=== PATIENT | male | born 1940 | race Caucasian/White ===

== ENCOUNTER → 2016-10-22 | Outpatient (CLI) | payer BC ==
[~2016-10-22] MED LIST: AMOX500C3 PO; ASCO500T16 PO; CHOL1CAP95 PO; CITA20TA9 PO; CYAN100020 SL; FERR1TAB13 PO; GABA-113 PO; GLIP-199 PO; HYDR-4715 PO; LVNIS40 SQ; METO25TA3 PO; OMEP10CA2 PO; SIMV40TA2 PO; SULF800T23 PO; SUMA50TA15 PO; TIZA4CAP PO; TPRSR/25 PO
[2016-10-22 15:46] LABS: BASO % 0.5 %; BASO ABS # 0.05 K/uL (0-0.2); COMPLETE YES; EOS % 4.8 %; HEMATOCRIT 41.3 % (42-52); IG% 0.1 %; LYMPH ABS # 1.79 K/uL (1.2-3.4); MEAN CELL VOLUME 86.9 fL (80-100); MEAN CORPUSCULAR HEMOGLOBIN 27.8 pg (25-34); MEAN PLATELET VOLUME 11.8 fL (7.4-10.4); NEUT % 66.6 %; PLATELET COUNT 224 K/uL (130-400); RED BLOOD COUNT 4.75 M/uL (4.7-6.1); WHITE BLOOD COUNT 9.42 K/uL (4.8-10.8)
[2016-10-22 16:12] LABS: ALT/SGPT 20 U/L (12-78); AST/SGOT 7 U/L (15-37); BLOOD UREA NITROGEN 18 mg/dl (7-18); BUN/CREATININE RATIO 14.9 (10-20); CALCIUM 8.7 mg/dl (8.5-10.1); CARBON DIOXIDE 30 mmol/L (21-32); CHLORIDE 104 mmol/L (98-107); GLUCOSE 317 mg/dl (70-99); POTASSIUM 4.1 mmol/L (3.5-5.1); SODIUM 139 mmol/L (136-145)
[2016-10-22 16:14] LABS: ALB/GLOB RATIO 0.7 (0.9-2); CHOLESTEROL 189 mg/dl (0-200); TRIGLYCERIDES 174 mg/dl (0-150); VERY LOW DENSITY LIPOPROT CALC 35 mg/dl
[2016-10-22 16:21] LABS: ALKALINE PHOSPHATASE 101 U/L (45-117); BETA-HYDROXYBUTYRATE 0.98 mg/dL (0.2-2.81); CHOLESTEROL/HDL RATIO 5.7; HDL CHOLESTEROL 33 mg/dl; LDL CHOLESTEROL CALCULATED 121 mg/dl
[2016-10-23 06:18] LABS: ESTIMATED AVERAGE GLUCOSE 180 mg/dl; HA1C FLAG Normal (Normal)
== END | disposition home or self-care (01) ==
LOC: C.LAB1850 14:37
PROVIDERS: ATTEND Internal Medicine
DX: E11.8 Type 2 diabetes mellitus with unspecified complications (principal); D64.9 Anemia, unspecified; E53.8 Deficiency of other specified B group vitamins; N18.3 Chronic kidney disease, stage 3 (moderate)

== ENCOUNTER → 2016-12-02 | Outpatient (CLI) | payer BC ==
--- NOTE | 2016-12-02 14:34 | DIAGNOSTIC IMAGING REPORT ---
CERVICAL SPINE 2 OR 3 VIEWS CLINICAL HISTORY: Neck stiffness. No recent trauma. COMPARISON STUDY: MRI of the cervical spine September 06, 2008. FINDINGS: C6 is partially obscured. C7 is obscured on this exam due to overlying soft tissues. Visualized vertebral body heights are maintained. There is no fracture or suspicious lesion on this exam. Moderate disc space narrowing at C3-C4 and C5-C6 is noted with moderate multilevel facet facet arthrosis. IMPRESSION: 1. Partial obscuration of C6 and C7 due to overlying soft tissues. 2. Moderate multilevel degenerative disc disease and facet arthrosis of the cervical spine. Electronically signed by: Finesse Martinez M.D. 12/02/2016 2:33 PM Dictated Date/Time: 12/02/2016 2:32 PM
== END | disposition home or self-care (01) ==
LOC: C.RAD1850 13:40
PROVIDERS: ATTEND Internal Medicine
DX: M43.6 Torticollis (principal); M50.30 Other cervical disc degeneration, unspecified cervical region

== ENCOUNTER 2017-01-04 22:44 | Inpatient (IN) | payer BC, OTHER ==
[~2017-01-04] VITALS: Ht 172.7 cm; Wt 84.3 kg
[~2017-01-04 22:44] MED LIST changes: -AMOX500C3 PO; -ASCO500T16 PO; -CHOL1CAP95 PO; -CYAN100020 SL; -FERR1TAB13 PO; -HYDR-4715 PO; -LVNIS40 SQ; -SULF800T23 PO; -TPRSR/25 PO
[2017-01-04] MEDS ORDERED: FENTANYL CITRATE INJ 50 MCG/1 ML 2 ML VIAL IV STA (22:55)
[2017-01-04] MEDS ORDERED: SODIUM CHLORIDE 0.9% 500ML 500 ML IV STA (22:55)
--- NOTE | 2017-01-04 22:59 | EMERGENCY ROOM VISIT NOTE ---
History Report prepared by Juan Pablo: Bharath Curiel Under the Supervision of: Dr. Rasheed Mclaughlin M.D. First contact with patient: 22:47 Chief Complaint: HIP PAIN Stated Complaint: FALL/HIP PAIN History of Present Illness The patient is a 76 year old male who presents to the Emergency Room with complaints of right hip pain that began 8 hours ago. He rates his pain a 3/10 in severity. At this time, the patient was moving from his wheelchair to his lazy boy, and he fell onto the floor. He uses a wheelchair because of his past medical history of MS. He told his family that he was in pain a couple of hours ago, which is why he presents now. He denies any history of stroke. He did not take anything before arrival for the pain. He did not lose consciousness. His pain worsens with movement. Source of History: patient Onset: 8 hours ago Position: other (Right hip) Symptom Intensity: 3/10 Quality: sharp Timing: constant Modifying Factors (Worsening): movement Associated Symptoms: No LOC Review of Systems See HPI for pertinent positives & negatives. A total of 10 systems reviewed and were otherwise negative. Past Medical & Surgical Medical Problems: (1) Benign hypertension (2) Diabetic foot ulcer (3) Hernia repair (4) Hyperlipidemia (5) Left Foot Ulcer (6) Multiple sclerosis (7) Osteomyelitis of left foot (8) Poliomyelitis (9) Right femoral shaft fracture (10) Tonsillectomy Family History Patient reports no known family medical history. Social History Smoking Status: Former Smoker Smokeless Tobacco Use: No Drug Use: none Marital Status: Housing Status: lives with significant other Occupation Status: retired, disabled Current/Historical Medications Scheduled Ascorbic Acid (Ascorbic Acid), Unknown Dose PO DAILY Cholecalciferol (Vitamin D3), 50,000 UNITS PO WEEKLY Citalopram Hydrobromide (Celexa), 20 MG PO DAILY Cyanocobalamin (Vitamin B12), 2,500 MCG SL DAILY Ferrous Sulfate (Kp Ferrous Sulfate), 325 MG PO DAILY Gabapentin (Neurontin), 300 MG PO HS Glipizide (Glipizide Er), 10 MG PO BID Hydralazine Hcl (Apresoline), 10 MG PO AMPM Metoprolol Succinate (Toprol Xl), 25 MG PO DAILY Metoprolol Succinate (Metoprolol Succinate ER), 25 MG PO QAM Omeprazole (Prilosec), 10 MG PO QAM Simvastatin (Zocor), 40 MG PO HS Sumatriptan Succinate (Imitrex), 50 MG PO PRN Allergies Coded Allergies: Ciprofloxacin (Verified Allergy, Mild, HIVES, 06/05/16) Physical Exam Vital Signs Date Time Temp Pulse Resp B/P (MAP) Pulse Ox O2 Delivery O2 Flow Rate FiO2 01/05/17 00:07 109 24 132/90 93 Room Air 01/04/17 22:49 36.9 116 26 130/106 93 Room Air Physical Exam GENERAL: Patient is well appearing and in moderate acute distress. HEENT: No acute trauma, normocephalic atraumatic, mucous membranes moist, no nasal congestion, no scleral icterus. NECK: No stridor, no adenopathy, no meningismus, trachea is midline. LUNGS: No dyspnea. Clear to auscultation and equal bilaterally. No wheeze, no rhonchi. HEART: Regular rate and rhythm. No murmurs, rubs, gallops appreciated. ABDOMEN: Soft, nontender, bowel sounds positive, no masses appreciated, no peritonitis. Folly in place. BACK: No midline tenderness, no CVA tenderness EXTREMITIES: Wasting to the right upper extremity. Amputation of the left lower leg. Contractures of the right leg with pain at the hip and mid-thigh on ROM. NEUROLOGIC: Alert and oriented, no acute motor or sensory deficits, no focal weakness, cranial nerves grossly intact. SKIN: No rash, no jaundice, no diaphoresis. Medical Decision & Procedures ER Provider Diagnostic Interpretation: Radiology results and stated below per my review and radiologist interpretation: SINGLE VIEW PELVIS; 2 VIEWS RIGHT FEMUR CLINICAL HISTORY: Fall with right leg pain. FINDINGS: An AP view of the pelvis with AP and crosstable lateral views of the right femur are obtained. Correlation is made with pelvic CT dated 02/17/2013. The skeletal structures are osteopenic. There is a distracted spiral fracture through the subtrochanteric right femur. There is apex dorsal and medial angulation, with at least 6 cm of overriding of the largest fragments. Overlying soft tissue edema is noted. The distal femur is intact. The pelvis and left hip are intact as imaged. Mild arthritic change is present in the hips and the visualized right knee. Lumbosacral spondylosis is observed. Numerous pelvic phleboliths are identified. There is a nonobstructed abdominal bowel gas pattern. Atherosclerotic calcification is seen in the right femoral artery. IMPRESSION: 1. There is a distracted, angulated, and overriding fracture through the subtrochanteric right femoral shaft with overlying soft tissue edema. 2. The remainder of the right femur is intact, as is the bony pelvis and the imaged left hip. 3. Osteopenia and degenerative change as above. Electronically signed by: Clark Rodriguez M.D. 01/04/2017 11:39 PM Dictated Date/Time: 01/04/2017 11:35 PM 1 VIEW CHEST XRAY: No infiltrate, no effusion, similar sized heart to previous which is large, bilateral lower atelectasis. Per hi Laboratory Results 01/04/17 23:00 Red Blood Count 4.72, Mean Corpuscular Volume 86.9, Mean Corpuscular Hemoglobin 28.2, Mean Corpuscular Hemoglobin Concent 32.4, Mean Platelet Volume 11.8, Neutrophils (%) (Auto) 78.9, Lymphocytes (%) (Auto) 9.5, Monocytes (%) (Auto) 9.6, Eosinophils (%) (Auto) 1.5, Basophils (%) (Auto) 0.2, Neutrophils # (Auto) 11.03, Lymphocytes # (Auto) 1.33, Monocytes # (Auto) 1.34, Eosinophils # (Auto) 0.21, Basophils # (Auto) 0.03 01/04/17 23:00 Test 01/04/17 23:00 White Blood Count 13.98 K/uL (4.8-10.8) Red Blood Count 4.72 M/uL (4.7-6.1) Hemoglobin 13.3 g/dL (14.0-18.0) Hematocrit 41.0 % (42-52) Mean Corpuscular Volume 86.9 fL (80-100) Mean Corpuscular Hemoglobin 28.2 pg (25-34) Mean Corpuscular Hemoglobin Concent 32.4 g/dl (32-36) Platelet Count 239 K/uL (130-400) Mean Platelet Volume 11.8 fL (7.4-10.4) Neutrophils (%) (Auto) 78.9 % Lymphocytes (%) (Auto) 9.5 % Monocytes (%) (Auto) 9.6 % Eosinophils (%) (Auto) 1.5 % Basophils (%) (Auto) 0.2 % Neutrophils # (Auto) 11.03 K/uL (1.4-6.5) Lymphocytes # (Auto) 1.33 K/uL (1.2-3.4) Monocytes # (Auto) 1.34 K/uL (0.11-0.59) Eosinophils # (Auto) 0.21 K/uL (0-0.5) Basophils # (Auto) 0.03 K/uL (0-0.2) RDW Standard Deviation 43.6 fL (36.4-46.3) RDW Coefficient of Variation 13.8 % (11.5-14.5) Immature Granulocyte % (Auto) 0.3 % Immature Granulocyte # (Auto) 0.04 K/uL (0.00-0.02) Red Blood Cell Morphology Unremarkable Prothrombin Time 10.7 SECONDS (9.0-12.0) Prothromb Time International Ratio 1.0 (0.9-1.1) Activated Partial Thromboplast Time 27.1 SECONDS (21.0-31.0) Partial Thromboplastin Ratio 1.0 Anion Gap 6.0 mmol/L (3-11) Est Creatinine Clear Calc Drug Dose 46.0 ml/min Estimated GFR () 55.4 Estimated GFR (Non- 47.8 BUN/Creatinine Ratio 18.1 (10-20) Calcium Level 8.9 mg/dl (8.5-10.1) Laboratory results as reviewed by me. Medications Administered Medications (Trade) Dose Ordered Sig/Sinai Route Start Time Stop Time Status Last Admin Dose Admin Fentanyl Citrate (Fentanyl Inj) 50 mcg NOW STAT IV 01/04/17 22:55 01/04/17 22:57 DC 01/04/17 23:06 50 MCG Sodium Chloride 500 ml @ 999 mls/hr Q31M STAT IV 01/04/17 22:55 01/04/17 23:25 DC 01/04/17 23:07 999 MLS/HR ECG Indication: other (Fall) Rate (beats per minute): 111 Rhythm: sinus tachycardia Findings: no acute ischemic change, no ectopy ED Course 2247: The patient was evaluated in room C3. A complete history and physical exam was performed. 2255: Ordered Sodium Chloride 500 ml @ 99 mls/hr IV, Fentanyl Citrate 50 mcg IV 2345: I spoke with Dr. Gray of Orthopedics at this time. Please see the consultation note. 2350: Upon reevaluation, the patient is resting. Discussed results and treatment plan with the patient. He verbalized understanding and agreement with the treatment plan. The patient will be evaluated by Dr. Ynes SANTAMARIA, for further management. Medical Decision Medication Reconciliation: I attest that I have personally reviewed the patient 's current medication list. Blood Pressure Screening: Patient was found to have a slightly elevated blood pressure due to circumstances. I do not believe that the patient requires hypertension monitoring. 76 yr old male arrives for evaluation of right thigh s/p fall several hours ago. Uncomfortable and exam consistent with injury to femur which confirmed by imaging. Ortho in to see and will admit to hospitalist service given age and medical comorbidities. HR improved with pain control and Hgb not significantly dropped. No other injuries per patient and no head/neck injury/pain. Pre-op orders placed and patient brought in to medical service. Consults Time Called: [phone] Consulting Physician: Dr. Gray - Orthopedics Returned Call: [phone] We discussed the patient's case. He will be seen in the OR tomorrow. Additional Consults: Time Called: 234 Consulted Physician: Dr. Ynes SANTAMARIA Returned Call: [phone] Additional Comments: He will be evaluating the patient until he can be seen in the OR tomorrow. Impression Primary Impression: Subtrochanteric fracture of right femur Scribe Attestation The scribe's documentation has been prepared under my direction and personally reviewed by me in its entirety. I confirm that the note above accurately reflects all work, treatment, procedures, and medical decision making performed by me. Departure Information Dispostion Being Evaluated By Hospitalist Referrals RV. Coyne MD (PCP) Patient Instructions My [facility]
--- NOTE | 2017-01-04 23:40 | DIAGNOSTIC IMAGING REPORT ---
SINGLE VIEW PELVIS; 2 VIEWS RIGHT FEMUR CLINICAL HISTORY: Fall with right leg pain. FINDINGS: An AP view of the pelvis with AP and crosstable lateral views of the right femur are obtained. Correlation is made with pelvic CT dated 02/17/2013. The skeletal structures are osteopenic. There is a distracted spiral fracture through the subtrochanteric right femur. There is apex dorsal and medial angulation, with at least 6 cm of overriding of the largest fragments. Overlying soft tissue edema is noted. The distal femur is intact. The pelvis and left hip are intact as imaged. Mild arthritic change is present in the hips and the visualized right knee. Lumbosacral spondylosis is observed. Numerous pelvic phleboliths are identified. There is a nonobstructed abdominal bowel gas pattern. Atherosclerotic calcification is seen in the right femoral artery. IMPRESSION: 1. There is a distracted, angulated, and overriding fracture through the subtrochanteric right femoral shaft with overlying soft tissue edema. 2. The remainder of the right femur is intact, as is the bony pelvis and the imaged left hip. 3. Osteopenia and degenerative change as above. Electronically signed by: Clark Rodriguez M.D. 01/04/2017 11:39 PM Dictated Date/Time: 01/04/2017 11:35 PM
[2017-01-04 23:41] LABS: MEAN CELL VOLUME 86.9 fL (80-100); MEAN CORPUSCULAR HEMOGLOBIN 28.2 pg (25-34); MEAN CORPUSCULAR HGB CONC 32.4 g/dl (32-36); MEAN PLATELET VOLUME 11.8 fL (7.4-10.4); PLATELET COUNT 239 K/uL (130-400); RED BLOOD COUNT 4.72 M/uL (4.7-6.1); WHITE BLOOD COUNT 13.98 K/uL (4.8-10.8)
[2017-01-05] VITALS (10 sets, daily range): BP systolic 117–163; BP diastolic 68–91; PULSE 82–106; TEMP 36.4–36.8; O2SAT 90–98; Ht 172.7 cm; Wt 84.3 kg
[2017-01-05 00:01] LABS: BUN/CREATININE RATIO 18.1 (10-20); CALCIUM 8.9 mg/dl (8.5-10.1); CREATININE 1.4 mg/dl (0.60-1.40); POTASSIUM 4.3 mmol/L (3.5-5.1)
[2017-01-05 00:04] LABS: PROTHROMBIN TIME (PATIENT) 10.7 SECONDS (9.0-12.0)
--- NOTE | 2017-01-05 00:13 | History and Physical ---
History & Physical Date & Time of Service: Jan 05, 2017 at 00:06 Chief Complaint: Fall/Hip Pain Primary Care Physician: RV. Coyne MD History of Present Illness Source: patient, family Mr Leblanc is a 76 yo M with multiple sclerosis, mainly affecting both his legs and R arm, s/p L BKA, who presents after a fall earlier today causing a right hip fracture. He reports he was moving from his wheelchair to his Lazy Boy chair and fell. His pain is severe with movement, currently at rest and after pain medications it is bareable. He denies any previous history of stroke, KS, or heart failure. He is diabetic and takes Glipizide daily. He was reviewed by Dr Gray of [facility] and he is for surgery tomorrow AM. Past Medical/Surgical History Medical Problems: (1) Benign hypertension Status: Chronic (2) Hernia repair Status: Resolved (3) Hyperlipidemia Status: Chronic (4) Multiple sclerosis Status: Chronic (5) Poliomyelitis Status: Resolved (6) Tonsillectomy Status: Resolved PSHx: Hernia repair L below knee amputation Family History Patient reports no known family medical history. No pertinent Fhx Social History Smoking Status: Former Smoker Smokeless Tobacco Use: No Drug Use: none Marital Status: Housing status: lives with family Occupational Status: retired, disabled Immunizations History of Influenza Vaccine: N/A History of Tetanus Vaccine?: Unknown History of Pneumococcal: Yes History of Hepatitis B Vaccine: Yes Multi-Drug Resistant Organisms History of MDRO: Yes Type of MDRO: MRSA Allergies Coded Allergies: Ciprofloxacin (Verified Allergy, Mild, HIVES, 06/05/16) Home Medications Scheduled Ascorbic Acid (Ascorbic Acid), Unknown Dose PO DAILY Cholecalciferol (Vitamin D3), 50,000 UNITS PO WEEKLY Citalopram Hydrobromide (Celexa), 20 MG PO DAILY Cyanocobalamin (Vitamin B12), 2,500 MCG SL DAILY Ferrous Sulfate (Kp Ferrous Sulfate), 325 MG PO DAILY Gabapentin (Neurontin), 300 MG PO HS Glipizide (Glipizide Er), 10 MG PO BID Hydralazine Hcl (Apresoline), 10 MG PO AMPM Metoprolol Succinate (Toprol Xl), 25 MG PO DAILY Metoprolol Succinate (Metoprolol Succinate ER), 25 MG PO QAM Omeprazole (Prilosec), 10 MG PO QAM Simvastatin (Zocor), 40 MG PO HS Sumatriptan Succinate (Imitrex), 50 MG PO PRN Review of Systems See HPI for pertinent positives & negatives. A total of 10 systems reviewed and were otherwise negative. Physical Exam Vital Signs Date Time Temp Pulse Resp B/P (MAP) Pulse Ox O2 Delivery O2 Flow Rate FiO2 01/04/17 22:49 36.9 116 26 130/106 93 Room Air General Appearance: WD/WN, + mild distress Head: normocephalic, atraumatic Eyes: normal inspection ENT: hearing grossly normal Neck: supple, no JVD Respiratory/Chest: lungs clear, normal breath sounds, no respiratory distress Cardiovascular: regular rate, rhythm, no murmur, normal peripheral pulses Abdomen/GI: non tender, soft Genitourinary - Male: + pertinent finding (kaye in place) Extremities/Musculoskelatal: + pertinent finding (bilateral leg contractures, unable to extend, L s/p BKA) Neurologic/Psych: alert, normal mood/affect, oriented x 3 Skin: no rash Diagnostics Laboratory Results Results Past 24 Hours Test 01/04/17 23:00 Range/Units White Blood Count 13.98 4.8-10.8 K/uL Red Blood Count 4.72 4.7-6.1 M/uL Hemoglobin 13.3 14.0-18.0 g/dL Hematocrit 41.0 42-52 % Mean Corpuscular Volume 86.9 80-100 fL Mean Corpuscular Hemoglobin 28.2 25-34 pg Mean Corpuscular Hemoglobin Concent 32.4 32-36 g/dl Platelet Count 239 130-400 K/uL Mean Platelet Volume 11.8 7.4-10.4 fL RDW Standard Deviation 43.6 36.4-46.3 fL RDW Coefficient of Variation 13.8 11.5-14.5 % Prothrombin Time 10.7 9.0-12.0 SECONDS Prothromb Time International Ratio 1.0 0.9-1.1 Activated Partial Thromboplast Time 27.1 21.0-31.0 SECONDS Partial Thromboplastin Ratio 1.0 Sodium Level 139 136-145 mmol/L Potassium Level 4.3 3.5-5.1 mmol/L Chloride Level 105 98-107 mmol/L Carbon Dioxide Level 28 21-32 mmol/L Anion Gap 6.0 3-11 mmol/L Blood Urea Nitrogen 25 7-18 mg/dl Creatinine 1.40 0.60-1.40 mg/dl Est Creatinine Clear Calc Drug Dose 46.0 ml/min Estimated GFR () 55.4 Estimated GFR (Non- 47.8 BUN/Creatinine Ratio 18.1 10-20 Random Glucose 261 70-99 mg/dl Calcium Level 8.9 8.5-10.1 mg/dl Diagnostic Radiology CXR: IMPRESSION: No acute cardiopulmonary abnormality. XRAY FEMUR/PELVIS: IMPRESSION: 1. There is a distracted, angulated, and overriding fracture through the subtrochanteric right femoral shaft with overlying soft tissue edema. 2. The remainder of the right femur is intact, as is the bony pelvis and the imaged left hip. 3. Osteopenia and degenerative change as above. Impression Assessment and Plan 76 yo T2DM male with multiple sclerosis with new R hip subtrochanteric femur fracture, with intractable pain, for OR tomorrow. R subtrochanteric right femoral shaft fracture - NPO after midnight - IV fluids - For pain, dilaudid 1mg q3h PRN - His revised cardiac risk index is 0.9% of major cardiac event with this surgery (based of 1 point for needing insulin pre-operatively). I cannot gauge his exercise tolerance as he is wheelchair bound. His STOPBANG questions are positive as he has sleep apnea already, and wears CPAP at night. He is moderate risk for moderate surgery. I approve him for this surgery without further workup from cardiology. Type 2 DM - We will hold his Glipizide for now - Pre-op insulin, goal range 140-180 Multiple sclerosis - We will hold his gabapentin tonight and restart it tomorrow Hypertension - We will hold his Toprol XL Code status: Full Dispo: Med/Surg VTE: As he is getting surgery within the next 6-8 hours, we will not provide a dose of heparin now. He is however high risk for DVT, so recommend starting anticoagulation for DVT prophylaxis at the earliest time possible. Resident Physician Supervision Note: I was present with Dr. Chavez during the history and exam. I discussed the case with the resident and agree with the findings and plan as documented in the note. Any exceptions or clarifications are listed here: 76 y/o M Hx advanced MS Suffered a fall earlier in day leading to a subtrochanteric fracture - had significant pain on arrival to the ER - pt does not ambulate at baseline - will likely proceed to OR AM OE AAO x 3 S1,2 R CTAB NT, ND L BKA P: Pre-op risk assessed at 0.9% based on need for insulin treatment - no evidence of prior or present heart disease He is not currently taking any immune suppressants or MS-related meds Above discussed with pt, family and resident Documented By: Jose Quick Level of Care Med/Surg Resuscitation Status FULL RESUSCITATION Resident Tracking Resident Involvement: Resident Care Provided Care Provided: Adult Hospital Medicine
[2017-01-05] MEDS ORDERED: CHOL1CAP95 PO (00:15)
--- NOTE | 2017-01-05 00:15 | DIAGNOSTIC IMAGING REPORT ---
SINGLE VIEW CHEST CLINICAL HISTORY: Fall. Hip fracture. FINDINGS: An AP, portable, semierect chest radiograph is compared to study dated 12/01/2014. The examination is degraded by portable technique and patient rotation. The heart is top normal for projection and there is atherosclerotic calcification of the thoracic aorta. The pulmonary vasculature is noncongested. There is elevation of the right hemidiaphragm with bibasilar atelectasis. No airspace consolidation is seen typical for pneumonia and there is no large pleural effusion. No pneumothorax is seen. The skeletal structures are osteopenic. There are healed right-sided rib fractures. Degenerative change and scoliosis are noted in the thoracic spine. IMPRESSION: No acute cardiopulmonary abnormality. Electronically signed by: Clark Rodriguez M.D. 01/05/2017 12:13 AM Dictated Date/Time: 01/05/2017 12:12 AM
[2017-01-05 00:20] LABS: BASO % 0.2 %; BASO ABS # 0.03 K/uL (0-0.2); COMPLETE YES; EOS % 1.5 %; IG% 0.3 %; LYMPH % 9.5 %; LYMPH ABS # 1.33 K/uL (1.2-3.4); MONO % 9.6 %; NEUT % 78.9 %
[2017-01-05] MEDS ORDERED: HYDR-4715 PO (00:22)
[2017-01-05] MEDS ORDERED: TPRSR/25 PO (00:24)
[2017-01-05] MEDS ORDERED: FERR1TAB13 PO (00:26)
[2017-01-05] MEDS ORDERED: ASCO500T16 PO (00:27)
[2017-01-05] MEDS ORDERED: SIMV40TA2 PO (00:30)
[2017-01-05] MEDS ORDERED: CYAN100020 SL (00:32)
[2017-01-05] MEDS ORDERED: GLUCOSE 10 TABS/TUBE PO PRN (01:00)
[2017-01-05] MEDS ORDERED: GLUCOSE 40% GEL 15 GM TUBE PO PRN (01:00)
[2017-01-05] MEDS ORDERED: GLUCAGON FOR INJ 1 MG VIAL SQ PRN (01:00)
[2017-01-05] MEDS ORDERED: DEXTROSE 50% 50 ML SYR IV PRN (01:00)
[2017-01-05] MEDS: LACTATED RINGER'S 1000ML 1,000 ML IV SCH ×3 (01:39→19:02)
[2017-01-05] MEDS ORDERED: INSULIN ASPART 100 UNITS/ML 3 ML PEN SC ONE (02:00)
[2017-01-05] MEDS ORDERED: INSULIN ASPART 100 UNITS/ML 3 ML PEN SC SCH ×2 (07:00→12:00)
[2017-01-05] MEDS ORDERED: NURSING DECISION MEDICATION ORDER SCH (07:30)
[2017-01-05] MEDS: HYDROmorphone INJ 1 MG/ML SYR IV PRN ×2 (09:34→22:01)
[2017-01-05] MEDS ORDERED: METOPROLOL SUCC 25MG EXT REL TAB PO ONE (10:03)
[2017-01-05] MEDS ORDERED: PANTOprazole SOD 40 MG TAB PO ONE (10:03)
--- NOTE | 2017-01-05 10:03 | Hospitalist Progress Note ---
Hospitalist Progress Note Date of Service Jan 05, 2017. (Reji Baum,P.A.) Subjective Pt evaluation today including: conversation w/ patient, conversation w/ family , physical exam, chart review, lab review, review of studies, review of inpatient medication list Voiding: kaye catheter in place Mr. Leblanc is a 76-year-old white male with a history of Multiple Sclerosis, Type 2 DM, Hypertension, Dyslipidemia, and he primarily is wheelchair-bound. Patient was transferring from his wheelchair to his Lazy Boy yesterday, and fell sustaining a fracture to his right subtrochanteric femur. Patient has not received any pain medications yet, and has severe pain of his affected leg. Patient will be taken to the OR today for definitive surgical treatment. Patient offers no other complaints. He denies any chest pain, heaviness, tightness, pressure, or discomfort. He denies any shortness of breath, orthopnea, or PND. No palpitations. No nausea or vomiting. No melena or hematochezia. He denies any recent flares of his multiple sclerosis. (Reji Baum.,P.A.) Medications Current Inpatient Medications Medications (Trade) Dose Ordered Sig/Sinai Route Start Time Stop Time Status Last Admin Dose Admin Gabapentin (Neurontin Cap) 300 mg HS PO 01/05/17 21:00 02/04/17 20:59 Hydromorphone HCl (Dilaudid Inj) 1 mg Q3HWA PRN IV 01/05/17 00:30 01/19/17 00:29 01/05/17 09:34 1 MG Lactated Ringer's 1,000 ml @ 100 mls/hr Q10H IV 01/05/17 00:30 01/06/17 06:29 01/05/17 01:39 100 MLS/HR Glucose (Glucose 40% Gel) 15-30 GRAMS 15 GRAMS... UD PRN PO 01/05/17 01:00 02/04/17 00:59 Glucose (Glucose Chew Tab) 4-8 Tablets 4 Tabl... UD PRN PO 01/05/17 01:00 02/04/17 00:59 Dextrose (Dextrose 50% 50ML Syringe) 25-50ML OF 50% DW IV FOR... UD PRN IV 01/05/17 01:00 02/04/17 00:59 Glucagon (Glucagon Inj) 1 mg UD PRN SQ 01/05/17 01:00 02/04/17 00:59 Insulin Aspart (novoLOG ASPART) SLIDING SCALE G... Q6 SC 01/05/17 12:00 02/04/17 11:59 (Reji Baum,P.A.) Objective Vital Signs Date Time Temp Pulse Resp B/P (MAP) Pulse Ox O2 Delivery O2 Flow Rate FiO2 01/05/17 07:19 36.8 97 16 144/83 (103) 92 Room Air 01/05/17 01:15 36.8 106 16 134/89 95 Room Air 01/05/17 01:15 Room Air 01/05/17 00:56 109 24 132/90 93 01/05/17 00:07 109 24 132/90 93 Room Air 01/04/17 22:49 36.9 116 26 130/106 93 Room Air (Reji Baum.,P.A.) Physical Exam Notes: General: Patient in moderate distress secondary to right hip pain. HEENT: Head is atraumatic, normocephalic. EOMs intact. Sclerae anicteric. Face is symmetric. No perioral cyanosis. Neck: No JVD. Carotid upstrokes +2 bilaterally. Chest and Lungs: Clear to auscultation throughout all lung dodd, no wheezes or rales. CVS: S1 and S2 are regular without obvious murmur, gallop, rub. PMI is nondisplaced. No lifts, heaves, or thrills. Abdominal Exam: Bowel sounds present. No masses, organomegaly, or tenderness. Extremities: Right leg is shorter than left. Neurologic Exam: Patient alert and interactive. Answers questions appropriately. Speech clear. (Reji Baum.,P.A.) Laboratory Results Last 24 Hours Test 01/04/17 23:00 01/05/17 02:06 01/05/17 08:26 White Blood Count 13.98 K/uL Red Blood Count 4.72 M/uL Hemoglobin 13.3 g/dL Hematocrit 41.0 % Mean Corpuscular Volume 86.9 fL Mean Corpuscular Hemoglobin 28.2 pg Mean Corpuscular Hemoglobin Concent 32.4 g/dl Platelet Count 239 K/uL Mean Platelet Volume 11.8 fL Neutrophils (%) (Auto) 78.9 % Lymphocytes (%) (Auto) 9.5 % Monocytes (%) (Auto) 9.6 % Eosinophils (%) (Auto) 1.5 % Basophils (%) (Auto) 0.2 % Neutrophils # (Auto) 11.03 K/uL Lymphocytes # (Auto) 1.33 K/uL Monocytes # (Auto) 1.34 K/uL Eosinophils # (Auto) 0.21 K/uL Basophils # (Auto) 0.03 K/uL RDW Standard Deviation 43.6 fL RDW Coefficient of Variation 13.8 % Immature Granulocyte % (Auto) 0.3 % Immature Granulocyte # (Auto) 0.04 K/uL Red Blood Cell Morphology Unremarkable Prothrombin Time 10.7 SECONDS Prothromb Time International Ratio 1.0 Activated Partial Thromboplast Time 27.1 SECONDS Partial Thromboplastin Ratio 1.0 Sodium Level 139 mmol/L Potassium Level 4.3 mmol/L Chloride Level 105 mmol/L Carbon Dioxide Level 28 mmol/L Anion Gap 6.0 mmol/L Blood Urea Nitrogen 25 mg/dl Creatinine 1.40 mg/dl Est Creatinine Clear Calc Drug Dose 46.0 ml/min Estimated GFR () 55.4 Estimated GFR (Non- 47.8 BUN/Creatinine Ratio 18.1 Random Glucose 261 mg/dl Calcium Level 8.9 mg/dl Bedside Glucose 234 mg/dl 153 mg/dl (Reji Baum.,P.A.) Diagnostic Results (Reji Baum.,P.A.) Assessment and Plan 1. Subtrochanteric Right Femoral Fracture: -- Going to OR today for surgical intervention. -- Just received 1st dose of IV Dilaudid 1 mg - significant reduction pain. -- Continue IV Dilaudid 1mg every 3 hours. -- DVT prophylactic measures. 2. Multiple Sclerosis. 3. Hypertension: -- Resume Toprol XL 25 mg q day including today before surgery. -- Hydralazine 10 mg po bid. 4. Dyslipidemia: -- Resume Zocor 40 mg each evening. 5. Type 2 DM: -- Novolog SSI. -- BSG q AC and q HS. -- Glipizide on hold. 6: GI Prophylaxis: -- Resume Prilosec. 7. DVT prophylaxis: -- Compression stockings. -- SCD's post-op. -- Lovenox post-op if okay with surgeon. (Reji Baum.,P.A.) Attending Attestation: Pt's care plan d/w LISSY Baum. I agree with the butcher components of his progress note documentation. Stiven Vickers MD (Stiven Vickers MD)
[2017-01-05] MEDS ORDERED: BUPIVACAINE/EPINEPHRINE 0.5% MPF 1:200,000 10 ML VIAL ONE (13:15)
[2017-01-05] MEDS ORDERED: FENTANYL CITRATE INJ 50 MCG/1 ML 2 ML VIAL ONE (13:20)
[2017-01-05] MEDS ORDERED: MIDAZOLAM HCL 1 MG/ML 2ML VIAL ONE (13:20)
--- NOTE | 2017-01-05 13:25 | History & Physical Bridge Note ---
H&P Re-Evaluation Bridge Note: I have examined the patient, reviewed the History & Physical and in the interval since the performance of the History & Physical I have noted the following changes of clinical significance: No changes noted
[2017-01-05] MEDS ORDERED: CEFAZOLIN 2000 MG/60 ML D5W IV SCH (13:30)
--- NOTE | 2017-01-05 13:32 | Orthopedic Consultation ---
Orthopedic Consultation Date of Consultation: Jan 05, 2017. Attending Physician: Jose Quick M.D. Reason for Consultation: Right subtrochanteric hip fracture History of Present Illness Mr Leblanc is a 76 yo M with multiple sclerosis, mainly affecting both his legs and R arm, s/p L BKA, who presents after a fall earlier today causing a right hip fracture. He reports he was moving from his wheelchair to his Lazy Boy chair and fell. His pain is severe with movement, currently at rest and after pain medications it is bareable. He denies any previous history of stroke, NH, or heart failure. He is diabetic and takes Glipizide daily. Past Medical/Surgical History Medical Problems: (1) Subtrochanteric fracture of right femur Status: Acute Family History Patient reports no known family medical history. Social History Smoking Status: Former Smoker Smokeless Tobacco Use: No Drug Use: none Marital Status: Housing Status: lives with significant other Occupation Status: retired, disabled Allergies Coded Allergies: Ciprofloxacin (Verified Allergy, Mild, HIVES, 06/05/16) Home Medications Scheduled Ascorbic Acid (Ascorbic Acid), Unknown Dose PO DAILY Cholecalciferol (Vitamin D3), 50,000 UNITS PO WEEKLY Citalopram Hydrobromide (Celexa), 20 MG PO DAILY Cyanocobalamin (Vitamin B12), 2,500 MCG SL DAILY Ferrous Sulfate (Kp Ferrous Sulfate), 325 MG PO DAILY Gabapentin (Neurontin), 300 MG PO HS Glipizide (Glipizide Er), 10 MG PO BID Hydralazine Hcl (Apresoline), 10 MG PO AMPM Metoprolol Succinate (Toprol Xl), 25 MG PO DAILY Metoprolol Succinate (Metoprolol Succinate ER), 25 MG PO QAM Omeprazole (Prilosec), 10 MG PO QAM Simvastatin (Zocor), 40 MG PO HS Sumatriptan Succinate (Imitrex), 50 MG PO PRN Current Inpatient Medications Current Inpatient Medications Medications (Trade) Dose Ordered Sig/Sinai Route Start Time Stop Time Status Last Admin Dose Admin Gabapentin (Neurontin Cap) 300 mg HS PO 01/05/17 21:00 02/04/17 20:59 Hydromorphone HCl (Dilaudid Inj) 1 mg Q3HWA PRN IV 01/05/17 00:30 01/19/17 00:29 01/05/17 09:34 1 MG Lactated Ringer's 1,000 ml @ 100 mls/hr Q10H IV 01/05/17 00:30 01/06/17 06:29 01/05/17 09:44 100 MLS/HR Glucose (Glucose 40% Gel) 15-30 GRAMS 15 GRAMS... UD PRN PO 01/05/17 01:00 02/04/17 00:59 Glucose (Glucose Chew Tab) 4-8 Tablets 4 Tabl... UD PRN PO 01/05/17 01:00 02/04/17 00:59 Dextrose (Dextrose 50% 50ML Syringe) 25-50ML OF 50% DW IV FOR... UD PRN IV 01/05/17 01:00 02/04/17 00:59 Glucagon (Glucagon Inj) 1 mg UD PRN SQ 01/05/17 01:00 02/04/17 00:59 Insulin Aspart (novoLOG ASPART) SLIDING SCALE G... Q6 SC 01/05/17 12:00 02/04/17 11:59 Metoprolol Succinate (Toprol Xl Tab) 25 mg QAM PO 01/06/17 09:00 02/05/17 08:59 Hydralazine HCl (Apresoline Tab) 10 mg BID PO 01/05/17 21:00 02/04/17 20:59 Pantoprazole Sodium (Protonix Tab) 40 mg QAM PO 01/06/17 09:00 02/05/17 08:59 Citalopram Hydrobromide (celeXA TAB) 20 mg QAM PO 01/06/17 09:00 02/05/17 08:59 Physical Exam Date Time Temp Pulse Resp B/P (MAP) Pulse Ox O2 Delivery O2 Flow Rate FiO2 01/05/17 09:15 Room Air 01/05/17 07:19 36.8 97 16 144/83 (103) 92 Room Air 01/05/17 01:15 36.8 106 16 134/89 95 Room Air 01/05/17 01:15 Room Air 01/05/17 00:56 109 24 132/90 93 01/05/17 00:07 109 24 132/90 93 Room Air 01/04/17 22:49 36.9 116 26 130/106 93 Room Air Laboratory Results Last 24 Hours Test 01/04/17 23:00 01/05/17 02:06 01/05/17 08:26 White Blood Count 13.98 K/uL Red Blood Count 4.72 M/uL Hemoglobin 13.3 g/dL Hematocrit 41.0 % Mean Corpuscular Volume 86.9 fL Mean Corpuscular Hemoglobin 28.2 pg Mean Corpuscular Hemoglobin Concent 32.4 g/dl Platelet Count 239 K/uL Mean Platelet Volume 11.8 fL Neutrophils (%) (Auto) 78.9 % Lymphocytes (%) (Auto) 9.5 % Monocytes (%) (Auto) 9.6 % Eosinophils (%) (Auto) 1.5 % Basophils (%) (Auto) 0.2 % Neutrophils # (Auto) 11.03 K/uL Lymphocytes # (Auto) 1.33 K/uL Monocytes # (Auto) 1.34 K/uL Eosinophils # (Auto) 0.21 K/uL Basophils # (Auto) 0.03 K/uL RDW Standard Deviation 43.6 fL RDW Coefficient of Variation 13.8 % Immature Granulocyte % (Auto) 0.3 % Immature Granulocyte # (Auto) 0.04 K/uL Red Blood Cell Morphology Unremarkable Prothrombin Time 10.7 SECONDS Prothromb Time International Ratio 1.0 Activated Partial Thromboplast Time 27.1 SECONDS Partial Thromboplastin Ratio 1.0 Sodium Level 139 mmol/L Potassium Level 4.3 mmol/L Chloride Level 105 mmol/L Carbon Dioxide Level 28 mmol/L Anion Gap 6.0 mmol/L Blood Urea Nitrogen 25 mg/dl Creatinine 1.40 mg/dl Est Creatinine Clear Calc Drug Dose 46.0 ml/min Estimated GFR () 55.4 Estimated GFR (Non- 47.8 BUN/Creatinine Ratio 18.1 Random Glucose 261 mg/dl Calcium Level 8.9 mg/dl Bedside Glucose 234 mg/dl 153 mg/dl Assessment & Plan Right subtrochanteric hip fracture Plan IM nail right femur for pain control once medically cleared
[2017-01-05] MEDS ORDERED: PROPOFOL IV EMULSION 10 MG/ML 20 ML VIAL IV ONE (14:25)
[2017-01-05] MEDS ORDERED: LIDOCAINE HCL 2% 2 ML VIAL (20MG/ML) ONE (14:25)
[2017-01-05] MEDS ORDERED: ONDANSETRON INJ 2 MG/ML 2 ML VIAL ONE (14:25)
[2017-01-05] MEDS ORDERED: NEOSTIGMINE METHYLSULFATE 5 MG/5 ML SYR ONE (14:26)
[2017-01-05] MEDS ORDERED: GLYCOPYRROLATE INJ 0.2 MG/ML VIAL ONE (14:26)
[2017-01-05] MEDS ORDERED: ROCURONIUM BROMIDE 10 MG/ML 5 ML VIAL ONE (14:26)
[2017-01-05] MEDS ORDERED: LABETALOL HCL IV 5 MG/ML 20ML IV PRN (14:30)
[2017-01-05] MEDS ORDERED: ATROPINE SULFATE 0.1 MG/ML 5ML SYR IV PRN (14:30)
[2017-01-05] MEDS ORDERED: ONDANSETRON INJ 2 MG/ML 2 ML VIAL IV PRN (14:30)
--- NOTE | 2017-01-05 15:24 | [facility] Post Operative Brief Note ---
Immediate Operative Summary Operative Date Jan 05, 2017. Pre-Operative Diagnosis Distracted, angulated, and overriding fracture through the subtrochanteric right femoral shaft with overlying soft tissue edema Post-Operative Diagnosis Same as preoperative diagnosis Procedure(s) Performed Intramedullary Aidan Right Femur Surgeon Dr. Jt Gray Surgical Forceps Fabricator Surgeon(s) Maxwell Magallon PA-C Estimated Blood Loss 300 mL Findings as above Specimens No pathology specimens per surgeon Complication(s) None Disposition Recovery Room / PACU
[2017-01-05] MEDS ORDERED: LACTATED RINGER'S 1000ML 1,000 ML IV SCH (15:25)
--- NOTE | 2017-01-05 15:35 | DIAGNOSTIC IMAGING REPORT ---
INTRAOPERATIVE RADIOGRAPHS CLINICAL HISTORY: Open reduction and internal fixation of the right femur. Fluoroscopy time: 2 minutes 30 seconds. FINDINGS: 5 spot fluoroscopic views of the right femur are correlated with femoral radiographs dated 01/04/2017. Intertrochanteric and intramedullary nails have been placed in the right femur transfixing a spiral fracture of the proximal diaphysis. There has been roman catholic of near-anatomic alignment. A single cortical lag screw transfixes the distal aspect of the nail. IMPRESSION: Intraoperative images from open reduction and internal fixation of the right femur as above. Electronically signed by: Clark Rodriguez M.D. 01/05/2017 3:34 PM Dictated Date/Time: 01/05/2017 3:33 PM
--- NOTE | 2017-01-05 15:35 | DIAGNOSTIC IMAGING REPORT ---
INTRAOPERATIVE RADIOGRAPHS CLINICAL HISTORY: Open reduction and internal fixation of the right femur. Fluoroscopy time: 2 minutes 30 seconds. FINDINGS: 5 spot fluoroscopic views of the right femur are correlated with femoral radiographs dated 01/04/2017. Intertrochanteric and intramedullary nails have been placed in the right femur transfixing a spiral fracture of the proximal diaphysis. There has been nondenominational of near-anatomic alignment. A single cortical lag screw transfixes the distal aspect of the nail. IMPRESSION: Intraoperative images from open reduction and internal fixation of the right femur as above. Electronically signed by: Clark Rodriguez M.D. 01/05/2017 3:34 PM Dictated Date/Time: 01/05/2017 3:33 PM
[2017-01-05] MEDS ORDERED: HYDROmorphone INJ 2 MG/ML SYR/VIAL ONE (15:50)
[2017-01-05] MEDS ORDERED: LABETALOL HCL IV 5 MG/ML 20ML IV ONE (15:52)
[2017-01-05] MEDS: HYDROmorphone INJ 2 MG/ML SYR/VIAL IV PRN ×2 (15:54→16:00)
--- NOTE | 2017-01-05 16:28 | DIAGNOSTIC IMAGING REPORT ---
RIGHT HIP 2 VIEWS CLINICAL HISTORY: Postoperative examination. FINDINGS: AP and crosstable lateral portable views of the right hip are compared to study dated 01/04/2017. The skeletal structures are osteopenic. Intertrochanteric and intramedullary nails have been placed in the right femur transfixing a proximal diaphyseal fracture. Alignment has significantly improved. There is persistent offset of the largest fragments by up to 1.9 cm. The orthopedic hardware appears intact. A single cortical lag screw transfixes the distal aspect of the intramedullary nail. Soft tissue edema and subcutaneous gas are noted in the thigh. Skin clips project over the right hip and knee. The visualized right hemipelvis appears intact. Phleboliths are observed. IMPRESSION: 1. Significantly improved alignment of a right femoral fracture status post intertrochanteric and intramedullary nail placement. 2. There is persistent oxygen the largest fragments by up to 1.9 cm. Electronically signed by: Clark Rodriguez M.D. 01/05/2017 4:26 PM Dictated Date/Time: 01/05/2017 4:23 PM
--- NOTE | 2017-01-05 17:14 | Anesthesiology Progress Note ---
Anesthesia Post Op Note Date & Time Jan 05, 2017 at 17:14 Vital Signs Pain Intensity: 3 Vital Signs Past 12 Hours Date Time Temp Pulse Resp B/P (MAP) Pulse Ox O2 Delivery O2 Flow Rate FiO2 01/05/17 16:36 118/66 01/05/17 16:34 80 14 01/05/17 16:34 80 14 97 01/05/17 16:33 80 16 97 01/05/17 16:33 80 16 01/05/17 16:31 111/67 01/05/17 16:28 84 19 98 01/05/17 16:28 84 19 01/05/17 16:26 128/68 01/05/17 16:23 82 15 99 01/05/17 16:23 82 15 01/05/17 16:22 36.8 01/05/17 16:21 110/68 01/05/17 16:18 83 16 01/05/17 16:18 82 16 97 01/05/17 16:17 82 15 96 01/05/17 16:17 83 15 01/05/17 16:16 123/72 01/05/17 16:12 83 12 96 01/05/17 16:12 83 12 01/05/17 16:11 123/68 01/05/17 16:07 86 26 01/05/17 16:07 87 26 99 01/05/17 16:06 85 17 01/05/17 16:06 84 17 122/62 100 01/05/17 16:01 90 18 114/54 92 01/05/17 16:01 93 18 01/05/17 15:56 98 20 164/124 100 01/05/17 15:56 98 20 01/05/17 15:51 100 22 173/96 100 01/05/17 15:51 100 22 01/05/17 15:46 107 19 181/87 100 01/05/17 15:46 103 19 01/05/17 15:41 97 169/100 98 01/05/17 15:41 97 01/05/17 15:36 88 18 01/05/17 15:36 97 18 150/77 94 01/05/17 15:32 177/70 01/05/17 15:31 36.2 94 20 177/70 97 Mask 10 01/05/17 15:31 97 16 160/114 01/05/17 15:31 16 7/9/17 09:15 Room Air 01/05/17 07:19 36.8 97 16 144/83 103 92 Room Air Notes Mental Status: alert / awake / arousable, participated in evaluation Pt Amnestic to Procedure: Yes Nausea / Vomiting: adequately controlled Pain: adequately controlled Airway Patency, RR, SpO2: stable & adequate BP & HR: stable & adequate Hydration State: stable & adequate Anesthetic Complications: no major complications apparent
[2017-01-05] MEDS ORDERED: NURSING VERBAL MED ORDER ONE ×2 (17:15→18:00)
[2017-01-05] MEDS: INSULIN ASPART 100 UNITS/ML 3 ML PEN SC SCH (21:52)
[2017-01-05] MEDS: CEFAZOLIN IV 2,000 MG in DEXTROSE 5% 50ML 50 ML IV SCH (22:00)
[2017-01-05] MEDS: HydrALAZINE 10 MG TAB PO SCH (22:00)
[2017-01-05] MEDS: GABAPENTIN 300 MG CAP PO SCH (22:00)
[2017-01-06 03:17] VITALS: BP 120/72; PULSE 113; TEMP 37.1; O2SAT 93
[2017-01-06] MEDS: LACTATED RINGER'S 1000ML 1,000 ML IV SCH ×3 (03:59→23:42)
[2017-01-06] MEDS: ENOXAPARIN 40 MG/0.4 ML SYR SQ SCH (03:59)
[2017-01-06] MEDS: CEFAZOLIN IV 2,000 MG in DEXTROSE 5% 50ML 50 ML IV SCH (05:46)
[2017-01-06] MEDS ORDERED: CEFAZOLIN IV 2,000 MG in DEXTROSE 5% 50ML 50 ML IV SCH (06:00)
[2017-01-06 07:15] VITALS: BP 126/75; PULSE 104; TEMP 36.8; O2SAT 90
[2017-01-06 07:21] LABS: HEMATOCRIT 32.6 % (42-52); MEAN CELL VOLUME 86.9 fL (80-100); MEAN CORPUSCULAR HEMOGLOBIN 27.5 pg (25-34); MEAN CORPUSCULAR HGB CONC 31.6 g/dl (32-36); PLATELET COUNT 215 K/uL (130-400); RED BLOOD COUNT 3.75 M/uL (4.7-6.1); WHITE BLOOD COUNT 12.59 K/uL (4.8-10.8)
--- NOTE | 2017-01-06 07:23 | Orthopedic Progress Note ---
Orthopedic Progress Note Date of Service Jan 06, 2017. Subjective Post OP Day: 1 Additional Notes: Complains of surgical pain but overall doing well. Requesting d/c to home. Objective calves soft nontender, dressing C/D/I Date Time Temp Pulse Resp B/P (MAP) Pulse Ox O2 Delivery O2 Flow Rate FiO2 01/06/17 07:15 36.8 104 16 126/75 (92) 90 Room Air 01/06/17 03:17 37.1 113 16 120/72 (88) 93 CPAP 01/05/17 23:35 Room Air CPAP 01/05/17 23:28 36.7 102 16 163/91 (115) 94 Room Air 01/05/17 22:06 91 97 21 01/05/17 19:58 36.4 91 18 126/76 (93) 97 Room Air 01/05/17 18:50 36.5 82 18 117/68 (84) 96 Nasal Cannula 2.0 01/05/17 17:50 36.6 83 18 123/81 (95) 98 Nasal Cannula 2.0 01/05/17 17:24 36.5 85 18 122/78 (93) 90 Room Air 01/05/17 17:00 97 Mask 4.0 01/05/17 16:50 97 Mask 4.0 01/05/17 16:36 118/66 01/05/17 16:34 80 14 01/05/17 16:34 80 14 97 01/05/17 16:33 80 16 97 01/05/17 16:33 80 16 01/05/17 16:31 111/67 01/05/17 16:28 84 19 98 01/05/17 16:28 84 19 01/05/17 16:26 128/68 01/05/17 16:23 82 15 99 01/05/17 16:23 82 15 01/05/17 16:22 36.8 01/05/17 16:21 110/68 01/05/17 16:18 83 16 01/05/17 16:18 82 16 97 01/05/17 16:17 82 15 96 01/05/17 16:17 83 15 01/05/17 16:16 123/72 01/05/17 16:12 83 12 96 01/05/17 16:12 83 12 01/05/17 16:11 123/68 01/05/17 16:07 86 26 01/05/17 16:07 87 26 99 01/05/17 16:06 85 17 01/05/17 16:06 84 17 122/62 100 01/05/17 16:01 90 18 114/54 92 01/05/17 16:01 93 18 01/05/17 15:56 98 20 164/124 100 01/05/17 15:56 98 20 01/05/17 15:51 100 22 173/96 100 01/05/17 15:51 100 22 01/05/17 15:46 107 19 181/87 100 01/05/17 15:46 103 19 01/05/17 15:41 97 169/100 98 01/05/17 15:41 97 01/05/17 15:36 88 18 01/05/17 15:36 97 18 150/77 94 01/05/17 15:32 177/70 01/05/17 15:31 36.2 94 20 177/70 97 Mask 10 01/05/17 15:31 97 16 160/114 01/05/17 15:31 16 01/05/17 09:15 Room Air Laboratory Results 24 Hours: Test 01/06/17 06:33 Assessment & Plan Assessment: s/p IM nail R femur Plan: Lovenox 40 daily for DVT prophylaxis WBAT for transfers, no restrictions Ortho stable for d/c when medically stable PT ordered for transfers
[2017-01-06 07:47] LABS: BUN/CREATININE RATIO 13.4 (10-20); CALCIUM 8.3 mg/dl (8.5-10.1); CREATININE 1.6 mg/dl (0.60-1.40); POTASSIUM 4.2 mmol/L (3.5-5.1)
[2017-01-06] MEDS: CITALOPRAM 20 MG TAB PO SCH (08:51)
[2017-01-06] MEDS: METOPROLOL SUCC 25MG EXT REL TAB PO SCH (08:52)
[2017-01-06] MEDS: PANTOprazole SOD 40 MG TAB PO SCH (08:52)
[2017-01-06] MEDS: HydrALAZINE 10 MG TAB PO SCH ×2 (08:52→21:29)
[2017-01-06] MEDS: INSULIN ASPART 100 UNITS/ML 3 ML PEN SC SCH ×4 (08:56→21:34)
[2017-01-06] MEDS: HYDROmorphone INJ 1 MG/ML SYR IV PRN ×2 (13:35→21:30)
--- NOTE | 2017-01-06 15:40 | Progress Note ---
Subjective Date of Service: Jan 06, 2017. Subjective Pt evaluation today including: conversation w/ patient, physical exam, chart review, lab review, review of studies, review of inpatient medication list No acute issues overnight Resting comfortably in bed Family not OK with discharge home Problem List Medical Problems: (1) Subtrochanteric fracture of right femur Status: Acute Review of Systems Constitutional: No fever, No chills, No sweats, No weight loss, No weakness ENT: No hearing loss, No unusual epistaxis, No nasal symptoms, No sore throat, No tinnitus Respiratory: No cough, No sputum, No wheezing, No shortness of breath, No dyspnea on exertion Cardiac: No chest pain, No orthopnea, No PND, No edema Abdomen: No pain, No nausea, No vomiting, No diarrhea, No constipation Musculoskeletal: No joint pain, No muscle pain, No swelling Male : No dysuria, No urinary frequency, No incontinence, No slowing stream Neurologic: No memory loss, No paralysis, No weakness, No numbness/tingling Psychiatric: No depression symptoms, No anhedonism, No anxiety, No insomnia Endo: No fatigue, No excessive thirst Skin: No rash, No itch Objective Vital Signs Date Time Temp Pulse Resp B/P (MAP) Pulse Ox O2 Delivery O2 Flow Rate FiO2 01/06/17 08:45 Room Air 01/06/17 07:15 36.8 104 16 126/75 (92) 90 Room Air 01/06/17 03:17 37.1 113 16 120/72 (88) 93 CPAP 01/05/17 23:35 Room Air CPAP 01/05/17 23:28 36.7 102 16 163/91 (115) 94 Room Air 01/05/17 22:06 91 97 21 01/05/17 19:58 36.4 91 18 126/76 (93) 97 Room Air 01/05/17 18:50 36.5 82 18 117/68 (84) 96 Nasal Cannula 2.0 01/05/17 17:50 36.6 83 18 123/81 (95) 98 Nasal Cannula 2.0 01/05/17 17:24 36.5 85 18 122/78 (93) 90 Room Air 01/05/17 17:00 97 Mask 4.0 01/05/17 16:50 97 Mask 4.0 01/05/17 16:36 118/66 01/05/17 16:34 80 14 01/05/17 16:34 80 14 97 01/05/17 16:33 80 16 97 01/05/17 16:33 80 16 01/05/17 16:31 111/67 01/05/17 16:28 84 19 98 01/05/17 16:28 84 19 01/05/17 16:26 128/68 01/05/17 16:23 82 15 99 01/05/17 16:23 82 15 01/05/17 16:22 36.8 01/05/17 16:21 110/68 01/05/17 16:18 83 16 01/05/17 16:18 82 16 97 01/05/17 16:17 82 15 96 01/05/17 16:17 83 15 01/05/17 16:16 123/72 01/05/17 16:12 83 12 96 01/05/17 16:12 83 12 01/05/17 16:11 123/68 01/05/17 16:07 86 26 01/05/17 16:07 87 26 99 01/05/17 16:06 85 17 01/05/17 16:06 84 17 122/62 100 01/05/17 16:01 90 18 114/54 92 01/05/17 16:01 93 18 01/05/17 15:56 98 20 164/124 100 01/05/17 15:56 98 20 01/05/17 15:51 100 22 173/96 100 01/05/17 15:51 100 22 01/05/17 15:46 107 19 181/87 100 01/05/17 15:46 103 19 01/05/17 15:41 97 169/100 98 01/05/17 15:41 97 Physical Exam General Appearance: WD/WN, no apparent distress Eyes: normal inspection, PERRL, EOMI, sclerae normal Neck: supple, no adenopathy, thyroid normal, no JVD Respiratory/Chest: chest non-tender, lungs clear, normal breath sounds, no respiratory distress Cardiovascular: no edema, no gallop, no JVD, no murmur Abdomen: normal bowel sounds, non tender, soft, no organomegaly Extremities: normal range of motion, non-tender, normal inspection, no pedal edema Neurologic/Psychiatric: no motor/sensory deficits, alert, normal mood/affect Skin: warm/dry, no rash Lymphatic: no adenopathy Laboratory Results Last 24 Hours Test 01/05/17 16:12 01/05/17 20:20 01/06/17 06:33 01/06/17 08:06 Bedside Glucose 111 mg/dl 201 mg/dl 202 mg/dl White Blood Count 12.59 K/uL Red Blood Count 3.75 M/uL Hemoglobin 10.3 g/dL Hematocrit 32.6 % Mean Corpuscular Volume 86.9 fL Mean Corpuscular Hemoglobin 27.5 pg Mean Corpuscular Hemoglobin Concent 31.6 g/dl RDW Standard Deviation 44.4 fL RDW Coefficient of Variation 13.8 % Platelet Count 215 K/uL Mean Platelet Volume 12.0 fL Sodium Level 135 mmol/L Potassium Level 4.2 mmol/L Chloride Level 101 mmol/L Carbon Dioxide Level 28 mmol/L Anion Gap 6.0 mmol/L Blood Urea Nitrogen 21 mg/dl Creatinine 1.60 mg/dl Est Creatinine Clear Calc Drug Dose 40.2 ml/min Estimated GFR () 47.1 Estimated GFR (Non- 40.7 BUN/Creatinine Ratio 13.4 Random Glucose 188 mg/dl Calcium Level 8.3 mg/dl Test 01/06/17 12:05 Bedside Glucose 189 mg/dl Assessment and Plan Subtrochanteric Right Femoral Fracture: -- POD #1ORIF -- Pain controlled with IV Dilaudid 1mg every 3 hours, will add percocet 5/325 q 4 hrs PRN pain -- Appreciate ortho recs, lovenox fro DVT ppx at this time -- Pt family requesting SNF upon discharge Multiple Sclerosis, stable, no flares Hypertension: Stable -- Resume Toprol XL 25 mg q day including today before surgery. -- Hydralazine 10 mg po bid. Dyslipidemia: -- Resume Zocor 40 mg each evening. Type 2 DM: -- Novolog SSI. -- BSG q AC and q HS. -- Glipizide on hold. GI Prophylaxis: -- Resume Prilosec. 7. DVT prophylaxis: -- Compression stockings. -- SCD's post-op. -- Lovenox post-op if okay with surgeon.
[2017-01-06 15:48] VITALS: BP 155/75; PULSE 98; TEMP 36.6; O2SAT 91
[2017-01-06] MEDS: GABAPENTIN 300 MG CAP PO SCH (21:29)
[2017-01-06] MEDS: ONDANSETRON INJ 2 MG/ML 2 ML VIAL IV PRN (21:29)
[2017-01-06] MEDS ORDERED: NURSING VERBAL MED ORDER ONE (21:30)
[2017-01-06 21:34] VITALS: BP 143/83; PULSE 91
[2017-01-06 22:22] VITALS: PULSE 86; O2SAT 92
[2017-01-06 23:16] VITALS: BP 123/63; PULSE 87; TEMP 36.8; O2SAT 97
[2017-01-07] VITALS (8 sets, daily range): BP systolic 138–166; BP diastolic 68–84; PULSE 76–90; TEMP 36.5–36.8; O2SAT 86–96
--- NOTE | 2017-01-07 07:27 | Orthopedic Progress Note ---
Orthopedic Progress Note Date of Service Jan 07, 2017. Subjective Post OP Day: 2 Reports: feeling well Additional Notes: States Right leg is feeling better Objective dressing C/D/I Date Time Temp Pulse Resp B/P (MAP) Pulse Ox O2 Delivery O2 Flow Rate FiO2 01/06/17 23:40 CPAP 01/06/17 23:16 36.8 87 15 123/63 (83) 97 CPAP 01/06/17 22:22 86 92 3.0 01/06/17 21:34 91 143/83 (103) 01/06/17 16:00 Nasal Cannula 2.0 01/06/17 15:48 36.6 98 18 155/75 (101) 91 Nasal Cannula 1.0 01/06/17 08:45 Room Air Assessment & Plan Assessment: s/p IM nail R femur Plan: Lovenox 40 daily for DVT prophylaxis WBAT for transfers, no restrictions Ortho stable for d/c when medically stable PT ordered for transfers
--- NOTE | 2017-01-07 08:20 | Clinical Documentation Query ---
CLINICAL DOCUMENTATION QUERY 76-y/o male who has undergone ORIF of right femur for a subtrochanteric fracture after falling ground level. In your clinical opinion is this patient being managed for: ( X ) Traumatic osteoporotic right femur fracture sustained in fall from ground level. ( ) Other explanation of clinical findings (Please Explain) ( ) Unable to determine (Please Define) ( ) Need to Discuss ( ) Not Agree The medical record reflects the following clinical findings, treatment, and risk factors. Clinical Indicators: As above. Calcium 8.3 Treatment: Surgical fixation Risk Factors: Age and lack of load bearing exercise 2/2 MS. Please clarify and document your clinical opinion in the progress notes and discharge summary. Terms such as "probable", "suspected", "likely", "questionable", "possible", or "still to be ruled out" are acceptable. IF IN AGREEMENT, YOU MUST DOCUMENT ABOVE DIAGNOSTIC STATEMENT IN DAILY PROGRESS NOTES AND DISCHARGE SUMMARY. This document is not part of the patient's record. Thank You, Jayy Montaño, LUIS [phone]
--- NOTE | 2017-01-07 08:21 | Clinical Documentation Query ---
CLINICAL DOCUMENTATION QUERY 76-y/o male who has undergone ORIF of right femur for a subtrochanteric fracture after falling ground level. In your clinical opinion is this patient being managed for: ( ) Traumatic osteoporotic right femur fracture sustained in fall from ground level. ( ) Other explanation of clinical findings (Please Explain) ( ) Unable to determine (Please Define) ( ) Need to Discuss ( ) Not Agree The medical record reflects the following clinical findings, treatment, and risk factors. Clinical Indicators: As above. Calcium 8.3 Treatment: Surgical fixation Risk Factors: Age and lack of load bearing exercise 2/2 MS. Please clarify and document your clinical opinion in the progress notes and discharge summary. Terms such as "probable", "suspected", "likely", "questionable", "possible", or "still to be ruled out" are acceptable. IF IN AGREEMENT, YOU MUST DOCUMENT ABOVE DIAGNOSTIC STATEMENT IN DAILY PROGRESS NOTES AND DISCHARGE SUMMARY. This document is not part of the patient's record. Thank You, Jayy Montaño, RN [phone]
[2017-01-07] MEDS: CITALOPRAM 20 MG TAB PO SCH (08:32)
[2017-01-07] MEDS: HydrALAZINE 10 MG TAB PO SCH ×2 (08:32→21:07)
[2017-01-07] MEDS: PANTOprazole SOD 40 MG TAB PO SCH (08:33)
[2017-01-07] MEDS: METOPROLOL SUCC 25MG EXT REL TAB PO SCH (08:34)
[2017-01-07] MEDS: ENOXAPARIN 40 MG/0.4 ML SYR SQ SCH (08:34)
[2017-01-07] MEDS: INSULIN ASPART 100 UNITS/ML 3 ML PEN SC SCH ×4 (08:52→20:46)
[2017-01-07] MEDS ORDERED: NURSING VERBAL MED ORDER ONE (10:30)
--- NOTE | 2017-01-07 14:32 | Progress Note ---
Subjective Date of Service: Jan 07, 2017. Subjective Pt evaluation today including: conversation w/ patient, physical exam, chart review, lab review, review of studies, review of inpatient medication list Resting in bed comfortably States pain at surgical site No acute events overnight Awaiting SNF placement Problem List Medical Problems: (1) Subtrochanteric fracture of right femur Status: Acute Review of Systems Constitutional: No fever, No chills, No sweats ENT: No hearing loss, No unusual epistaxis, No nasal symptoms, No sore throat Respiratory: No cough, No sputum, No wheezing, No shortness of breath Cardiac: No chest pain, No orthopnea, No PND, No edema Abdomen: No pain, No nausea, No vomiting, No diarrhea, No constipation Musculoskeletal: No joint pain, No muscle pain, No swelling, No calf pain Male : No dysuria, No urinary frequency, No incontinence, No slowing stream Neurologic: No memory loss, No paralysis, No weakness, No numbness/tingling Psychiatric: No depression symptoms, No anhedonism, No anxiety, No insomnia Endo: No fatigue, No excessive thirst Skin: No rash, No itch Objective Vital Signs Date Time Temp Pulse Resp B/P (MAP) Pulse Ox O2 Delivery O2 Flow Rate FiO2 01/07/17 11:46 36.8 90 20 158/68 (98) 95 Nasal Cannula 2.0 01/07/17 07:53 92 Nasal Cannula 2.0 01/07/17 07:40 Nasal Cannula 2.0 01/07/17 07:39 92 Nasal Cannula 2.0 01/07/17 07:27 36.8 90 20 166/84 (111) 86 Room Air 01/06/17 23:40 CPAP 01/06/17 23:16 36.8 87 15 123/63 (83) 97 CPAP 01/06/17 22:22 86 92 3.0 01/06/17 21:34 91 143/83 (103) 01/06/17 16:00 Nasal Cannula 2.0 01/06/17 15:48 36.6 98 18 155/75 (101) 91 Nasal Cannula 1.0 Physical Exam General Appearance: WD/WN, no apparent distress Eyes: normal inspection, PERRL, EOMI, sclerae normal Neck: supple, no adenopathy, thyroid normal, no JVD Respiratory/Chest: chest non-tender, lungs clear, normal breath sounds, no respiratory distress Cardiovascular: regular rate, rhythm, no edema, no gallop, no JVD, no murmur Abdomen: normal bowel sounds, non tender, soft, no organomegaly Extremities: normal range of motion, non-tender, normal inspection, no pedal edema Neurologic/Psychiatric: no motor/sensory deficits, alert, normal mood/affect, oriented x 3 Laboratory Results Last 24 Hours Test 01/06/17 17:13 01/06/17 20:26 01/07/17 08:15 01/07/17 12:39 Bedside Glucose 214 mg/dl 200 mg/dl 170 mg/dl 209 mg/dl Test 01/07/17 14:26 Assessment and Plan Traumatic osteoporotic right femur fracture sustained in fall from ground level -- POD # 2 ORIF, no acute blood loss anemia -- Pain controlled with IV Dilaudid 1mg every 3 hours and percocet 5/325 q 4 hrs PRN pain -- Appreciate ortho recs, lovenox fro DVT ppx at this time -- Pt family requesting SNF upon discharge, await insurance auth Multiple Sclerosis, stable, no flares Hypertension: Stable -- Resume Toprol XL 25 mg q day including today before surgery. -- Hydralazine 10 mg po bid. Dyslipidemia: -- Resume Zocor 40 mg each evening. Type 2 DM: -- Novolog SSI. -- BSG q AC and q HS. -- Glipizide on hold. GI Prophylaxis: -- Resume Prilosec. DVT prophylaxis: -- Compression stockings. -- SCD's post-op. -- Lovenox post-op if okay with surgeon.
[2017-01-07] MEDS: ONDANSETRON INJ 2 MG/ML 2 ML VIAL IV PRN (15:44)
--- NOTE | 2017-01-07 15:51 | OPERATIVE REPORT ---
PREOPERATIVE DIAGNOSIS: Subtrochanteric fracture of the right hip. POSTOPERATIVE DIAGNOSIS: Same. PROCEDURE: Intramedullary nail fixation of the right hip. SURGEON: Dr. Jt Gray. KITCHEN MANAGER: Maxwell Magallon PA-C, whose assistance was necessary for helping with positioning of the leg and helping with retraction. ANESTHESIA: General. COMPLICATIONS: None. CONDITION: Stable to PACU. IMPLANTS USED: I used a [employer]ynthes TFN nail. The nail was 420 mm x 11 mm with a 110 mm helical blade and a 60 mm distal locking screw. INDICATIONS: Tj is a 76-year-old male who suffers from multiple sclerosis and diabetes. 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 He is non-ambulatory but lives in a house with his . Unfortunately he fell yesterday sustaining a subtrochanteric fracture to his right hip. He came to the emergency room and was admitted to the medical service. He elected to undergo intramedullary nail fixation. On January 05, 2017 he was brought from the hospital room to the preoperative holding area. The operative extremity was identified and signed. He was given a preoperative antibiotic, taken back to the operating room, laid on the fracture table in the supine position and put under general anesthesia. The right hip was then prepped and draped in sterile fashion and brought off the traction. A time-out was done and the patient and the operative extremity properly identified. Fluoroscopy was used throughout the case to align the fracture. An incision was made just proximal to the greater trochanter. Dissection was taken down through the fascia and a guidepin was placed in the center-center position of the greater trochanter. This was confirmed on orthogonal fluoroscopic images. The guidepin was then advanced into the femoral shaft. An 18 mm opening reamer was then used. Balltip guidewire was then passed down the center of the femoral canal. The nail measured to be 420 mm. A single 12 mm reamer was then sent down the canal and the 11 mm TFN nail was then impacted into place. Appropriate positioning was checked under fluoroscopy. An outrigger was used for the lag screw. A small incision was made laterally on the thigh and dissection was taken to the lateral aspect of the femur. The lag screw trochar was then advanced. The guidepin was sent through the nail and up to the center-center position of the femoral head. The lag screw measured to be 110 mm. The lateral cortex was drilled and the 110 mm helical blade was then impacted into the femoral head. The helical blade was then locked and the outrigger was removed. Attention was then turned to the distal femur. With the use of perfect [employer] [place] technique, a single 5 x 60 mm locking screw was placed in the static hole. Multiple pictures were taken. The wounds were then irrigated and closed with 2-0 Vicryl and alexi. He was then placed in soft dressings, extubated, and taken to the postanesthesia care unit in stable condition. He tolerated the procedure well.
[2017-01-07 16:11] LABS: BASO % 0.2 %; BASO ABS # 0.02 K/uL (0-0.2); COMPLETE YES; EOS % 0.2 %; HEMATOCRIT 27.8 % (42-52); IG% 0.3 %; LYMPH % 6.9 %; LYMPH ABS # 0.83 K/uL (1.2-3.4); MEAN CELL VOLUME 86.1 fL (80-100); MEAN CORPUSCULAR HEMOGLOBIN 28.8 pg (25-34); MEAN CORPUSCULAR HGB CONC 33.5 g/dl (32-36); MEAN PLATELET VOLUME 11.8 fL (7.4-10.4); MONO % 12.2 %; NEUT % 80.2 %; PLATELET COUNT 176 K/uL (130-400); RED BLOOD COUNT 3.23 M/uL (4.7-6.1)
[2017-01-07] MEDS ORDERED: OXYCODONE/ACETAMINOPHEN 7.5-325 TAB PO PRN (16:15)
[2017-01-07 16:32] LABS: BUN/CREATININE RATIO 18.7 (10-20); CALCIUM 8.2 mg/dl (8.5-10.1); CREATININE 1.3 mg/dl (0.60-1.40); POTASSIUM 4.3 mmol/L (3.5-5.1)
[2017-01-07] MEDS: GABAPENTIN 300 MG CAP PO SCH (21:07)
[2017-01-08 06:45] LABS: BASO % 0.1 %; BASO ABS # 0.01 K/uL (0-0.2); EOS % 2.1 %; IG% 0.3 %; LYMPH % 12.9 %; MEAN CELL VOLUME 86.5 fL (80-100); MEAN CORPUSCULAR HGB CONC 32.4 g/dl (32-36); MEAN PLATELET VOLUME 11.8 fL (7.4-10.4); MONO % 12.9 %; NEUT % 71.7 %; PLATELET COUNT 180 K/uL (130-400); RED BLOOD COUNT 2.89 M/uL (4.7-6.1); WHITE BLOOD COUNT 9.31 K/uL (4.8-10.8)
[2017-01-08 07:23] LABS: BUN/CREATININE RATIO 20.1 (10-20); CALCIUM 8.3 mg/dl (8.5-10.1); CREATININE 1.1 mg/dl (0.60-1.40); POTASSIUM 3.9 mmol/L (3.5-5.1)
[2017-01-08 07:38] VITALS: BP 154/78; PULSE 88; TEMP 36.7; O2SAT 93
[2017-01-08 07:41] LABS: COMPLETE YES
[2017-01-08 07:56] VITALS: O2SAT 93
[2017-01-08] MEDS: HydrALAZINE 10 MG TAB PO SCH (08:35)
[2017-01-08] MEDS: PANTOprazole SOD 40 MG TAB PO SCH (08:36)
[2017-01-08] MEDS: CITALOPRAM 20 MG TAB PO SCH (08:36)
[2017-01-08] MEDS: METOPROLOL SUCC 25MG EXT REL TAB PO SCH (08:37)
[2017-01-08] MEDS: ENOXAPARIN 40 MG/0.4 ML SYR SQ SCH (08:38)
[2017-01-08] MEDS: INSULIN ASPART 100 UNITS/ML 3 ML PEN SC SCH ×2 (09:12→13:19)
[2017-01-08] MEDS ORDERED: LVNIS40 SQ (12:41)
--- NOTE | 2017-01-08 12:45 | Discharge Instructions ---
Discharge Instructions Date of Service Jan 08, 2017. Admission Reason for Admission: Right Femoral Shaft Fracture Discharge Discharge Diagnosis / Problem: Right femoral shaft fracture Discharge Goals Goal(s): Decrease discomfort, Improve function, Increase independence, Improve disease control, Learn about illness, Diagnostic testing, Therapeutic intervention Activity Recommendations Activity Limitations: resume your previous activity Exercise/Sports Limitations: gradually increase as tolerated . Instructions / Follow-Up Instructions / Follow-Up Patient to be discharged to [facility] Please note patient should be on lovenox daily injections for next 10 days Patient to follow up with Dr. Gray in 1-2 weeks Patient will also need primary care provider set up once at [facility] Current Hospital Diet Patient's current hospital diet: Diabetes Type 1 Diet Discharge Diet Recommended Diet: Diabetes Type 1 Diet Procedures Procedures Performed: Intramedullary Aidan Right Femur Pending Studies Studies pending at discharge: no Laboratory Results Hemoglobin A1c Test 10/22/16 14:42 Range/Units Estimated Average Glucose 180 mg/dl Hemoglobin A1c 7.9 H 4.5-5.6 % Lipid Panel Test 10/22/16 14:42 Range/Units Triglycerides Level 174 H 0-150 mg/dl Cholesterol Level 189 0-200 mg/dl HDL Cholesterol 33 mg/dl Cholesterol/HDL Ratio 5.7 LDL Cholesterol, Calculated 121 mg/dl Medical Emergencies . Who to Call and When: Medical Emergencies: If at any time you feel your situation is an emergency, please call 911 immediately. . Non-Emergent Contact Non-Emergency issues call your: Primary Care Provider Call Non-Emergent contact if: your pain is worsening . . "Provider Documentation" section prepared by Basil Magana. . VTE Core Measure Inpt VTE Proph given/why not?: Enoxaparin (Lovenox)SQ
--- NOTE | 2017-01-08 13:23 | Discharge Summary ---
Discharge Summary Date of Service Jan 08, 2017. Discharge Summary Admission Date: Jan 05, 2017 at 00:16 Discharge Date: Jan 08, 2017 Discharge Disposition: care home facility ([facility]) Principal Diagnosis: Right femur fracture Immunizations: Have You Had Influenza Vaccine: N/A History of Tetanus Vaccine?: Unknown History of Pneumococcal: Yes History of Hepatitis B Vaccine: Yes Procedures: ORIF Consultations: Orthopedic surgery Medication Reconciliation New Medications: Enoxaparin (Enoxaparin Sodium) 40 Mg/0.4 Ml Inj 40 MG SQ DAILY, #10 VIAL Continued Medications: Ascorbic Acid (Ascorbic Acid) Unknown Strength Tab Unknown Dose PO DAILY, TAB TAKE ONE TAB DAILY WITH IRON TABLET Cholecalciferol (Vitamin D3) 50,000 Unit Cap 66573 UNITS PO WEEKLY TAKE THIS MED EVERY FRIDAY Citalopram Hydrobromide (Celexa) 20 Mg Tab 20 MG PO DAILY, TAB Cyanocobalamin (Vitamin B12) 1,000 Mcg Tab 2500 MCG SL DAILY Ferrous Sulfate (Kp Ferrous Sulfate) 325 Mg Tab 325 MG PO DAILY, TAB TAKE ONE TAB DAILY WITH FOOD AND VITAMIN C Gabapentin (Neurontin) 300 Mg Cap 300 MG PO HS, CAP Glipizide (Glipizide Er) 10 Mg Tab 10 MG PO BID, TAB Hydralazine Hcl (Apresoline) 10 Mg Tab 10 MG PO AMPM, TAB Metoprolol Succinate (Toprol Xl) 25 Mg Tabcr 25 MG PO DAILY, TAB Metoprolol Succinate (Metoprolol Succinate ER) 25 Mg Tabcr 25 MG PO QAM Omeprazole (Prilosec) 10 Mg Capcr 10 MG PO QAM, CAP Simvastatin (Zocor) 40 Mg Tab 40 MG PO HS, 0 Refills Sumatriptan Succinate (Imitrex) 50 Mg Tab 50 MG PO PRN, 0 Refills Discharge Exam Review of Systems: Constitutional: No fever, No chills, No sweats, No weight loss, No weakness Respiratory: No cough, No sputum, No wheezing, No shortness of breath, No dyspnea on exertion, No dyspnea at rest Cardiovascular: No chest pain, No orthopnea, No PND, No edema, No claudication Abdomen: No pain, No nausea, No vomiting, No diarrhea, No constipation Musculoskeletal: No joint pain, No muscle pain, No swelling, No calf pain Genitourinary - Female: No dysuria, No urinary frequency, No urinary urgency , No urinary incontinence Neurologic: No memory loss, No paralysis, No weakness, No numbness/tingling Psychiatric: No depression symptoms, No anhedonism, No anxiety, No insomnia Physical Exam: General Appearance: WD/WN, + mild distress Eyes: normal inspection, PERRL, EOMI ENT: normal ENT inspection, hearing grossly normal Neck: supple, no adenopathy, thyroid normal, no JVD Respiratory/Chest: chest non-tender, lungs clear, normal breath sounds, no respiratory distress Cardiovascular: regular rate, rhythm, no edema, no gallop, no JVD Abdomen / GI: normal bowel sounds, non tender, soft, no organomegaly Extremities: normal inspection, no calf tenderness, normal capillary refill , no pedal edema Neurologic/Psychiatric: alert, normal mood/affect, normal reflexes, oriented x 3 Hospital Course Traumatic osteoporotic right femur fracture sustained in fall from ground level -- POD # 3 ORIF, no acute blood loss anemia -- Pain controlled with IV Dilaudid 1mg every 3 hours and percocet 5/325 q 4 hrs PRN pain, no pain meds on discharge -- Appreciate ortho recs, lovenox 40 mg SC daily for 10 days for DVT ppx on discharge -- Discharge to [facility], will need PCP set up upon arrival Multiple Sclerosis, stable, no flares Hypertension: Stable -- Continue Toprol XL 25 mg q day including today before surgery. -- Hydralazine 10 mg po bid. Dyslipidemia: -- Resume Zocor 40 mg each evening. Type 2 DM: -- Novolog SSI. -- BSG q AC and q HS. -- Glipizide on hold. GI Prophylaxis: -- Resume Prilosec. DVT prophylaxis: -- Compression stockings. -- SCD's post-op, Lovenox Pt is FULL CODE Total Time Spent: Greater than 30 minutes This includes examination of the patient, discharge planning, medication reconciliation, and communication with other providers. Discharge Instructions Please refer to the electronic Patient Visit Report (Discharge Instructions) for additional information. Additional Copies To RV. Coyne MD
[2017-01-08 14:42] VITALS: BP 154/78; PULSE 88; TEMP 36.7; O2SAT 93
[2017-01-08 15:21] VITALS: O2SAT 90
== END 2017-01-08 17:00 | DRG 482 ==
LOC: EDBD 22:44 → C.EDC 22:47 → C.MSW 01-05 00:16 → ENRESERV 01-05 00:49
PROVIDERS: ADMIT Internal Medicine; ATTEND Hospitalist
PROC: 0QS606Z Reposition Right Upper Femur with Intramedullary Internal Fixation Device, Open Approach (ICD-10-PCS; principal; 2017-01-05 14:30)
DX: M84.451A Pathological fracture, right femur, initial encounter for fracture (principal); G35 Multiple sclerosis; I10 Essential (primary) hypertension; E78.5 Hyperlipidemia, unspecified; E11.9 Type 2 diabetes mellitus without complications; G47.33 Obstructive sleep apnea (adult) (pediatric); K21.9 Gastro-esophageal reflux disease without esophagitis; W05.0XXA Fall from non-moving wheelchair, initial encounter; Z89.512 Acquired absence of left leg below knee; Z79.899 Other long term (current) drug therapy; Z79.84 Long term (current) use of oral hypoglycemic drugs; Z99.89 Dependence on other enabling machines and devices; Z87.891 Personal history of nicotine dependence; Z86.12 Personal history of poliomyelitis

== ENCOUNTER → 2017-03-21 | Outpatient (CLI) | payer BC ==
[~2017-03-21] MED LIST changes: +ASCO500T16 PO; +CHOL1CAP95 PO; +CYAN100020 SL; +FERR1TAB13 PO; +HYDR-4715 PO; +LVNIS40 SQ; -TIZA4CAP PO; +TPRSR/25 PO
[2017-03-21 17:26] LABS: BASO % 0.6 %; BASO ABS # 0.05 K/uL (0-0.2); COMPLETE YES; EOS % 3.9 %; HEMATOCRIT 37.8 % (42-52); IG% 0.2 %; LYMPH % 20.9 %; LYMPH ABS # 1.75 K/uL (1.2-3.4); MEAN CELL VOLUME 86.7 fL (80-100); MEAN CORPUSCULAR HEMOGLOBIN 27.5 pg (25-34); MEAN CORPUSCULAR HGB CONC 31.7 g/dl (32-36); MEAN PLATELET VOLUME 11.8 fL (7.4-10.4); MONO % 7.5 %; NEUT % 66.9 %; PLATELET COUNT 242 K/uL (130-400); RED BLOOD COUNT 4.36 M/uL (4.7-6.1); WHITE BLOOD COUNT 8.38 K/uL (4.8-10.8)
[2017-03-21 17:32] LABS: ALT/SGPT 11 U/L (12-78); BLOOD UREA NITROGEN 17 mg/dl (7-18); BUN/CREATININE RATIO 17.4 (10-20); CALCIUM 9.1 mg/dl (8.5-10.1); CARBON DIOXIDE 28 mmol/L (21-32); CHLORIDE 106 mmol/L (98-107); GLUCOSE 180 mg/dl (70-99); POTASSIUM 3.7 mmol/L (3.5-5.1); SODIUM 141 mmol/L (136-145)
[2017-03-21 17:35] LABS: ALB/GLOB RATIO 0.6 (0.9-2); ALKALINE PHOSPHATASE 100 U/L (45-117); AST/SGOT 9 U/L (15-37)
[2017-03-22 06:05] LABS: ESTIMATED AVERAGE GLUCOSE 143 mg/dl; HA1C FLAG Normal (Normal)
== END | disposition home or self-care (01) ==
LOC: C.LAB1850 15:13
PROVIDERS: ATTEND Internal Medicine
DX: E11.65 Type 2 diabetes mellitus with hyperglycemia (principal); D64.9 Anemia, unspecified; E53.8 Deficiency of other specified B group vitamins; E55.9 Vitamin D deficiency, unspecified

== ENCOUNTER → 2017-05-12 | Outpatient (CLI) | payer BC ==
[~2017-05-12] MED LIST changes: +AMOX500C3 PO; +SULF800T23 PO
--- NOTE | 2017-05-12 14:34 | DIAGNOSTIC IMAGING REPORT ---
R ART DOP DUPLEX LWR EXT UNI CLINICAL HISTORY: 76 years-old Male presenting with R LEG NON HEALING WOUNDS in the popliteal fossa and heel, left below the knee indication. TECHNIQUE: Real-time grayscale and color and spectral Doppler ultrasound imaging of the bilateral lower extremity arteries was performed. Measurements calculated based on NASCET criteria. COMPARISON: None. FINDINGS: Right: Common femoral artery: Occluded. Superficial femoral artery: Occluded in the proximal to midportion. Flow noted in the distal most superficial femoral artery which has a peak systolic velocity of 75 cm/s. Deep femoral artery: Patent. Peak systolic velocity 115 cm/s. Popliteal artery: Unable to assess secondary to the presence of a bandage. Posterior tibial artery: Tardus et parvus. Peak systolic velocity 13 cm/s. Anterior tibial artery: Tardus et parvus. Peak systolic velocity 49 cm/s. Peroneal artery: Tardus et parvus. Peak systolic velocity 21 cm/s. Dorsalis pedis: Tardus et parvus. Peak systolic velocity 36 cm/s. IMPRESSION: 1. 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 Reconstitution of flow in the distal most superficial femoral artery, possibly by collateral vessels. Tardus et parvus waveforms in the calf vessels indicative of decreased flow. The report will be called/faxed according to standard departmental protocol. Electronically signed by: Giovani Larios M.D. 05/12/2017 2:33 PM Dictated Date/Time: 05/12/2017 2:27 PM
== END | disposition home or self-care (01) ==
LOC: C.ULTR 12:59
PROVIDERS: ATTEND Emergency Medicine
DX: L97.419 Non-pressure chronic ulcer of right heel and midfoot with unspecified severity (principal)

== ENCOUNTER → 2017-06-05 | Outpatient (CLI) | payer BC ==
[~2017-06-05] MED LIST changes: +OPTIRAY 320 IV PRN
--- NOTE | 2017-06-05 13:35 | DIAGNOSTIC IMAGING REPORT ---
R LOWER EXTREMITY WITH HISTORY: 76 years-old Male RT FT ATTN R HEEL NON HEALING WOUND chronic nonhealing wound of the right heel COMPARISON: None available TECHNIQUE: Multiple axial CT images of the right foot were obtained following the intravenous administration of 70 mL Optiray 320 IV contrast. Coronal and sagittal reformatted images were obtained from the axial data set and were submitted for review. A dose lowering technique was used consistent with the principals of ALARA. FINDINGS: The bones are moderately demineralized which limits evaluation for acute nondisplaced fracture or subtle abnormalities of the bone cortex. Moderate subtalar, talonavicular and multidigit tarsometatarsal degenerative changes are noted, notably within the first MTP joint. 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 No acute fracture or dislocation identified. Moderate sized enthesophytes about the calcaneus are present. No definite erosive changes are seen to suggest acute osteomyelitis. There is moderate soft tissue swelling with subcutaneous edema and skin thickening involving the lateral hindfoot with a 3.3 x 3.1 cm skin ulceration of the posterior lateral heel nicely seen on image 90 of series 4 and image 35 series 400. There is no opaque foreign body. Additionally, there is moderate soft tissue swelling about the dorsal lateral forefoot and midfoot. Vascular calcifications are noted. Moderate atrophy involves the intrinsic musculature of the foot. No discrete flexor or extensor tendon tear identified. IMPRESSION: 1. Moderate soft tissue swelling with subcutaneous edema and skin thickening suggesting cellulitis involves the lateral hindfoot with a 3.3 x 3.1 cm skin ulcer of the posterior lateral heel . No focal abscess or drainable fluid collection. 2. Moderately demineralized appearance of the bones with multifocal degenerative changes as above. No definite erosive changes to suggest osteomyelitis. 3. Peripheral vascular disease. The above report was generated using voice recognition software. It may contain grammatical, syntax or spelling errors. Electronically signed by: Saúl Hines M.D. 06/05/2017 1:34 PM Dictated Date/Time: 06/05/2017 1:26 PM
== END | disposition home or self-care (01) ==
LOC: C.CTS 12:57
PROVIDERS: ATTEND Physician Assistant
DX: L89.610 Pressure ulcer of right heel, unstageable (principal); I73.9 Peripheral vascular disease, unspecified

== ENCOUNTER 2017-07-22 09:42 | Inpatient (IN) | payer BC, OTHER ==
[~2017-07-22] VITALS: Ht 180.3 cm; Wt 82.0 kg
[~2017-07-22 09:42] MED LIST changes: -OPTIRAY 320 IV PRN
[2017-07-22 11:22] LABS: BASO % 0.2 %; BASO ABS # 0.02 K/uL (0-0.2); EOS % 0.7 %; EOS ABS # 0.06 K/uL (0-0.5); HEMATOCRIT 39.9 % (42-52); HEMOGLOBIN 13.2 g/dL (14.0-18.0); IG# 0.02 K/uL (0.00-0.02); LYMPH % 11.9 %; LYMPH ABS # 1.01 K/uL (1.2-3.4); MEAN CELL VOLUME 87.3 fL (80-100); MEAN CORPUSCULAR HEMOGLOBIN 28.9 pg (25-34); MEAN CORPUSCULAR HGB CONC 33.1 g/dl (32-36); MEAN PLATELET VOLUME 11.3 fL (7.4-10.4); MONO % 6.5 %; MONO ABS # 0.55 K/uL (0.11-0.59); NEUT % 80.5 %; NEUT ABS # 6.84 K/uL (1.4-6.5); PLATELET COUNT 205 K/uL (130-400); RED CELL DISTRIBUTION WIDTH CV 15.2 % (11.5-14.5); RED CELL DISTRIBUTION WIDTH SD 49.1 fL (36.4-46.3)
[2017-07-22 11:33] LABS: PTT PATIENT 30.1 SECONDS (21.0-31.0)
[2017-07-22 11:47] LABS: ALBUMIN 2.8 gm/dl (3.4-5.0); CALCIUM 8.9 mg/dl (8.5-10.1); CREATININE 2.04 mg/dl (0.60-1.40); POTASSIUM 4.1 mmol/L (3.5-5.1)
[2017-07-22 12:07] LABS: TOTAL PROTEIN 8.2 gm/dl (6.4-8.2)
[2017-07-22] MEDS ORDERED: ALUMINUM/MAGNESIUM/SIMETH (MAALOX MAX) 30 ML UDC PO PRN (13:30)
[2017-07-22] MEDS ORDERED: MAGNESIUM HYDROXIDE SUSP 30 ML UDC PO PRN (13:30)
[2017-07-22] MEDS ORDERED: POLYETHYLENE (MIRALAX) 17 GM PACK PO PRN (13:30)
[2017-07-22] MEDS ORDERED: ACETAMINOPHEN 325 MG TAB PO PRN (13:30)
[2017-07-22] MEDS ORDERED: ONDANSETRON INJ 2 MG/ML 2 ML VIAL IV PRN (13:30)
[2017-07-22] MEDS ORDERED: MoRPHine SULFATE 2 MG/ML CARP IV PRN (13:30)
[2017-07-22] MEDS ORDERED: ZOLPIDEM TARTRATE 5 MG TAB PO PRN (13:30)
[2017-07-22] MEDS ORDERED: GLUCOSE 10 TABS/TUBE PO PRN (14:00)
[2017-07-22] MEDS ORDERED: GLUCOSE 40% GEL 15 GM TUBE PO PRN (14:00)
[2017-07-22] MEDS ORDERED: GLUCAGON FOR INJ 1 MG VIAL SQ PRN (14:00)
[2017-07-22] MEDS ORDERED: DEXTROSE 50% 50 ML SYR IV PRN (14:00)
--- NOTE | 2017-07-22 14:11 | DIAGNOSTIC IMAGING REPORT ---
ABDOMEN AND PELVIS CT WITHOUT CONTRAST CT DOSE: 1235.73 mGycm HISTORY: Acute renal failure. Hypoglycemia. TECHNIQUE: Multiaxial CT images of the abdomen and pelvis were performed without the use of intravenous and oral contrast according to the standard department stone protocol. A dose lowering technique was utilized adhering to the principles of ALARA. COMPARISON STUDY: Abdomen and pelvis CT 02/17/2013. FINDINGS: Right basilar densities are nonspecific. Postoperative changes within the right femur. The unenhanced liver, spleen, adrenal glands, and pancreas are unremarkable. No retroperitoneal lymphadenopathy. Small fat-containing right inguinal hernia. Suboptimal evaluation for bowel pathology due to the lack of intravenous and oral contrast. There is also motion artifact within the study. However, no definite bowel wall thickening or obstruction. No evidence for acute appendicitis. No retroperitoneal lymphadenopathy. No bowel wall thickening or obstruction. Cholelithiasis. Mild bladder wall thickening, along the right side. There is a 4.4 cm left-sided bladder diverticulum containing a few small stones. Punctate stones within the left side the bladder posteriorly. There is gas within the bladder. There is gas within the left renal collecting system. No definite left renal calculi. No left-sided hydronephrosis. Mild right hydroureteronephrosis to the level of the ureterovesical junction. No ureteral calculi identified. Right renal calculi. There is right perinephric and periureteral fat stranding as well as mild urothelial thickening. This raises the possibility of a superimposed infection. IMPRESSION: 1. Mild right hydronephrosis to the level of the ureterovesical junction. However, no ureteral calculi identified. This could represent a recently passed stone or possibly an occult obstructing lesion at the ureterovesical junction. Urology consultation is recommended for further evaluation. 2. Bladder wall thickening seen predominantly along the right side as well as urothelial thickening of the right renal collecting system and right ureter. There is also mild right perinephric and periureteral edema. This raises the possibility of a superimposed cystitis and pyelonephritis. 3. Right-sided nephrolithiasis. 4. Gas within the bladder. This could be due to recent catheterization. 5. A 4.4 cm left bladder diverticula containing a few small stones. 6. Cholelithiasis. 7. Nonspecific right basilar airspace opacities. This could represent atelectasis or pneumonia. Electronically signed by: Frank Galindo M.D. 07/22/2017 2:10 PM Dictated Date/Time: 07/22/2017 1:53 PM
--- NOTE | 2017-07-22 14:13 | History and Physical ---
History & Physical Date & Time of Service: Jul 22, 2017 at 13:51 Chief Complaint: Ams/Hypoglycemia Primary Care Physician: RV. Coyne MD History of Present Illness Source: patient 77 y/o m Hx MS, DM II, HTN, HPL. Pt states he had a flu-like illness a few days ago, describing weakness, aces/pains and congestion. He states that he feels markedly improved today. When waking up this AM his caretakers noted that he was seemingly confused. They checked his blood glucose and noted that it was in the 30s. He was sent to the hospital therefore. The pt is asymptomatic on arrival to the ER., however, initial labs were notable for ARF. Additionally he takes a sulfonylurea and would likely be susceptible to recurrent hypoglycemia. He denies current CP, SOB, N/V, diarrhea or dysuria. The pt is currently receiving treatment with Bactrim and Amoxicillin for an ulcer on his R heal. Past Medical/Surgical History 1) Multiple sclerosis - not currently treated 2) History of polio as a child 3) DM II 4) L BKA 5) R hip fracture - 01/13 6) HTN 7) HPL Family History Patient reports no known family medical history. Social History Smoking Status: Never Smoker Drug Use: none Marital Status: Housing status: lives with family Occupational Status: retired, disabled Immunizations History of Influenza Vaccine: N/A History of Tetanus Vaccine?: Unknown History of Pneumococcal: Yes History of Hepatitis B Vaccine: Yes Multi-Drug Resistant Organisms History of MDRO: Yes Type of MDRO: MRSA Allergies Coded Allergies: Ciprofloxacin (Verified Allergy, Mild, HIVES, 07/22/17) Home Medications Scheduled Amoxicillin (Amoxil), 500 MG PO TID Ascorbic Acid (Ascorbic Acid), Unknown Dose PO DAILY Cholecalciferol (Vitamin D3), 50,000 UNITS PO WEEKLY Citalopram Hydrobromide (Celexa), 20 MG PO DAILY Cyanocobalamin (Vitamin B12), 2,500 MCG SL DAILY Ferrous Sulfate (Kp Ferrous Sulfate), 325 MG PO DAILY Gabapentin (Neurontin), 300 MG PO HS Glipizide (Glipizide Er), 10 MG PO BID Hydralazine Hcl (Apresoline), 10 MG PO AMPM Metoprolol Succinate (Toprol Xl), 25 MG PO DAILY Omeprazole (Prilosec), 10 MG PO QAM Simvastatin (Zocor), 40 MG PO HS Sulfa/Trimethoprim (Bactrim Ds 800MG/160MG), 1 TAB PO BID Sumatriptan Succinate (Imitrex), 50 MG PO PRN Review of Systems Constitutional: No fever, No chills, No sweats Eyes: No worsening of vision ENT: + nasal symptoms (recent congestion), No hearing loss Cardiovascular: No chest pain, No orthopnea Abdomen: No pain, No nausea, No vomiting Musculoskeletal: No joint pain Genitourinary - Male: No hematuria, No dysuria Neurologic: + weakness (Chronic LE weakness - does not ambulate), No memory loss Psychiatric: No depression symptoms Endocrine: + fatigue Hematologic / Lymphatic: No abnormal bleeding/bruising Integumentary: No rash Allergic / Immunologic: No environmental allergies Physical Exam Vital Signs Date Time Temp Pulse Resp B/P (MAP) Pulse Ox O2 Delivery O2 Flow Rate FiO2 07/22/17 13:38 73 16 162/79 98 Room Air 07/22/17 13:16 69 07/22/17 11:19 110 18 153/98 96 Room Air 07/22/17 10:21 95 Room Air 07/22/17 09:49 111 07/22/17 09:47 36.5 108 18 147/101 96 Room Air General Appearance: WD/WN, no apparent distress Head: normocephalic Eyes: normal inspection, EOMI ENT: normal ENT inspection, pharynx normal Neck: supple, no JVD Respiratory/Chest: + decreased breath sounds (R base) Cardiovascular: regular rate, rhythm, no edema, no gallop Abdomen/GI: normal bowel sounds, non tender, soft Back: normal inspection, no CVA tenderness Extremities/Musculoskelatal: + pertinent finding (L BKA) Neurologic/Psych: certified orthoptist II-XII nml as tested, no motor/sensory deficits, alert Skin: normal color, + pertinent finding (There are some shalow ulcers on the L knee without evidence of infection) Diagnostics Laboratory Results Results Past 24 Hours Test 07/22/17 11:06 07/22/17 11:29 07/22/17 13:37 Range/Units White Blood Count 8.50 4.8-10.8 K/uL Red Blood Count 4.57 4.7-6.1 M/uL Hemoglobin 13.2 14.0-18.0 g/dL Hematocrit 39.9 42-52 % Mean Corpuscular Volume 87.3 80-100 fL Mean Corpuscular Hemoglobin 28.9 25-34 pg Mean Corpuscular Hemoglobin Concent 33.1 32-36 g/dl Platelet Count 205 130-400 K/uL Mean Platelet Volume 11.3 7.4-10.4 fL Neutrophils (%) (Auto) 80.5 % Lymphocytes (%) (Auto) 11.9 % Monocytes (%) (Auto) 6.5 % Eosinophils (%) (Auto) 0.7 % Basophils (%) (Auto) 0.2 % Neutrophils # (Auto) 6.84 1.4-6.5 K/uL Lymphocytes # (Auto) 1.01 1.2-3.4 K/uL Monocytes # (Auto) 0.55 0.11-0.59 K/uL Eosinophils # (Auto) 0.06 0-0.5 K/uL Basophils # (Auto) 0.02 0-0.2 K/uL RDW Standard Deviation 49.1 36.4-46.3 fL RDW Coefficient of Variation 15.2 11.5-14.5 % Immature Granulocyte % (Auto) 0.2 % Immature Granulocyte # (Auto) 0.02 0.00-0.02 K/uL Prothrombin Time 10.4 9.0-12.0 SECONDS Prothromb Time International Ratio 1.0 0.9-1.1 Activated Partial Thromboplast Time 30.1 21.0-31.0 SECONDS Partial Thromboplastin Ratio 1.2 Sodium Level 134 136-145 mmol/L Potassium Level 4.1 3.5-5.1 mmol/L Chloride Level 102 98-107 mmol/L Carbon Dioxide Level 25 21-32 mmol/L Anion Gap 7.0 3-11 mmol/L Blood Urea Nitrogen 33 7-18 mg/dl Creatinine 2.04 0.60-1.40 mg/dl Est Creatinine Clear Calc Drug Dose 31.3 ml/min Estimated GFR () 34.9 Estimated GFR (Non- 30.1 BUN/Creatinine Ratio 16.3 10-20 Random Glucose 134 70-99 mg/dl Calcium Level 8.9 8.5-10.1 mg/dl Magnesium Level 2.4 1.8-2.4 mg/dl Total Bilirubin 0.4 0.2-1 mg/dl Direct Bilirubin 0.1 0-0.2 mg/dl Aspartate Amino Transf (AST/SGOT) 14 15-37 U/L Alanine Aminotransferase (ALT/SGPT) 20 12-78 U/L Alkaline Phosphatase 86 45-117 U/L Troponin I 0.090 0-0.045 ng/ml Total Protein 8.2 6.4-8.2 gm/dl Albumin 2.8 3.4-5.0 gm/dl Lipase 134 73-393 U/L Thyroid Stimulating Hormone (TSH) 1.690 0.300-4.500 uIu/ml Microbiology Results 07/22/17 Urine Culture, Aminah Batch Pending Impression Assessment and Plan 77 y/o m Hx MS, DM II, HTN, HPL. Pt states he had a flu-like illness a few days ago, describing weakness, aces/pains and congestion. He states that he feels markedly improved today. When waking up this AM his caretakers noted that he was seemingly confused. They checked his blood glucose and noted that it was in the 30s. He was sent to the hospital therefore. The pt is asymptomatic on arrival to the ER., however, initial labs were notable for ARF. Additionally he takes a sulfonylurea and would likely be susceptible to recurrent hypoglycemia. He denies current CP, SOB, N/V, diarrhea or dysuria. The pt is currently receiving treatment with Bactrim and Amoxicillin for an ulcer on his R heal. 1) Hypoglycemia - resolved - hold Glypizide, frequent POCs, IVF 2) ARF - likely due to dehydration although he is taking Bactrim currently which should be kept in mind if there is no improvement with IVF. Will trend BMP - urine lytes ordered. 3) HTN - cont Metoprolol 4) HPL - cont Zocor 5) MS - not currently treated Full code - Heparin prophylaxis Total time for this admit including review of labs, meds, imaging - discussion with pt and ER attending Level of Care Med/Surg Resuscitation Status FULL RESUSCITATION VTE Prophylaxis VTE Risk Assessment Done? Y/N: Yes Risk Level: Moderate Given or contraindicated: Unfractionated heparin SQ
[2017-07-22 14:24] LABS: CREATININE RANDOM URINE 66.9 mg/dl
--- NOTE | 2017-07-22 15:10 | EMERGENCY ROOM VISIT NOTE ---
History Report prepared by Juan Pablo: Ezra Johnston Under the Supervision of: Dr. Leobardo Rodriguez M.D. First contact with patient: 10:04 Chief Complaint: HYPOGLYCEMIA Stated Complaint: AMS/HYPOGLYCEMIA Nursing Triage Summary: pt lives at home, last night was fine when went to bed this am had slurred speech. bsg was 43. given 25g d10 prehospital pt now awake and talking normal . pt has no strength on right side from ms this is normal per pt. History of Present Illness The patient is a 77 year old male who presents to the Emergency Room with concerns over his blood glucose levels that were noticed this morning, several hours prior to arrival. Per the patient's the patient was "slurring his words" and not behaving normally this morning after he woke up. They phoned for EMS who found his blood glucose level was 43. They administered 25 g of D10. The nursing staff ordered a breakfast tray for the patient and is now felling better and behaving at his baseline per his family. The patient also made a complaint about decreased urinary frequency three days ago, and increased frequency yesterday. The notes that he has been feverish lately as well. He denies any associated LOC, headache, diaphoresis, visual changes, neck pain, chest pain, breathing difficulties, nausea, vomiting, abdominal pain, back pain , melena, hematochezia, numbness, weakness, lymphadenopathy, rash, or other complaints. 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 A total of ten systems were reviewed and were otherwise negative. Past Medical & Surgical Medical Problems: (1) ARF (acute renal failure) (2) Benign hypertension (3) Diabetic foot ulcer (4) Hernia repair (5) Hyperlipidemia (6) Hypoglycemia (7) Left Foot Ulcer (8) Multiple sclerosis (9) Osteomyelitis of left foot (10) Poliomyelitis (11) Right femoral shaft fracture (12) Tonsillectomy Family History Patient reports no known family medical history. Social History Smoking Status: Never Smoker Drug Use: none Marital Status: Housing Status: lives with significant other Occupation Status: retired, disabled Current/Historical Medications Scheduled Amoxicillin (Amoxil), 500 MG PO TID Ascorbic Acid (Ascorbic Acid), Unknown Dose PO DAILY Cholecalciferol (Vitamin D3), 50,000 UNITS PO WEEKLY Citalopram Hydrobromide (Celexa), 20 MG PO DAILY Cyanocobalamin (Vitamin B12), 2,500 MCG SL DAILY Ferrous Sulfate (Kp Ferrous Sulfate), 325 MG PO DAILY Gabapentin (Neurontin), 300 MG PO HS Glipizide (Glipizide Er), 10 MG PO BID Hydralazine Hcl (Apresoline), 10 MG PO AMPM Metoprolol Succinate (Toprol Xl), 25 MG PO DAILY Omeprazole (Prilosec), 10 MG PO QAM Simvastatin (Zocor), 40 MG PO HS Sulfa/Trimethoprim (Bactrim Ds 800MG/160MG), 1 TAB PO BID Sumatriptan Succinate (Imitrex), 50 MG PO PRN Allergies Coded Allergies: Ciprofloxacin (Verified Allergy, Mild, HIVES, 07/22/17) Physical Exam Vital Signs Date Time Temp Pulse Resp B/P (MAP) Pulse Ox O2 Delivery O2 Flow Rate FiO2 07/22/17 14:53 78 20 166/95 96 07/22/17 13:38 73 16 162/79 98 Room Air 07/22/17 13:16 69 07/22/17 11:19 110 18 153/98 96 Room Air 07/22/17 10:21 95 Room Air 07/22/17 09:49 111 07/22/17 09:47 36.5 108 18 147/101 96 Room Air Physical Exam GENERAL: Awake, alert, well-appearing, in no distress HENT: Normocephalic, atraumatic. Oropharynx unremarkable. EYES: Normal conjunctiva. Sclera non-icteric. NECK: Supple. No nuchal rigidity. FROM. No JVD. RESPIRATORY: Clear to auscultation. CARDIAC: Regular rate, normal rhythm. Extremities warm and well perfused. Pulses equal. ABDOMEN: Soft, non-distended. No tenderness to palpation. No rebound or guarding. No masses. RECTAL: Deferred. MUSCULOSKELETAL: Chest examination reveals no tenderness. The back is symmetrical on inspection without obvious abnormality. There is no CVA tenderness to palpation. No joint edema. UPPER EXTREMITIES: There is contracture of the RUE, patient states chronic in nature secondary to MS. LOWER EXTREMITIES: There is a left BKA. Brace present on the right leg. NEURO: Normal sensorium. No sensory or motor deficits noted. SKIN: No rash or jaundice noted. Medical Decision & Procedures ER Provider Diagnostic Interpretation: Radiology results as stated below per my review and radiologist interpretation: ABDOMEN AND PELVIS CT WITHOUT CONTRAST CT DOSE: 1235.73 mGycm HISTORY: Acute renal failure. Hypoglycemia. TECHNIQUE: Multiaxial CT images of the abdomen and pelvis were performed without the use of intravenous and oral contrast according to the standard department stone protocol. A dose lowering technique was utilized adhering to the principles of ALARA. COMPARISON STUDY: Abdomen and pelvis CT 02/17/2013. FINDINGS: Right basilar densities are nonspecific. Postoperative changes within the right femur. The unenhanced liver, spleen, adrenal glands, and pancreas are unremarkable. No retroperitoneal lymphadenopathy. Small fat-containing right inguinal hernia. Suboptimal evaluation for bowel pathology due to the lack of intravenous and oral contrast. There is also motion artifact within the study. However, no definite bowel wall thickening or obstruction. No evidence for acute appendicitis. No retroperitoneal lymphadenopathy. No bowel wall thickening or obstruction. Cholelithiasis. Mild bladder wall thickening, along the right side. There is a 4.4 cm left-sided bladder diverticulum containing a few small stones. Punctate stones within the left side the bladder posteriorly. There is gas within the bladder. There is gas within the left renal collecting system. No definite left renal calculi. No left-sided hydronephrosis. Mild right hydroureteronephrosis to the level of the ureterovesical junction. No ureteral calculi identified. Right renal calculi. There is right perinephric and periureteral fat stranding as well as mild urothelial thickening. This raises the possibility of a superimposed infection. IMPRESSION: 1. Mild right hydronephrosis to the level of the ureterovesical junction. However, no ureteral calculi identified. This could represent a recently passed stone or possibly an occult obstructing lesion at the ureterovesical junction. Urology consultation is recommended for further evaluation. 2. Bladder wall thickening seen predominantly along the right side as well as urothelial thickening of the right renal collecting system and right ureter. There is also mild right perinephric and periureteral edema. This raises the possibility of a superimposed cystitis and pyelonephritis. 3. Right-sided nephrolithiasis. 4. Gas within the bladder. This could be due to recent catheterization. 5. A 4.4 cm left bladder diverticula containing a few small stones. 6. Cholelithiasis. 7. Nonspecific right basilar airspace opacities. This could represent atelectasis or pneumonia. Electronically signed by: Frank Galindo M.D. 07/22/2017 2:10 PM Dictated Date/Time: 07/22/2017 1:53 PM Laboratory Results 07/22/17 11:06 Red Blood Count 4.57, Mean Corpuscular Volume 87.3, Mean Corpuscular Hemoglobin 28.9, Mean Corpuscular Hemoglobin Concent 33.1, Mean Platelet Volume 11.3, Neutrophils (%) (Auto) 80.5, Lymphocytes (%) (Auto) 11.9, Monocytes (%) (Auto) 6.5, Eosinophils (%) (Auto) 0.7, Basophils (%) (Auto) 0.2, Neutrophils # (Auto) 6.84, Lymphocytes # (Auto) 1.01, Monocytes # (Auto) 0.55, Eosinophils # (Auto) 0.06, Basophils # (Auto) 0.02 07/22/17 11:06 Test 07/22/17 11:06 07/22/17 13:40 White Blood Count 8.50 K/uL (4.8-10.8) Red Blood Count 4.57 M/uL (4.7-6.1) Hemoglobin 13.2 g/dL (14.0-18.0) Hematocrit 39.9 % (42-52) Mean Corpuscular Volume 87.3 fL (80-100) Mean Corpuscular Hemoglobin 28.9 pg (25-34) Mean Corpuscular Hemoglobin Concent 33.1 g/dl (32-36) Platelet Count 205 K/uL (130-400) Mean Platelet Volume 11.3 fL (7.4-10.4) Neutrophils (%) (Auto) 80.5 % Lymphocytes (%) (Auto) 11.9 % Monocytes (%) (Auto) 6.5 % Eosinophils (%) (Auto) 0.7 % Basophils (%) (Auto) 0.2 % Neutrophils # (Auto) 6.84 K/uL (1.4-6.5) Lymphocytes # (Auto) 1.01 K/uL (1.2-3.4) Monocytes # (Auto) 0.55 K/uL (0.11-0.59) Eosinophils # (Auto) 0.06 K/uL (0-0.5) Basophils # (Auto) 0.02 K/uL (0-0.2) RDW Standard Deviation 49.1 fL (36.4-46.3) RDW Coefficient of Variation 15.2 % (11.5-14.5) Immature Granulocyte % (Auto) 0.2 % Immature Granulocyte # (Auto) 0.02 K/uL (0.00-0.02) Prothrombin Time 10.4 SECONDS (9.0-12.0) Prothromb Time International Ratio 1.0 (0.9-1.1) Activated Partial Thromboplast Time 30.1 SECONDS (21.0-31.0) Partial Thromboplastin Ratio 1.2 Anion Gap 7.0 mmol/L (3-11) Est Creatinine Clear Calc Drug Dose 31.3 ml/min Estimated GFR () 34.9 Estimated GFR (Non- 30.1 BUN/Creatinine Ratio 16.3 (10-20) Calcium Level 8.9 mg/dl (8.5-10.1) Magnesium Level 2.4 mg/dl (1.8-2.4) Total Bilirubin 0.4 mg/dl (0.2-1) Direct Bilirubin 0.1 mg/dl (0-0.2) Aspartate Amino Transf (AST/SGOT) 14 U/L (15-37) Alanine Aminotransferase (ALT/SGPT) 20 U/L (12-78) Alkaline Phosphatase 86 U/L (45-117) Troponin I 0.090 ng/ml (0-0.045) Total Protein 8.2 gm/dl (6.4-8.2) Albumin 2.8 gm/dl (3.4-5.0) Lipase 134 U/L (73-393) Thyroid Stimulating Hormone (TSH) 1.690 uIu/ml (0.300-4.500) Urine Color YELLOW Urine Appearance TURBID (CLEAR) Urine pH 5.5 (4.5-7.5) Urine Specific Allen 1.017 (1.000-1.030) Urine Protein 1+ (NEG) Urine Glucose (UA) NEG (NEG) Urine Ketones NEG (NEG) Urine Occult Blood 2+ (NEG) Urine Nitrite POS (NEG) Urine Bilirubin NEG (NEG) Urine Urobilinogen NEG (NEG) Urine Leukocyte Esterase LARGE (NEG) Urine WBC (Auto) >30 /hpf (0-5) Urine RBC (Auto) 0-4 /hpf (0-4) Urine Hyaline Casts (Auto) 1-5 /lpf (0-5) Urine Epithelial Cells (Auto) >30 /lpf (0-5) Urine Bacteria (Auto) 4+ (NEG) Urine Yeast (Auto) (NONE PRSENT) Urine Random Creatinine 66.9 mg/dl Urine Random Sodium 68 mEq/L Laboratory results reviewed by me ECG Indication: altered mental status Rate (beats per minute): 107 Rhythm: sinus tachycardia Findings: PVC, no acute ischemic change ED Course 1046: The patient was evaluated in room A9. A complete history and physical exam was performed. 1242: I checked on the patient at this time. I updated him on the status of the case to this point. 1254: I spoke with the patient and family again, to clarify the details of his current health status. 1316: I discussed the case with Dr. Ynes SANTAMARIA Hospitalist. He will evaluate the patient for further treatment. Medical Decision Prior records/ancillary studies reviewed and summarized above. Nursing notes reviewed and agree them. Additional history obtained from family and EMS. The patient's history was concerning for altered mental status and hypoglycemia. Differential diagnosis: Etiologies such as infection, hypoglycemia, electrolyte abnormalities, cardiac sources, intracerebral event, toxicologic, neurologic, as well as others were entertained. Physical examination: As above. ER treatment provided: IV Lock Breakfast On reassessment the patient felt better. Diagnostics interpretation by me: ECG: No ischemia The labs revealed an unremarkable CBC. Chemistry panel revealed acute renal failure. Urinalysis pending at the time of admission. Elevated troponin. Imaging studies: CT scan as above. Consultation: A consultation was placed with the hospitalist. The case was discussed and diagnostics were reviewed. The patient was evaluated in the ER for further treatment. The patient was found to have an abnormal urinalysis concerning for infection. Correlating this with CT scan he will need antibiotics. Internal medicine had seen the patient and already written for antibiotics. Blood Pressure Screening Patient's blood pressure: Elevated blood pressure Referred to hospitalist Consults Time Called: 1310 Consulting Physician: Dr. Ynes SANTAMARIA Hospitalist Returned Call: 1316 I discussed the case with Dr. Ynes Omal[place] [facility] [place]. He will evaluate the patient for further treatment. Impression Primary Impression: Hypoglycemia Additional Impressions: Acute renal failure Elevated troponin Urinary tract infection Scribe Attestation The scribe's documentation has been prepared under my direction and personally reviewed by me in its entirety. I confirm that the note above accurately reflects all work, treatment, procedures, and medical decision making performed by me. Departure Information Dispostion Being Evaluated By Hospitalist Referrals RV. Coyne MD (PCP) Patient Instructions My [facility] Problem Qualifiers
[2017-07-22 16:19] VITALS: O2SAT 95; BMI 24.9
[2017-07-22 18:28] VITALS: O2SAT 95
[2017-07-22] MEDS: CEFTRIAXONE SOD INJ 1 GM in DEXTROSE 5% ADD-VANTAGE 50ML 50 ML IV SCH (19:20)
[2017-07-22] MEDS: SODIUM CHLORIDE 0.9% 1000ML 1,000 ML IV SCH (19:21)
[2017-07-22] MEDS ORDERED: AMOXICILLIN 500 MG CAP PO SCH (21:00)
[2017-07-22] MEDS: GABAPENTIN 300 MG CAP PO SCH (21:53)
[2017-07-22] MEDS: SULFAMETHOXAZOLE/TRIMETHOPRIM DS 800/160MG TAB PO SCH (21:54)
[2017-07-22] MEDS: SIMVASTATIN 40 MG TAB PO SCH (21:54)
[2017-07-22] MEDS: HydrALAZINE 10 MG TAB PO SCH (21:55)
[2017-07-22] MEDS: HEPARIN SOD 5000 UNIT/0.5 ML CARP SQ SCH (21:56)
[2017-07-22] MEDS ORDERED: INSULIN ASPART 100 UNITS/ML 3 ML PEN SC SCH (22:00)
[2017-07-23 00:03] VITALS: BP 162/78; PULSE 84; TEMP 36.6; O2SAT 93
[2017-07-23 03:28] VITALS: BP 148/76; PULSE 81; TEMP 37; O2SAT 93
[2017-07-23] MEDS: SODIUM CHLORIDE 0.9% 1000ML 1,000 ML IV SCH ×2 (04:12→13:15)
[2017-07-23] MEDS: HEPARIN SOD 5000 UNIT/0.5 ML CARP SQ SCH ×3 (06:04→20:40)
[2017-07-23] MEDS: INSULIN ASPART 100 UNITS/ML 3 ML PEN SC SCH ×5 (07:00→20:29)
[2017-07-23 07:34] VITALS: BP 143/77; PULSE 87; TEMP 36.8; O2SAT 94
[2017-07-23 07:53] LABS: HEMATOCRIT 33.4 % (42-52); HEMOGLOBIN 10.8 g/dL (14.0-18.0); MEAN CELL VOLUME 86.8 fL (80-100); MEAN CORPUSCULAR HEMOGLOBIN 28.1 pg (25-34); MEAN CORPUSCULAR HGB CONC 32.3 g/dl (32-36); MEAN PLATELET VOLUME 10.7 fL (7.4-10.4); PLATELET COUNT 184 K/uL (130-400); RED CELL DISTRIBUTION WIDTH CV 15.3 % (11.5-14.5); RED CELL DISTRIBUTION WIDTH SD 48.4 fL (36.4-46.3); WHITE BLOOD COUNT 6.89 K/uL (4.8-10.8)
[2017-07-23 08:28] LABS: CALCIUM 8.9 mg/dl (8.5-10.1); CREATININE 1.61 mg/dl (0.60-1.40); POTASSIUM 4.1 mmol/L (3.5-5.1)
[2017-07-23 08:29] LABS: PHOSPHORUS 2.9 mg/dl (2.5-4.9)
[2017-07-23] MEDS: CYANOCOBALAMIN 2,500 MCG SUBL TAB PO SCH (08:38)
[2017-07-23] MEDS: CITALOPRAM 20 MG TAB PO SCH (08:38)
[2017-07-23] MEDS: HydrALAZINE 10 MG TAB PO SCH ×2 (08:38→20:28)
[2017-07-23] MEDS: SULFAMETHOXAZOLE/TRIMETHOPRIM DS 800/160MG TAB PO SCH (08:38)
[2017-07-23] MEDS: FERROUS SULFATE 325 MG TAB PO SCH (08:38)
[2017-07-23] MEDS: METOPROLOL SUCC 25MG EXT REL TAB PO SCH (08:38)
[2017-07-23] MEDS: PANTOprazole SOD 40 MG TAB PO SCH (08:38)
--- NOTE | 2017-07-23 10:22 | Urology Consultation ---
History General Date of Service: Jul 23, 2017. Chief Complaint: right hydronephrosis Primary Care Physician: RV. Coyne MD Pt seen a urologist before?: Yes (Dr. Brenden Clement) If yes, why?: neurogenic bladder History of Present Illness 77 yo male admitted for hypoglycemia. consulted for right hydronephrosis seen on CT and ARF on admission. The pt has a hx of incontinence and neurogenic bladder for which he last saw Dr. Clement in 2014. He has been using a condom catheter since that time. Urine is clear, yellow in the drainage bag this morning. Per the pt, he is a difficult cath d/t hx of stricture, and staff were unable to place kaye catheter on admission. He is noted to have some right hydro on CT extending to the bladder. This is stable since 2012, and the pt currently denies any pain. Noted to have a Cr of 2.04 on admission yesterday. Trending down to 1.61 this morning. ? KRYSTYNA from dehydration and use of Bactrim for heal ulcer. UC&S preliminarily positive as well growing gram negative bacilli. CT showing inflammation around the bladder and ureter as well as a new bladder diverticulum. The pt is currently afebrile. White count has been normal. Imaging Imaging: CT Laboratory Last 24 Hours Test 07/22/17 11:06 07/22/17 12:51 07/22/17 13:40 07/22/17 15:14 White Blood Count 8.50 K/uL Red Blood Count 4.57 M/uL Hemoglobin 13.2 g/dL Hematocrit 39.9 % Mean Corpuscular Volume 87.3 fL Mean Corpuscular Hemoglobin 28.9 pg Mean Corpuscular Hemoglobin Concent 33.1 g/dl Platelet Count 205 K/uL Mean Platelet Volume 11.3 fL Neutrophils (%) (Auto) 80.5 % Lymphocytes (%) (Auto) 11.9 % Monocytes (%) (Auto) 6.5 % Eosinophils (%) (Auto) 0.7 % Basophils (%) (Auto) 0.2 % Neutrophils # (Auto) 6.84 K/uL Lymphocytes # (Auto) 1.01 K/uL Monocytes # (Auto) 0.55 K/uL Eosinophils # (Auto) 0.06 K/uL Basophils # (Auto) 0.02 K/uL RDW Standard Deviation 49.1 fL RDW Coefficient of Variation 15.2 % Immature Granulocyte % (Auto) 0.2 % Immature Granulocyte # (Auto) 0.02 K/uL Prothrombin Time 10.4 SECONDS Prothromb Time International Ratio 1.0 Activated Partial Thromboplast Time 30.1 SECONDS Partial Thromboplastin Ratio 1.2 Sodium Level 134 mmol/L Potassium Level 4.1 mmol/L Chloride Level 102 mmol/L Carbon Dioxide Level 25 mmol/L Anion Gap 7.0 mmol/L Blood Urea Nitrogen 33 mg/dl Creatinine 2.04 mg/dl Est Creatinine Clear Calc Drug Dose 31.3 ml/min Estimated GFR () 34.9 Estimated GFR (Non- 30.1 BUN/Creatinine Ratio 16.3 Random Glucose 134 mg/dl Calcium Level 8.9 mg/dl Magnesium Level 2.4 mg/dl Total Bilirubin 0.4 mg/dl Direct Bilirubin 0.1 mg/dl Aspartate Amino Transf (AST/SGOT) 14 U/L Alanine Aminotransferase (ALT/SGPT) 20 U/L Alkaline Phosphatase 86 U/L Troponin I 0.090 ng/ml Total Protein 8.2 gm/dl Albumin 2.8 gm/dl Lipase 134 U/L Thyroid Stimulating Hormone (TSH) 1.690 uIu/ml Bedside Glucose 119 mg/dl 136 mg/dl Urine Color YELLOW Urine Appearance TURBID Urine pH 5.5 Urine Specific [place] 1.017 Urine Protein 1+ Urine Glucose (UA) NEG Urine Ketones NEG Urine Occult Blood 2+ Urine Nitrite POS Urine Bilirubin NEG Urine Urobilinogen NEG Urine Leukocyte Esterase LARGE Urine WBC (Auto) >30 /hpf Urine RBC (Auto) 0-4 /hpf Urine Hyaline Casts (Auto) 1-5 /lpf Urine Epithelial Cells (Auto) >30 /lpf Urine Bacteria (Auto) 4+ Urine Yeast (Auto) Urine Random Creatinine 66.9 mg/dl Urine Random Sodium 68 mEq/L Test 07/22/17 17:07 07/22/17 23:07 07/23/17 06:39 07/23/17 06:40 Troponin I 0.064 ng/ml 0.077 ng/ml Bedside Glucose 58 mg/dl 63 mg/dl Test 07/23/17 06:58 07/23/17 07:38 Bedside Glucose 97 mg/dl White Blood Count 6.89 K/uL Red Blood Count 3.85 M/uL Hemoglobin 10.8 g/dL Hematocrit 33.4 % Mean Corpuscular Volume 86.8 fL Mean Corpuscular Hemoglobin 28.1 pg Mean Corpuscular Hemoglobin Concent 32.3 g/dl RDW Standard Deviation 48.4 fL RDW Coefficient of Variation 15.3 % Platelet Count 184 K/uL Mean Platelet Volume 10.7 fL Sodium Level 136 mmol/L Potassium Level 4.1 mmol/L Chloride Level 106 mmol/L Carbon Dioxide Level 22 mmol/L Anion Gap 8.0 mmol/L Blood Urea Nitrogen 30 mg/dl Creatinine 1.61 mg/dl Est Creatinine Clear Calc Drug Dose 39.6 ml/min Estimated GFR () 46.4 Estimated GFR (Non- 40.1 BUN/Creatinine Ratio 18.7 Random Glucose 130 mg/dl Calcium Level 8.9 mg/dl Phosphorus Level 2.9 mg/dl Magnesium Level 2.0 mg/dl Problem List Medical Problems: (1) Acute renal failure Status: Acute (2) Elevated troponin Status: Acute (3) Subtrochanteric fracture of right femur Status: Acute (4) Urinary tract infection Status: Acute Past History diabetes, high cholesterol, hypertension, other (MS, hx of polio as a child, right hip fracture 01/13) Pt had a problem w anesthesia?: No Past Surgical History: spinal surgery, tonsillectomy, other (left BKA) Family History Patient reports no known family medical history. Social History Hx Tobacco Use In Past Year?: No Smoking: quit greater than 1 year Marital status: Housing status: lives with family Occupation status: retired, disabled Immunizations History of Influenza Vaccine: N/A History of Tetanus Vaccine?: Unknown History of Pneumococcal: Yes History of Hepatitis B Vaccine: Yes History of MDRO Yes Type of MDRO: MRSA Allergies Coded Allergies: Ciprofloxacin (Verified Allergy, Mild, HIVES, 07/22/17) Medications Home Medications: Home Meds and Scripts Medications Dose Route/Sig Max Daily Dose Days Date Category Dose Instructions Amoxil (Amoxicillin) 500 Mg Cap 500 Mg PO TID 06/16/17 Rx Bactrim Ds 800MG/160MG (Trimethoprim/Sulfamethoxazole) Tab 1 Tab PO BID 06/16/17 Rx Vitamin B12 (Cyanocobalamin) 1,000 Mcg Tab 2,500 Mcg SL DAILY 01/05/17 Reported Ascorbic Acid Unknown Strength Tab Unknown Dose PO DAILY 01/05/17 Reported TAKE ONE TAB DAILY WITH IRON TABLET Kp Ferrous Sulfate (Ferrous Sulfate) 325 Mg Tab 325 Mg PO DAILY 01/05/17 Reported TAKE ONE TAB DAILY WITH FOOD AND VITAMIN C Apresoline (Hydralazine Hcl) 10 Mg Tab 10 Mg PO AMPM 01/05/17 Reported Vitamin D3 (Cholecalciferol) 50,000 Unit Cap 50,000 Units PO WEEKLY 01/05/17 Reported TAKE THIS MED EVERY FRIDAY Prilosec (Omeprazole) 10 Mg Capcr 10 Mg PO QAM 01/03/16 Reported Glipizide Er (Glipizide) 10 Mg Tab 10 Mg PO BID 01/03/16 Reported Toprol Xl (Metoprolol Succinate) 25 Mg Tabcr 25 Mg PO DAILY 02/15/13 Reported Celexa (Citalopram Hydrobromide) 20 Mg Tab 20 Mg PO DAILY 02/15/13 Reported Neurontin (Gabapentin) 300 Mg Cap 300 Mg PO HS 02/15/13 Reported Zocor (Simvastatin) 40 Mg Tab 40 Mg PO HS 11/27/10 Reported Imitrex (Sumatriptan Succinate) 50 Mg Tab 50 Mg PO PRN 11/27/10 Reported Inpatient Medications: Current Inpatient Medications Medications (Trade) Dose Ordered Sig/[place] Route Start Time Stop Time Status Last Admin Dose Admin Citalopram Hydrobromide (celeXA TAB) 20 mg DAILY PO 07/23/17 09:00 08/22/17 08:59 07/23/17 08:38 20 MG Gabapentin (Neurontin Cap) 300 mg HS PO 07/22/17 21:00 08/21/17 20:59 07/22/17 21:53 300 MG Metoprolol Succinate (Toprol Xl Tab) 25 mg DAILY PO 07/23/17 09:00 08/22/17 08:59 07/23/17 08:38 25 MG Simvastatin (Zocor Tab) 40 mg HS PO 07/22/17 21:00 08/21/17 20:59 07/22/17 21:54 40 MG Cyanocobalamin (Vitamin B-12 Tab) 2,500 mcg DAILY PO 07/23/17 09:00 08/22/17 08:59 07/23/17 08:38 2,500 MCG Ferrous Sulfate (Feosol Tab) 325 mg DAILY PO 07/23/17 09:00 08/22/17 08:59 07/23/17 08:38 325 MG Pantoprazole Sodium (Protonix Tab) 40 mg QAM PO 07/23/17 09:00 08/22/17 08:59 07/23/17 08:38 40 MG Hydralazine HCl (Apresoline Tab) 10 mg BID PO 07/22/17 21:00 08/21/17 20:59 07/23/17 08:38 10 MG Heparin Sodium (Porcine) (Heparin Sq 5000 Unit/0.5ml) 5,000 unit Q8 SQ 07/22/17 22:00 08/21/17 21:59 07/23/17 06:04 5,000 UNIT Acetaminophen (Tylenol Tab) 650 mg Q4H PRN PO 07/22/17 13:30 08/21/17 13:29 Al Hydrox/Mg Hydrox/Simethicone (Maalox Max Susp) 15 ml Q4H PRN PO 07/22/17 13:30 08/21/17 13:29 Magnesium Hydroxide (Milk Of Magnesia Susp) 30 ml Q12H PRN PO 07/22/17 13:30 08/21/17 13:29 Zolpidem Tartrate (Ambien Tab) 5 mg HSZ PRN PO 07/22/17 13:30 08/21/17 13:29 Ondansetron HCl (Zofran Inj) 4 mg Q6H PRN IV 07/22/17 13:30 08/21/17 13:29 Morphine Sulfate (MoRPHine SULFATE INJ) 2 mg Q30M PRN IV 07/22/17 13:30 08/05/17 13:29 Polyethylene (Miralax Powder Packet) 17 gm DAILY PRN PO 07/22/17 13:30 08/21/17 13:29 Glucose (Glucose 40% Gel) 15-30 GRAMS 15 GRAMS... UD PRN PO 07/22/17 14:00 08/21/17 13:59 Glucose (Glucose Chew Tab) 4-8 Tablets 4 Tabl... UD PRN PO 07/22/17 14:00 08/21/17 13:59 Dextrose (Dextrose 50% 50ML Syringe) 25-50ML OF 50% DW IV FOR... UD PRN IV 07/22/17 14:00 08/21/17 13:59 Glucagon (Glucagon Inj) 1 mg UD PRN SQ 07/22/17 14:00 08/21/17 13:59 Trimethoprim/ Sulfamethoxazole (Septra Ds 800/ 160MG Tab) 1 tab BID PO 07/22/17 21:00 08/01/17 20:59 07/23/17 08:38 1 TAB Ceftriaxone Sodium 1 gm/ Dextrose 50 ml @ 100 mls/hr Q24H IV 07/22/17 20:00 07/27/17 19:59 07/22/17 19:20 100 MLS/HR Insulin Aspart (novoLOG ASPART) SLIDING SCALE G... ACHS SC 07/23/17 07:00 08/21/17 21:59 Review of Systems Review of Systems Constitutional: No fever, No chills Eyes: No double vision Neurological: No dizzy Endocrine: No excessive thirst Gastrointestinal: No abdominal pain, No nausea, No vomiting Cardiovascular: No chest pain Respiratory: No shortness of breath Skin: No rash Musculoskeletal: No back pain Male : No blood in urine Physical Exam Vital Signs: Vital Signs Past 12 Hours Date Time Temp Pulse Resp B/P (MAP) Pulse Ox O2 Delivery O2 Flow Rate FiO2 07/23/17 07:34 36.8 87 20 143/77 (99) 94 Room Air 07/23/17 04:00 Room Air 07/23/17 03:28 37.0 81 16 148/76 (100) 93 07/23/17 00:03 36.6 84 18 162/78 (106) 93 07/23/17 00:00 Room Air Physical Exam: General Appearance: no apparent distress Eyes: bilateral eyes normal inspection ENT: hearing grossly normal Neck: no JVD Respiratory/Chest: no respiratory distress, no accessory muscle use Cardiovascular: no JVD Extremities: normal inspection Neurologic/Psychiatric: alert, normal mood/affect, oriented x 3 Skin: normal color Assessment & Plan Assessment & Plan A/P: UTI, right hydronephrosis, KRYSTYNA AFVSS. Pt with stable right hydronephrosis since 2012. Would avoid any stent placement given his Cr is trending down. Continue condom catheter for now and Bactrim pending UC&S sensitivities. May need to consider kaye placement in the event his renal function were to worsen. Consider outpatient cysto for further evaluation of stricture and bladder diverticulum. Thanks for the consult. Will continue to follow along with primary service. CT and plan of care reviewed with Dr. Lombardi this morning.
[2017-07-23 10:53] VITALS: Ht 180.3 cm; Wt 82.0 kg
[2017-07-23 11:00] VITALS: BP 168/82; PULSE 68; TEMP 36.6; O2SAT 95
[2017-07-23 15:35] VITALS: BP 172/81; PULSE 69; TEMP 36.7; O2SAT 93
[2017-07-23] MEDS ORDERED: HydrALAZINE HCL 20 MG/ML VIAL IV. PRN (18:15)
--- NOTE | 2017-07-23 18:18 | Hospitalist Progress Note ---
Hospitalist Progress Note Date of Service Jul 23, 2017. Subjective Pt evaluation today including: conversation w/ patient, conversation w/ family Pt feeling much better now that glucose is in normal range. He denies SOB or CP. He is currently getting treatment with abx and routine wound care on a right heel ulcer. Renal function improved today. Tele with sinus rhythm in the 60s-80s. Afebrile All Other Systems: Reviewed and Negative Objective Vital Signs Date Time Temp Pulse Resp B/P (MAP) Pulse Ox O2 Delivery O2 Flow Rate FiO2 07/23/17 15:35 36.7 69 20 172/81 (111) 93 Room Air 07/23/17 12:00 Room Air 07/23/17 11:00 36.6 68 20 168/82 (110) 95 Room Air 07/23/17 08:00 Room Air 07/23/17 07:34 36.8 87 20 143/77 (99) 94 Room Air 07/23/17 04:00 Room Air 07/23/17 03:28 37.0 81 16 148/76 (100) 93 07/23/17 00:03 36.6 84 18 162/78 (106) 93 07/23/17 00:00 Room Air 07/22/17 20:00 Room Air 07/22/17 18:28 74 18 148/87 95 Room Air 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; Right lateral heel with 3x4cm ovoid ulcer with granulation tissue, slightly wet , no surrounding erythema or drainage; 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 in upper ext as well) Neurologic/Psychiatric: alert, + pertinent finding (right sided hemiparesis with contractures) Skin: normal color, warm/dry, no rash, + pertinent finding (heel ulcer as above ) Laboratory Results Last 24 Hours Test 07/22/17 23:07 07/23/17 06:40 07/23/17 06:58 07/23/17 07:38 Troponin I 0.077 ng/ml Bedside Glucose 63 mg/dl 97 mg/dl White Blood Count 6.89 K/uL Red Blood Count 3.85 M/uL Hemoglobin 10.8 g/dL Hematocrit 33.4 % Mean Corpuscular Volume 86.8 fL Mean Corpuscular Hemoglobin 28.1 pg Mean Corpuscular Hemoglobin Concent 32.3 g/dl RDW Standard Deviation 48.4 fL RDW Coefficient of Variation 15.3 % Platelet Count 184 K/uL Mean Platelet Volume 10.7 fL Sodium Level 136 mmol/L Potassium Level 4.1 mmol/L Chloride Level 106 mmol/L Carbon Dioxide Level 22 mmol/L Anion Gap 8.0 mmol/L Blood Urea Nitrogen 30 mg/dl Creatinine 1.61 mg/dl Est Creatinine Clear Calc Drug Dose 39.6 ml/min Estimated GFR () 46.4 Estimated GFR (Non- 40.1 BUN/Creatinine Ratio 18.7 Random Glucose 130 mg/dl Calcium Level 8.9 mg/dl Phosphorus Level 2.9 mg/dl Magnesium Level 2.0 mg/dl Test 07/23/17 11:01 07/23/17 16:29 Bedside Glucose 122 mg/dl 119 mg/dl Assessment and Plan This pt is a 77 y/o m Hx MS, DM II, HTN, HPL, and urethral stricture with chronic Right hydronephrosis. Pt states he had a flu-like illness a few days ago, describing weakness, aches/pains and congestion. He states that he feels markedly improved, but woke up on day of admission with confusion and profound hypoglycemia in the 30s. The pt is asymptomatic on arrival to the ER., however , initial labs were notable for ARF. Additionally he takes a sulfonylurea and would likely be susceptible to recurrent hypoglycemia. The pt is currently receiving treatment with Bactrim and Amoxicillin for an ulcer on his R heal. 1) Hypoglycemia - resolved - is eating regular meals now. Likely secondary to renal failure with taking sulfonylurea. HgbA1C 6.6% in --> very well controlled -continue to hold Glipizide and likely switch to lower dose on dc -accuchecks,SSI 2) KRYSTYNA/Acute pyelonephritis/Chronic R hydronephrosis - likely due to dehydration and could also be from Bactrim. There has been some improvement with IVF. FeNa is 1.5% more consistent with intrinsic failure. Does have evidence of UTI and acute pyelo on CT abd/pel, with chronic right hydroureteronephrosis. Geophysical Data Technician improved from 2.0 to 1.6 today. 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 Grew out MRSA, Proteus mirabilis, and Enterococcus faecalis on wound cx from 04/2017 -consult Wound RN here -switch Bactrim to Doxy for MRSA coverage -continue Rocephin for UTI for now and switch back to Amox on dc if UTI also covered by this Full code - Heparin prophylaxis Dispo-ok to transfer to medical floor -dc when renal failure continues to improve, Ur cx results available
[2017-07-23] MEDS: CEFTRIAXONE SOD INJ 1 GM in DEXTROSE 5% ADD-VANTAGE 50ML 50 ML IV SCH (20:27)
[2017-07-23] MEDS: DOXYCYCLINE HYCLATE 100 MG CAP PO SCH (20:28)
[2017-07-23] MEDS: GABAPENTIN 300 MG CAP PO SCH (20:28)
[2017-07-23] MEDS: SIMVASTATIN 40 MG TAB PO SCH (20:29)
[2017-07-23 23:50] VITALS: BP_SYST 122; BP_SYST 163; BP_DIAS 63; BP_DIAS 80; PULSE 65; TEMP 36.7; O2SAT 94
[2017-07-24] MEDS: SODIUM CHLORIDE 0.9% 1000ML 1,000 ML IV SCH (04:10)
[2017-07-24] MEDS: HEPARIN SOD 5000 UNIT/0.5 ML CARP SQ SCH (06:04)
[2017-07-24 06:34] LABS: BASO % 0.7 %; BASO ABS # 0.05 K/uL (0-0.2); EOS % 4.5 %; EOS ABS # 0.32 K/uL (0-0.5); HEMATOCRIT 34.9 % (42-52); HEMOGLOBIN 11.3 g/dL (14.0-18.0); IG# 0.04 K/uL (0.00-0.02); LYMPH % 15.2 %; LYMPH ABS # 1.09 K/uL (1.2-3.4); MEAN CELL VOLUME 86.2 fL (80-100); MEAN CORPUSCULAR HEMOGLOBIN 27.9 pg (25-34); MEAN CORPUSCULAR HGB CONC 32.4 g/dl (32-36); MEAN PLATELET VOLUME 11.1 fL (7.4-10.4); MONO % 10.6 %; MONO ABS # 0.76 K/uL (0.11-0.59); NEUT % 68.4 %; NEUT ABS # 4.93 K/uL (1.4-6.5); PLATELET COUNT 206 K/uL (130-400); RED CELL DISTRIBUTION WIDTH CV 14.8 % (11.5-14.5); RED CELL DISTRIBUTION WIDTH SD 46.9 fL (36.4-46.3); WHITE BLOOD COUNT 7.19 K/uL (4.8-10.8)
[2017-07-24 07:03] LABS: CALCIUM 8.5 mg/dl (8.5-10.1); CREATININE 1.43 mg/dl (0.60-1.40); POTASSIUM 4.5 mmol/L (3.5-5.1)
[2017-07-24] MEDS ORDERED: PIPERACILL/TAZOBAC CONSULT ACTIVE PRN (07:30)
[2017-07-24 07:49] VITALS: BP 162/88; PULSE 66; TEMP 36.5; O2SAT 96
--- NOTE | 2017-07-24 07:50 | Progress Note ---
Subjective Date of Service: Jul 24, 2017. Subjective Pt evaluation today including: conversation w/ patient, chart review, lab review Voiding: kaye catheter in place (patent, draining clear, yellow urine with condom catheter in place. ) 77 yo male with right hydro and UTI. Pt denies pain this morning. Cr improved to 1.43. Urine remains clear, yellow. UC&S growing ESBL e coli. Problem List Medical Problems: (1) Acute renal failure Status: Acute (2) Elevated troponin Status: Acute (3) Subtrochanteric fracture of right femur Status: Acute (4) Urinary tract infection Status: Acute Review of Systems Constitutional: No fever, No chills Respiratory: No shortness of breath Cardiac: No chest pain Abdomen: No pain, No nausea, No vomiting Male : No hematuria Heme: No abnormal bleeding/bruising Objective Vital Signs Date Time Temp Pulse Resp B/P (MAP) Pulse Ox O2 Delivery O2 Flow Rate FiO2 07/24/17 00:00 Room Air 07/23/17 23:50 36.7 65 18 163/80 (107) 94 Room Air 07/23/17 16:45 Room Air 07/23/17 15:35 36.7 69 20 172/81 (111) 93 Room Air 07/23/17 12:00 Room Air 07/23/17 11:00 36.6 68 20 168/82 (110) 95 Room Air 07/23/17 08:00 Room Air Physical Exam General Appearance: no apparent distress Eyes: normal inspection ENT: hearing grossly normal Neck: no JVD Respiratory/Chest: no respiratory distress, no accessory muscle use Cardiovascular: no JVD Extremities: normal inspection Neurologic/Psychiatric: alert, normal mood/affect, oriented x 3 Skin: normal color Laboratory Results Last 24 Hours Test 07/23/17 11:01 07/23/17 16:29 07/23/17 20:02 07/24/17 06:11 Bedside Glucose 122 mg/dl 119 mg/dl 117 mg/dl White Blood Count 7.19 K/uL Red Blood Count 4.05 M/uL Hemoglobin 11.3 g/dL Hematocrit 34.9 % Mean Corpuscular Volume 86.2 fL Mean Corpuscular Hemoglobin 27.9 pg Mean Corpuscular Hemoglobin Concent 32.4 g/dl Platelet Count 206 K/uL Mean Platelet Volume 11.1 fL Neutrophils (%) (Auto) 68.4 % Lymphocytes (%) (Auto) 15.2 % Monocytes (%) (Auto) 10.6 % Eosinophils (%) (Auto) 4.5 % Basophils (%) (Auto) 0.7 % Neutrophils # (Auto) 4.93 K/uL Lymphocytes # (Auto) 1.09 K/uL Monocytes # (Auto) 0.76 K/uL Eosinophils # (Auto) 0.32 K/uL Basophils # (Auto) 0.05 K/uL RDW Standard Deviation 46.9 fL RDW Coefficient of Variation 14.8 % Immature Granulocyte % (Auto) 0.6 % Immature Granulocyte # (Auto) 0.04 K/uL Sodium Level 137 mmol/L Potassium Level 4.5 mmol/L Chloride Level 107 mmol/L Carbon Dioxide Level 26 mmol/L Anion Gap 4.0 mmol/L Blood Urea Nitrogen 26 mg/dl Creatinine 1.43 mg/dl Est Creatinine Clear Calc Drug Dose 44.6 ml/min Estimated GFR () 53.6 Estimated GFR (Non- 46.3 BUN/Creatinine Ratio 18.0 Random Glucose 106 mg/dl Calcium Level 8.5 mg/dl Assessment and Plan 1. Right hydronephrosis, ARF Chronic since at least 2012. Will avoid ureteral stent placement as Cr continues to improve. 2. ESBL e coli UTI Unfortunately the pt is allergic to Cipro. Will need to consider IV abx such as imipenem for 10-14 days or consulting ID for their input. Will continue to follow along with primary service.
[2017-07-24] MEDS ORDERED: PIPERACILL/TAZOBAC IV 3.375 GM in DEXTROSE 5% 100ML 100 ML IV ONE (08:00)
[2017-07-24] MEDS: INSULIN ASPART 100 UNITS/ML 3 ML PEN SC SCH (08:01)
[2017-07-24] MEDS: HydrALAZINE 10 MG TAB PO SCH (08:11)
[2017-07-24] MEDS: CITALOPRAM 20 MG TAB PO SCH (08:13)
[2017-07-24] MEDS: PANTOprazole SOD 40 MG TAB PO SCH (08:13)
[2017-07-24] MEDS: FERROUS SULFATE 325 MG TAB PO SCH (08:13)
[2017-07-24] MEDS: CYANOCOBALAMIN 2,500 MCG SUBL TAB PO SCH (08:14)
[2017-07-24] MEDS: DOXYCYCLINE HYCLATE 100 MG CAP PO SCH (08:14)
[2017-07-24] MEDS: METOPROLOL SUCC 25MG EXT REL TAB PO SCH (08:14)
[2017-07-24 08:26] LABS: HEMOGLOBIN A1C 6.3 % (4.5-5.6)
[2017-07-24 09:04] VITALS: BP_SYST 162; BP_SYST 167; BP_DIAS 72; BP_DIAS 94
[2017-07-24] MEDS ORDERED: DXY100 PO (09:44)
[2017-07-24] MEDS ORDERED: NITR-5 PO (09:44)
[2017-07-24] MEDS ORDERED: GLIP2.5T11 PO (09:44)
--- NOTE | 2017-07-24 09:50 | Discharge Instructions ---
Discharge Instructions Date of Service Jul 24, 2017. Admission Reason for Admission: Acute kidney injury, Hypoglycemia Discharge Discharge Diagnosis / Problem: Acute kidney injury, Hypoglycemia Discharge Goals Goal(s): Improve disease control, Diagnostic testing, Therapeutic intervention Activity Recommendations Activity Limitations: resume your previous activity Shower/Bathe: no limitations . Instructions / Follow-Up Instructions / Follow-Up You were admitted with low blood sugar related to kidney failure. The blood sugar improved with holding your Glipizide. Your new home dose will be lowered to 2.5mg daily. Your kidney function improved with IV fluids and stopping the Bactrim (sulfa drug). Your kidney failure may have been from the Bactrim, or perhaps from dehydration or from a kidney infection/UTI which you also had. Please STOP taking the Bactrim at home, and replace it with doxycycline for your heel ulcer. IT IS IMPORTANT to remain completely upright for 30 min after taking doxycycline with a full glass of water to prevent irritation of your esophagus. You will continue on your previous amoxicillin for the heel as before and follow up with the Wound Clinic. You will be treated with Macrobid 1 pill twice a day for 10 days for the kidney infection. You are growing a highly resistant bacteria strain of E. coli in your urine. It will respond to the Macrobid antibiotic. You should have your kidney function checked with blood work on Friday with the results sent to your PCP and see your PCP within 1 week after discharge. Current Hospital Diet Patient's current hospital diet: Regular Diet, Diabetes Type 1 Diet Discharge Diet Recommended Diet: Diabetes Type 2 Diet Procedures Procedures Performed: CT abdomen/pelvis Pending Studies Studies pending at discharge: yes List of pending studies: repeat Urine culture Laboratory Results Last 24 Hours Test 07/23/17 11:01 07/23/17 16:29 07/23/17 20:02 07/24/17 06:11 Bedside Glucose 122 mg/dl 119 mg/dl 117 mg/dl White Blood Count 7.19 K/uL Red Blood Count 4.05 M/uL Hemoglobin 11.3 g/dL Hematocrit 34.9 % Mean Corpuscular Volume 86.2 fL Mean Corpuscular Hemoglobin 27.9 pg Mean Corpuscular Hemoglobin Concent 32.4 g/dl Platelet Count 206 K/uL Mean Platelet Volume 11.1 fL Neutrophils (%) (Auto) 68.4 % Lymphocytes (%) (Auto) 15.2 % Monocytes (%) (Auto) 10.6 % Eosinophils (%) (Auto) 4.5 % Basophils (%) (Auto) 0.7 % Neutrophils # (Auto) 4.93 K/uL Lymphocytes # (Auto) 1.09 K/uL Monocytes # (Auto) 0.76 K/uL Eosinophils # (Auto) 0.32 K/uL Basophils # (Auto) 0.05 K/uL RDW Standard Deviation 46.9 fL RDW Coefficient of Variation 14.8 % Immature Granulocyte % (Auto) 0.6 % Immature Granulocyte # (Auto) 0.04 K/uL Sodium Level 137 mmol/L Potassium Level 4.5 mmol/L Chloride Level 107 mmol/L Carbon Dioxide Level 26 mmol/L Anion Gap 4.0 mmol/L Blood Urea Nitrogen 26 mg/dl Creatinine 1.43 mg/dl Est Creatinine Clear Calc Drug Dose 44.6 ml/min Estimated GFR () 53.6 Estimated GFR (Non- 46.3 BUN/Creatinine Ratio 18.0 Random Glucose 106 mg/dl Estimated Average Glucose 134 mg/dl Hemoglobin A1c 6.3 % Calcium Level 8.5 mg/dl Test 07/24/17 07:48 Bedside Glucose 112 mg/dl Hemoglobin A1c Test 07/24/17 06:11 Range/Units Estimated Average Glucose 134 mg/dl Hemoglobin A1c 6.3 H 4.5-5.6 % Medical Emergencies . Who to Call and When: Medical Emergencies: If at any time you feel your situation is an emergency, please call 911 immediately. . Non-Emergent Contact Non-Emergency issues call your: Primary Care Provider Call Non-Emergent contact if: temperature is above 100.5, wound has increased drainage, wound has increased redness, wound has increased pain, you have any medication questions . . "Provider Documentation" section prepared by Sara Ashley. . VTE Core Measure Inpt VTE Proph given/why not?: Unfractionated heparin SQ
--- NOTE | 2017-07-24 09:57 | Progress Note ---
Progress Note Date of Service Jul 24, 2017. Progress Note ID Consult Dictated #[id number] A/P: 1. UTI 2. Chronic Heel ulcer right foot -Pt requesting d/c home with po abx for uti, would suggest macrobid -Changed to doxy due to KRYSTYNA on admission, agree with this -Discussed with primary, will plan to follow at wound center post d/c -Thank you
--- NOTE | 2017-07-24 10:03 | Discharge Summary ---
Discharge Summary Date of Service Jul 24, 2017. Discharge Summary Admission Date: Jul 22, 2017 at 13:34 Discharge Date: Jul 24, 2017 Discharge Disposition: Home Principal Diagnosis: KRYSTYNA, Hypoglycemia Problems/Secondary Diagnoses: Acute metabolic encephalopathy ESBL E. coli UTI Acute pyelonephritis Chronic Right hydroureteronephrosis Multiple sclerosis with right sided hemiparesis and spasticity DM II, well controlled, not on snf insulin HTN HPL H/o Urethral stricture Right heel ulcer Immunizations: Have You Had Influenza Vaccine: N/A History of Tetanus Vaccine?: Unknown History of Pneumococcal: Yes History of Hepatitis B Vaccine: Yes Procedures: CT abd/pel Consultations: Urology Infectious Disease Medication Reconciliation New Medications: Glipizide (Glipizide Er) 2.5 Mg Tab 1 TAB PO DAILY for 30 Days, #30 TAB 0 Refills Nitrofurantoin Monohyd Macrocr (Macrobid) 100 Mg Cap 100 MG PO BID, #20 CAP FOR UTI TREATMENT Doxycycline Hyclate (Doxycycline Hyclate) 100 Mg Cap 100 MG PO BID for 30 Days, #60 CAP STAY ON THIS UNTIL TOLD TO STOP BY YOUR MD Continued Medications: Amoxicillin (Amoxil) 500 Mg Cap 500 MG PO TID, #100 CAP 2 Refills Ascorbic Acid (Ascorbic Acid) Unknown Strength Tab Unknown Dose PO DAILY, TAB TAKE ONE TAB DAILY WITH IRON TABLET Cholecalciferol (Vitamin D3) 50,000 Unit Cap 98755 UNITS PO WEEKLY TAKE THIS MED EVERY FRIDAY Citalopram Hydrobromide (Celexa) 20 Mg Tab 20 MG PO DAILY, TAB Cyanocobalamin (Vitamin B12) 1,000 Mcg Tab 2500 MCG SL DAILY Ferrous Sulfate (Kp Ferrous Sulfate) 325 Mg Tab 325 MG PO DAILY, TAB TAKE ONE TAB DAILY WITH FOOD AND VITAMIN C Gabapentin (Neurontin) 300 Mg Cap 300 MG PO HS, CAP Hydralazine Hcl (Apresoline) 10 Mg Tab 10 MG PO AMPM, TAB Metoprolol Succinate (Toprol Xl) 25 Mg Tabcr 25 MG PO DAILY, TAB Omeprazole (Prilosec) 10 Mg Capcr 10 MG PO QAM, CAP Simvastatin (Zocor) 40 Mg Tab 40 MG PO HS, 0 Refills Sumatriptan Succinate (Imitrex) 50 Mg Tab 50 MG PO PRN, 0 Refills Discontinued Medications: Glipizide (Glipizide Er) 10 Mg Tab 10 MG PO BID, TAB Sulfa/Trimethoprim (Bactrim Ds 800MG/160MG) Tab 1 TAB PO BID, #60 TAB 2 Refills Discharge Exam Feeling well, anxious to go home. Longitudinal Float Operator improving, making plenty of clear urine. Growing ESBL E. coli in urine. Discussed case with ID. 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; Right lateral heel with 3x4cm ovoid ulcer with granulation tissue, slightly wet , no surrounding erythema or drainage; Severe contractures of right hamstring and right flexion contractures in upper ext as well) Neurologic/Psychiatric: alert, + pertinent finding (right sided hemiparesis with contractures) Skin: normal color, warm/dry, no rash, + pertinent finding (heel ulcer as above ) Review of Systems: Constitutional: No fever Eyes: No problem reported ENT: No problem reported Respiratory: No shortness of breath Cardiovascular: No chest pain Abdomen: No pain, No nausea, No vomiting, No diarrhea Musculoskeletal: No problem reported Genitourinary - Male: No problem reported Neurologic: + memory loss Psychiatric: No problem reported Endocrine: No problem reported Hematologic / Lymphatic: No problem reported Integumentary: No problem reported Hospital Course This pt is a 77 y/o m Hx MS, DM II, HTN, HPL, and urethral stricture with chronic Right hydronephrosis. Pt states he had a flu-like illness a few days ago, describing weakness, aches/pains and congestion. He states that he feels markedly improved, but woke up on day of admission with confusion and profound hypoglycemia in the 30s. The pt is asymptomatic on arrival to the ER., however , initial labs were notable for ARF. Additionally he takes a sulfonylurea and would likely be susceptible to recurrent hypoglycemia. The pt is currently receiving treatment with Bactrim and Amoxicillin for an ulcer on his R heal. 1) Hypoglycemia - resolved - is eating regular meals now. Likely secondary to renal failure with taking sulfonylurea. HgbA1C 6.5% ihere--> very well controlled -held Glipizide here and switch to lower dose of Glipizide ER 2.5mg once daily ( down from 10mg) on discharge -continue accuchecks at home 2) KRYSTYNA/Acute pyelonephritis/Chronic R hydronephrosis - likely due to dehydration and could also be from Bactrim. There has been improvement with IVFs and stopping Bactrim. FeNa is 1.5% more consistent with intrinsic failure. Does have evidence of UTI and acute pyelo on CT abd/pel, with chronic right hydroureteronephrosis and with perinephric stranding. Longitudinal Float Operator improved from 2.0 to 1.6 to 1.4 today. Baseline housekeeping aid 1.0. No evidence of sepsis on admission Discussed with ID--> given ESBL E. coli and UTI, allergic to FQs, will give Macorbid for 10 day course on discharge to avoid PICC line with IV abx. -will need to carefully follow Renal Function and clinical status--> gave Rx to check BMP on Friday -consulted Urology-appreciated--> recommend no stent placement given chronicity , pt has declined urethral stricture treatment in the past, f/u with Urology as needed -avoid nephrotoxins-stopped Bactrim and changed to doxy to cover for MRSA from heel wound 3) HTN - hypertensive here possibly secondary to IVFs and/or anxiety -cont Metoprolol succinate 25 daily, hydralazine po bid and could titrate up as needed in f/u with PCP 4) HPL -stable - cont Zocor 5) MS - with right sided hemiparesis and flexion contractures-stable -not currently treated 6) right heel ulcer-stable, on chronic amox and Bactrim prior to admission, followed by Wound CLinic. Grew out MRSA, Proteus mirabilis, and Enterococcus faecalis on wound cx from 04/2017 -consulted Wound RN here -switched Bactrim to Doxy for MRSA coverage -continue Amox -f/u in Wound Center and with ID Stable for discharge to home today Total Time Spent: Greater than 30 minutes This includes examination of the patient, discharge planning, medication reconciliation, and communication with other providers. Discharge Instructions Please refer to the electronic Patient Visit Report (Discharge Instructions) for additional information. Follow-Up With PCP within 1 week Check BMP on Friday With Wound Clinic within 1 week, with ID f/u at Wound Clinic Additional Copies To RV. Coyne MD; Jennifer. Lozada D.O.; Francisco Brown, DO
--- NOTE | 2017-07-24 10:09 | INFECT. DISEASE CONSULTATION ---
DATE OF CONSULTATION: 07/24/2017 DATE OF CONSULTATION: 07/24/2017 HISTORY OF PRESENT ILLNESS: This is a 77-year-old gentleman who was admitted to the hospital with flu-like illness. He was found to be hypoglycemic at home with a blood sugar in the 30s. He was taking a oral sulfonylurea. He also had acute kidney injury upon arrival to the hospital with a creatinine of 2.0. This has improved to 1.4 today. He does follow with infectious diseases at the wound care center for a right heel ulceration. He did have cultures on the 02 of May which grew proteus enterococcus and MRSA. The wound care center had started him on amoxicillin and Bactrim and he has been continued on this. Due to his worsening renal failure his Bactrim was held and he was transitioned to doxycycline. He is tolerating this well. As part of his workup, a urine culture was obtained and is growing E. coli. He has been started on Zosyn and he remains on this. He does have allergies to quinolones. On my examination today, he states he is feeling significantly better and is asking to be discharged to home. He denies any chest pain, cough, shortness of breath, nausea, vomiting, diarrhea or abdominal pain. He did have a CAT scan of the abdomen and pelvis upon arrival to the hospital, which showed mild right hydronephrosis which could be a result of a recently passed stone. There was some bladder wall thickening and air in the bladder due to Hernandez instrumentation. He denies any flank pain. His remaining review of systems is unremarkable. PAST MEDICAL HISTORY: Significant for multiple sclerosis, type 2 diabetes, hypertension and high cholesterol. PAST SURGICAL HISTORY: Significant for right hip fracture in December of this year and a left BKA. FAMILY HISTORY: Noncontributory. SOCIAL HISTORY: Negative for alcohol use, drug use or tobacco use. ALLERGIES: HE HAS ALLERGIES TO CIPRO. MEDICATIONS: Include Zosyn, doxycycline, hydralazine, Celexa, Toprol-XL, vitamin B12, iron, Protonix, subQ heparin, Neurontin, Zocor, hydralazine, Tylenol, Maalox, milk of magnesia, Ambien, Zofran, morphine and MiraLax. PHYSICAL EXAMINATION: VITAL SIGNS: He is afebrile, pulse 66, respiratory rate 22, blood pressure is 167/72 and oxygen saturation is 96% on room air. GENERAL: He is awake, alert and oriented x3. He is in no acute distress. HEAD, EYES, EARS, NOSE, AND THROAT: Mucous membranes are moist. Extraocular muscles are intact. HEART: Regular. LUNGS: Clear with decreased breath sounds at the bases bilaterally. ABDOMEN: Soft. EXTREMITIES: Right lower extremity dressing is intact. LABORATORY STUDIES: Chemistry panel today reveals a sodium of 137, potassium 4.5, chloride 107, bicarb 26, BUN 26, creatinine 1.4, glucose 112. CBC reveals a white blood cell count of 7.1, hemoglobin 11.3, platelets are 206. Urinalysis had greater than 30 WBCs and 4+ bacteria. Urine culture is growing E. coli sensitive to amikacin, Cipro, ertapenem, imipenem, levofloxacin, nitrofurantoin and Zosyn. Imaging is as above. ASSESSMENT AND PLAN: 1. Urinary tract infection. 2. Right heel ulceration currently being treated with outpatient antibiotics. At this time I agree with amoxicillin and doxycycline for continued treatment of his heel ulceration due to his acute kidney injury prior to admission. With regards to treatment of this UTI he is requesting that he be discharged home on oral antibiotics. Certainly he could be transitioned to Macrobid to complete a 7-day course of antibiotics. I will plan to follow with him at the wound care center post discharge from the hospital. I did speak with his primary service. Thank you for this consultation.
[2017-07-24 10:31] VITALS: BP 162/94; PULSE 66; TEMP 36.5; O2SAT 96
[2017-07-24] MEDS ORDERED: PIPERACILL/TAZOBAC IV 3.375 GM in DEXTROSE 5% 100ML 100 ML IV SCH (14:00)
[2017-07-24] MEDS ORDERED: TAMSULOSIN HCL 0.4 MG CAP PO SCH (21:00)
== END 2017-07-24 11:50 | disposition home or self-care (01) | DRG 682 ==
LOC: C.EDA 09:42 → EDBD 09:42 → C.2T 13:34 → EDBEDREQ 14:00 → ENRESERV 17:05 → C.4E 07-23 16:20
PROVIDERS: ADMIT Internal Medicine; ATTEND Family Medicine
DX: N17.9 Acute kidney failure, unspecified (principal); L89.613 Pressure ulcer of right heel, stage 3; G93.41 Metabolic encephalopathy; N39.0 Urinary tract infection, site not specified; E11.649 Type 2 diabetes mellitus with hypoglycemia without coma; I10 Essential (primary) hypertension; E78.5 Hyperlipidemia, unspecified; G35 Multiple sclerosis; N13.30 Unspecified hydronephrosis; A49.8 Other bacterial infections of unspecified site; Z96.653 Presence of artificial knee joint, bilateral

== ENCOUNTER → 2017-07-28 | Outpatient (CLI) | payer BC ==
[~2017-07-28] MED LIST changes: +DXY100 PO; -GLIP-199 PO; +GLIP2.5T11 PO; -LVNIS40 SQ; +NITR-5 PO; -SULF800T23 PO; -TPRSR/25 PO
[2017-07-28 15:09] LABS: BLOOD UREA NITROGEN 25 mg/dl (7-18); CALCIUM 8.9 mg/dl (8.5-10.1); CARBON DIOXIDE 26 mmol/L (21-32); CREATININE 1.32 mg/dl (0.60-1.40); GLUCOSE 194 mg/dl (70-99); SODIUM 135 mmol/L (136-145)
== END | disposition home or self-care (01) ==
LOC: C.LAB1850 12:34
PROVIDERS: ATTEND Internal Medicine
DX: S37.009A Unspecified injury of unspecified kidney, initial encounter (principal); X58.XXXA Exposure to other specified factors, initial encounter

== ENCOUNTER 2017-08-25 14:39 | Observation (INO) | payer BC, OTHER ==
[~2017-08-25] VITALS: Ht 180.3 cm; Wt 77.7 kg
[~2017-08-25 14:39] MED LIST changes: -METO25TA3 PO; +METO25TA4 PO
[2017-08-25 15:19] LABS: BASO % 0.6 %; BASO ABS # 0.07 K/uL (0-0.2); EOS % 1.7 %; HEMATOCRIT 39.9 % (42-52); HEMOGLOBIN 12.9 g/dL (14.0-18.0); IG# 0.04 K/uL (0.00-0.02); LYMPH % 15.4 %; LYMPH ABS # 1.84 K/uL (1.2-3.4); MEAN CELL VOLUME 89.1 fL (80-100); MEAN CORPUSCULAR HEMOGLOBIN 28.8 pg (25-34); MEAN CORPUSCULAR HGB CONC 32.3 g/dl (32-36); MEAN PLATELET VOLUME 11.8 fL (7.4-10.4); MONO % 5.9 %; NEUT % 76.1 %; NEUT ABS # 9.07 K/uL (1.4-6.5); PLATELET COUNT 253 K/uL (130-400); RED CELL DISTRIBUTION WIDTH CV 14.6 % (11.5-14.5); RED CELL DISTRIBUTION WIDTH SD 47.6 fL (36.4-46.3); WHITE BLOOD COUNT 11.92 K/uL (4.8-10.8)
--- NOTE | 2017-08-25 15:26 | DIAGNOSTIC IMAGING REPORT ---
CHEST ONE VIEW PORTABLE CLINICAL HISTORY: Atypical chest pain COMPARISON STUDY: January 04, 2017 FINDINGS: The study is rotated. There is borderline elevation right hemidiaphragm. The heart is at the upper limits of normal in size. There is aortic tortuosity/ectasia. There is no failure. There is no focal pulmonary consolidation. There are minor basilar atelectatic changes.[ IMPRESSION: AP portable study. No acute findings. Electronically signed by: Jeb Montemayor M.D. 08/25/2017 3:24 PM Dictated Date/Time: 08/25/2017 3:24 PM
[2017-08-25 15:28] LABS: ALBUMIN 3.3 gm/dl (3.4-5.0); ALT/SGPT 39 U/L (12-78); AST/SGOT 57 U/L (15-37); BLOOD UREA NITROGEN 20 mg/dl (7-18); CALCIUM 8.7 mg/dl (8.5-10.1); CARBON DIOXIDE 28 mmol/L (21-32); GLUCOSE 253 mg/dl (70-99); LIPASE 115 U/L (73-393); SODIUM 137 mmol/L (136-145)
[2017-08-25 15:32] LABS: ALKALINE PHOSPHATASE 123 U/L (45-117); PHOSPHORUS 2.7 mg/dl (2.5-4.9); PTT PATIENT 25.2 SECONDS (21.0-31.0); TOTAL PROTEIN 8.1 gm/dl (6.4-8.2)
[2017-08-25] MEDS ORDERED: AMOX500C3 PO (15:44)
[2017-08-25] MEDS ORDERED: ASCO500T16 PO (15:47)
[2017-08-25] MEDS ORDERED: GLIP2.5T11 PO (15:51)
[2017-08-25] MEDS ORDERED: NITR-5 PO (15:54)
[2017-08-25] MEDS ORDERED: SUMATRIPTAN SUCCINATE 50 MG TAB PO PRN (16:15)
[2017-08-25] MEDS ORDERED: GLUCOSE 40% GEL 15 GM TUBE PO PRN (16:45)
[2017-08-25] MEDS ORDERED: ALUMINUM/MAGNESIUM/SIMETH (MAALOX MAX) 30 ML UDC PO PRN (16:45)
[2017-08-25] MEDS ORDERED: GLUCAGON FOR INJ 1 MG VIAL SQ PRN (16:45)
[2017-08-25] MEDS ORDERED: ONDANSETRON INJ 2 MG/ML 2 ML VIAL IV PRN (16:45)
[2017-08-25] MEDS ORDERED: ACETAMINOPHEN 325 MG TAB PO PRN (16:45)
[2017-08-25] MEDS ORDERED: GLUCOSE 10 TABS/TUBE PO PRN (16:45)
[2017-08-25] MEDS ORDERED: MAGNESIUM HYDROXIDE SUSP 30 ML UDC PO PRN (16:45)
[2017-08-25] MEDS ORDERED: ZOLPIDEM TARTRATE 5 MG TAB PO PRN ×2 (16:45)
[2017-08-25] MEDS ORDERED: DEXTROSE 50% 50 ML SYR IV PRN (16:45)
[2017-08-25] MEDS ORDERED: POLYETHYLENE (MIRALAX) 17 GM PACK PO PRN (16:45)
[2017-08-25] MEDS ORDERED: NITROGLYCERIN 0.4 MG SL PER TAB CHARGE SL PRN (16:45)
--- NOTE | 2017-08-25 16:49 | History and Physical ---
History & Physical Date & Time of Service: Aug 25, 2017 at 16:40 Chief Complaint: Chest Pain Primary Care Physician: RV. Coyne MD History of Present Illness Source: patient, family, hospital records 77 years old man with MS and significant weakness in right side , also has left BKA and riht heel chronic ulcer, HTN, DMII on oral hypoglycemics and recurrent UTI secondary to indwelling kaye cath. this morning patient developed substernal localized moderate chest pain. associated with nausea, he vomited once and then felt better. after that patient was at wound care clinic today for his right heel (currently on amoxacillin/doxycyclin) he developed recurrence of his chest pain. paramedics arrived and gave him ASA in his way to the hospital, pain resolved. currently he feels better and chest pain resolved remote Hx of smoking 25 years ago no Hx of drinking Family History Patient reports no known family medical history. Social History Smoking Status: Never Smoker Drug Use: none Marital Status: Housing status: lives with family Occupational Status: retired, disabled Immunizations History of Influenza Vaccine: N/A History of Tetanus Vaccine?: Unknown History of Pneumococcal: Yes History of Hepatitis B Vaccine: Yes Multi-Drug Resistant Organisms History of MDRO: Yes Type of MDRO: MRSA Allergies Coded Allergies: Ciprofloxacin (Verified Allergy, Mild, HIVES, 07/22/17) Home Medications Scheduled Amoxicillin (Amoxil), 500 MG PO TID Ascorbic Acid (Ascorbic Acid), 500 MG PO DAILY Cholecalciferol (Vitamin D3), 50,000 UNITS PO WEEKLY Citalopram Hydrobromide (Celexa), 20 MG PO DAILY Cyanocobalamin (Vitamin B12), 2,500 MCG SL DAILY Doxycycline Hyclate (Doxycycline Hyclate), 100 MG PO BID Ferrous Sulfate (Kp Ferrous Sulfate), 325 MG PO DAILY Gabapentin (Neurontin), 300 MG PO HS Glipizide (Glipizide Er), 2.5 MG PO DAILY Hydralazine Hcl (Apresoline), 10 MG PO AMPM Metoprolol Succinate (Toprol Xl), 25 MG PO DAILY Omeprazole (Prilosec), 10 MG PO QAM Simvastatin (Zocor), 40 MG PO HS Sumatriptan Succinate (Imitrex), 50 MG PO PRN Review of Systems Review of system Constitutional: No fever / no chills / no sweats / no weakness / no fatigue Eyes: no blurring of vision / no eye pain / no discharge / no redness ENT: no hearing loss / no epistaxis /no swallowing problems Respiratory: no cough / no wheezing / no SOB / no hemoptysis Cardiovascular: Patient had chest pain as described in HPI, no lower extremity edema / no palpitation Abdomen: no pain / no nausea / no vomiting / no constipation Musculoskeletal: no joint pain / no muscle pain / no joint swelling, left BKA Genitourinary: no dysuria / no incontinence / no urinary retention, chronic indwelling catheter Neurologic: no focal weakness / no numbness/tingling / no ataxia Psychiatric: no depression symptoms / no anxiety / no insomnia Endocrine: no excessive thirst / no excessive urination Hematologic: no abnormal bleeding / no bruising / no LN swelling Skin: No rash / no pallor , chronic right heel ulcer Physical Exam Vital Signs Date Time Temp Pulse Resp B/P (MAP) Pulse Ox O2 Delivery O2 Flow Rate FiO2 08/25/17 16:16 76 08/25/17 15:47 71 16 131/76 96 Room Air 08/25/17 15:04 96 Nasal Cannula 2.0 08/25/17 14:50 95 Room Air 08/25/17 14:50 36.5 70 20 134/66 95 Room Air Physical examination General patient appears to be comfortable, not in acute distress HEENT: Atraumatic , normocephalic /no jaundice /no pallor /anicteric /no dry mucous membrane /normal external ear inspection Neck: Supple /no swelling /central trach Heart: S1/S2 normal/regular rate and rhythm/no gallop /no rub /no murmur Lungs: Clear to auscultation bilaterally/normal chest with expansion/no rhonchi/ no rales/no wheezing/no use of accessory muscles of respiration Abdomen: Soft/nontender/no guarding/no rebound/no organomegaly/no pulsatile mass Musculoskeletal: Muscle atrophy on the right side of the, left BKA Neuro exam: Awake alert oriented 3/cranial nerves II through XII appear to be intact/sensation intact/moves all extremities/no abnormal movements Psychiatric evaluation: No depressed mood/normal affect Skin: No rash on exposed skin area/no erythema, 3 x 3 deep ulcer on right heel Extremity: Normal pulse/no pitting edema/no clubbing or cyanosis Endocrine/lymphatic: No obvious lymphadenopathy /no lymphedema Diagnostics Laboratory Results Results Past 24 Hours Test 08/25/17 14:40 Range/Units White Blood Count 11.92 4.8-10.8 K/uL Red Blood Count 4.48 4.7-6.1 M/uL Hemoglobin 12.9 14.0-18.0 g/dL Hematocrit 39.9 42-52 % Mean Corpuscular Volume 89.1 80-100 fL Mean Corpuscular Hemoglobin 28.8 25-34 pg Mean Corpuscular Hemoglobin Concent 32.3 32-36 g/dl Platelet Count 253 130-400 K/uL Mean Platelet Volume 11.8 7.4-10.4 fL Neutrophils (%) (Auto) 76.1 % Lymphocytes (%) (Auto) 15.4 % Monocytes (%) (Auto) 5.9 % Eosinophils (%) (Auto) 1.7 % Basophils (%) (Auto) 0.6 % Neutrophils # (Auto) 9.07 1.4-6.5 K/uL Lymphocytes # (Auto) 1.84 1.2-3.4 K/uL Monocytes # (Auto) 0.70 0.11-0.59 K/uL Eosinophils # (Auto) 0.20 0-0.5 K/uL Basophils # (Auto) 0.07 0-0.2 K/uL RDW Standard Deviation 47.6 36.4-46.3 fL RDW Coefficient of Variation 14.6 11.5-14.5 % Immature Granulocyte % (Auto) 0.3 % Immature Granulocyte # (Auto) 0.04 0.00-0.02 K/uL Prothrombin Time 10.6 9.0-12.0 SECONDS Prothromb Time International Ratio 1.0 0.9-1.1 Activated Partial Thromboplast Time 25.2 21.0-31.0 SECONDS Partial Thromboplastin Ratio 1.0 Sodium Level 137 136-145 mmol/L Potassium Level 4.0 3.5-5.1 mmol/L Chloride Level 103 98-107 mmol/L Carbon Dioxide Level 28 21-32 mmol/L Anion Gap 6.0 3-11 mmol/L Blood Urea Nitrogen 20 7-18 mg/dl Creatinine 1.40 0.60-1.40 mg/dl Estimated GFR () 55.0 Estimated GFR (Non- 47.5 BUN/Creatinine Ratio 14.5 10-20 Random Glucose 253 70-99 mg/dl Calcium Level 8.7 8.5-10.1 mg/dl Phosphorus Level 2.7 2.5-4.9 mg/dl Magnesium Level 2.1 1.8-2.4 mg/dl Total Bilirubin 0.7 0.2-1 mg/dl Direct Bilirubin 0.3 0-0.2 mg/dl Aspartate Amino Transf (AST/SGOT) 57 15-37 U/L Alanine Aminotransferase (ALT/SGPT) 39 12-78 U/L Alkaline Phosphatase 123 45-117 U/L Troponin I < 0.015 0-0.045 ng/ml Pro-B-Type Natriuretic Peptide 476 0-1800 pg/ml Total Protein 8.1 6.4-8.2 gm/dl Albumin 3.3 3.4-5.0 gm/dl Lipase 115 73-393 U/L Impression Assessment and Plan 77-year-old man with past medical history of multiple sclerosis, chronic indwelling Kaye, recurrent UTI, hypertension, diabetes mellitus on oral hypoglycemic, dyslipidemia, left BKA, and chronic right heel ulcer presented to the hospital with chest pain rule out ACS Assessment Chest pain rule out ACS Dyslipidemia/hypertension Diabetes mellitus on oral hypoglycemic Right heel ulcer Urinary retention with chronic indwelling catheter Recurrent UTI Chronic right Multiple sclerosis with right-sided hemiparesis and spasticity plan: admit to telemetry obtain serial cardiac enz NTG SL/topical prn CP consult coatings inspector pain management Check hemoglobin A1c/lipids to stratify patient risk factors repeat EKG prn chest pain Continue home medications, including amoxicillin/doxycycline for right heel ulcer Wound care consult Lactobacillus for C. difficile prophylaxis VTE Prophylaxis VTE Risk Assessment Done? Y/N: Yes Risk Level: Moderate Given or contraindicated: Unfractionated heparin SQ
--- NOTE | 2017-08-25 18:35 | EMERGENCY ROOM VISIT NOTE ---
History Report prepared by Juan Pablo: Kun Dickens Under the Supervision of: Dr. Maxwell Wade M.D. First contact with patient: 14:49 Chief Complaint: CHEST PAIN Stated Complaint: CHEST PAIN Nursing Triage Summary: Pt brought ALS from [facility], was there for wound check for ulcer on R foot. Pt has had 3 episodes of chest pain today, denies cardiac hx. 1st episdode was at 10:30, 2nd around noon and 3rd just TRAP OPERATOR at the wound clinic. Pt was given 1 nitro tablet and 4 baby aspirins by EMS, pain resolved TRAP OPERATOR. Pt reported nausea with episodes, denies SOB, pain was substernal and non radiating. Pt has hx of MS, L BKA and is w/c bound. History of Present Illness The patient is a 77 year old white male with a past medical history of diabetes , MS, HTN, HLD, left BKA who presents to the ED with a cc of intermittent central chest pain beginning a few hours ago. Patient reports three episodes. Rates his pain as a 9/10 in severity. Describes pain as "pressure-like". Patient states that his first two episodes lasted for 30 minutes, and the third lasted for 1-1.5 hours. He was being seen by Wound Care for an ulcer of his right heel today, and was referred to the ED for evaluation of his chest pain. Positive cough. Negative pain radiation, abdominal pain, nausea, vomiting. Pain improved with aspirin. Patient currently has no pain. Source of History: patient Onset: A few hours ago Position: chest (central) Symptom Intensity: 9/10 Quality: other ("pressure-like") Timing: intermittent Modifying Factors (Relieving): other (aspirin) Associated Symptoms: + cough, No nausea, No vomiting, No abdominal pain Note: Negative: pain radiation. Review of Systems See HPI for pertinent positives and negatives. A total of ten systems were reviewed and were otherwise negative. 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 Social History Smoking Status: Never Smoker Drug Use: none Marital Status: Housing Status: lives with significant other Occupation Status: retired, disabled Current/Historical Medications Scheduled Amoxicillin (Amoxil), 500 MG PO TID Ascorbic Acid (Ascorbic Acid), 500 MG PO DAILY Cholecalciferol (Vitamin D3), 50,000 UNITS PO WEEKLY Citalopram Hydrobromide (Celexa), 20 MG PO DAILY Cyanocobalamin (Vitamin B12), 2,500 MCG SL DAILY Doxycycline Hyclate (Doxycycline Hyclate), 100 MG PO BID Ferrous Sulfate (Kp Ferrous Sulfate), 325 MG PO DAILY Gabapentin (Neurontin), 300 MG PO HS Glipizide (Glipizide Er), 2.5 MG PO DAILY Hydralazine Hcl (Apresoline), 10 MG PO AMPM Metoprolol Succinate (Toprol Xl), 25 MG PO DAILY Omeprazole (Prilosec), 10 MG PO QAM Simvastatin (Zocor), 40 MG PO HS Sumatriptan Succinate (Imitrex), 50 MG PO PRN Allergies Coded Allergies: Ciprofloxacin (Verified Allergy, Mild, HIVES, 07/22/17) Physical Exam Vital Signs Date Time Temp Pulse Resp B/P (MAP) Pulse Ox O2 Delivery O2 Flow Rate FiO2 08/25/17 18:00 74 16 125/76 97 Room Air 08/25/17 16:42 75 16 131/76 98 Room Air 08/25/17 16:16 76 08/25/17 15:47 71 16 131/76 96 Room Air 08/25/17 15:04 96 Nasal Cannula 2.0 08/25/17 14:50 95 Room Air 08/25/17 14:50 36.5 70 20 134/66 95 Room Air Physical Exam GENERAL: Awake, alert, well-appearing, NAD HENT: Normocephalic, atraumatic. EYES: Normal conjunctiva. Sclera non-icteric. NECK: Supple. No nuchal rigidity. FROM. RESPIRATORY: CTAB, no rhonchi, wheezing, crackles. Shallow breath sounds. CARDIAC: RRR, no MRG ABDOMEN: Soft, NTND, BS+ MSK: No chest wall TTP. Left BKA. Right heel ulcer that is wrapped. NEURO: GCS 15, CN 2-12 intact, moves all 4s on command SKIN: No rash or jaundice noted. Medical Decision & Procedures ER Provider Diagnostic Interpretation: Radiology results as stated below per my review and radiologist interpretation: CHEST ONE VIEW PORTABLE FINDINGS: The study is rotated. There is borderline elevation right hemidiaphragm. The heart is at the upper limits of normal in size. There is aortic tortuosity/ectasia. There is no failure. There is no focal pulmonary consolidation. There are minor basilar atelectatic changes.[ IMPRESSION: AP portable study. No acute findings. Electronically signed by: Jeb Montemayor M.D. 08/25/2017 3:24 PM Laboratory Results 08/25/17 14:40 Red Blood Count 4.48, Mean Corpuscular Volume 89.1, Mean Corpuscular Hemoglobin 28.8, Mean Corpuscular Hemoglobin Concent 32.3, Mean Platelet Volume 11.8, Neutrophils (%) (Auto) 76.1, Lymphocytes (%) (Auto) 15.4, Monocytes (%) (Auto) 5.9, Eosinophils (%) (Auto) 1.7, Basophils (%) (Auto) 0.6, Neutrophils # (Auto) 9.07, Lymphocytes # (Auto) 1.84, Monocytes # (Auto) 0.70, Eosinophils # (Auto) 0.20, Basophils # (Auto) 0.07 08/25/17 14:40 Test 08/25/17 14:40 White Blood Count 11.92 K/uL (4.8-10.8) Red Blood Count 4.48 M/uL (4.7-6.1) Hemoglobin 12.9 g/dL (14.0-18.0) Hematocrit 39.9 % (42-52) Mean Corpuscular Volume 89.1 fL (80-100) Mean Corpuscular Hemoglobin 28.8 pg (25-34) Mean Corpuscular Hemoglobin Concent 32.3 g/dl (32-36) Platelet Count 253 K/uL (130-400) Mean Platelet Volume 11.8 fL (7.4-10.4) Neutrophils (%) (Auto) 76.1 % Lymphocytes (%) (Auto) 15.4 % Monocytes (%) (Auto) 5.9 % Eosinophils (%) (Auto) 1.7 % Basophils (%) (Auto) 0.6 % Neutrophils # (Auto) 9.07 K/uL (1.4-6.5) Lymphocytes # (Auto) 1.84 K/uL (1.2-3.4) Monocytes # (Auto) 0.70 K/uL (0.11-0.59) Eosinophils # (Auto) 0.20 K/uL (0-0.5) Basophils # (Auto) 0.07 K/uL (0-0.2) RDW Standard Deviation 47.6 fL (36.4-46.3) RDW Coefficient of Variation 14.6 % (11.5-14.5) Immature Granulocyte % (Auto) 0.3 % Immature Granulocyte # (Auto) 0.04 K/uL (0.00-0.02) Prothrombin Time 10.6 SECONDS (9.0-12.0) Prothromb Time International Ratio 1.0 (0.9-1.1) Activated Partial Thromboplast Time 25.2 SECONDS (21.0-31.0) Partial Thromboplastin Ratio 1.0 Anion Gap 6.0 mmol/L (3-11) Estimated GFR () 55.0 Estimated GFR (Non- 47.5 BUN/Creatinine Ratio 14.5 (10-20) Calcium Level 8.7 mg/dl (8.5-10.1) Phosphorus Level 2.7 mg/dl (2.5-4.9) Magnesium Level 2.1 mg/dl (1.8-2.4) Total Bilirubin 0.7 mg/dl (0.2-1) Direct Bilirubin 0.3 mg/dl (0-0.2) Aspartate Amino Transf (AST/SGOT) 57 U/L (15-37) Alanine Aminotransferase (ALT/SGPT) 39 U/L (12-78) Alkaline Phosphatase 123 U/L (45-117) Troponin I < 0.015 ng/ml (0-0.045) Pro-B-Type Natriuretic Peptide 476 pg/ml (0-1800) Total Protein 8.1 gm/dl (6.4-8.2) Albumin 3.3 gm/dl (3.4-5.0) Lipase 115 U/L (73-393) Laboratory results reviewed by me ECG Per My Interpretation Indication: chest pain Rate (beats per minute): 66 Rhythm: normal sinus Findings: other (Normal intervals. Normal axis. No STS changes or TWI. ) ED Course 1506: The patient was evaluated in room B6. A complete history and physical exam was performed. 1600: Upon reexamination, the patient was resting comfortably. I discussed the test results and treatment plan with him. The patient will be evaluated for further management. Medical Decision The patient is a 77 year old white male with a past medical history of diabetes , MS, HTN, HLD, left BKA who presents to the ED with a cc of intermittent central chest pain beginning a few hours ago. Differential diagnosis: Etiologies such as cardiac ischemia, aortic dissection, pulmonary embolism, pneumonia, pneumothorax, musculoskeletal, infections, pericarditis, myocarditis , esophageal rupture, gastrointestinal, as well as others were entertained. Patient was seen and evaluated the bedside. Patient does have a history of hypertension hyperlipidemia and a BKA as well as chronic wound secondary likely to diabetes as well as his risk factors for vasculopathy. Patient was being seen in his wound care clinic today which when he developed chest pains. Patient states it was 9 out of 10 left of center and pressure-like in nature. Patient denied nausea vomiting or diaphoresis. It was at rest. This happened 3 separate times. Patient has not had a recurrence of his chest pains. His chest pains did improve with nitro and aspirin. Patient did have an EKG that was unremarkable. Patient's troponin is negative. Given the patient's many risk factors and her prior workup from a cardiac standpoint I can see within the last several years the patient was admitted for further evaluation and treatment. Medication Reconcilliation Current Medication List: was personally reviewed by me Blood Pressure Screening Patient's blood pressure: Elevated blood pressure Blood pressure disposition: Elevated BP felt to be situational Consults Time Called: 1600 Consulting Physician: Dr. Layne Omalley [facility] Returned Call: [phone] Discussed the patient's case. The patient will be evaluated for further treatment and disposition. Impression Primary Impression: Atypical chest pain Scribe Attestation The scribe's documentation has been prepared under my direction and personally reviewed by me in its entirety. I confirm that the note above accurately reflects all work, treatment, procedures, and medical decision making performed by me. Departure Information Dispostion Being Evaluated By Hospitalist Referrals RV. Coyne MD (PCP) Patient Instructions My [facility]
[2017-08-25 18:45] VITALS: BP 165/78; PULSE 69; TEMP 36.3; O2SAT 96; Ht 180.3 cm; Wt 77.7 kg
[2017-08-25] MEDS: SODIUM CHLORIDE 0.9% 1000ML 1,000 ML IV SCH (19:07)
[2017-08-25] MEDS: AMOXICILLIN 500 MG CAP PO SCH (19:47)
[2017-08-25] MEDS: DOXYCYCLINE HYCLATE 100 MG CAP PO SCH (19:47)
[2017-08-25] MEDS: LACTOBACILLUS ACIDOPHILUS 1 GM PACK PO SCH (19:48)
[2017-08-25] MEDS: INSULIN ASPART 100 UNITS/ML 3 ML PEN SC SCH (19:52)
[2017-08-25] MEDS: HEPARIN SOD 5000 UNIT/0.5 ML CARP SQ SCH (19:54)
[2017-08-25] MEDS ORDERED: GABAPENTIN 300 MG CAP PO SCH (21:00)
[2017-08-25] MEDS ORDERED: SIMVASTATIN 40 MG TAB PO SCH (21:00)
[2017-08-25 23:42] VITALS: BP 129/65; PULSE 58; TEMP 36.4; O2SAT 95
[2017-08-26] VITALS (7 sets, daily range): BP systolic 132–170; BP diastolic 67–85; PULSE 56–79; TEMP 36.4–36.6; O2SAT 93–96
[2017-08-26 04:22] LABS: BASO % 0.6 %; BASO ABS # 0.04 K/uL (0-0.2); EOS % 3.3 %; EOS ABS # 0.24 K/uL (0-0.5); HEMATOCRIT 34.6 % (42-52); HEMOGLOBIN 11.2 g/dL (14.0-18.0); IG# 0.01 K/uL (0.00-0.02); LYMPH % 27.1 %; LYMPH ABS # 1.96 K/uL (1.2-3.4); MEAN CELL VOLUME 87.2 fL (80-100); MEAN CORPUSCULAR HEMOGLOBIN 28.2 pg (25-34); MEAN CORPUSCULAR HGB CONC 32.4 g/dl (32-36); MONO % 8.2 %; MONO ABS # 0.59 K/uL (0.11-0.59); NEUT % 60.7 %; NEUT ABS # 4.38 K/uL (1.4-6.5); PLATELET COUNT 177 K/uL (130-400); RED CELL DISTRIBUTION WIDTH CV 14.2 % (11.5-14.5); RED CELL DISTRIBUTION WIDTH SD 45.4 fL (36.4-46.3); WHITE BLOOD COUNT 7.22 K/uL (4.8-10.8)
[2017-08-26 04:38] LABS: ALBUMIN 2.7 gm/dl (3.4-5.0); ALT/SGPT 159 U/L (12-78); AST/SGOT 145 U/L (15-37); BLOOD UREA NITROGEN 21 mg/dl (7-18); CALCIUM 8.4 mg/dl (8.5-10.1); CARBON DIOXIDE 28 mmol/L (21-32); CHOLESTEROL 120 mg/dl (0-200); CREATININE 1.12 mg/dl (0.60-1.40); GLUCOSE 143 mg/dl (70-99); POTASSIUM 3.9 mmol/L (3.5-5.1); SODIUM 140 mmol/L (136-145)
[2017-08-26 04:44] LABS: ALKALINE PHOSPHATASE 124 U/L (45-117); LDL CHOLESTEROL CALCULATED 64 mg/dl; TOTAL PROTEIN 6.6 gm/dl (6.4-8.2)
[2017-08-26 07:05] LABS: HEMOGLOBIN A1C 6.5 % (4.5-5.6)
[2017-08-26] MEDS: LACTOBACILLUS ACIDOPHILUS 1 GM PACK PO SCH ×2 (08:50→11:30)
[2017-08-26] MEDS: AMOXICILLIN 500 MG CAP PO SCH ×2 (08:51→14:41)
[2017-08-26] MEDS: DOXYCYCLINE HYCLATE 100 MG CAP PO SCH (08:53)
[2017-08-26] MEDS: INSULIN ASPART 100 UNITS/ML 3 ML PEN SC SCH ×2 (08:57→12:54)
[2017-08-26] MEDS ORDERED: CITALOPRAM 20 MG TAB PO SCH (09:00)
[2017-08-26] MEDS ORDERED: FERROUS SULFATE 325 MG TAB PO SCH (09:00)
[2017-08-26] MEDS ORDERED: PANTOprazole SOD 40 MG TAB PO SCH (09:00)
[2017-08-26] MEDS ORDERED: METOPROLOL SUCC 25MG EXT REL TAB PO SCH (09:00)
[2017-08-26] MEDS ORDERED: ASCORBIC ACID 500 MG TAB PO SCH (09:00)
[2017-08-26] MEDS ORDERED: CYANOCOBALAMIN 2,500 MCG SUBL TAB PO SCH (09:00)
[2017-08-26] MEDS ORDERED: ASPIRIN 325 MG ECTAB PO SCH (09:00)
[2017-08-26] MEDS: HEPARIN SOD 5000 UNIT/0.5 ML CARP SQ SCH (09:46)
--- NOTE | 2017-08-26 09:55 | Cardiology Consultation ---
Cardiology Consultation Date of Consultation: Aug 26, 2017. Requesting Physician: Blake Reason for Consultation: CHest Pain Pt evaluation today including: conversation w/ patient, physical exam, chart review, lab review, review of studies, review of inpatient medication list History of Present Illness The patient is a 77-year-old gentleman without a known history of cardiac disease who was at an outpatient appointment yesterday when he began experience symptoms of chest discomfort. Patient states that the chest discomfort was located in his central chest. It was a fairly discrete area. He had some associated nausea and vomiting. There was no radiation of this discomfort to the back shoulder or neck. There is no pleuritic symptoms. He did not have any associated shortness of breath. He feels the symptoms lasted for nearly an hour. The record suggests that it waxed and waned in severity or perhaps even resolved for period of time. Patient states that resolution began when he began to chew some tablets given to him by EMS in route to [facility]. He cannot recall having similar symptoms in the past. In general he is sedentary and confined to an electric wheelchair. He does live independently with his . He does not report symptoms of significant dyspnea. He is not aware of any palpitations or rapid heartbeats. He has not been experiencing any dizziness or lightheadedness. He cannot recall any other constitutional symptoms recently such as fevers or chills. Family History Patient reports no known family medical history. Noncontributory given his advanced age Social History Smoking Status: Former Smoker History of Alcohol Use: No Currently lives independently with his Review of Systems Per HPI. No recent upper respiratory symptoms. Patient does have a ulcer on the right heel. He does not ambulate. All Other Systems: Reviewed and Negative Allergies Coded Allergies: Ciprofloxacin (Verified Allergy, Mild, HIVES, 07/22/17) Medications Current Inpatient Medications Medications (Trade) Dose Ordered Sig/Sinai Route Start Time Stop Time Status Last Admin Dose Admin Amoxicillin (Amoxil Cap) 500 mg TID PO 08/25/17 21:00 09/04/17 20:59 08/26/17 08:51 500 MG Ascorbic Acid (Vitamin C Tab) 500 mg DAILY PO 08/26/17 09:00 09/25/17 08:59 08/26/17 08:51 500 MG Citalopram Hydrobromide (celeXA TAB) 20 mg DAILY PO 08/26/17 09:00 09/25/17 08:59 08/26/17 08:50 20 MG Doxycycline Hyclate (Vibramycin Cap) 100 mg BID PO 08/25/17 21:00 09/04/17 20:59 08/26/17 08:53 100 MG Gabapentin (Neurontin Cap) 300 mg HS PO 08/25/17 21:00 09/24/17 20:59 08/25/17 19:57 300 MG Metoprolol Succinate (Toprol Xl Tab) 25 mg DAILY PO 08/26/17 09:00 09/25/17 08:59 08/26/17 08:50 25 MG Simvastatin (Zocor Tab) 40 mg HS PO 08/25/17 21:00 09/24/17 20:59 08/25/17 19:49 40 MG Sumatriptan Succinate (Imitrex Tab) 50 mg DAILY PRN PO 08/25/17 16:15 09/24/17 16:14 Ergocalciferol (Vitamin D Cap) 50,000 interunit Fr@0900 PO 08/29/17 09:00 09/28/17 08:59 Cyanocobalamin (Vitamin B-12 Tab) 2,500 mcg DAILY PO 08/26/17 09:00 09/25/17 08:59 08/26/17 08:50 2,500 MCG Ferrous Sulfate (Feosol Tab) 325 mg DAILY PO 08/26/17 09:00 09/25/17 08:59 08/26/17 08:53 325 MG Pantoprazole Sodium (Protonix Tab) 40 mg QAM PO 08/26/17 09:00 09/25/17 08:59 08/26/17 08:51 40 MG Lactobacillus Acidophilus (Lactinex Granules Pack) 1 gm TIDM PO 08/25/17 18:00 09/24/17 17:59 08/26/17 08:50 1 GM Heparin Sodium (Porcine) (Heparin Sq 5000 Unit/0.5ml) 5,000 unit Q12 SQ 08/25/17 21:00 09/24/17 20:59 08/26/17 09:46 5,000 UNIT Sodium Chloride 1,000 ml @ 50 mls/hr Q20H IV 08/25/17 16:34 09/24/17 16:33 08/25/17 19:07 50 MLS/HR Acetaminophen (Tylenol Tab) 650 mg Q4H PRN PO 08/25/17 16:45 09/24/17 16:44 Al Hydrox/Mg Hydrox/Simethicone (Maalox Max Susp) 15 ml Q4H PRN PO 08/25/17 16:45 09/24/17 16:44 Magnesium Hydroxide (Milk Of Magnesia Susp) 30 ml Q12H PRN PO 08/25/17 16:45 09/24/17 16:44 Zolpidem Tartrate (Ambien Tab) 5 mg HSZ PRN PO 08/25/17 16:45 09/24/17 16:44 Ondansetron HCl (Zofran Inj) 4 mg Q6H PRN IV 08/25/17 16:45 09/24/17 16:44 Nitroglycerin (Nitrostat Tab) 0.4 mg UD PRN SL 08/25/17 16:45 09/24/17 16:44 Aspirin (Ecotrin Tab) 325 mg QAM PO 08/26/17 09:00 09/25/17 08:59 08/26/17 08:50 325 MG Polyethylene (Miralax Powder Packet) 17 gm DAILY PRN PO 08/25/17 16:45 09/24/17 16:44 Insulin Aspart (novoLOG ASPART) SLIDING SCALE If C... ACHS SC 08/25/17 21:00 09/24/17 20:59 08/26/17 08:57 4 UNITS Glucose (Glucose 40% Gel) 15-30 GRAMS 15 GRAMS... UD PRN PO 08/25/17 16:45 09/24/17 16:44 Glucose (Glucose Chew Tab) 4-8 Tablets 4 Tabl... UD PRN PO 08/25/17 16:45 09/24/17 16:44 Dextrose (Dextrose 50% 50ML Syringe) 25-50ML OF 50% DW IV FOR... UD PRN IV 08/25/17 16:45 09/24/17 16:44 Glucagon (Glucagon Inj) 1 mg UD PRN SQ 08/25/17 16:45 09/24/17 16:44 Physical Exam Vital Signs Past 12 Hours Date Time Temp Pulse Resp B/P (MAP) Pulse Ox O2 Delivery O2 Flow Rate FiO2 08/26/17 07:45 36.4 56 16 132/67 (88) 95 Room Air 08/26/17 04:00 94 Room Air 08/26/17 03:52 36.5 56 16 155/75 (101) 94 Room Air 08/26/17 00:01 96 Room Air 08/25/17 23:42 36.4 58 16 129/65 (86) 95 Room Air The patient is alert and oriented. Mood and affect appeared normal. He answered all questions appropriately. HEENT: Pupils are equal and reactive to light and accommodation. Extraocular movements are intact. The sclerae are anicteric. Neuro: Cranial nerves intact Neck: Patient's neck is supple. He has palpable carotid pulses bilaterally without bruits on auscultation. There is no evidence of jugular venous distention. The thyroid is not enlarged. Lungs: Clear to auscultation bilaterally. He has good air movement without use of accessory muscles. No rales wheezes or rhonchi. Cardiac: Heart demonstrates a regular rate and rhythm. Normal S1 and S2. No murmurs on examination. Pulses: The patient has palpable radial pulses bilaterally that are equal in intensity Extremities: There was no evidence of hypoperfusion. There is no cyanosis or clubbing. There is no edema. Status post left BKA Skin: I did not appreciate any rashes on examination today. Data Laboratory Results: Last 24 Hours Test 08/25/17 14:40 08/25/17 19:19 08/25/17 22:20 08/26/17 04:09 White Blood Count 11.92 K/uL 7.22 K/uL Red Blood Count 4.48 M/uL 3.97 M/uL Hemoglobin 12.9 g/dL 11.2 g/dL Hematocrit 39.9 % 34.6 % Mean Corpuscular Volume 89.1 fL 87.2 fL Mean Corpuscular Hemoglobin 28.8 pg 28.2 pg Mean Corpuscular Hemoglobin Concent 32.3 g/dl 32.4 g/dl Platelet Count 253 K/uL 177 K/uL Mean Platelet Volume 11.8 fL 11.0 fL Neutrophils (%) (Auto) 76.1 % 60.7 % Lymphocytes (%) (Auto) 15.4 % 27.1 % Monocytes (%) (Auto) 5.9 % 8.2 % Eosinophils (%) (Auto) 1.7 % 3.3 % Basophils (%) (Auto) 0.6 % 0.6 % Neutrophils # (Auto) 9.07 K/uL 4.38 K/uL Lymphocytes # (Auto) 1.84 K/uL 1.96 K/uL Monocytes # (Auto) 0.70 K/uL 0.59 K/uL Eosinophils # (Auto) 0.20 K/uL 0.24 K/uL Basophils # (Auto) 0.07 K/uL 0.04 K/uL RDW Standard Deviation 47.6 fL 45.4 fL RDW Coefficient of Variation 14.6 % 14.2 % Immature Granulocyte % (Auto) 0.3 % 0.1 % Immature Granulocyte # (Auto) 0.04 K/uL 0.01 K/uL Prothrombin Time 10.6 SECONDS Prothromb Time International Ratio 1.0 Activated Partial Thromboplast Time 25.2 SECONDS Partial Thromboplastin Ratio 1.0 Sodium Level 137 mmol/L 140 mmol/L Potassium Level 4.0 mmol/L 3.9 mmol/L Chloride Level 103 mmol/L 107 mmol/L Carbon Dioxide Level 28 mmol/L 28 mmol/L Anion Gap 6.0 mmol/L 5.0 mmol/L Blood Urea Nitrogen 20 mg/dl 21 mg/dl Creatinine 1.40 mg/dl 1.12 mg/dl Estimated GFR () 55.0 72.0 Estimated GFR (Non- 47.5 62.1 BUN/Creatinine Ratio 14.5 18.4 Random Glucose 253 mg/dl 143 mg/dl Calcium Level 8.7 mg/dl 8.4 mg/dl Phosphorus Level 2.7 mg/dl Magnesium Level 2.1 mg/dl 2.0 mg/dl Total Bilirubin 0.7 mg/dl 0.5 mg/dl Direct Bilirubin 0.3 mg/dl Aspartate Amino Transf (AST/SGOT) 57 U/L 145 U/L Alanine Aminotransferase (ALT/SGPT) 39 U/L 159 U/L Alkaline Phosphatase 123 U/L 124 U/L Troponin I < 0.015 ng/ml < 0.015 ng/ml < 0.015 ng/ml Pro-B-Type Natriuretic Peptide 476 pg/ml Total Protein 8.1 gm/dl 6.6 gm/dl Albumin 3.3 gm/dl 2.7 gm/dl Lipase 115 U/L Bedside Glucose 188 mg/dl Est Creatinine Clear Calc Drug Dose 56.9 ml/min Estimated Average Glucose 140 mg/dl Hemoglobin A1c 6.5 % Globulin 3.9 gm/dl Albumin/Globulin Ratio 0.7 Triglycerides Level 107 mg/dl Cholesterol Level 120 mg/dl HDL Cholesterol 35 mg/dl LDL Cholesterol, Calculated 64 mg/dl VLDL Cholesterol, Calculated 21 mg/dl Cholesterol/HDL Ratio 3.4 Test 08/26/17 06:32 Bedside Glucose 142 mg/dl Imaging: Chest x-ray did not demonstrate any acute findings EKG: Normal sinus rhythm Telemetry reviewed: No significant arrhythmia Echocardiogram performed in October 2016 did not demonstrate any significant cardiac disease. Normal LV systolic function. No LVH. No significant valvular disease. Assessment & Plan 1. Chest pain: The patient appeared to have an extended episode of chest discomfort that did not result in any elevation in cardiac biomarkers. As such I think we can consider this noncardiac chest pain. Certainly he did not have an acute coronary syndrome. He has multiple risk factors for coronary disease however and likely would benefit from some form of evaluation or risk stratification. He is currently nonambulatory and our evaluation will need to involve a pharmacologic stress test. I ordered him a dobutamine echocardiogram. Other cardiovascular issues would simply include continued primary prevention. He is on simvastatin 40 mg daily but could benefit from being on a more potent statin such as atorvastatin 40 mg daily. This decision can be deferred to his primary care physician. In the past he was on Simón inhibitor but this was discontinued reportedly due to hypotension. He should continue with standard cardiac risk factor modification according to published guidelines. If his stress echocardiogram result is favorable, I think he could be discharged without any additional testing or therapy.
[2017-08-26] MEDS ORDERED: DOBUTamine HCL 12.5 MG/ML 20 ML VIAL ONE (11:23)
[2017-08-26] MEDS ORDERED: ATROPINE SULFATE 0.1 MG/ML 5ML SYR ONE (11:24)
[2017-08-26] MEDS ORDERED: METOPROLOL TARTRATE 1 MG/ML VIAL ONE (11:24)
[2017-08-26] MEDS: SODIUM CHLORIDE 0.9% 1000ML 1,000 ML IV SCH (12:34)
--- NOTE | 2017-08-26 14:23 | Discharge Instructions ---
Discharge Instructions Date of Service Aug 26, 2017. Admission Reason for Admission: Chest Pain Discharge Discharge Diagnosis / Problem: Chest pain Discharge Goals Goal(s): Decrease discomfort, Improve function, Increase independence, Improve disease control Activity Recommendations Activity Limitations: per Instructions/Follow-up section Lifting Limitations: no more than 25 pounds, gradually increase as tolerated Exercise/Sports Limitations: rest today, gradually increase as tolerated May Resume Sexual Activity: when tolerated Shower/Bathe: no limitations, tomorrow Driving or Machine Use: no limitations . Instructions / Follow-Up Instructions / Follow-Up You were admitted to [facility] with chest pain and diagnosed with noncardiac chest pain secondary with associated nausea/vomiting. During your stay here you were treated with intravenous fluids, had cardiac biomarkers trended which were negative, and EKG performed which was normal. A dobutamine stress echocardiogram was completed and was undiagnostic. You did not have changes significant for myocardial injury (Ie. heart attack) . Medications: Continue taking your medications as prescribed. You are currently on simvastatin 40 mg daily but could benefit from being on a more potent statin such as atorvastatin 40 mg daily. This decision can be deferred to your primary care physician. Appointments: Follow up with PCP within 1 week. Follow up with cardiology within 1 week. Follow up with wound care as already scheduled. Current Hospital Diet Patient's current hospital diet: Regular Diet Discharge Diet Recommended Diet: AHA Diet (Heart Healthy), Diabetes Type 2 Diet Pending Studies Studies pending at discharge: no Laboratory Results Hemoglobin A1c Test 08/26/17 04:09 Range/Units Estimated Average Glucose 140 mg/dl Hemoglobin A1c 6.5 H 4.5-5.6 % Lipid Panel Test 08/26/17 04:09 Range/Units Triglycerides Level 107 0-150 mg/dl Cholesterol Level 120 0-200 mg/dl HDL Cholesterol 35 mg/dl Cholesterol/HDL Ratio 3.4 LDL Cholesterol, Calculated 64 mg/dl Medical Emergencies . Who to Call and When: Medical Emergencies: If at any time you feel your situation is an emergency, please call 911 immediately. . Non-Emergent Contact Non-Emergency issues call your: Primary Care Provider Call Non-Emergent contact if: temperature is above 100.5, your pain is not controlled, your pain is worsening, your pain is unusual for you, your pain is concerning you, you have any medication questions . Past History Medical & Surgical History: (1) Chest pain (2) Hyperlipidemia (3) Benign hypertension . "Provider Documentation" section prepared by Razia Troncoso. . VTE Core Measure Inpt VTE Proph given/why not?: Unfractionated heparin SQ
--- NOTE | 2017-08-26 14:34 | Progress Note ---
Progress Note Date of Service Aug 26, 2017. Progress Note I reviewed the source images of the patient's stress echocardiogram. There were notable EKG changes at peak dobutamine infusion suggestive of ischemia. Unfortunately, the echocardiographic images at peak infusion were not interpretable. The patient did have some right-sided abdominal pain with peak infusion it was not similar to his presenting symptom. Overall, my impression is that this is a low risk test. I think there is a significant possibility that this represents a false positive EKG portion. The patient is very sedentary at home and performs no significant exertion. As such, I think it is safe for him to be discharged with follow-up in the outpatient setting. We could probably better evaluate his overall cardiac risk with perfusion imaging. I will order him an outpatient perfusion study to make sure there are no large territories at risk. In the interim his medical therapy can be altered to include a daily aspirin and a switch from simvastatin to high-dose atorvastatin.
--- NOTE | 2017-08-26 14:41 | DOBUTAMINE ECHO ---
*NOTICE TO RECEIVING DEMOCRAT AGENCY This information is strictly Confidential and protected under [place] law. [place] law prohibits you from making any further disclosure of this information unless further disclosure is expressly permitted by the written consent of the person to whom it pertains or is authorized by law. A general authorization for the release of medical or other information is not sufficient for this purpose. Hospital accepts no responsibility if the information is made available to any other person, INCLUDING THE PATIENT. Interpretation Summary * Name: LANIE DUARTE I Study Date: 08/26/2017 10:21 AM BP: 128/72 mmHg * Patient Location: C.2T\S\E219\S\1 HR: 72 * : 1940 (M/d/yyy) Gender: Male Height: 71 in * Age: 77 yrs Ethnicity: CA Weight: 171 lb * Ordering Physician: Rubin Andrews * Referring Physician: Self, Referred * Performed By: Eveline Amin RDCS * * Reason For Study: CHEST PAIN * BSA: 2.0 m2 * -- Conclusions -- * There is borderline concentric left ventricular hypertrophy. * Left ventricular systolic function is normal. * Right ventricular systolic pressure is elevated at 30-40mmHg. * Abnormal EKG response to dobutamine infusion suggestive of ischemia * Due to poor image quality wall motion could not be assessed at peak dobutamine infusion Procedure Details * DOBUTAMINE ECHO, CPT#44303 * A contrast injection of Definity was performed to improve assessment of LV function. * Contrast was injected into an intravenous site in the left arm. * One vial of Definity ultrasound contrast was diluted in normal saline to a total volume of 10 ml. A total of '5' ml of solution was administered during imaging. * Lot # [id number] of Definity utilized for procedure. * Expiration date AUG 18. * The attending nurse who injected the contrast agent was JAYDA CLEMENTS RN. * The study was technically difficult with many images being suboptimal in quality. Left Ventricular Findings with Stress * Abnormal EKG response to dobutamine infusion suggestive of ischemia Due to poor image quality wall motion could not be assessed at peak dobutamine infusion Left Ventricle * The left ventricle is normal in size. * There is borderline concentric left ventricular hypertrophy. * Left ventricular systolic function is normal. * Ejection Fraction = 55-60%. * The left ventricular wall motion is normal at rest. Right Ventricle * The right ventricle is normal in size and function. * The right ventricular systolic function is normal as assessed by tricuspid annular plane systolic excursion (TAPSE) (normal >1.5 cm). Atria * The left atrial size is normal. * Right atrial size is normal. Mitral Valve * The mitral valve is grossly normal. * There is trace mitral regurgitation. Tricuspid Valve * The tricuspid valve is not well visualized, but is grossly normal. * There is mild tricuspid regurgitation. * Right ventricular systolic pressure is elevated at 30-40mmHg. Aortic Valve * The aortic valve is normal in structure and function. * The aortic valve is trileaflet. * No hemodynamically significant valvular aortic stenosis. * Trace aortic regurgitation. Great Vessels * The aortic root is normal size. Pericardium * There is no pericardial effusion. Stress Parameters * Rest heart rate was '72' BPM. * Rest blood pressure was '128/72' * Maximum heart rate achieved was 146 bpm. * Maximum heart rate was 103 % of maximum age-predicted heart rate. * Maximum blood pressure was '152/58' * Maximum Dobutamine infusion rate was '40' mcg/kg/min. * A total of .25 mg of intravenous Atropine was used to supplement Dobutamine for heart rate response. * Dobutamine infusion was terminated due to achieving target heart rate * A total of 5 mg of IV Metoprolol was administered to reverse Dobutamine-induced tachycardia. Left Ventricular Findings with Stress * Baseline EKG was normal At peak dobutamine infusion there was upsloping ST segment depression Baseline echocardiogram was normal Due to poor image quality wall motion could not be assessed at peak dobutamine infusion Normal heart rate and blood pressure response to dobutamine Symptoms of right-sided chest discomfort were reported MMode 2D Measurements and Calculations IVSd 1.4 cm IVSs 1.9 cm LVIDd 3.8 cm LVIDs 2.6 cm LVPWd 1.2 cm LVPWs 1.9 cm IVS/LVPW 1.2 FS 30.5 % EDV(Teich) 60.7 ml ESV(Teich) 25.1 ml EF(Teich) 58.7 % EDV(cubed) 53.5 ml ESV(cubed) 18.0 ml EF(cubed) 66.4 % % IVS thick 30.2 % % LVPW thick 61.9 % LV mass(C)d 173.5 grams LV mass(C)dI 87.9 grams/m\S\2 LV mass(C)s 204.7 grams LV mass(C)sI 103.8 grams/m\S\2 SV(Teich) 35.7 ml SI(Teich) 18.1 ml/m\S\2 SV(cubed) 35.6 ml SI(cubed) 18.0 ml/m\S\2 Ao root diam 3.7 cm Ao root area 10.9 cm\S\2 LA dimension 3.4 cm LA/Ao 0.91 Doppler Measurements and Calculations MV E max moni 101.0 cm/sec MV A max moni 109.0 cm/sec MV E/A 0.93 MV dec time 0.24 sec Ao V2 max 128.4 cm/sec Ao max PG 6.6 mmHg Ao max PG (full) 3.3 mmHg LV V1 max PG 3.3 mmHg LV V1 max 90.5 cm/sec TR max moni 283.6 cm/sec
--- NOTE | 2017-08-26 14:43 | Hospitalist Progress Note ---
Hospitalist Progress Note Date of Service Aug 26, 2017. (Ashley Troncoso PA-C) Subjective Pt evaluation today including: conversation w/ patient, physical exam, chart review, lab review, review of studies Pain: None PO Intake: NPO for stress dobutamine test Voiding: kaye catheter in place The patient was seen and examined this morning. Pt reports doing well today. He has not had any recurrence of chest pain since being admitted. He denies any further nausea, vomiting, shortness of breath. His pain occurred while he was in the wound clinic for a routine appointment for the right heel, and it occurred while in the waiting room. ROS: Constitutional: No fever, sweats or chills Eyes: No diplopia, no worsening or blurred vision ENT: normal hearing, no trouble swallowing Respiratory: No cough, sputum, dyspnea at rest or on exertion Cardiovascular: No chest pain, tightness or palpitations Abdomen: No pain, nausea, vomiting, diarrhea or constipation Musculoskeletal: No joint pain, calf pain, swelling, + chronic muscle spasms nonpainful, + right BKA Neurologic: No weakness, numbness/tingling, or balance problems Skin: No rash or itch, + left heel wound being followed by wound clinic (Ashley Troncoso, JESSY) Objective Vital Signs Date Time Temp Pulse Resp B/P (MAP) Pulse Ox O2 Delivery O2 Flow Rate FiO2 08/26/17 12:31 36.6 79 18 144/72 (96) 93 Room Air 08/26/17 08:00 Room Air 08/26/17 07:45 36.4 56 16 132/67 (88) 95 Room Air 08/26/17 04:00 94 Room Air 08/26/17 03:52 36.5 56 16 155/75 (101) 94 Room Air 08/26/17 00:01 96 Room Air 08/25/17 23:42 36.4 58 16 129/65 (86) 95 Room Air 08/25/17 18:45 36.3 69 16 165/78 96 Room Air 08/25/17 18:00 74 16 125/76 97 Room Air 08/25/17 16:42 75 16 131/76 98 Room Air 08/25/17 16:16 76 08/25/17 15:47 71 16 131/76 96 Room Air 08/25/17 15:04 96 Nasal Cannula 2.0 08/25/17 14:50 95 Room Air 08/25/17 14:50 36.5 70 20 134/66 95 Room Air (Ashley Troncoso PA-C) Physical Exam Notes: General: awake, alert, no apparent distress Head: Normocephalic, atraumatic ENT: PERRL, EOMI, no pharyngeal exudate, mucous membranes moist Chest: Clear to auscultation, on room air, no adventitious breath sounds Cardiac: Regular rate and rhythm,+ soft systolic murmur, no JVD Abdominal: NABS x 4 quadrants, soft, nontender to palpation, no rebound, guarding or tenderness Extremities: Left BKA, right heel wound grade 2-3 about 1x1 cm, no peripheral edema or erythema, R calf nontender to palpation Psych: Normal mood and affect Neuro: AAO x 3, speech is clear, no peripheral sensory deficits (Ashley Troncoso, JESSY) Laboratory Results Last 24 Hours Test 08/25/17 14:40 08/25/17 19:19 08/25/17 22:20 08/26/17 04:09 White Blood Count 11.92 K/uL 7.22 K/uL Red Blood Count 4.48 M/uL 3.97 M/uL Hemoglobin 12.9 g/dL 11.2 g/dL Hematocrit 39.9 % 34.6 % Mean Corpuscular Volume 89.1 fL 87.2 fL Mean Corpuscular Hemoglobin 28.8 pg 28.2 pg Mean Corpuscular Hemoglobin Concent 32.3 g/dl 32.4 g/dl Platelet Count 253 K/uL 177 K/uL Mean Platelet Volume 11.8 fL 11.0 fL Neutrophils (%) (Auto) 76.1 % 60.7 % Lymphocytes (%) (Auto) 15.4 % 27.1 % Monocytes (%) (Auto) 5.9 % 8.2 % Eosinophils (%) (Auto) 1.7 % 3.3 % Basophils (%) (Auto) 0.6 % 0.6 % Neutrophils # (Auto) 9.07 K/uL 4.38 K/uL Lymphocytes # (Auto) 1.84 K/uL 1.96 K/uL Monocytes # (Auto) 0.70 K/uL 0.59 K/uL Eosinophils # (Auto) 0.20 K/uL 0.24 K/uL Basophils # (Auto) 0.07 K/uL 0.04 K/uL RDW Standard Deviation 47.6 fL 45.4 fL RDW Coefficient of Variation 14.6 % 14.2 % Immature Granulocyte % (Auto) 0.3 % 0.1 % Immature Granulocyte # (Auto) 0.04 K/uL 0.01 K/uL Prothrombin Time 10.6 SECONDS Prothromb Time International Ratio 1.0 Activated Partial Thromboplast Time 25.2 SECONDS Partial Thromboplastin Ratio 1.0 Sodium Level 137 mmol/L 140 mmol/L Potassium Level 4.0 mmol/L 3.9 mmol/L Chloride Level 103 mmol/L 107 mmol/L Carbon Dioxide Level 28 mmol/L 28 mmol/L Anion Gap 6.0 mmol/L 5.0 mmol/L Blood Urea Nitrogen 20 mg/dl 21 mg/dl Creatinine 1.40 mg/dl 1.12 mg/dl Estimated GFR () 55.0 72.0 Estimated GFR (Non- 47.5 62.1 BUN/Creatinine Ratio 14.5 18.4 Random Glucose 253 mg/dl 143 mg/dl Calcium Level 8.7 mg/dl 8.4 mg/dl Phosphorus Level 2.7 mg/dl Magnesium Level 2.1 mg/dl 2.0 mg/dl Total Bilirubin 0.7 mg/dl 0.5 mg/dl Direct Bilirubin 0.3 mg/dl Aspartate Amino Transf (AST/SGOT) 57 U/L 145 U/L Alanine Aminotransferase (ALT/SGPT) 39 U/L 159 U/L Alkaline Phosphatase 123 U/L 124 U/L Troponin I < 0.015 ng/ml < 0.015 ng/ml < 0.015 ng/ml Pro-B-Type Natriuretic Peptide 476 pg/ml Total Protein 8.1 gm/dl 6.6 gm/dl Albumin 3.3 gm/dl 2.7 gm/dl Lipase 115 U/L Bedside Glucose 188 mg/dl Est Creatinine Clear Calc Drug Dose 56.9 ml/min Estimated Average Glucose 140 mg/dl Hemoglobin A1c 6.5 % Globulin 3.9 gm/dl Albumin/Globulin Ratio 0.7 Triglycerides Level 107 mg/dl Cholesterol Level 120 mg/dl HDL Cholesterol 35 mg/dl LDL Cholesterol, Calculated 64 mg/dl VLDL Cholesterol, Calculated 21 mg/dl Cholesterol/HDL Ratio 3.4 Test 08/26/17 06:32 08/26/17 12:38 Bedside Glucose 142 mg/dl Troponin I < 0.015 ng/ml (Ashley Troncoso PA-C) Assessment and Plan 77-year-old man with past medical history of multiple sclerosis, chronic indwelling Kaye, recurrent UTI, hypertension, diabetes mellitus on oral hypoglycemic, dyslipidemia, left BKA, and chronic right heel ulcer presented to the hospital with chest pain rule out ACS Chest pain- rule out ACS Dyslipidemia/hypertension - Cardiac enzymes neg x 3 - Dobutamine stress test read by Dr. Vasquez - appreciate cardiology recs - EKG reviewed and negative. - Continue on asa, statin therapy, metoprolol succinate 25 mg daily - NTG SL/topical prn CP - Lipid panel WNL Diabetes mellitus, II - HOLD glipizide for now - ISS an accuchecks achs - Checked hemoglobin A1c= 6.5 Right heel ulcer - including amoxicillin/doxycycline for right heel ulcer - Lactobacillus for C. difficile prophylaxis - Wound consulted Urinary retention with chronic indwelling catheter Recurrent UTI - Continue kaye Multiple sclerosis with right-sided hemiparesis and spasticity - Continue home medications - pt reports spams are well controlled DVT ppx: heparin subq CODE STATUS: FULL CODE Disposition: From home, possible dc within 24 hrs. (Ashley Troncoso PA-C) Supervising Note Dr. Urban I performed a history and physical examination on the patient. I reviewed above note and agree with it. I discussed plan with APC and patient. During my face to face encounter with the patient, I answered all of the patient's questions. Pending stress test. may be discharged later today (Petr Urban M.D.)
--- NOTE | 2017-08-26 15:45 | Discharge Summary ---
Discharge Summary Date of Service Aug 26, 2017. 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 No acute findings. Dobutamine stress Test 08/26/17 -- Conclusions -- * There is borderline concentric left ventricular hypertrophy. * Left ventricular systolic function is normal. * Right ventricular systolic pressure is elevated at 30-40mmHg. * Abnormal EKG response to dobutamine infusion suggestive of ischemia * Due to poor image quality wall motion could not be assessed at peak dobutamine infusion Consultations: Cardiology Medication Reconciliation New Medications: Aspirin (Aspirin) 325 Mg Ectab 325 MG PO QAM for 30 Days, #30 TAB Continued Medications: Amoxicillin (Amoxil) 500 Mg Cap 500 MG PO TID CHRONIC ABX Ascorbic Acid (Ascorbic Acid) 500 Mg Tab 500 MG PO DAILY, TAB Cholecalciferol (Vitamin D3) 50,000 Unit Cap 42335 UNITS PO WEEKLY TAKE THIS MED EVERY FRIDAY Citalopram Hydrobromide (Celexa) 20 Mg Tab 20 MG PO DAILY, TAB Cyanocobalamin (Vitamin B12) 1,000 Mcg Tab 2500 MCG SL DAILY Doxycycline Hyclate (Doxycycline Hyclate) 100 Mg Cap 100 MG PO BID for 30 Days, #60 CAP STAY ON THIS UNTIL TOLD TO STOP BY YOUR MD Ferrous Sulfate ( Ferrous Sulfate) 325 Mg Tab 325 MG PO DAILY, TAB TAKE ONE TAB DAILY WITH FOOD AND VITAMIN C Gabapentin (Neurontin) 300 Mg Cap 300 MG PO HS, CAP Glipizide (Glipizide Er) 2.5 Mg Tab 2.5 MG PO DAILY, TAB Hydralazine Hcl (Apresoline) 10 Mg Tab 10 MG PO AMPM, TAB Metoprolol Succinate (Toprol Xl) 25 Mg Tabcr 25 MG PO DAILY, TAB Omeprazole (Prilosec) 10 Mg Capcr 10 MG PO QAM, CAP Simvastatin (Zocor) 40 Mg Tab 40 MG PO HS Sumatriptan Succinate (Imitrex) 50 Mg Tab 50 MG PO PRN Discharge Exam Subjective Pt evaluation today including: conversation w/ patient, physical exam, chart review, lab review, review of studies Pain: None PO Intake: NPO for stress dobutamine test Voiding: kaye catheter in place The patient was seen and examined this morning. Pt reports doing well today. He has not had any recurrence of chest pain since being admitted. He denies any further nausea, vomiting, shortness of breath. His pain occurred while he was in the wound clinic for a routine appointment for the right heel, and it occurred while in the waiting room. ROS: Constitutional: No fever, sweats or chills Eyes: No diplopia, no worsening or blurred vision ENT: normal hearing, no trouble swallowing Respiratory: No cough, sputum, dyspnea at rest or on exertion Cardiovascular: No chest pain, tightness or palpitations Abdomen: No pain, nausea, vomiting, diarrhea or constipation Musculoskeletal: No joint pain, calf pain, swelling, + chronic muscle spasms nonpainful, + right BKA Neurologic: No weakness, numbness/tingling, or balance problems Skin: No rash or itch, + left heel wound being followed by wound clinic Physical Exam Notes: General: awake, alert, no apparent distress Head: Normocephalic, atraumatic ENT: PERRL, EOMI, no pharyngeal exudate, mucous membranes moist Chest: Clear to auscultation, on room air, no adventitious breath sounds Cardiac: Regular rate and rhythm,+ soft systolic murmur, no JVD Abdominal: NABS x 4 quadrants, soft, nontender to palpation, no rebound, guarding or tenderness Extremities: Left BKA, right heel wound grade 2-3 about 1x1 cm, no peripheral edema or erythema, R calf nontender to palpation Psych: Normal mood and affect Neuro: AAO x 3, speech is clear, no peripheral sensory deficits Hospital Course 77-year-old man with past medical history of multiple sclerosis, chronic indwelling Kaye, recurrent UTI, hypertension, diabetes mellitus on oral hypoglycemic, dyslipidemia, left BKA, and chronic right heel ulcer presented to the hospital with chest pain rule out ACS Chest pain- rule out ACS Dyslipidemia/hypertension - Cardiac enzymes neg x 3 - Dobutamine stress test read by Dr. Vasquez - appreciate cardiology recs - Follow up with Dr. Andrews in 4 weeks for outpatient nuclear stress test and office appt. - EKG reviewed and negative. - Continue on asa, statin therapy, metoprolol succinate 25 mg daily - NTG SL/topical prn CP - Lipid panel WNL Diabetes mellitus, II - HOLD glipizide for now - ISS an accuchecks achs - Checked hemoglobin A1c= 6.5 Right heel ulcer - including amoxicillin/doxycycline for right heel ulcer - Lactobacillus for C. difficile prophylaxis - Wound consulted Urinary retention with chronic indwelling catheter Recurrent UTI - Continue kaye Multiple sclerosis with right-sided hemiparesis and spasticity - Continue home medications - pt reports spams are well controlled DVT ppx: heparin subq CODE STATUS: FULL CODE Disposition: From home, dc to home today. Supervising Note Dr. Urban I performed a history and physical examination on the patient. I reviewed above note and agree with it. I discussed plan with APC and patient. During my face to face encounter with the patient, I answered all of the patient's questions. Chest pain was worked up for cardiac source and was ruled out. Total Time Spent: Greater than 30 minutes This includes examination of the patient, discharge planning, medication reconciliation, and communication with other providers. Discharge Instructions Please refer to the electronic Patient Visit Report (Discharge Instructions) for additional information. Follow-Up Follow up with your Primary Care Provider within 1 week. Follow up with cardiology within 4 weeks for nuclear stress test. Additional Copies To RV. Coyne MD
[2017-08-26] MEDS ORDERED: ASPEC325 PO (15:46)
[2017-08-29] MEDS ORDERED: ERGOCALCIFEROL 50,000 INTER.UNIT CAP PO SCH (09:00)
== END 2017-08-26 17:19 | disposition home or self-care (01) ==
LOC: C.EDB 14:39 → EDBD 14:39 → C.2T 16:38 → ENRESERV 17:14
PROVIDERS: ADMIT Internal Medicine; ATTEND Internal Medicine
DX: R07.89 Other chest pain (principal); I10 Essential (primary) hypertension; L97.419 Non-pressure chronic ulcer of right heel and midfoot with unspecified severity; R33.9 Retention of urine, unspecified; G35 Multiple sclerosis; G81.11 Spastic hemiplegia affecting right dominant side; E11.9 Type 2 diabetes mellitus without complications; E78.5 Hyperlipidemia, unspecified; Z89.512 Acquired absence of left leg below knee; Z79.899 Other long term (current) drug therapy; Z88.1 Allergy status to other antibiotic agents; Z87.891 Personal history of nicotine dependence; Z79.4 Long term (current) use of insulin

== ENCOUNTER → 2017-09-11 | Outpatient (CLI) | payer BC ==
--- NOTE | 2017-08-26 15:39 | Discharge Instructions ---
Discharge Instructions Date of Service Aug 26, 2017. Admission Reason for Admission: Chest Pain Discharge Discharge Diagnosis / Problem: Atypical chest pain Discharge Goals Goal(s): Decrease discomfort, Improve function, Increase independence, Improve disease control Activity Recommendations Activity Limitations: resume your previous activity Lifting Limitations: no more than 25 pounds, gradually increase as tolerated Exercise/Sports Limitations: as tolerated May Resume Sexual Activity: when tolerated Shower/Bathe: no limitations (with assistance) Driving or Machine Use: Do Not Drive . Instructions / Follow-Up Instructions / Follow-Up You were admitted to [facility] with chest pain with associated nausea and vomiting and diagnosed with atypical chest pain. During your stay here you were treated with intravenous fluids, cardiac biomarkers were trended and were negative. Imaging studies which were completed include: Stress echocardiogram, and were nonconclusive however showed no positive ischemic signs (ie. no signs of heart injury like a heart attack) You are being scheduled for a nuclear stress test with cardiology within 4 weeks as an outpatient. Medications: Continue taking your medications as prescribed. Discuss switching your statin therapy with your PCP. Appointments: Follow up with PCP within 1 week. Follow up with cardiology within 4 weeks for a nuclear stress test. Current Hospital Diet Patient's current hospital diet: Discharge Diet Recommended Diet: AHA Diet (Heart Healthy), Diabetes Type 2 Diet Pending Studies Studies pending at discharge: no Laboratory Results Hemoglobin A1c Test 08/26/17 04:09 Range/Units Estimated Average Glucose 140 mg/dl Hemoglobin A1c 6.5 H 4.5-5.6 % Lipid Panel Test 08/26/17 04:09 Range/Units Triglycerides Level 107 0-150 mg/dl Cholesterol Level 120 0-200 mg/dl HDL Cholesterol 35 mg/dl Cholesterol/HDL Ratio 3.4 LDL Cholesterol, Calculated 64 mg/dl Medical Emergencies . Who to Call and When: Medical Emergencies: If at any time you feel your situation is an emergency, please call 911 immediately. . Non-Emergent Contact Non-Emergency issues call your: Primary Care Provider Call Non-Emergent contact if: you have a fever, temperature is above 100.5, your pain is not controlled, your pain is worsening, your pain is unusual for you, your pain is concerning you, you have any medication questions other concerns with your health. Call 911 or go directly to the Emergency Department if you experience any of the following: Chest pain, chest tightness, shortness of breath, abdominal pain , lightheadedness, dizziness, gastrointestinal bleeding, or have any other concerns regarding your health. . Past History Medical & Surgical History: (1) Atypical chest pain (2) Hyperlipidemia (3) Benign hypertension . "Provider Documentation" section prepared by Razia Troncoso. . VTE Core Measure Inpt VTE Proph given/why not?: Unfractionated heparin SQ, T.E.D. Stockings, SCD 's
[~2017-09-11] MED LIST changes: +ASPEC325 PO; -NITR-5 PO; +REGADENOSON 0.4 MG/5 ML SYR ONE
--- NOTE | 2017-09-12 09:06 | Myocardial Perfusion Study ---
Myocardial Perfusion Study Rpt Myocardial Perfusion Study Rpt Date of Service 09/11/2017 Myocardial Perfusion Study Rpt Procedure: 1. Myocardial perfusion study performed in multiple views/images 2. Lexiscan pharmacologic stress ECG Indications: 1. Chest pain Consent: Informed written consent was obtained prior to the procedure. Ordering physician: Razia Troncoso PA-C Procedural details: For the stress portion of the study, Lexiscan 0.4 mg was intravenously administered followed by a saline flush. This was followed by 31.5 mCi of technetium 99m Cardiolite, injected at 11:05 a.m. on 09/11/2017. 30 minutes following the injection, imaging of the heart was performed in multiple projections. For the rest portion of the study, 10.9 mCi technetium 99m Cardiolite was injected intravenously at 9:30 a.m. on 09/11/2017. 1 hour following the injection, imaging of the heart was performed in the same projections. Lexiscan stress ECG: Resting ECG demonstrated: Sinus bradycardia at 58 bpm Maximum heart rate: 79 bpm Resting blood pressure: 144/79 mmHg Maximum blood pressure: 144/79 mmHg Maximal, age-predicted heart rate: 56 % Significant ST changes: None Arrhythmia: None Symptoms: None Findings: Rotating raw imaging demonstrated no significant lung uptake. There is no significant motion artifact. Heart size appeared small to normal. Myocardial perfusion demonstrated a very small fixed area of mildly reduced uptake involving the septum from base to distal left ventricle which appeared worse in rest imaging. There were no significant reversible changes to suggest ischemia. Ejection fraction: 87 % Wall motion: No regional wall motion abnormalities. No significant transient ischemic dilation. Impression: 1. Negative myocardial perfusion study for ischemic changes. 2. Small fixed defect likely artifact given normal wall motion. 3. Hyperdynamic left ventricular systolic function. EF 87%. 4. No symptoms reported. 5. No arrhythmia. 6. Nondiagnostic Lexiscan ECG.
== END | disposition home or self-care (01) ==
LOC: C.NUCL 09:11
PROVIDERS: ATTEND Physician Assistant
DX: R07.9 Chest pain, unspecified (principal); I25.10 Atherosclerotic heart disease of native coronary artery without angina pectoris

== ENCOUNTER → 2017-10-20 | Outpatient (CLI) | payer BC ==
[~2017-10-20] MED LIST changes: -AMOX500C3 PO; +ERTA1INJ IV; +LACTCHW3 PO; +MRLP17X PO; +NIFE30TA2 PO; +OMEP10CA PO; -OMEP10CA2 PO; -REGADENOSON 0.4 MG/5 ML SYR ONE
[2017-10-20 08:19] LABS: BLOOD UREA NITROGEN 32 mg/dl (7-18); CALCIUM 8.9 mg/dl (8.5-10.1); CARBON DIOXIDE 31 mmol/L (21-32); CREATININE 1.34 mg/dl (0.60-1.40); GLUCOSE 142 mg/dl (70-99); POTASSIUM 4.1 mmol/L (3.5-5.1); SODIUM 140 mmol/L (136-145)
== END ==
LOC: C.LABCC 07:43
PROVIDERS: ATTEND Internal Medicine
DX: N39.0 Urinary tract infection, site not specified (principal)

== ENCOUNTER → 2018-01-19 | Outpatient (CLI) | payer BC ==
[~2018-01-19] MED LIST changes: -DXY100 PO; -ERTA1INJ IV
[2018-01-19 15:42] LABS: BASO % 0.4 %; BASO ABS # 0.03 K/uL (0-0.2); EOS % 4.6 %; EOS ABS # 0.34 K/uL (0-0.5); HEMOGLOBIN 13.3 g/dL (14.0-18.0); IG# 0.01 K/uL (0.00-0.02); LYMPH % 25.4 %; LYMPH ABS # 1.86 K/uL (1.2-3.4); MEAN CELL VOLUME 88.4 fL (80-100); MEAN CORPUSCULAR HEMOGLOBIN 28.7 pg (25-34); MEAN CORPUSCULAR HGB CONC 32.4 g/dl (32-36); MEAN PLATELET VOLUME 11.8 fL (7.4-10.4); MONO % 8.2 %; NEUT % 61.3 %; NEUT ABS # 4.49 K/uL (1.4-6.5); PLATELET COUNT 223 K/uL (130-400); RED CELL DISTRIBUTION WIDTH CV 13.8 % (11.5-14.5); RED CELL DISTRIBUTION WIDTH SD 44.2 fL (36.4-46.3); WHITE BLOOD COUNT 7.33 K/uL (4.8-10.8)
[2018-01-19 16:34] LABS: ALBUMIN 3.1 gm/dl (3.4-5.0); ALKALINE PHOSPHATASE 85 U/L (45-117); ALT/SGPT 15 U/L (12-78); AST/SGOT 7 U/L (15-37); BLOOD UREA NITROGEN 22 mg/dl (7-18); CALCIUM 8.6 mg/dl (8.5-10.1); CARBON DIOXIDE 30 mmol/L (21-32); CREATININE 1.24 mg/dl (0.60-1.40); GLUCOSE 168 mg/dl (70-99); POTASSIUM 3.7 mmol/L (3.5-5.1); SODIUM 138 mmol/L (136-145); TOTAL PROTEIN 7.6 gm/dl (6.4-8.2)
[2018-01-20 06:16] LABS: HEMOGLOBIN A1C 8.7 % (4.5-5.6)
== END | disposition home or self-care (01) ==
LOC: C.LAB1850 14:58
PROVIDERS: ATTEND Internal Medicine
DX: E11.8 Type 2 diabetes mellitus with unspecified complications (principal); D64.9 Anemia, unspecified; E53.8 Deficiency of other specified B group vitamins; E55.9 Vitamin D deficiency, unspecified; N18.3 Chronic kidney disease, stage 3 (moderate)

== ENCOUNTER 2018-02-16 07:26 | Emergency (ER) | payer BC ==
[2018-02-16 07:29] VITALS: TEMP 36.2; Ht 177.8 cm
[2018-02-16] MEDS ORDERED: VTMB122500 PO (08:10)
[2018-02-16] MEDS ORDERED: PRLSR20 PO (08:10)
[2018-02-16] MEDS ORDERED: NIFE30TA83 PO (08:10)
[2018-02-16] MEDS ORDERED: METO25TA4 PO (08:10)
[2018-02-16] MEDS ORDERED: GLIP2.5T11 PO ×2 (08:10)
[2018-02-16] MEDS ORDERED: [UNRECOGNIZED DRUG - CODE] PO (08:10)
[2018-02-16] MEDS ORDERED: VITACAP26 PO (08:10)
[2018-02-16] MEDS ORDERED: CITA20TA9 PO (08:10)
[2018-02-16] MEDS ORDERED: GABA-113 PO (08:10)
[2018-02-16] MEDS ORDERED: SIMV40TA2 PO (08:10)
[2018-02-16] MEDS ORDERED: ASPI81TA28 PO (08:10)
[2018-02-16] MEDS ORDERED: HYDR-4715 PO (08:10)
[2018-02-16] MEDS ORDERED: POLY335019 PO (08:10)
[2018-02-16] MEDS ORDERED: FERR1TAB23 PO (08:10)
--- NOTE | 2018-02-16 08:18 | DIAGNOSTIC IMAGING REPORT ---
CT HEAD WITHOUT CONTRAST (CT) CLINICAL HISTORY: Head pain status post trauma. COMPARISON STUDY: 04/02/2013 TECHNIQUE: Axial CT of the brain is performed from the vertex to the skull base. IV contrast was not administered for this examination. A dose lowering technique was utilized adhering to the principles of ALARA. CT DOSE: 537.48 mGy.cm FINDINGS: No intra or extra-axial mass lesions are visualized. There is no CT evidence of acute cortical infarction. There is no evidence of midline shift. There is no acute hemorrhage. No calvarial fractures are visualized. There are patchy white matter hypodensities likely on a small vessel basis. There is no evidence of pathologic ventricular dilatation. There is no evidence of acute sinusitis IMPRESSION: No acute intracranial findings Electronically signed by: Jeb Montemayor M.D. 02/16/2018 8:17 AM Dictated Date/Time: 02/16/2018 8:16 AM
--- NOTE | 2018-02-16 09:07 | DIAGNOSTIC IMAGING REPORT ---
RIGHT FOOT 3 VIEWS CLINICAL HISTORY: Diabetic toe infection. Great toe injury. FINDINGS: 3 views of the right foot are compared to study dated 10/08/2017. The skeletal structures are heterogeneously osteopenic. No acute fracture is identified. There is no bony erosion or periostitis. Mild osteoarthritic change is seen at the first metatarsophalangeal joint. Chronic-appearing deformity is noted in the fifth proximal phalanx. Mild soft tissue edema is seen throughout the forefoot. IMPRESSION: 1. Soft tissues swelling with no acute osseous abnormality identified. 2. Osteopenia and chronic change as above. Electronically signed by: Clark Rodriguez M.D. 02/16/2018 9:06 AM Dictated Date/Time: 02/16/2018 9:04 AM
[2018-02-16] MEDS ORDERED: CEPH500C2 PO (09:12)
--- NOTE | 2018-02-16 09:13 | EMERGENCY ROOM VISIT NOTE ---
History First contact with patient: 07:33 Chief Complaint: INFECTION Stated Complaint: RT FOOT INFECTION Nursing Triage Summary: Stubbed right great toe yesterday and bicycle subassembler wants it checked. The tip of the toe is redened with skin avulsion. Patient is a left leg amputee and a diabetic. History of Present Illness The patient is a 77 year old male who presents to the Emergency Room with complaints of 2 injuries. The patient states that 2 days ago while he was at the [employer] he was going on an uneven area with his wheelchair and he rocked forward and his right great toe caught on the pavement. The patient states that he was wearing a foam splint on his foot as well as a sock when the injury happened. The patient has diabetic neuropathy therefore he did not notice that it was hard at that time. Today when the bicycle subassembler came this morning she stated that his toe was red and he needed to get it checked. The patient also states that 2 days ago while he was at the [employer] he went to take a short cut with his electric wheelchair and his wheelchair tipped backwards and he hit his head on the grass. He states there was no loss of consciousness, dizziness, visual changes or headache. The patient is not on any blood thinners. Review of Systems 10 system review was performed and was negative unless stated otherwise history of present illness. Past Medical/Surgical History Medical Problems: (1) ARF (acute renal failure) (2) Benign hypertension (3) Chest pain (4) Diabetic foot ulcer (5) Hernia repair (6) Hyperlipidemia (7) Hypoglycemia (8) Left Foot Ulcer (9) Multiple sclerosis (10) Osteomyelitis of left foot (11) Poliomyelitis (12) Right femoral shaft fracture (13) Tonsillectomy Family History Patient reports no known family medical history. Social History Smoking Status: Never Smoker Drug Use: none Marital Status: Housing Status: lives with significant other Occupation Status: retired, disabled Current/Historical Medications Scheduled Aspirin (Aspirin Ec), 81 MG PO DAILY Citalopram Hydrobromide (Celexa), 20 MG PO DAILY Cyanocobalamin (Vitamin B-12), 2,500 MCG PO DAILY Ergocalciferol (Drisdol), 1 CAP PO WK Ferrous Sulfate (Iron), 325 MG PO DAILY Gabapentin (Neurontin), 300 MG PO HS Glipizide (Glipizide Er), 5 MG PO QAM Glipizide (Glipizide Er), 2.5 MG PO QPM Hydralazine Hcl (Apresoline), 10 MG PO Q12 Metoprolol Succinate (Toprol Xl), 25 MG PO DAILY Nifedipine Ext Rel (Procardia Xl Ext Rel), 30 MG PO DAILY Omeprazole (Prilosec), 20 MG PO DAILY Simvastatin (Zocor), 40 MG PO QPM Vitamins C & E (Vitamin C), 1 CAP PO DAILY Scheduled PRN Polyethylene Glycol 3350 (Miralax), 17 GM PO DAILY PRN for Constipation Physical Exam Vital Signs Date Time Temp Pulse Resp B/P (MAP) Pulse Ox O2 Delivery O2 Flow Rate FiO2 02/16/18 07:29 36.2 109 18 114/68 96 Room Air Physical Exam GENERAL: 77-year-old male appears in no acute distress. He is sitting in a wheelchair. MENTAL Status: Alert and oriented 3 HEAD: Atraumatic, nontender to palpation. EYES: PERRLA. EOMs intact. EARS: Canals clear. TMs without hematoma and NECK: Supple, no lymphadenopathy noted. No carotid bruits noted. LUNGS: Clear auscultation without wheezes rales or rhonchi. CARDIAC: Regular rate and rhythm without murmur. Pulses is full and equal throughout. NEURO: Grossly intact. RIGHT GREAT TOE: There is an abrasion over the distal aspect of the right great toe with some serous fluid draining. The toe has erythema and edema but is not warm to the touch. There is no streaking up the foot. No gross bony deformity noted. Medical Decision & Procedures ER Provider Diagnostic Interpretation: RIGHT FOOT 3 VIEWS CLINICAL HISTORY: Diabetic toe infection. Great toe injury. FINDINGS: 3 views of the right foot are compared to study dated 10/08/2017. The skeletal structures are heterogeneously osteopenic. No acute fracture is identified. There is no bony erosion or periostitis. Mild osteoarthritic change is seen at the first metatarsophalangeal joint. Chronic-appearing deformity is noted in the fifth proximal phalanx. Mild soft tissue edema is seen throughout the forefoot. IMPRESSION: 1. Soft tissues swelling with no acute osseous abnormality identified. 2. Osteopenia and chronic change as above. Electronically signed by: Clark Rodriguez M.D. 02/16/2018 9:06 AM Dictated Date/Time: 02/16/2018 9:[address] HEAD WITHOUT CONTRAST (CT) CLINICAL HISTORY: Head pain status post trauma. COMPARISON STUDY: 04/02/2013 TECHNIQUE: Axial CT of the brain is performed from the vertex to the skull base. IV contrast was not administered for this examination. A dose lowering technique was utilized adhering to the principles of ALARA. CT DOSE: 537.48 mGy.cm FINDINGS: No intra or extra-axial mass lesions are visualized. There is no CT evidence of acute cortical infarction. There is no evidence of midline shift. There is no acute hemorrhage. No calvarial fractures are visualized. There are patchy white matter hypodensities likely on a small vessel basis. There is no evidence of pathologic ventricular dilatation. There is no evidence of acute sinusitis IMPRESSION: No acute intracranial findings Electronically signed by: Jeb Montemayor M.D. ED Course The patient was evaluated. CT of the head was ordered interpreted by the radiologist and myself as above without any acute findings. X-ray of the right foot was ordered interpreted by the radiologist and myself as above without any acute findings or findings of osteomyelitis. Chronic changes are noted. Osteoarthritis.. Patient was informed of the findings. The toe was dressed with antibiotic ointment and a bandage. The patient will be prophylactically placed on antibiotics since he is diabetic. The patient will follow with his family doctor in 2-3 days for recheck. The patient was discharged home in stable condition. Medical Decision Differential includes: Acute intracranial bleed, trauma, meningitis, encephalitis, increased intracranial pressure, mass or mass effect, facial or dental infection, temporal arteritis, CVA, TIA, acute hypertensive emergency, sinusitis, carbon monoxide exposure. Differential includes fracture, contusion, osteomyelitis, cellulitis [place] Drug Monitoring Program Search Results: patient reviewed within database Medication Reconcilliation Current Medication List: was personally reviewed by ri Blood Pressure Screening Patient's blood pressure: Normal blood pressure Impression Primary Impression: Head injury Additional Impressions: Toe contusion Toe abrasion, non-infected Departure Information Dispostion Home / Self-Care Condition GOOD Prescriptions Cephalexin Monohydrate (KEFLEX) 500 Mg Cap 500 MG PO QID for 10 Days, #40 CAP Prov: Zuri Valencia PA-C 02/16/18 Referrals RV. Coyne MD (PCP) Forms HOME CARE DOCUMENTATION FORM, IMPORTANT VISIT INFORMATION, WORK / SCHOOL INSTRUCTIONS Patient Instructions ED Head Injury Closed, My [facility] Additional Instructions Antibiotic ointment and a bandage the toe for 3 days. Take Keflex as prescribed. Any signs of worsening infection, return to ER. Follow-up with your family doctor in 2 days for recheck. Follow head injury handout instructions any problems return to ER. Problem Qualifiers Primary Impression: Head injury Encounter type: initial encounter Qualified Codes: S09.90XA - Unspecified injury of head, initial encounter
[2018-02-16 09:26] VITALS: BP 112/72; PULSE 104; O2SAT 97
== END 2018-02-16 09:26 | disposition home or self-care (01) ==
LOC: C.EDB 07:29
DX: S90.411A Abrasion, right great toe, initial encounter (principal); S09.90XA Unspecified injury of head, initial encounter; V00.818A Other accident with wheelchair (powered), initial encounter; Y93.89 Activity, other specified; Y92.89 Other specified places as the place of occurrence of the external cause; E11.69 Type 2 diabetes mellitus with other specified complication; Z79.84 Long term (current) use of oral hypoglycemic drugs; M86.9 Osteomyelitis, unspecified; I10 Essential (primary) hypertension; E78.5 Hyperlipidemia, unspecified; Z79.82 Long term (current) use of aspirin

== ENCOUNTER 2018-02-20 11:09 | Emergency (ER) | payer BC ==
[~2018-02-20] VITALS: Ht 177.8 cm; Wt 80.2 kg
[2018-02-20 11:06] VITALS: TEMP 36.6; Ht 177.8 cm; Wt 80.2 kg
[~2018-02-20 11:09] MED LIST changes: -ASCO500T16 PO; -ASPEC325 PO; +ASPI81TA28 PO; +CEPH500C2 PO; -CHOL1CAP95 PO; -CYAN100020 SL; -FERR1TAB13 PO; +FERR1TAB23 PO; -LACTCHW3 PO; -MRLP17X PO; -NIFE30TA2 PO; +NIFE30TA83 PO; -OMEP10CA PO; +POLY335019 PO; +PRLSR20 PO; -SUMA50TA15 PO; +VITACAP26 PO; +VTMB122500 PO; +[UNRECOGNIZED DRUG - CODE] PO
[2018-02-20] MEDS ORDERED: AMOXICILLIN/CLAVULANATE TAB 875 MG TAB PO STA (11:33)
[2018-02-20] MEDS ORDERED: DOXYCYCLINE HYCLATE 100 MG CAP PO STA (11:33)
--- NOTE | 2018-02-20 11:33 | EMERGENCY ROOM VISIT NOTE ---
History Report prepared by Juan Pablo: Luciano Becker Under the Supervision of: Dr. Nik Deng M.D. First contact with patient: 11:12 Chief Complaint: LACERATION/CUT (SUT/DERMABOND) Stated Complaint: LEFT KNEE,INCISION WITH DRAINAGE Nursing Triage Summary: Pt hit knee on dash of car approx. 3 weeks ago. Has been on antibiotics (keflex ) for about 1 week s/p fall approx. 1 week ago. Pts abrasion to knee bleeding in ER while here with . History of Present Illness The patient is a 77 year old male who presents to the Emergency Room with complaints of drainage from a left knee wound that is located on a below the knee amputated leg. The patient hit his knee on his car dash board 3 weeks ago and has had persistent bloody ooze since then. He did not mention this on most recent ED visit. The patient is on Keflex for the wound, but the wound is still painful to the touch. The patient also has two wounds on his right foot that is painful to the touch. The patient has a history of diabetes. The patient denies abdominal pain, fevers, chills, and headache. Source of History: patient Onset: 3 weeks ago Position: knee (left) Quality: other (Bleeding/oozes) Timing: constant Associated Symptoms: No fevers, No chills, No headache, No abdominal pain Review of Systems See HPI for pertinent positives and negatives. A total of ten systems were reviewed and were otherwise negative. 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 Social History Smoking Status: Former Smoker Drug Use: none Marital Status: Housing Status: lives with significant other Occupation Status: retired, disabled Current/Historical Medications Scheduled Amoxicillin & Pot Clavulanate (Augmentin 875-125 mg), 875 MG PO BID Aspirin (Aspirin Ec), 81 MG PO DAILY Cephalexin Monohydrate (Keflex), 500 MG PO QID Citalopram Hydrobromide (Celexa), 20 MG PO DAILY Cyanocobalamin (Vitamin B-12), 2,500 MCG PO DAILY Doxycycline Monohydrate (Monodox), 100 MG PO BID Ergocalciferol (Drisdol), 1 CAP PO WK Ferrous Sulfate (Iron), 325 MG PO DAILY Gabapentin (Neurontin), 300 MG PO HS Glipizide (Glipizide Er), 5 MG PO QAM Glipizide (Glipizide Er), 2.5 MG PO QPM Hydralazine Hcl (Apresoline), 10 MG PO Q12 Metoprolol Succinate (Toprol Xl), 25 MG PO DAILY Nifedipine Ext Rel (Procardia Xl Ext Rel), 30 MG PO DAILY Omeprazole (Prilosec), 20 MG PO DAILY Saccharomyces Boulardii (Florastor), 1 CAP PO BID Simvastatin (Zocor), 40 MG PO QPM Vitamins C & E (Vitamin C), 1 CAP PO DAILY Scheduled PRN Polyethylene Glycol 3350 (Miralax), 17 GM PO DAILY PRN for Constipation Allergies Coded Allergies: Ciprofloxacin (Verified Allergy, Mild, HIVES, 02/20/18) Physical Exam Vital Signs Date Time Temp Pulse Resp B/P (MAP) Pulse Ox O2 Delivery O2 Flow Rate FiO2 02/20/18 13:26 125/92 02/20/18 11:51 105 20 115/95 94 Room Air 02/20/18 11:06 36.6 109 22 124/89 96 Room Air Physical Exam GENERAL: Awake, alert, chronically ill-appearing, in no distress HENT: Normocephalic, atraumatic. Oropharynx unremarkable. Mucous membranes are dry. EYES: Normal conjunctiva. Sclera non-icteric. NECK: Supple. No nuchal rigidity. FROM. No JVD. RESPIRATORY: Clear to auscultation. CARDIAC: Regular rate, normal rhythm. Extremities warm and well perfused. Pulses equal. ABDOMEN: Soft, non-distended. No tenderness to palpation. No rebound or guarding. No masses. RECTAL: Deferred. MUSCULOSKELETAL: Chest examination reveals no tenderness. The back is symmetrical on inspection without obvious abnormality. There is no CVA tenderness to palpation. No joint edema. LOWER EXTREMITIES: Non-tender. No edema. Left BKA, Left knee with 2 cm area of superficial abrasion with surrounding erythema and warmth anteriorly, no crepitus. Right great toe with mild erythema and ulceration distally. Mild warmth, no crepitus. Right heel has 2 cm ulcer without erythema, warmth, or crepitus. NEURO: Normal sensorium. No sensory or motor deficits noted. SKIN: No rash or jaundice noted. Medical Decision & Procedures Laboratory Results Test 02/20/18 11:44 Bedside Glucose 179 mg/dl (70-99) Laboratory results reviewed by me Medications Administered Medications (Trade) Dose Ordered Sig/[facility] Route Start Time Stop Time Status Last Admin Dose Admin Amoxicillin/ Clavulanate Potassium (Augmentin Tab) 875 mg ONE STAT PO 02/20/18 11:33 02/20/18 11:38 DC 02/20/18 11:49 875 MG Doxycycline Hyclate (Vibramycin Cap) 100 mg ONE STAT PO 02/20/18 11:33 02/20/18 11:38 DC 02/20/18 11:49 100 MG ED Course 1119: The patient was evaluated in room D4. A complete history and physical exam was performed. 1315: I reevaluated the patient. Discussed results and discharge instructions: He verbalized understanding and agreement. The patient is ready for discharge. Medical Decision I reviewed the patient's past medical history, medications, and the nursing notes as described above. Differential diagnosis: Etiologies such as cellulitis, abscess, MRSA infection, DVT, necrotizing fasciitis, dermatitis, drug eruption, as well as others were entertained.. The patient is a 77 y/o gentleman with a pmhx of NIDDM2, PAD s/p LLE BKA, who presents to the emergency department with persistent oozing/bleeding of left knee wound for past several weeks per HPI. Of note, the patient did not initially come to the ED for himself, rather came with his after she had a mechanical fall, however his knee continued to weep through his home dressing through his plants and so patient was agreeable to register for evaluation. Additionally, patient was seen in the ED several days ago after having a mechanical fall at the [facility] and was placed on empiric Keflex for minor abrasion to right great toe. He did not mention his knee on that ED visit. On arrival the patient is in NAD, AFVSS. patient's left anterior knee demonstrates a 2cm abrasion with surrounding erythema/warmth with mild bloody discharge. No crepitus or fluctuance. FROM at knee. Right great toe additionally demonstrates likely early cellulitis despite his empiric Keflex. Additionally the patient has a recurrence of a right heal ulcer that does not demonstrates signs of infection a this time. Given the patient's comorbidities and evolving cellulitis despite Keflex, will broaden coverage with Augmentin and Doxycycline. CM assisting to arrange wound clinic referral. Findings and plan for follow-up reviewed with patient. Patient agreeable and d/c'd per discharge instructions. Medication Reconcilliation Current Medication List: was personally reviewed by me Blood Pressure Screening Patient's blood pressure: Normal blood pressure Impression Primary Impression: Cellulitis of knee, left Additional Impressions: Cellulitis of great toe of right foot Heel ulcer due to DM Scribe Attestation The scribe's documentation has been prepared under my direction and personally reviewed by me in its entirety. I confirm that the note above accurately reflects all work, treatment, procedures, and medical decision making performed by me. Departure Information Dispostion Home / Self-Care Prescriptions Saccharomyces Boulardii (Florastor) 250 Mg Cap 1 CAP PO BID for 10 Days, #20 CAP Prov: Nik Deng M.D. 02/20/18 Doxycycline Monohydrate (Monodox) 100 Mg Cap 100 MG PO BID for 7 Days, #14 CAP Prov: Nik Deng M.D. 02/20/18 Amoxicillin & Pot Clavulanate (Augmentin 875-125 mg) 1 Tab Tab 875 MG PO BID for 7 Days, #14 TAB Prov: Nik Deng M.D. 02/20/18 Referrals RV. Coyne MD (PCP) Forms HOME CARE DOCUMENTATION FORM, IMPORTANT VISIT INFORMATION Patient Instructions Diabetic Foot Ulcer Dc, ED Infec Skin Cellulitis, My [facility] Additional Instructions Please follow up with your primary care physician and the wound clinic in the next 1-3 days for re-evaluation. You were seen for worsening skin infection of your knee and toe. Otherwise, your exam did not show signs of an emergent condition at this time. Acetaminophen for pain and fevers as needed. Augmentin and Doxycycline as directed. Florastor, probiotic, to help prevent antibiotic associated diarrhea. Daily dressing changes. Return to the emergency department for worsening symptoms as described in the accompanying instructions. Problem Qualifiers
[2018-02-20] MEDS ORDERED: AMOX875T PO (11:41)
[2018-02-20] MEDS ORDERED: SACC250C3 PO (11:41)
[2018-02-20] MEDS ORDERED: DOXY100C76 PO (11:41)
[2018-02-20 11:51] VITALS: PULSE 105; O2SAT 94
[2018-02-20 13:26] VITALS: BP 125/92
== END 2018-02-20 13:27 | disposition home or self-care (01) ==
LOC: EDBD 11:09 → C.EDD 11:11
DX: L03.116 Cellulitis of left lower limb (principal); L03.031 Cellulitis of right toe; S80.212A Abrasion, left knee, initial encounter; W22.09XA Striking against other stationary object, initial encounter; E11.622 Type 2 diabetes mellitus with other skin ulcer; L97.519 Non-pressure chronic ulcer of other part of right foot with unspecified severity; L97.419 Non-pressure chronic ulcer of right heel and midfoot with unspecified severity; E11.649 Type 2 diabetes mellitus with hypoglycemia without coma; E11.69 Type 2 diabetes mellitus with other specified complication; M86.9 Osteomyelitis, unspecified; Z79.84 Long term (current) use of oral hypoglycemic drugs; Z79.82 Long term (current) use of aspirin; I10 Essential (primary) hypertension; E78.5 Hyperlipidemia, unspecified; Z89.512 Acquired absence of left leg below knee; Z87.891 Personal history of nicotine dependence; Z88.1 Allergy status to other antibiotic agents

== ENCOUNTER 2019-05-12 10:34 | Inpatient (IN) ==
[2019-05-12] MEDS ORDERED: SODIUM CHLORIDE 0.9% 1000ML 1,000 ML IV ONE (11:04)
[2019-05-12 11:29] LABS: Basophils # (auto) 0.02 K/uL (0-0.2); Basophils % (auto) 0.1 %; Eosinophils # (auto) 0.04 K/uL (0-0.5); Eosinophils % (auto) 0.2 %; Hematocrit (blood only) 39.9 % (42-52); Hemoglobin 12.8 g/dL (14.0-18.0); Immature Granulocytes # (auto) 0.05 K/uL (0.00-0.02); Immature Granulocytes % (auto) 0.3 %; Lymphocytes # (auto) 1.01 K/uL (1.2-3.4); Mean Corpuscular Hemoglobin 29.4 pg (25-34); Mean Corpuscular Hgb Conc 32.1 g/dL (32-36); Mean Corpuscular Volume 91.5 fL (80-100); Mean Platelet Volume 12.3 fL (7.4-10.4); Monocytes # (auto) 1.64 K/uL (0.11-0.59); Monocytes % (auto) 9.8 %; Neutrophils # (auto) 13.97 K/uL (1.4-6.5); Neutrophils % (auto) 83.6 %; Platelet Count 217 K/uL (130-400); RDW Coefficient of Variation 13.2 % (11.5-14.5); RDW Standard Deviation 44.4 fL (36.4-46.3); Red Blood Count 4.36 M/uL (4.7-6.1); White Blood Count 16.73 K/uL (4.8-10.8)
[2019-05-12 11:47] LABS: BUN Creatinine Ratio 15.8 (10-20); Calcium 9.2 mg/dl (8.5-10.1); Creatinine Clr Calc Pharmacy 41.7 ml/min; Est GFR (African American) 51.9; Est GFR (Non-African American) 44.8
[2019-05-12 12:07] LABS: Beta-Hydroxybutyrate 1.19 mg/dl (0.2-2.81)
[2019-05-12] MEDS ORDERED: PIPERACILLIN/TAZOBACTAM 4.5 GM/120 ML BAG IV ONE (12:16)
[2019-05-12] MEDS ORDERED: PIPERACILL/TAZOBAC CONSULT ACTIVE PRN ×2 (12:16→14:08)
[2019-05-12] MEDS ORDERED: VANCOMYCIN CONSULT ACTIVE PRN ×2 (12:16→14:08)
[2019-05-12] MEDS ORDERED: VANCOMYCIN HCL 1,750 MG in SODIUM CHLORIDE 0.9% 500 ML IV ONE (12:16)
[2019-05-12] MEDS ORDERED: POLYETHYLENE (MIRALAX) 17 GM PACK PO PRN ×2 (14:07→14:10)
[2019-05-12] MEDS ORDERED: MAGNESIUM HYDROXIDE SUSP 30 ML UDC PO PRN (14:10)
[2019-05-12] MEDS ORDERED: CARBOHYDRATES FOR HYPOGLYCEMIA PO PRN (14:10)
[2019-05-12] MEDS ORDERED: PHARMACY GLYCEMIC MGMT CONSULT PRN (14:10)
[2019-05-12] MEDS ORDERED: DEXTROSE 50% 50 ML SYRINGE IV PRN (14:10)
[2019-05-12] MEDS ORDERED: ONDANSETRON INJ 2 MG/ML 2 ML VIAL IV PRN (14:10)
[2019-05-12] MEDS ORDERED: GLUCOSE 10 TABS/TUBE PO PRN (14:10)
[2019-05-12] MEDS ORDERED: ACETAMINOPHEN 325 MG TAB PO PRN (14:10)
[2019-05-12] MEDS ORDERED: ZOLPIDEM TARTRATE 5 MG TAB PO PRN (14:10)
[2019-05-12] MEDS ORDERED: GLUCOSE 40% GEL 15 GM TUBE PO PRN (14:10)
[2019-05-12] MEDS ORDERED: GLUCAGON FOR INJ 1 MG VIAL SQ PRN (14:10)
[2019-05-12] MEDS ORDERED: ALUMINUM/MAGNESIUM SUSP 30 ML UDC PO PRN (14:10)
--- NOTE | 2019-05-12 14:52 | History & Physical Report ---
Date of Service May 12, 2019 Assessment & Plan (1) Leg wound, left: Deep wound in the crease of left knee just above the below knee amputation stump Purulent discharge with bad odor Obtain wound culture, blood culture Also obtain fungal blood cultures giving the wound in the skin crease surrounded by what seems to be candidal rash Start patient on Vanco/Zosyn/fluconazole IV Obtain infectious disease consult Obtain plastic surgeon consult Obtain wound care consult (2) Sepsis: As above (3) Stage III chronic kidney disease: Gentle IV fluid hydration (4) Diabetes mellitus type 2 with complications: He was only on glipizide. Hold glipizide Start insulin sliding scale Check hemoglobin A1c and lipids panel (5) Cellulitis of knee, left: As above Conservative management for his MS and BKA History of Present Illness 78-year-old man with past medical history of diabetes mellitus type 2 on oral hypoglycemics, essential hypertension, dyslipidemia, GERD, multiple sclerosis with left below-knee amputation. Patient has chronic ulcers goes to wound care clinic, today in wound care clinic he was found to have an infected wound behind his left knee with purulent discharge. He was sent to the ED for further evaluation. Patient is very poor historian but was able to tell me that he has chronic ulcers and 3 days ago started having more discharge, patient stated that he lives with his , bedbound due to MS. Denies any fever or chills. Primary Care Provider: Thierry Ramsay MD Allergies Allergy/AdvReac Type Severity Reaction Status Date / Time Cipro Allergy Mild HIVES Verified 02/20/18 11:35 ciprofloxacin Allergy Mild HIVES Verified 05/12/19 12:16 Home Medications Home Medications Medication Instructions Recorded Confirmed Type Saccharomyces boulardii 250 mg 250 mg PO BID 02/25/18 05/12/19 History capsule aspirin 81 mg tablet,delayed 81 mg PO DAILY 02/25/18 05/12/19 History release cyanocobalamin (vitamin B-12) 2,500 mcg PO DAILY 02/25/18 05/12/19 History 2,500 mcg tablet ferrous sulfate 325 mg (65 mg 325 mg PO DAILY tab 02/25/18 05/12/19 History iron) tablet,delayed release polyethylene glycol 3350 17 17 gm PO DAILY PRN gm 02/25/18 05/12/19 History gram/dose oral powder simvastatin 40 mg tablet 40 mg PO QPM 02/25/18 05/12/19 History vitamin E (dl, acetate) 400 unit 400 units PO DAILY 02/25/18 05/12/19 History capsule ascorbic acid (vitamin C) 500 mg 500 mg PO DAILY cap 03/30/19 05/12/19 History capsule gabapentin 300 mg capsule 300 mg PO HS cap 03/30/19 05/12/19 History omeprazole 10 mg capsule,delayed 10 mg PO DAILY 03/30/19 05/12/19 History release hydralazine 10 mg tablet 10 mg PO Q8H #90 tab 04/01/19 05/12/19 Rx metoprolol succinate 25 mg 25 mg PO DAILY #90 tab 04/21/19 05/12/19 Rx tablet,extended release 24 hr ergocalciferol (vitamin D2) 50,000 50,000 units PO WEEKLY #14 cap 04/27/19 05/12/19 Rx unit capsule glipizide 2.5 mg PO QPM 05/12/19 05/12/19 History glipizide 5 mg PO DAILY 05/12/19 05/12/19 History Past Med/Surg History Medical History ARF (acute renal failure) (Chronic) Benign hypertension (Chronic) Cellulitis of great toe of right foot (Chronic) Cellulitis of knee, left (Chronic) Chest pain (Chronic) Diabetes mellitus (Chronic) Foot ulcer, left (Chronic) H/O diabetic foot ulcer (Chronic) Heel ulcer due to DM (Chronic) Hyperlipidemia (Chronic) Hypoglycemia (Chronic) Multiple sclerosis (Chronic) Osteomyelitis of left foot (Chronic) Post-op bleeding (Chronic) Right femoral shaft fracture (Chronic) Surgical History Previous back surgery S/P tonsillectomy and adenoidectomy Status post below knee amputation of left lower extremity (Resolved) Family History Father Stroke Social History Preferred Language: Slovenian Communication Ability: Effective Hearing Ability: Normal Safety Tech Required: No Beliefs That Will Affect Care: None Feels Safe at Home: Yes Smoking Status: Never smoker Hx Alcohol Use: No Hx Substance Use: No during the past year weight has: remained stable Review of Systems Review of Systems: Review of system Constitutional: No fever / no chills / no sweats / no weakness / no fatigue Eyes: no blurring of vision / no eye pain / no discharge / no redness ENT: no hearing loss / no epistaxis /no swallowing problems Respiratory: no cough / no wheezing / no SOB / no hemoptysis Cardiovascular: no Chest pain / no lower extremity edema / no palpitation Abdomen: no pain / no nausea / no vomiting / no constipation Musculoskeletal: Discharge from ulcer in the back of left knee Genitourinary: no dysuria / no incontinence / no urinary retention Neurologic: no focal weakness / no numbness/tingling / no ataxia Psychiatric: no depression symptoms / no anxiety / no insomnia Endocrine: no excessive thirst / no excessive urination Hematologic: no abnormal bleeding / no bruising / no LN swelling Skin: No rash / no pallor Physical Exam Physical Exam: Physical examination General patient appears to be comfortable, not in acute distress HEENT: Atraumatic , normocephalic /no jaundice /no pallor /anicteric /no dry mucous membrane /normal external ear inspection Neck: Supple /no swelling /central trach Heart: S1/S2 normal/regular rate and rhythm/no gallop /no rub /no murmur Lungs: Clear to auscultation bilaterally/normal chest with expansion/no rhonchi/no rales/no wheezing/no use of accessory muscles of respiration Abdomen: Soft/nontender/no guarding/no rebound/no organomegaly/no pulsatile mass Musculoskeletal: Atrophy of the right side of the body, left BKA with deep ulcer behind left knee surrounded by candidal rash, with purulent discharge Neuro exam: Awake alert oriented 3/cranial nerves II through XII appear to be intact/right side paralysis Psychiatric evaluation: No depressed mood/normal affect Skin: No rash on exposed skin area/no erythema Extremity: Left BKA as mentioned above Results & Data Vital Signs (Past 12 Hours) Vital Signs Temp Pulse Resp BP Pulse Ox 05/12/19 13:00 83 26 H 150/80 H 97 05/12/19 12:30 77 25 H 140/93 97 05/12/19 12:00 78 27 H 153/72 H 97 05/12/19 11:30 122 H 28 H 127/83 96 05/12/19 11:01 125 H 28 H 134/94 94 05/12/19 10:50 96 05/12/19 10:47 126 H 29 H 147/92 H 95 05/12/19 10:44 37.1 C 124 H 22 129/92 94 05/12/19 10:42 124 H 23 129/92 95 Code Status & VTE Plan Code Status Full code VTE Prophylaxis Plan VTE Prophylaxis will be ordered: Yes PG Care Time/CCT Total # of Minutes Spent Total Time Spent with Patient: 35 minutes total time spent is greater than 50% in coordination of care (as documented) at patient's floor/unit and/or counseling patient/family discussion of care with nursing staff (1) Leg wound, left Encounter type: initial encounter Qualified Code(s): S81.802A - Unspecified open wound, left lower leg, initial encounter
[2019-05-12 15:07] LABS: Estimated Average Glucose 206 mg/dl; Hemoglobin A1C 8.8 % (4.5-5.6)
--- NOTE | 2019-05-12 15:19 | Pharmacy Report ---
Pharmacy Abx Initial Consult - Date of Service May 12, 2019 - Pharmacy Dosing Scope Date of Consult: 05/12 Consultation requested by: Dr. Star Lozano Pharmacy is consulted to initiate vancomycin and zosyn IV/PO dosing therapy, order appropriate labs and adjust drug dose/frequency. - Subjective The patient is a 78 year old M admitted on . - Objective Height: 5 ft 10 in Weight: 82.2 kg Vital Signs (Past 12hrs): Vital Signs Temp Pulse Resp BP Pulse Ox 05/12/19 13:00 83 26 H 150/80 H 97 05/12/19 12:30 77 25 H 140/93 97 05/12/19 12:00 78 27 H 153/72 H 97 05/12/19 11:30 122 H 28 H 127/83 96 05/12/19 11:01 125 H 28 H 134/94 94 05/12/19 10:50 96 05/12/19 10:47 126 H 29 H 147/92 H 95 05/12/19 10:44 37.1 C 124 H 22 129/92 94 05/12/19 10:42 124 H 23 129/92 95 Lab Results (24hrs): Laboratory Tests (24 Hours) 05/12/19 05/12/19 10:11 10:11 WBC 16.73 H Neut # (Auto) 13.97 H Creatinine 1.46 H Est Cr Clr Drug Dosing 41.7 Micro Results: 05/12/19 11:56 Gram Stain - Pending Knee,Left Deep Wound Culture - Pending 05/12/19 11:26 Aerobic Blood Culture - Pending Blood Anaerobic Blood Culture - Pending 05/12/19 11:22 Aerobic Blood Culture - Pending Blood Anaerobic Blood Culture - Pending - Risk Factors for Resistance * History of infection with a multidrug-resistant organism: [proteus, MRSA, serratia from previous wound cx's] - Assessment & Plan Assessment 78 year old male admitted with deep wound infection of left leg with purulent discharge. Started on vancomycin and zosyn. ID consulted to follow patient. Blood cultures and knee wound cx pending at this time. Plan Vancomycin IV * Received loading dose of vancomycin 1750 mg iv x 1 (~21 mg/kg) * Will start maintenance dose of vancomycin 1250 mg iv q 18 hrs to achieve an estimated trough ~15-20 mcg/ml * Estimated kinetics: t1/2~18 hrs,ke~0.03 hr-1, CrCl ~42 - adjusted for BKA actual CrCl may be closer to ~39 ml/min * Will plan to order trough if continued >48 hrs Piperacillin/tazobactam * 3.375 gm iv q 8hr - appropriate for CrCl >20 ml/min Pharmacy will continue to follow and will adjust dose/frequency as necessary. Thank you.
[2019-05-12] MEDS: SODIUM CHLORIDE 0.9% 1000ML 1,000 ML IV SCH (15:48)
--- NOTE | 2019-05-12 16:11 | Emergency Department Note ---
Entered by Yamile Sarmiento acting as a scribe for Alex Carrasco History of Present Illness General Chief complaint: Infection, Wound Time Seen by Provider: 05/12/19 10:57 Source: patient History of Present Illness Onset (ago): day(s) (a few days ago) Location: lower extremity (left) Pain Consistency: + other (episode) Maximum Pain Intensity: 4 Quality: + other (infection) Associated symptoms: + other (left wound sore to touch, draining ); no fev er/chills (fever) The patient is an 78 year old male who presents to the Emergency Room with complaints of an episode of an infection starting a few days ago. The patient states that he has a history of MS and Diabetes. He states that he has a left below the knee amputation. He reports that he has an ulcer behind that knee that he has been having cared for by the wound clinic. He states that a few days ago, it started to become sore to the touch and draining. The patient denies fever. Home Medications Home Medications Medication Instructions Recorded Confirmed Type Saccharomyces boulardii 250 mg 250 mg PO BID 02/25/18 05/12/19 History capsule aspirin 81 mg tablet,delayed 81 mg PO DAILY 02/25/18 05/12/19 History release cyanocobalamin (vitamin B-12) 2,500 mcg PO DAILY 02/25/18 05/12/19 History 2,500 mcg tablet ferrous sulfate 325 mg (65 mg 325 mg PO DAILY tab 02/25/18 05/12/19 History iron) tablet,delayed release polyethylene glycol 3350 17 17 gm PO DAILY PRN gm 02/25/18 05/12/19 History gram/dose oral powder simvastatin 40 mg tablet 40 mg PO QPM 02/25/18 05/12/19 History vitamin E (dl, acetate) 400 unit 400 units PO DAILY 02/25/18 05/12/19 History capsule ascorbic acid (vitamin C) 500 mg 500 mg PO DAILY cap 03/30/19 05/12/19 History capsule gabapentin 300 mg capsule 300 mg PO HS cap 03/30/19 05/12/19 History omeprazole 10 mg capsule,delayed 10 mg PO DAILY 03/30/19 05/12/19 History release hydralazine 10 mg tablet 10 mg PO Q8H #90 tab 04/01/19 05/12/19 Rx metoprolol succinate 25 mg 25 mg PO DAILY #90 tab 04/21/19 05/12/19 Rx tablet,extended release 24 hr ergocalciferol (vitamin D2) 50,000 50,000 units PO WEEKLY #14 cap 04/27/19 05/12/19 Rx unit capsule glipizide 2.5 mg PO QPM 05/12/19 05/12/19 History glipizide 5 mg PO DAILY 05/12/19 05/12/19 History Allergies Allergy/AdvReac Type Severity Reaction Status Date / Time Cipro Allergy Mild HIVES Verified 02/20/18 11:35 ciprofloxacin Allergy Mild HIVES Verified 05/12/19 12:16 Past Med/Surg History Medical History ARF (acute renal failure) (Chronic) Benign hypertension (Chronic) Cellulitis of great toe of right foot (Chronic) Cellulitis of knee, left (Chronic) Chest pain (Chronic) Diabetes mellitus (Chronic) Foot ulcer, left (Chronic) H/O diabetic foot ulcer (Chronic) Heel ulcer due to DM (Chronic) Hyperlipidemia (Chronic) Hypoglycemia (Chronic) Multiple sclerosis (Chronic) Osteomyelitis of left foot (Chronic) Post-op bleeding (Chronic) Right femoral shaft fracture (Chronic) Surgical History Previous back surgery S/P tonsillectomy and adenoidectomy Status post below knee amputation of left lower extremity (Resolved) Family History Father Stroke Social History Preferred Language: Hebrew Communication Ability: Effective Hearing Ability: Normal Hospital Product Specialist Required: No Beliefs That Will Affect Care: None Feels Safe at Home: Yes Smoking Status: Never smoker Hx Alcohol Use: No Hx Substance Use: No during the past year weight has: remained stable Review of Systems See HPI for pertinent positives & negatives. and A total of 10 systems reviewed and were otherwise negative Physical Exam Vital Signs Vital Signs - 24 hr 05/12/19 10:42 05/12/19 10:44 05/12/19 10:47 Temperature 37.1 C Temperature Source Oral Pulse Rate 124 H 124 H 126 H Pulse Rate from SpO2 Sensor 124 H 124 H Respiratory Rate 23 22 29 H Respiratory Effort / Characteristics Non-Labored Spontaneous Blood Pressure 129/92 129/92 147/92 H Blood Pressure Mean 104 104 119 Blood Pressure Position Lying Pulse Oximetry 95 94 95 Oxygen Delivery Method Room Air Sepsis Recent Fever Within 48 Hours Yes Sepsis New/Unexplained Change in Mental Status No Sepsis Action Taken by Nursing No Action Required 05/12/19 10:50 05/12/19 11:01 05/12/19 11:30 Temperature Temperature Source Pulse Rate 125 H 122 H Pulse Rate from SpO2 Sensor 125 H 122 H Respiratory Rate 28 H 28 H Respiratory Effort / Characteristics Blood Pressure 134/94 127/83 Blood Pressure Mean 108 101 Blood Pressure Position Pulse Oximetry 96 94 96 Oxygen Delivery Method Room Air Sepsis Recent Fever Within 48 Hours Sepsis New/Unexplained Change in Mental Status Sepsis Action Taken by Nursing 05/12/19 12:00 05/12/19 12:30 05/12/19 13:00 Temperature Temperature Source Pulse Rate 78 77 83 Pulse Rate from SpO2 Sensor 69 79 75 Respiratory Rate 27 H 25 H 26 H Respiratory Effort / Characteristics Blood Pressure 153/72 H 140/93 150/80 H Blood Pressure Mean 87 117 95 Blood Pressure Position Pulse Oximetry 97 97 97 Oxygen Delivery Method Sepsis Recent Fever Within 48 Hours Sepsis New/Unexplained Change in Mental Status Sepsis Action Taken by Nursing GENERAL: He is oriented to person, place, and time. He appears well-developed and well-nourished. He does not appear distressed. HENT: Exam performed. - Head: Normocephalic and atraumatic. - Right Ear: External ear normal. No mastoid tenderness. - Left Ear: External ear normal. No mastoid tenderness. - Mouth/Throat: The oropharynx is clear and moist. No trismus in the jaw. No dental abscesses or uvula swelling. No oropharyngeal exudate or tonsillar abscesses. EYES: Conjunctivae and EOM are normal. Pupils are equal, round, and reactive to light. Right eye exhibits no discharge. Left eye exhibits no discharge. No scleral icterus. NECK: Normal range of motion. Neck supple. No JVD present. No spinous process tenderness present. No carotid bruit present. No rigidity. No tracheal deviation and normal range of motion present. No Brudzinski's sign and no Kernig's sign noted. CV: Normal rate, regular rhythm, normal heart sounds and intact distal pulses. There is no peripheral edema. Palpable radial pulses bue. PULM/CHEST: Effort normal and breath sounds normal. No respiratory distress. No stridor. He has no wheezes. He has no rales. - Chest Wall: He exhibits no tenderness. ABD: The abdomen is soft. Bowel sounds are normal. He has no distension. No mass is present. There is no tenderness. There is no rebound, no guarding, no Plummer's sign and no tenderness at McBurney's point. Rovsig negative. MUSC/SKEL: Left sided BKA. NEURO: He is alert and oriented to person, place, and time. He has normal strength. No cranial nerve deficit or sensory deficit. Coordination and gait normal. GCS eye subscore is 4. GCS verbal subscore is 5. GCS motor subscore is 6. Cerebellar tests wnl. SKIN: Multiple wounds. Wound behind the left knee is a large ulcer that has foul smelling purulent discharge coming from it. Skin is warm and dry. He is not diaphoretic. PSYCH: He has a normal mood and affect. Behavior is normal. Judgment and thought content normal. Course Course 1058: The patient was evaluated in room A2. A complete history and physical exam was performed. 1219: The patient remains tachycardic. He is getting fluid resuscitation. His white count is 16.7. He will be admitted for IV antibiotics for the draining wound that is thought to be infected. He had blood and wound cultures sent. discussed the patient's case with Dr. [place] [facility] [place] He will evaluate the patient for further management. Administered Medications Piperacillin Sod/Tazobactam Sod (Zosyn) 4.5 gm in 120 mls @ 30 mls/hr IV NOW ONE Stop: 05/12/19 16:15 Last Infusion: 05/12/19 13:54 Dose: 0 mls/hr Documented by: [id number] Admin: 05/12/19 13:13 Dose: 200 mls/hr Documented by: [id number] Sodium Chloride (Nss 1000ml) 1,000 mls @ 75 mls/hr IV .[id number] [facility] Stop: 06/11/19 14:14 Last Admin: 05/12/19 15:48 Dose: 75 mls/hr Documented by: [id number] Discontinued Medications Sodium Chloride (Nss 1000ml) 1,000 mls @ 999 mls/hr IV .[id number] ONE Stop: 05/12/19 12:04 Last Infusion: 05/12/19 13:15 Dose: 0 mls/hr Documented by: [id number] Admin: 05/12/19 11:55 Dose: 999 mls/hr Documented by: [id number] Vancomycin HCl 1,750 mg/ (Sodium Chloride) 535 mls @ 200 mls/hr IV NOW ONE Stop: 05/12/19 14:56 Last Admin: 05/12/19 13:54 Dose: 200 mls/hr Documented by: [id number] Medical Decision Making Medical Records Attestation: I reviewed the patient's medical records. Home Medications Current Medication List: was personally reviewed by me Laboratory Data Attestation: I reviewed the patient's lab results. Result diagrams: 05/12/19 10:11 05/12/19 10:11 Lab Results 05/12/19 05/12/19 05/12/19 Range/Units 10:11 10:11 10:11 WBC 16.73 H (4.8-10.8) K/uL RBC 4.36 L (4.7-6.1) M/uL Hgb 12.8 L (14.0-18.0) g/dL Hct 39.9 L (42-52) % MCV 91.5 (80-100) fL MCH 29.4 (25-34) pg MCHC 32.1 (32-36) g/dL RDW Std Deviation 44.4 (36.4-46.3) fL RDW Coeff of Giuliana 13.2 (11.5-14.5) % Plt Count 217 (130-400) K/uL MPV 12.3 H (7.4-10.4) fL Immature Gran % (Auto) 0.3 % Neut % (Auto) 83.6 % Lymph % (Auto) 6.0 % [place] % (Auto) 9.8 % Eos % (Auto) 0.2 % Baso % (Auto) 0.1 % Immature Gran # (Auto) 0.05 H (0.00-0.02) K/uL Neut # (Auto) 13.97 H (1.4-6.5) K/uL Lymph # (Auto) 1.01 L (1.2-3.4) K/uL [place] # (Auto) 1.64 H (0.11-0.59) K/uL Eos # (Auto) 0.04 (0-0.5) K/uL Baso # (Auto) 0.02 (0-0.2) K/uL Sodium 134 L (136-145) mmol/L Potassium 4.0 (3.5-5.1) mmol/L Chloride 102 (98-107) mmol/L Carbon Dioxide 26 (21-32) mmol/L Anion Gap 6.0 (3-11) BUN 23 H (7-18) mg/dl Creatinine 1.46 H (0.6-1.4) mg/dl Est Cr Clr Drug Dosing 41.7 ml/min Est GFR ( Amer) 51.9 Est GFR (Non-Af Amer) 44.8 BUN/Creatinine Ratio 15.8 (10-20) Glucose 389 H* (70-99) mg/dl POC Glucose (70-99) Estimat Average Glucose 206 mg/dl Hemoglobin A1c 8.8 H (4.5-5.6) % Lactate (0.4-2.0) mmol/L Calcium 9.2 (8.5-10.1) mg/dl Beta-Hydroxybutyric Acd 1.19 (0.2-2.81) mg/dl 05/12/19 05/12/19 Range/Units 10:46 11:22 WBC (4.8-10.8) K/uL RBC (4.7-6.1) M/uL Hgb (14.0-18.0) g/dL Hct (42-52) % MCV (80-100) fL MCH (25-34) pg MCHC (32-36) g/dL RDW Std Deviation (36.4-46.3) fL RDW Coeff of Giuliana (11.5-14.5) % Plt Count (130-400) K/uL MPV (7.4-10.4) fL Immature Gran % (Auto) % Neut % (Auto) % Lymph % (Auto) % [place] % (Auto) % Eos % (Auto) % Baso % (Auto) % Immature Gran # (Auto) (0.00-0.02) K/uL Neut # (Auto) (1.4-6.5) K/uL Lymph # (Auto) (1.2-3.4) K/uL [place] # (Auto) (0.11-0.59) K/uL Eos # (Auto) (0-0.5) K/uL Baso # (Auto) (0-0.2) K/uL Sodium (136-145) mmol/L Potassium (3.5-5.1) mmol/L Chloride (98-107) mmol/L Carbon Dioxide (21-32) mmol/L Anion Gap (3-11) BUN (7-18) mg/dl Creatinine (0.6-1.4) mg/dl Est Cr Clr Drug Dosing ml/min Est GFR ( Amer) Est GFR (Non-Af Amer) BUN/Creatinine Ratio (10-20) Glucose (70-99) mg/dl POC Glucose 358 H* (70-99) Estimat Average Glucose mg/dl Hemoglobin A1c (4.5-5.6) % Lactate 1.6 (0.4-2.0) mmol/L Calcium (8.5-10.1) mg/dl Beta-Hydroxybutyric Acd (0.2-2.81) mg/dl Blood Pressure Blood Pressure Findings: Elevated blood pressure Blood Pressure Disposition: further management by hospitalist MDM Narrative The patient remains tachycardic. He is getting fluid resuscitation. His white count is 16.7. He will be admitted for IV antibiotics for the draining wound that is thought to be infected. He had blood and wound cultures sent. discussed the patient's case with Dr. Graves- [facility] [place] He will evaluate the patient for further management. Impression & Plan Leg wound, left, SIRS (systemic inflammatory response syndrome) Discharge Plan Visit Data *Final* Discharge Date/Time: 05/12/19 14:49 Chief Complaint: Infection, Wound ED Provider: Alex Carrasco Discharge Problem: Leg wound, left, SIRS (systemic inflammatory response syndrome) Patient Disposition: Admitted As Inpatient Discharge Instructions Interventions: ED Discharge Assessment Last Done: 05/12/19 14:49 Discharge Problem: Leg wound, left Qualifiers: Encounter type: initial encounter Qualified Code(s): S81.802A - Unspecified open wound, left lower leg, initial encounter The scribe's documentation has been prepared under my direction and personally reviewed by me in its entirety. I confirm that the note above accurately reflects all work, treatment, procedures, and medical decision making performed by me.
[2019-05-12] MEDS ORDERED: INSULIN GLARGINE SOLOSTAR 100 UNITS/ML 3 ML PEN SC ONE ×2 (16:15→21:00)
[2019-05-12] MEDS: HydrALAZINE 10 MG TAB PO SCH ×2 (16:50→21:26)
[2019-05-12] MEDS: FLUCONAZOLE 200 MG/100 ML BAG IV SCH (16:50)
[2019-05-12] MEDS: METOPROLOL SUCC 25MG EXT REL TAB PO SCH (16:51)
[2019-05-12] MEDS: INSULIN ASPART 100 UNITS/ML 3 ML PEN SC SCH ×2 (16:53→20:40)
[2019-05-12] MEDS: PIPERACILLIN/TAZOBACTAM 3.375 GM/115 ML BAG IV SCH (18:13)
[2019-05-12] MEDS: ENOXAPARIN INJ 40 MG/0.4 ML SYR SQ SCH (18:13)
--- NOTE | 2019-05-12 19:58 | Infectious Disease Consult ---
Date of Consultation May 12, 2019 Assessment & Plan (1) Cellulitis of knee, left: Patient with infection of left leg behind his knee, with previous cultures positive for MRSA, will add daptomycin instead of vancomycin to hopefully lessen nephrotoxicity potential. Await further culture results. Will follow. History of Present Illness Reason for Consultation: Infected ulcer Attending Physician: Sumit Lozano MD History of Present Illness 78-year-old male with history of diabetes mellitus, hypertension, diabetic peripheral neuropathy, hyperlipidemia, multiple sclerosis, obstructive sleep apnea, stage III chronic kidney disease, status post left BKA, being followed at the wound care center for open wound. Has been dealing with wound behind his left knee, and over the last several days has noted increasing pain, redness, and drainage. He was seen in the wound care clinic and sent for admission for evidence of worsening infection. He has been started empirically on daptomycin and Zosyn, and fluconazole was added for possible fungal dermatitis. Denies any significant fever, pain currently 4 out of 10 in intensity behind his knee. Allergies Allergy/AdvReac Type Severity Reaction Status Date / Time Cipro Allergy Mild HIVES Verified 02/20/18 11:35 ciprofloxacin Allergy Mild HIVES Verified 05/12/19 12:16 Home Medications Home Medications Medication Instructions Recorded Confirmed Type Saccharomyces boulardii 250 mg 250 mg PO BID 02/25/18 05/12/19 History capsule aspirin 81 mg tablet,delayed 81 mg PO DAILY 02/25/18 05/12/19 History release cyanocobalamin (vitamin B-12) 2,500 mcg PO DAILY 02/25/18 05/12/19 History 2,500 mcg tablet ferrous sulfate 325 mg (65 mg 325 mg PO DAILY tab 02/25/18 05/12/19 History iron) tablet,delayed release polyethylene glycol 3350 17 17 gm PO DAILY PRN gm 02/25/18 05/12/19 History gram/dose oral powder simvastatin 40 mg tablet 40 mg PO QPM 02/25/18 05/12/19 History vitamin E (dl, acetate) 400 unit 400 units PO DAILY 02/25/18 05/12/19 History capsule ascorbic acid (vitamin C) 500 mg 500 mg PO DAILY cap 03/30/19 05/12/19 History capsule gabapentin 300 mg capsule 300 mg PO HS cap 03/30/19 05/12/19 History omeprazole 10 mg capsule,delayed 10 mg PO DAILY 03/30/19 05/12/19 History release hydralazine 10 mg tablet 10 mg PO Q8H #90 tab 04/01/19 05/12/19 Rx metoprolol succinate 25 mg 25 mg PO DAILY #90 tab 04/21/19 05/12/19 Rx tablet,extended release 24 hr ergocalciferol (vitamin D2) 50,000 50,000 units PO WEEKLY #14 cap 04/27/19 05/12/19 Rx unit capsule glipizide 2.5 mg PO QPM 05/12/19 05/12/19 History glipizide 5 mg PO DAILY 05/12/19 05/12/19 History Patient History Medical History ARF (acute renal failure) (Chronic) Benign hypertension (Chronic) Cellulitis of great toe of right foot (Chronic) Cellulitis of knee, left (Chronic) Chest pain (Chronic) Diabetes mellitus (Chronic) Foot ulcer, left (Chronic) H/O diabetic foot ulcer (Chronic) Heel ulcer due to DM (Chronic) Hyperlipidemia (Chronic) Hypoglycemia (Chronic) Multiple sclerosis (Chronic) Osteomyelitis of left foot (Chronic) Post-op bleeding (Chronic) Right femoral shaft fracture (Chronic) Surgical History Previous back surgery S/P tonsillectomy and adenoidectomy Status post below knee amputation of left lower extremity (Resolved) Family History Father Stroke Social History Preferred Language: Bulgarian Communication Ability: Effective Hearing Ability: Normal Acid Retort Operator Required: No Beliefs That Will Affect Care: None Current Living Situation: Spouse Feels Safe at Home: Yes Smoking Status: Never smoker Hx Alcohol Use: No Hx Substance Use: No during the past year weight has: remained stable Review of Systems Review of Systems: All systems reviewed & are unremarkable except as noted in HPI & below Physical Exam Constitutional: WD/WN, vitals as above comfortable; no acute distress Eyes: PERRL, conjunctivae normal, anicteric sclerae ENMT: external ear and nose normal, oropharynx normal Neck: trachea midline, no thyromegaly neck nontender Respiratory: normal respiratory effort, lungs clear to auscultation normal percussion; does not use accessory muscles Cardiovascular: Rate/Rhythm: regular rate and regular rhythm Heart Sounds: normal S1 and normal S2; no gallop, no murmur and no cardiac rub Vessels: normal peripheral pulses; no JVD Gastrointestinal (Abdomen): normal bowel sounds, soft, nontender, no hepatosplenomegaly Musculoskeletal: no cyanosis or clubbing, extremities motor strength 5/5 Spine: thoracic spine normal to inspection and lumbar spine normal to inspection; no cervical spinal tenderness Skin: no rashes, warm and dry normal turgor and + wound (Wound behind left knee with surrounding erythema) Neurologic: patellar DTR's 2+ bilat, sensation intact no focal motor deficits Psychiatric: A+Ox3, euthymic affect Orientation: cooperative Lymphatic: no cervical or axillary lymphadenopathy no inguinal lymphadenopathy Results & Data Vital Signs (Past 12 Hours) Vital Signs Temp Pulse Pulse Resp BP BP Pulse Ox 05/12/19 19:44 37.5 C 123 H 18 130/91 93 05/12/19 16:20 123 H 18 132/84 96 05/12/19 13:00 83 26 H 150/80 H 97 05/12/19 12:30 77 25 H 140/93 97 05/12/19 12:00 78 27 H 153/72 H 97 05/12/19 11:30 122 H 28 H 127/83 96 05/12/19 11:01 125 H 28 H 134/94 94 05/12/19 10:50 96 05/12/19 10:47 126 H 29 H 147/92 H 95 05/12/19 10:44 37.1 C 124 H 22 129/92 94 05/12/19 10:42 124 H 23 129/92 95 Laboratory Results Short CBC 05/12/19 Range/Units 10:11 WBC 16.73 H (4.8-10.8) K/uL Hgb 12.8 L (14.0-18.0) g/dL Hct 39.9 L (42-52) % Plt Count 217 (130-400) K/uL BMP 05/12/19 10:11 Sodium 134 L Potassium 4.0 Chloride 102 Carbon Dioxide 26 BUN 23 H Creatinine 1.46 H Glucose 389 H* Calcium 9.2 Diagnostic Findings Blood and wound cultures are pending. PG Care Time/CCT Total # of Minutes Spent Total Time Spent with Patient: Total time spent is greater than 50% in coordination of care (as documented) at patient's floor/unit and/or counseling patient:
[2019-05-12] MEDS: SACCHAROMYCES BOULARDII 250 MG CAP PO SCH (20:40)
[2019-05-12] MEDS: GABAPENTIN 300 MG CAP PO SCH (20:40)
[2019-05-12] MEDS ORDERED: SIMVASTATIN 40 MG TAB PO SCH (21:00)
[2019-05-12] MEDS ORDERED: glipiZIDE ER 2.5 MG TABCR PO SCH (21:00)
[2019-05-12] MEDS: DAPTOmycin 500 MG in SYRINGE 0 ML IV SCH (21:25)
[2019-05-13] MEDS: PIPERACILLIN/TAZOBACTAM 3.375 GM/115 ML BAG IV SCH ×3 (01:21→17:28)
[2019-05-13] MEDS ORDERED: INSULIN ASPART 100 UNITS/ML 3 ML PEN SC SCH (02:00)
[2019-05-13] MEDS: SODIUM CHLORIDE 0.9% 1000ML 1,000 ML IV SCH ×2 (05:01→17:27)
[2019-05-13] MEDS: HydrALAZINE 10 MG TAB PO SCH ×3 (05:32→20:32)
[2019-05-13 06:36] LABS: Creatinine Clr Calc Pharmacy 50.9 ml/min; Est GFR (African American) 61.4
--- NOTE | 2019-05-13 07:57 | Hospitalist Progress Note ---
Date of Service May 13, 2019 Assessment & Plan (1) Cellulitis of knee, left: Infection in the crease of left knee just above the BKA stump. CT left knee on 05/13 showed a 2.1cm abscess. - Follow wound and blood cultures done on 05/12 - No growth so far - Continue dapto/Zosyn & fluconazole - Monitor labs while on this - ID consulted - Appreciate help - Wound care consulted - Discussed with Dr. Cantrell on 05/13. (2) Tachycardia: EKG on 05/13 indicated atrial flutter. - Echo ordered - Will work on rate-control - Hold anticoagulation until seen by surgery for knee abscess. (3) Sepsis: SIRS 2/4 (tachycardia and leukocytosis) with source of infection. - As above (4) Stage III chronic kidney disease: Baseline Cr ~1.3, eGFR ~50. - At baseline - Gentle IV fluid hydration - Monitor while on abx (5) Diabetes mellitus type 2 with complications: A1c is 8.8% this admission. He was only on glipizide. - Hold glipizide - Start insulin sliding scale - Will need diabetic education. - Continue gabapentin (6) Multiple sclerosis: Per medication list, not on any treatment at present. - Monitor for any MS flare - No inpatient needs at present (7) Hypertension: BP stable at present at 120/75. - Continue home meds (8) DVT prophylaxis: Lovenox 40mg daily Subjective Feels fairly well overall actually. No fevers or chills. The left leg is painfu l. Reports no fevers/chills, chest pain, shortness of breath, abdominal pain, nausea, or vomiting. Physical Exam Constitutional: WD/WN, vitals as above Eyes: EOM intact bilaterally; no conjunctival abnormality ENMT: external ear and nose normal, oropharynx normal Neck: trachea midline, no thyromegaly normal visual inspection Respiratory: normal respiratory effort, lungs clear to auscultation no respiratory distress Cardiovascular: RRR, no murmur, no edema Gastrointestinal (Abdomen): Inspection/Auscultation: abdomen normal to inspection; abdomen not distended Musculoskeletal: no cyanosis or clubbing, extremities motor strength 5/5 Skin: Erythema and purulence of left knee; bandaged. Neurologic: moves all extremities and awake Psychiatric: Orientation: alert, oriented to person and cooperative Results & Data Vital Signs (Past 12 Hours) Vital Signs Temp Pulse Resp BP Pulse Ox 05/13/19 07:25 37.0 C 120 H 21 117/77 91 05/13/19 03:48 37.2 C 77 22 132/79 94 05/13/19 02:02 37 C 72 18 135/63 94 PG Care Time/CCT Total # of Minutes Spent Total Time Spent with Patient: Total time spent is greater than 50% in coordination of care (as documented) at patient's floor/unit and/or counseling patient:
[2019-05-13] MEDS ORDERED: VANCOMYCIN HCL 1,250 MG in SODIUM CHLORIDE 0.9% 250 ML IV SCH (08:00)
[2019-05-13 08:17] LABS: Basophils # (auto) 0.02 K/uL (0-0.2); Basophils % (auto) 0.1 %; Eosinophils # (auto) 0.23 K/uL (0-0.5); Eosinophils % (auto) 1.6 %; Hematocrit (blood only) 34.4 % (42-52); Hemoglobin 11.1 g/dL (14.0-18.0); Immature Granulocytes # (auto) 0.06 K/uL (0.00-0.02); Immature Granulocytes % (auto) 0.4 %; Lymphocytes # (auto) 1.85 K/uL (1.2-3.4); Lymphocytes % (auto) 13.2 %; Mean Corpuscular Hemoglobin 29.2 pg (25-34); Mean Corpuscular Hgb Conc 32.3 g/dL (32-36); Mean Corpuscular Volume 90.5 fL (80-100); Monocytes # (auto) 1.49 K/uL (0.11-0.59); Monocytes % (auto) 10.6 %; Neutrophils # (auto) 10.41 K/uL (1.4-6.5); Neutrophils % (auto) 74.1 %; Platelet Count 201 K/uL (130-400); RDW Coefficient of Variation 13.3 % (11.5-14.5); RDW Standard Deviation 43.9 fL (36.4-46.3); White Blood Count 14.06 K/uL (4.8-10.8)
[2019-05-13] MEDS: INSULIN ASPART 100 UNITS/ML 3 ML PEN SC SCH ×4 (08:33→20:40)
[2019-05-13] MEDS: ASCORBIC ACID 500 MG TAB PO SCH (08:34)
[2019-05-13] MEDS: METOPROLOL SUCC 25MG EXT REL TAB PO SCH (08:34)
[2019-05-13] MEDS: FERROUS SULFATE 325 MG TAB PO SCH (08:34)
[2019-05-13] MEDS: TOCOPHERYL, DL-ALPHA 400 UNITS CAP PO SCH (08:34)
[2019-05-13] MEDS: INSULIN GLARGINE SOLOSTAR 100 UNITS/ML 3 ML PEN SC SCH ×2 (08:35→20:40)
[2019-05-13] MEDS: PANTOprazole 40 MG TAB PO SCH (08:35)
[2019-05-13] MEDS: SACCHAROMYCES BOULARDII 250 MG CAP PO SCH ×3 (08:35→20:31)
[2019-05-13] MEDS ORDERED: glipiZIDE ER 2.5 MG TABCR PO SCH (09:00)
[2019-05-13] MEDS ORDERED: ASPIRIN 81 MG ECTAB PO SCH (09:00)
[2019-05-13] MEDS: CYANOCOBALAMIN (VITAMIN B-12) 2,500 MCG TAB.SUBL SL SCH (09:06)
--- NOTE | 2019-05-13 09:45 | Infectious Disease Progress Nt ---
Date of Service May 13, 2019 Assessment & Plan (1) Cellulitis of knee, left: Patient with infection behind left knee with staph aureus, sensitivities are pending. Will continue on current antibiotics pending final culture results and sensitivities. Length of IV antibiotics will be determined by clinical response and final culture results. Will follow. (2) Staph aureus infection: Subjective Patient seen in follow-up for cellulitis behind his left knee. Still with significant amount of pain this morning. Remains afebrile. Cultures growing staph aureus, sensitivities are pending. White count slightly improved. Blood cultures remain no growth to date. Review of Systems Review of Systems: All systems reviewed & are unremarkable except as noted in HPI & below Physical Exam Constitutional: WD/WN, vitals as above comfortable; no acute distress Eyes: PERRL, conjunctivae normal, anicteric sclerae ENMT: external ear and nose normal, oropharynx normal Neck: trachea midline, no thyromegaly neck nontender Respiratory: normal respiratory effort, lungs clear to auscultation normal percussion; does not use accessory muscles Cardiovascular: Rate/Rhythm: regular rate and regular rhythm Heart Sounds: normal S1 and normal S2; no gallop, no murmur and no cardiac rub Vessels: normal peripheral pulses; no JVD Gastrointestinal (Abdomen): normal bowel sounds, soft, nontender, no hepatosplenomegaly Musculoskeletal: no cyanosis or clubbing, extremities motor strength 5/5 Spine: thoracic spine normal to inspection and lumbar spine normal to inspection; no cervical spinal tenderness Left BKA Skin: no rashes, warm and dry normal turgor and + wound (Wound behind left knee with surrounding erythema) Neurologic: patellar DTR's 2+ bilat, sensation intact no focal motor deficits Psychiatric: A+Ox3, euthymic affect Orientation: cooperative Lymphatic: no cervical or axillary lymphadenopathy no inguinal ly mphadenopathy Results & Data Vital Signs (Past 12 Hours) Vital Signs Temp Pulse Resp BP Pulse Ox 05/13/19 07:25 37.0 C 120 H 21 117/77 91 05/13/19 03:48 37.2 C 77 22 132/79 94 05/13/19 02:02 37 C 72 18 135/63 94 Laboratory Results Short CBC 05/12/19 05/13/19 Range/Units 10:11 05:52 WBC 16.73 H 14.06 H (4.8-10.8) K/uL Hgb 12.8 L 11.1 L (14.0-18.0) g/dL Hct 39.9 L 34.4 L (42-52) % Plt Count 217 201 (130-400) K/uL BMP 05/12/19 05/13/19 10:11 05:52 Sodium 134 L Potassium 4.0 Chloride 102 Carbon Dioxide 26 BUN 23 H Creatinine 1.46 H 1.27 Glucose 389 H* Calcium 9.2 Diagnostic Findings Microbiology 05/12/19 11:56 Knee,Left Gram Stain - Final 05/12/19 11:56 Knee,Left Deep Wound Culture - Preliminary Staphylococcus aureus PG Care Time/CCT Total # of Minutes Spent Total Time Spent with Patient: Total time spent is greater than 50% in coordination of care (as documented) at patient's floor/unit and/or counseling patient:
[2019-05-13] MEDS ORDERED: IOVERSOL 100ml IV PRN (12:49)
--- NOTE | 2019-05-13 13:01 | CT Scan Report ---
CT knee LT w con HISTORY: 78 years-old Male Left posterior knee skin and soft tissue for absce soft tissue swelling o f the posterior left knee COMPARISON: None available TECHNIQUE: Multiple axial CT images of the left knee were obtained following the intravenous administ ration of 94 mL Optiray 320 IV contrast. A dose lowering technique was used consistent with the [facility] ipa of GUZMAN. FINDINGS: Diffuse muscular atrophy. Subcutaneous stranding of the posterior distal thigh/upper popliteal region is noted with a complex small collection measuring 2.1 x 1.1 cm containing fluid and central airways mild peripheral enhancement. There is moderate adjacent skin thickening. Severe mixed plaque of the popliteal artery results in high-grade stenosis. Chronic postoperative changes of below the knee ampu tation. Partial bony fusion of the indicated distal tibia and fibula. Demineralized appearance of the bones. Moderate tricompartmental osteoarthritis with chondrocalcinosis. No acute fracture, dislocati on or definite bony erosive changes to suggest acute osteomyelitis. IMPRESSION: 1. Postoperative changes from prior below the knee amputation. 2. No acute fracture, dislocation or bony erosion to suggest osteomyelitis. 3. Tricompartmental osteoarthritis with chondrocalcinosis. 4. Skin thickening with subcutaneous edema of the posterior distal thigh and popliteal region compati ble with cellulitis/phlegmon. Additionally, there is a small complex air and fluid-filled collection measuring up to 2.1 cm within the superficial tissues suggestive of abscess. The above report was generated using voice recognition software. It may contain grammatical, syntax o r spelling errors. Electronically signed by: Saúl Hines M.D. 05/13/2019 1:00 PM
--- NOTE | 2019-05-13 13:13 | Pharmacy Report ---
Glycemic Control Consultation - Date of Service May 13, 2019 - Scope Scope: Glycemic Pharmacist consulted by Dr Tillman on 05/12 for glycemic control and to write orders per [facility] inpatient glycemic control protocol - Objective Weight: 83.3 kg Accuchecks BSG (last 24hrs): 05/12/19 05/12/19 05/13/19 16:00 20:23 02:01 POC Glucose 300 H 220 H 123 H 05/13/19 05/13/19 07:27 11:12 POC Glucose 75 168 H Laboratory Data (last 24hrs): 05/13/19 05:52 Creatinine 1.27 Est Cr Clr Drug Dosing 50.9 HbA1c: Hemoglobin A1c 8.8 % (4.5-5.6) H 05/12/19 10:11 - Recent Pertinent Medications Outpatient Anti-diabetic Regimen: * glipizide 2.5 mg qpm, 5 mg qam * A1c = 8.8 % 04/11/19 The patient is currently receiving: * Basal insulin: Lantus per sliding scale units every 12 hours * Correctional Insulin: Novolog Correction per scale ACHS Goal Range: Low 120 mg/dL - High 160 mg/dL Correction Factor: 30 mg/dL/unit * Prandial insulin: Per carb ratio of 1 unit per 10 grams CHO consumed * Oral Agents: Risk Factors for Insulin Resistance: * Steroids: * Infection: zosyn,dapto * Pressors: * IVF: * Recent Surgery * Diet: T2DM * Mechanical Ventilation: - Assessment & Plan Assessment & Plan: ASSESSMENT: * Mr. Leblanc is admitted with a left leg wound/cellulitis above left BKA, initially started on vanco/zosyn/fluconazole patient has been transitioned to daptomycin/zosyn/fluconazole per ID- awaiting further culture results * BSGs elevated in the 300s on admission, currently on glipizide outpatient, p atient received stress dose of 1 lantus yesterday and started on stress of 2 novolog parameteres * Fasting this morning 75, will adjust lantus scale for PM * Lunch BSG 168, will continue current parameters for now PLAN FOR INPATIENT GLYCEMIC CONTROL: * Decreasing Lantus 8 units SQ this Am, scale 0/4/8 units based upon BSG * Continuing correction factor 30 mg/dl/unit * Continuing carb ratio 1 unit per 10 grams CHO consumed * Continuing goal range to Low 120 mg/dL - High 160 mg/dL * Please note that the plan above was derived based on current level of insulin resistance and hospital stress. These recommendations are appropriate for inpatient admission only. Plan of care upon discharge will need to be reassessed to avoid potential outpatient hypo/hyperglycemia. Thank you.
--- NOTE | 2019-05-13 13:48 | Wound Consultation ---
Date of Consultation May 13, 2019 Assessment & Plan (1) Cellulitis of knee, left: Wound needed debridement. After obtaining permission topical Xylocaine was applied. Using a curette the wound was debrided of fibrin and slough. There is scant bleeding which was controlled with pressure. This was a difficult debridement to to patient's contractures. Patient tolerated the procedure well with no complications. This represents non-excisional debridement of less than [address] or MRI evaluation of patient's knee to rule out abscess or more significant infection. Will be dressed with Aquacel Ag. Continue IV antibiotics per infectious disease. We will continue to follow. Thank you for allowing to participate in the care of this patient. Please not hesitate to call with any questions. (2) Leg wound, left: History of Present Illness Reason for Consultation: Cellulitis left knee Attending Physician: Ishaan Christianson MD History of Present Illness This is an 78-year-old male who is known to the wound clinic with a history of spina bifida, type 2 diabetes, stage III CKD history of left BKA and neurogenic bladder admitted with cellulitis of his left knee. Patient seen at the bedside in the ICU on IV antibiotics. Patient still complaining of pain behind his knee. Allergies Allergy/AdvReac Type Severity Reaction Status Date / Time Cipro Allergy Mild HIVES Verified 02/20/18 11:35 ciprofloxacin Allergy Mild HIVES Verified 05/12/19 12:16 Home Medications Home Medications Medication Instructions Recorded Confirmed Type Saccharomyces boulardii 250 mg 250 mg PO BID 02/25/18 05/12/19 History capsule aspirin 81 mg tablet,delayed 81 mg PO DAILY 02/25/18 05/12/19 History release cyanocobalamin (vitamin B-12) 2,500 mcg PO DAILY 02/25/18 05/12/19 History 2,500 mcg tablet ferrous sulfate 325 mg (65 mg 325 mg PO DAILY tab 02/25/18 05/12/19 History iron) tablet,delayed release polyethylene glycol 3350 17 17 gm PO DAILY PRN gm 02/25/18 05/12/19 History gram/dose oral powder simvastatin 40 mg tablet 40 mg PO QPM 02/25/18 05/12/19 History vitamin E (dl, acetate) 400 unit 400 units PO DAILY 02/25/18 05/12/19 History capsule ascorbic acid (vitamin C) 500 mg 500 mg PO DAILY cap 03/30/19 05/12/19 History capsule gabapentin 300 mg capsule 300 mg PO HS cap 03/30/19 05/12/19 History omeprazole 10 mg capsule,delayed 10 mg PO DAILY 03/30/19 05/12/19 History release hydralazine 10 mg tablet 10 mg PO Q8H #90 tab 04/01/19 05/12/19 Rx metoprolol succinate 25 mg 25 mg PO DAILY #90 tab 04/21/19 05/12/19 Rx tablet,extended release 24 hr ergocalciferol (vitamin D2) 50,000 50,000 units PO WEEKLY #14 cap 04/27/19 05/12/19 Rx unit capsule glipizide 2.5 mg PO QPM 05/12/19 05/12/19 History glipizide 5 mg PO DAILY 05/12/19 05/12/19 History Patient History Medical History ARF (acute renal failure) (Chronic) Benign hypertension (Chronic) Cellulitis of great toe of right foot (Chronic) Cellulitis of knee, left (Chronic) Chest pain (Chronic) Diabetes mellitus (Chronic) Foot ulcer, left (Chronic) H/O diabetic foot ulcer (Chronic) Heel ulcer due to DM (Chronic) Hyperlipidemia (Chronic) Hypoglycemia (Chronic) Multiple sclerosis (Chronic) Osteomyelitis of left foot (Chronic) Post-op bleeding (Chronic) Right femoral shaft fracture (Chronic) Surgical History Previous back surgery S/P tonsillectomy and adenoidectomy Status post below knee amputation of left lower extremity (Resolved) Family History Father Stroke Social History Preferred Language: Setswana Communication Ability: Effective Hearing Ability: Normal Banking Attorney Required: No Beliefs That Will Affect Care: None Current Living Situation: Spouse Feels Safe at Home: Yes Smoking Status: Never smoker Hx Alcohol Use: No Hx Substance Use: No during the past year weight has: remained stable Review of Systems Review of Systems: All systems reviewed & are unremarkable except as noted in HPI & below Physical Exam Skin: Left posterior knee wound measuring 1 x 2.5 x 1.2 cm. Wound is covered with fibrin and slough. There is large amount of purulent drainage and foul odor. Neurologic: awake; not confused Psychiatric: A+Ox3, euthymic affect Results & Data Vital Signs (Past 12 Hours) Vital Signs Temp Pulse Resp BP Pulse Ox 05/13/19 11:14 36.8 C 116 H 19 133/70 91 05/13/19 07:25 37.0 C 120 H 21 117/77 91 05/13/19 03:48 37.2 C 77 22 132/79 94 05/13/19 02:02 37 C 72 18 135/63 94 PG Care Time/CCT Total # of Minutes Spent Total Time Spent with Patient: Total time spent is greater than 50% in coordination of care (as documented) at patient's floor/unit and/or counseling patient: (1) Leg wound, left Encounter type: initial encounter Qualified Code(s): S81.802A - Unspecified open wound, left lower leg, initial encounter
[2019-05-13] MEDS: FLUCONAZOLE 200 MG/100 ML BAG IV SCH (17:27)
[2019-05-13] MEDS: ENOXAPARIN INJ 40 MG/0.4 ML SYR SQ SCH (17:28)
[2019-05-13] MEDS: DAPTOmycin 500 MG in SYRINGE 0 ML IV SCH (20:31)
[2019-05-13] MEDS: GABAPENTIN 300 MG CAP PO SCH (20:32)
[2019-05-13] MEDS ORDERED: dilTIAZem HCL 30 MG TAB PO SCH (21:00)
[2019-05-14] MEDS: PIPERACILLIN/TAZOBACTAM 3.375 GM/115 ML BAG IV SCH ×3 (01:58→18:33)
[2019-05-14] MEDS: SODIUM CHLORIDE 0.9% 1000ML 1,000 ML IV SCH ×2 (05:49→18:17)
[2019-05-14] MEDS: HydrALAZINE 10 MG TAB PO SCH ×3 (05:49→21:44)
[2019-05-14 07:14] LABS: Hematocrit (blood only) 32.4 % (42-52); Hemoglobin 10.5 g/dL (14.0-18.0); Mean Corpuscular Hemoglobin 29.1 pg (25-34); Mean Corpuscular Hgb Conc 32.4 g/dL (32-36); Mean Corpuscular Volume 89.8 fL (80-100); Mean Platelet Volume 11.6 fL (7.4-10.4); Platelet Count 206 K/uL (130-400); RDW Coefficient of Variation 13.2 % (11.5-14.5); RDW Standard Deviation 44.1 fL (36.4-46.3); Red Blood Count 3.61 M/uL (4.7-6.1); White Blood Count 11.71 K/uL (4.8-10.8)
[2019-05-14] MEDS: INSULIN ASPART 100 UNITS/ML 3 ML PEN SC SCH ×4 (07:46→21:11)
[2019-05-14] MEDS: INSULIN GLARGINE SOLOSTAR 100 UNITS/ML 3 ML PEN SC SCH (07:47)
[2019-05-14 07:51] LABS: BUN Creatinine Ratio 15.6 (10-20); Calcium 8.4 mg/dl (8.5-10.1); Creatinine Clr Calc Pharmacy 58.7 ml/min; Est GFR (African American) 66.5; Est GFR (Non-African American) 57.3; Phosphorus 2.5 mg/dl (2.5-4.9); Potassium 3.2 mmol/L (3.5-5.1)
[2019-05-14] MEDS: FERROUS SULFATE 325 MG TAB PO SCH (08:51)
[2019-05-14] MEDS: ASCORBIC ACID 500 MG TAB PO SCH (08:51)
[2019-05-14] MEDS: METOPROLOL SUCC 50MG EXT REL TAB PO SCH (08:51)
[2019-05-14] MEDS: PANTOprazole 40 MG TAB PO SCH (08:51)
[2019-05-14] MEDS: CYANOCOBALAMIN (VITAMIN B-12) 2,500 MCG TAB.SUBL SL SCH (08:51)
[2019-05-14] MEDS: TOCOPHERYL, DL-ALPHA 400 UNITS CAP PO SCH (08:51)
[2019-05-14] MEDS: SACCHAROMYCES BOULARDII 250 MG CAP PO SCH ×3 (08:52→21:43)
[2019-05-14] MEDS ORDERED: INSULIN GLARGINE SOLOSTAR 100 UNITS/ML 3 ML PEN SC ONE (10:00)
--- NOTE | 2019-05-14 12:13 | Hospitalist Progress Note ---
Date of Service May 14, 2019 Assessment & Plan (1) Cellulitis of knee, left: Infection in the crease of left knee just above the BKA stump. CT left knee on 05/13 showed a 2.1cm abscess. - Follow wound and blood cultures done on 05/12 - Wound culture growing 2 versions of Staph. - Continue dapto/Zosyn & fluconazole - Monitor labs while on this - ID consulted - Appreciate help - Wound care consulted - Discussed with Dr. Cantrell on 05/13. - Working to get orthopedics to see him today. (2) Tachycardia: EKG on 05/13 indicated sinus tachycardia vs. atrial flutter. - Echo on 05/13 showed mild LVH, EF 50%, mild aortic sclerosis. - Rate controlled with metop XL increased to 50mg PO daily (from 25mg) - Hold anticoagulation until seen by surgery for knee abscess. (3) Sepsis: SIRS 2/4 (tachycardia and leukocytosis) with source of infection. - As above (4) Stage III chronic kidney disease: Baseline Cr ~1.3, eGFR ~50. - Gentle IV fluid hydration - Monitor while on abx - On 05/13, still at baseline. (5) Diabetes mellitus type 2 with complications: A1c is 8.8% this admission. He was only on glipizide. - Hold glipizide - Start insulin sliding scale - Will need diabetic education. - Continue gabapentin (6) Multiple sclerosis: Per medication list, not on any treatment at present. - Monitor for any MS flare - No inpatient needs at present (7) Hypertension: BP stable at present at 130/70. - Continue home meds (8) DVT prophylaxis: Lovenox 40mg daily Subjective Feeling well. No major issues. No fevers and chills overnight. Reports no fevers/chills, chest pain, shortness of breath, abdominal pain, nausea, or vomiting. Physical Exam Constitutional: WD/WN, vitals as above Eyes: EOM intact bilaterally; no conjunctival abnormality ENMT: external ear and nose normal, oropharynx normal Neck: trachea midline, no thyromegaly normal visual inspection Respiratory: normal respiratory effort, lungs clear to auscultation no respiratory distress Cardiovascular: RRR, no murmur, no edema Gastrointestinal (Abdomen): Inspection/Auscultation: abdomen normal to ins pection; abdomen not distended Neurologic: moves all extremities and awake Psychiatric: Orientation: alert, oriented to person and cooperative Results & Data Vital Signs (Past 12 Hours) Vital Signs Temp Pulse Pulse Resp BP Pulse Ox 05/14/19 09:56 90 05/14/19 06:56 36.7 C 85 18 133/71 94 05/14/19 02:51 36.9 C 72 18 142/71 H 94 05/14/19 00:24 36.9 C 129 H 19 117/72 95 PG Care Time/CCT Total # of Minutes Spent Total Time Spent with Patient: Total time spent is greater than 50% in coordination of care (as documented) at patient's floor/unit and/or counseling patient:
--- NOTE | 2019-05-14 14:52 | Orthopedic Consultation ---
Date of Consultation May 14, 2019 Assessment & Plan (1) Abscess of left knee: Tj has a small 2 cm superficial abscess in the posterior aspect of his left knee. The location of this is very difficult. It is hard to get him to extend his knee enough to get back there and treat the abscess. Wound care is been doing a nice job of treating the wound, unfortunately, it still has some purulent discharge. I do not think that a surgery would be beneficial. I do get concerned that if I make an incision in that area that it may never heal. I looked at the wound care that he was getting to his anterior and distal stump as well. I talked to him briefly about possible above-knee amputation. He did not seem interested in an amputation unless was absolutely necessary. He wanted to talk to his about it as well. Fortunately there does not appear to be any infection involving the bone. Right now we will see if we can get things to clear up with wound care and IV antibiotics. If things become worse then we may have to consider surgical intervention and possible amputation. I did discuss this with Dr. Christianson. I also called his to discuss it with her as well, however, she did not answer the phone. I will continue to follow him closely. Present on Admission?: Yes History of Present Illness Reason for Consultation: Left knee abscess Attending Physician: Ishaan Christianson MD History of Present Illness Tj is a pleasant 78-year-old male with a history of a left below-knee amputation. He is a poor historian but he feels that his left knee amputation was done 2 years ago here at [facility]. I was unable to find any records of that. He has been seen in wound care routinely since the procedure. He has had wounds on his left stump as well as his right heel. Recently he was at wound care and they noticed an abscess and purulent discharge coming from the posterior crease of his left knee. He was taken to the emergency room and admitted for possible sepsis. So far the blood cultures have come back negative. He is currently on IV antibiotics. Wound care and infectious disease has been consulted as well. A CT scan was then done of his left leg and there was a 2 cm superficial abscess found in the posterior aspect of his knee. There is no signs of osteomyelitis or destruction of the bone. Orthopedics was consulted to evaluate and treat. Allergies Allergy/AdvReac Type Severity Reaction Status Date / Time Cipro Allergy Mild HIVES Verified 02/20/18 11:35 ciprofloxacin Allergy Mild HIVES Verified 05/12/19 12:16 Home Medications Home Medications Medication Instructions Recorded Confirmed Type Saccharomyces boulardii 250 mg 250 mg PO BID 02/25/18 05/12/19 History capsule aspirin 81 mg tablet,delayed 81 mg PO DAILY 02/25/18 05/12/19 History release cyanocobalamin (vitamin B-12) 2,500 mcg PO DAILY 02/25/18 05/12/19 History 2,500 mcg tablet ferrous sulfate 325 mg (65 mg 325 mg PO DAILY tab 02/25/18 05/12/19 History iron) tablet,delayed release polyethylene glycol 3350 17 17 gm PO DAILY PRN gm 02/25/18 05/12/19 History gram/dose oral powder simvastatin 40 mg tablet 40 mg PO QPM 02/25/18 05/12/19 History vitamin E (dl, acetate) 400 unit 400 units PO DAILY 02/25/18 05/12/19 History capsule ascorbic acid (vitamin C) 500 mg 500 mg PO DAILY cap 03/30/19 05/12/19 History capsule gabapentin 300 mg capsule 300 mg PO HS cap 03/30/19 05/12/19 History omeprazole 10 mg capsule,delayed 10 mg PO DAILY 03/30/19 05/12/19 History release hydralazine 10 mg tablet 10 mg PO Q8H #90 tab 04/01/19 05/12/19 Rx metoprolol succinate 25 mg 25 mg PO DAILY #90 tab 04/21/19 05/12/19 Rx tablet,extended release 24 hr ergocalciferol (vitamin D2) 50,000 50,000 units PO WEEKLY #14 cap 04/27/19 05/12/19 Rx unit capsule glipizide 2.5 mg PO QPM 05/12/19 05/12/19 History glipizide 5 mg PO DAILY 05/12/19 05/12/19 History Patient History Medical History ARF (acute renal failure) (Chronic) Benign hypertension (Chronic) Cellulitis of great toe of right foot (Chronic) Cellulitis of knee, left (Chronic) Chest pain (Chronic) Diabetes mellitus (Chronic) Foot ulcer, left (Chronic) H/O diabetic foot ulcer (Chronic) Heel ulcer due to DM (Chronic) Hyperlipidemia (Chronic) Hypoglycemia (Chronic) Multiple sclerosis (Chronic) Osteomyelitis of left foot (Chronic) Post-op bleeding (Chronic) Right femoral shaft fracture (Chronic) Surgical History Previous back surgery S/P tonsillectomy and adenoidectomy Status post below knee amputation of left lower extremity (Resolved) Family History Father Stroke Social History Preferred Language: Lao Communication Ability: Effective Hearing Ability: Normal [place]ter Required: No Beliefs That Will Affect Care: None Current Living Situation: Spouse Feels Safe at Home: Yes Smoking Status: Never smoker Hx Alcohol Use: No Hx Substance Use: No during the past year weight has: remained stable Review of Systems Review of Systems: All systems reviewed & are unremarkable except as noted in HPI & below Physical Exam Musculoskeletal: On physical examination of the left knee, he has a flexion contracture to about 110 degrees. It is difficult to open his knee even up to 90 degrees. In the posterior crease of his knee there is obvious purulent discharge. There is a small draining abscess in the very posterior crease of his knee. There is no erythema. He has some superficial abrasions on his anterior stump and that is being treated by wound care. Results & Data Vital Signs (Past 12 Hours) Vital Signs Temp Pulse Pulse Resp BP Pulse Ox 05/14/19 13:15 36.4 C L 83 16 153/77 H 94 05/14/19 12:11 37.1 C 81 18 150/59 H 93 05/14/19 09:56 90 05/14/19 06:56 36.7 C 85 18 133/71 94 05/14/19 02:51 36.9 C 72 18 142/[address] scan of the left knee does show a 2 cm superficial abscess in the posterior crease of his left knee. There is a small air bubble there as well. PG Care Time/CCT Total # of Minutes Spent Total Time Spent with Patient: Total time spent is greater than 50% in coordination of care (as documented) at patient's floor/unit and/or counseling patient:
[2019-05-14] MEDS: FLUCONAZOLE 200 MG/100 ML BAG IV SCH (16:18)
[2019-05-14] MEDS: ENOXAPARIN INJ 40 MG/0.4 ML SYR SQ SCH (18:17)
[2019-05-14] MEDS: DAPTOmycin 500 MG in SYRINGE 0 ML IV SCH (21:43)
[2019-05-14] MEDS: GABAPENTIN 300 MG CAP PO SCH (21:43)
[2019-05-15] MEDS: PIPERACILLIN/TAZOBACTAM 3.375 GM/115 ML BAG IV SCH (02:53)
[2019-05-15] MEDS: HydrALAZINE 10 MG TAB PO SCH ×3 (06:26→21:12)
[2019-05-15] MEDS: SODIUM CHLORIDE 0.9% 1000ML 1,000 ML IV SCH (06:27)
[2019-05-15] MEDS: SACCHAROMYCES BOULARDII 250 MG CAP PO SCH ×3 (08:21→21:12)
[2019-05-15] MEDS: TOCOPHERYL, DL-ALPHA 400 UNITS CAP PO SCH (08:22)
[2019-05-15] MEDS: PANTOprazole 40 MG TAB PO SCH (08:22)
[2019-05-15] MEDS: ASCORBIC ACID 500 MG TAB PO SCH (08:22)
[2019-05-15] MEDS: METOPROLOL SUCC 50MG EXT REL TAB PO SCH (08:22)
--- NOTE | 2019-05-15 09:40 | Orthopedic Progress Note ---
Date of Service May 15, 2019 Assessment & Plan (1) Abscess of left knee: So far his blood cultures have come back negative and his status seems to have improved on the antibiotics. The wound infection does not look that bad but inside a very difficult spot. He also has some wounds on his left stump and he has spasms when I try to extend his knee. I asked him if he thought that he would be more comfortable if I were to remove the knee and do an above-knee amputation. He says he still unsure about that. I think the antibiotics are going to keep everything under control but it is going to be difficult for wounds to heal in that flexor crease. We will wait for final blood cultures to come back before we consider any surgical intervention. The surgery of choice would be an above-knee amputation. Dr. Givens did his below-knee amputation about 2 years ago. I am going to discuss everything with him before we proceed. If we were to do any amputation it would probably be done early next week. I will wait for recommendations from wound care as well as infectious disease to see if they think this wound has a chance to heal. He has no osteomyelitis or any other reason to remove the knee. Present on Admission?: Yes Subjective Tj was seen and examined at bedside again this morning. I was able to get another good look at the wound. He had a chance to talk to his about a possible above-knee amputation and she apparently supports it if it was best for his leg. He seems to be responding well with the antibiotics. The blood cultures have been negative so far. He has no new complaints. Physical Exam Musculoskeletal: On physical examination of his left knee, there is a small opening in the flexor crease of his left knee. Some tendons are exposed. There is some purulent discharge but there is no signs of large abscess formation and no erythema. He also has some wounds around his stump which are covered with wound care dressings. He does have pain and spasms when I try to extend his knee to look at the wound. Results & Data Vital Signs (Past 12 Hours) Vital Signs Temp Pulse Pulse Resp BP Pulse Ox 05/15/19 07:17 36.7 C 71 20 135/64 91 05/15/19 06:24 83 145/74 H 05/14/19 23:00 36.8 C 73 18 125/72 94 05/14/19 21:44 122/79 PG Care Time/CCT Total # of Minutes Spent Total Time Spent with Patient: Total time spent is greater than 50% in coordination of care (as documented) at patient's floor/unit and/or counseling patient:
[2019-05-15] MEDS: INSULIN ASPART 100 UNITS/ML 3 ML PEN SC SCH ×4 (09:46→21:13)
[2019-05-15] MEDS: INSULIN GLARGINE SOLOSTAR 100 UNITS/ML 3 ML PEN SC SCH ×2 (09:47→09:48)
--- NOTE | 2019-05-15 11:12 | Pharmacy Report ---
Pharmacy Glycemic Short Note 2 - Date of Service May 15, 2019 - Glycemic Short BSG Results (Last 24 hours): 05/14/19 05/14/19 05/14/19 11:32 17:04 20:35 POC Glucose 183 H 148 H 161 H 05/15/19 08:19 POC Glucose 81 ASSESSMENT: * BSGs over the previous 24hrs reasonably controlled. No indication for BID lantus. Will convert to lantus 8u QAM PLAN FOR INPATIENT GLYCEMIC CONTROL: * Hold outpatient oral diabetes medications * Basal insulin * as above * Bolus insulin * NovoLog per scale ACHS or Q6hrs while NPO * Goal Range: Low 120 mg/dL - High 160 mg/dL * Correction Factor: 30 mg/dL/unit * Nutritional / Prandial insulin per carb ratio of 1 unit per 10 grams CHO consumed
--- NOTE | 2019-05-15 12:33 | Hospitalist Progress Note ---
Date of Service May 15, 2019 Assessment & Plan (1) Cellulitis of knee, left: Infection in the crease of left knee just above the BKA stump. CT left knee on 05/13 showed a 2.1cm abscess. - Follow wound and blood cultures done on 05/12 - Wound culture growing 2 ve rsions of MSSA. - ID consulted - Appreciate help - Orthopedics consulted - Considering amputation early next week. Patient and family pretty accepting that this will need to be done. - Initially on dapto/Zosyn & fluconazole - Switched to cefazolin on 05/15 because of sensitivities (2) Tachycardia: EKG on 05/13 indicated sinus tachycardia vs. atrial flutter. A burst of likely aflutter occurred on 05/14 around 5am. Echo on 05/13 showed mild LVH, EF 50%, mild aortic sclerosis. - Rate controlled with metop XL increased to 50mg PO daily (from 25mg) - Back in sinus rhythm by 05/14 at noon. - Hold anticoagulation as he will likely need surgery. Patient is considering anticoagulation. This is a tough call as it did resolved within a day or so, but he had it for over 6 continuous minutes which is the threshold for raising stroke risk. (3) Sepsis: SIRS 2/4 (tachycardia and leukocytosis) with source of infection. - As above (4) Stage III chronic kidney disease: Baseline Cr ~1.3, eGFR ~50. - Gentle IV fluid hydration - Monitor while on abx - On 05/14, still at baseline. (5) Diabetes mellitus type 2 with complications: A1c is 8.8% this admission. He was only on glipizide. - Hold glipizide - Start insulin sliding scale - Will need diabetic education. - Continue gabapentin (6) Multiple sclerosis: Per medication list, not on any treatment at present. - Monitor for any MS flare - No inpatient needs at present (7) Hypertension: BP stable at present at 130/65. - Continue home meds (8) DVT prophylaxis: Lovenox 40mg daily Subjective Feeling stable today. No major pain except for the posterior left knee. Reports no fevers/chills, chest pain, shortness of breath, abdominal pain, nausea, or vomiting. Physical Exam Constitutional: WD/WN, vitals as above Eyes: EOM intact bilaterally; no conjunctival abnormality ENMT: external ear and nose normal, oropharynx normal Neck: trachea midline, no thyromegaly normal visual inspection Respiratory: normal respiratory effort, lungs clear to auscultation no respiratory distress Cardiovascular: RRR, no murmur, no edema Gastrointestinal (Abdomen): Inspection/Auscultation: abdomen normal to inspection; abdomen not distended Musculoskeletal: B/l BKA. Left leg contracted with wound in the posterior knee. Neurologic: moves all extremities and awake Psychiatric: Orientation: alert, oriented to person and cooperative Results & Data Vital Signs (Past 12 Hours) Vital Signs Temp Pulse Resp BP Pulse Ox 05/15/19 07:17 36.7 C 71 20 135/64 91 05/15/19 06:24 83 145/74 H PG Care Time/CCT Total # of Minutes Spent Total Time Spent with Patient: Total time spent is greater than 50% in coordi nation of care (as documented) at patient's floor/unit and/or counseling patient:
[2019-05-15] MEDS ORDERED: ERGOCALCIFEROL 50,000 UNITS CAP PO SCH (16:30)
[2019-05-15] MEDS: ENOXAPARIN INJ 40 MG/0.4 ML SYR SQ SCH (18:10)
[2019-05-15] MEDS: CEFAZOLIN 1000MG 1,000 MG/7.5 ML SYR IV SCH (19:47)
[2019-05-15] MEDS: GABAPENTIN 300 MG CAP PO SCH (21:12)
[2019-05-16] MEDS: HydrALAZINE 10 MG TAB PO SCH ×3 (05:19→20:46)
[2019-05-16] MEDS: CEFAZOLIN 1000MG 1,000 MG/7.5 ML SYR IV SCH ×3 (05:19→20:46)
[2019-05-16 05:40] LABS: Hematocrit (blood only) 33.3 % (42-52); Hemoglobin 10.7 g/dL (14.0-18.0); Mean Corpuscular Hemoglobin 28.8 pg (25-34); Mean Corpuscular Hgb Conc 32.1 g/dL (32-36); Mean Corpuscular Volume 89.5 fL (80-100); Mean Platelet Volume 11.7 fL (7.4-10.4); Platelet Count 222 K/uL (130-400); RDW Coefficient of Variation 13.2 % (11.5-14.5); RDW Standard Deviation 43.4 fL (36.4-46.3); Red Blood Count 3.72 M/uL (4.7-6.1); White Blood Count 9.93 K/uL (4.8-10.8)
[2019-05-16 06:16] LABS: BUN Creatinine Ratio 14.1 (10-20); Calcium 8.4 mg/dl (8.5-10.1); Creatinine Clr Calc Pharmacy 62.9 ml/min; Est GFR (African American) 72.3; Est GFR (Non-African American) 62.4; Potassium 3.4 mmol/L (3.5-5.1)
--- NOTE | 2019-05-16 06:57 | Orthopedic Progress Note ---
Date of Service May 16, 2019 Assessment & Plan (1) Abscess of left knee: Unfortunately, I think the best treatment for him would be an above-knee amputation. He says that he talked it over with his and he would like to proceed. I will talk things over with my partners. We could possibly amputate his left leg early next week. Right now we could consider doing it on Friday, however, I want to talk it over with my partners first. Present on Admission?: Yes Subjective Tj was seen and examined again at bedside. Overall he is not in too much pain. He did speak to his and he is considering an above-knee amputation of his left leg. Physical Exam Musculoskeletal: Examination of the left knee is unchanged from previous visit. He has a flexion contracture and a draining ulcer in the flexion crease of the left knee. Results & Data Vital Signs (Past 12 Hours) Vital Signs Temp Pulse Pulse Resp BP Pulse Ox 05/16/19 05:20 71 163/82 H 05/16/19 03:37 163/80 H 05/16/19 00:35 81 171/83 H 05/15/19 23:09 36.7 C 68 18 161/83 H 93 PG Care Time/CCT Total # of Minutes Spent Total Time Spent with Patient: Total time spent is greater than 50% in coordination of care (as documented) at patient's floor/unit and/or counseling patient:
[2019-05-16] MEDS: SACCHAROMYCES BOULARDII 250 MG CAP PO SCH ×3 (09:02→20:46)
[2019-05-16] MEDS: METOPROLOL SUCC 50MG EXT REL TAB PO SCH (09:02)
[2019-05-16] MEDS: PANTOprazole 40 MG TAB PO SCH (09:03)
[2019-05-16] MEDS: TOCOPHERYL, DL-ALPHA 400 UNITS CAP PO SCH (09:03)
[2019-05-16] MEDS: ASCORBIC ACID 500 MG TAB PO SCH (09:03)
[2019-05-16] MEDS: INSULIN GLARGINE SOLOSTAR 100 UNITS/ML 3 ML PEN SC SCH (09:09)
[2019-05-16] MEDS: INSULIN ASPART 100 UNITS/ML 3 ML PEN SC SCH ×4 (09:10→21:12)
--- NOTE | 2019-05-16 17:22 | Hospitalist Progress Note ---
Date of Service May 16, 2019 Assessment & Plan (1) Cellulitis of knee, left: Infection in the crease of left knee just above the BKA stump. CT left knee on 05/13 showed a 2.1cm abscess. - Follow wound and blood cultures done on 05/12 - Wound culture growing 2 ve rsions of MSSA. - Initially on dapto/Zosyn & fluconazole - Switched to cefazolin on 05/15 for sensitivities - Orthopedics consulted - Considering amputation early next week. Patient and family accepting that this will need to be done. Possibly Friday. (2) Tachycardia: EKG on 05/13 indicated sinus tachycardia vs. atrial flutter. A burst of aflutter occurred on 05/14 around 5am. Echo on 05/13 showed mild LVH, EF 50%, mild aortic sclerosis. - Rate controlled with metop XL increased to 50mg PO daily (from 25mg) - Back in sinus rhythm by 05/14 at noon. - Hold anticoagulation as he will need surgery. Patient is considering anticoagulation. This is a tough call as it did resolved within a day or so, but he had it for over 6 continuous minutes which is the threshold for raising stroke risk. (3) Sepsis: SIRS 2/4 (tachycardia and leukocytosis) with source of infection. - As above (4) Stage III chronic kidney disease: Baseline Cr ~1.3, eGFR ~50. - Monitor while on abx - On 05/16, still at baseline. (5) Diabetes mellitus type 2 with complications: A1c is 8.8% this admission. He was only on glipizide. - Hold glipizide - Continue long-acting and insulin sliding scale - Glycemic pharm following - Will need diabetic education. - Continue gabapentin (6) Multiple sclerosis: Per medication list, not on any treatment at present. - Monitor for any MS flare - No inpatient needs at present (7) Hypertension: BP stable at present at 150/70. - Continue home meds (8) DVT prophylaxis: Lovenox 40mg daily - Will hold after Friday's dose for planned surgery Subjective Honestly doing quite well today. No major concerns. Left knee remains somewhat painful. Reports no fevers/chills, chest pain, shortness of breath, abdominal pain, nausea, or vomiting. Physical Exam Constitutional: WD/WN, vitals as above Eyes: EOM intact bilaterally; no conjunctival abnormality ENMT: external ear and nose normal, oropharynx normal Neck: trachea midline, no thyromegaly normal visual inspection Respiratory: normal respiratory effort, lungs clear to auscultation no respiratory distress Cardiovascular: RRR, no murmur, no edema Gastrointestinal (Abdomen): Inspection/Auscultation: abdomen normal to inspection; abdomen not distended Musculoskeletal: no cyanosis or clubbing, extremities motor strength 5/5 Neurologic: moves all extremities and awake Psychiatric: Orientation: alert, oriented to person and cooperative Results & Data Vital Signs (Past 12 Hours) Vital Signs Temp Pulse Pulse Resp BP Pulse Ox 05/16/19 15:22 36.7 C 69 18 150/69 H 91 05/16/19 13:27 73 168/68 H 05/16/19 08:09 36.8 C 83 16 163/80 H 91 05/16/19 05:20 71 163/82 H PG Care Time/CCT Total # of Minutes Spent Total Time Spent with Patient: Total time spent is greater than 50% in coordination of care (as documented) at patient's floor/unit and/or counseling patient:
[2019-05-16] MEDS: ENOXAPARIN INJ 40 MG/0.4 ML SYR SQ SCH (18:34)
[2019-05-16] MEDS: GABAPENTIN 300 MG CAP PO SCH (20:46)
[2019-05-16] MEDS: POTASSIUM CHLORIDE PWD 20 MEQ PACK PO SCH (20:46)
[2019-05-16] MEDS ORDERED: Nursing to Pharmacy Communication ONE (22:08)
[2019-05-17] MEDS: INSULIN ASPART 100 UNITS/ML 3 ML PEN SC SCH ×5 (00:16→21:55)
[2019-05-17] MEDS: CEFAZOLIN 1000MG 1,000 MG/7.5 ML SYR IV SCH ×3 (04:47→20:45)
[2019-05-17 05:58] LABS: Calcium 8.4 mg/dl (8.5-10.1); Creatinine Clr Calc Pharmacy 67.8 ml/min; Est GFR (African American) 79.1; Est GFR (Non-African American) 68.3; Potassium 3.6 mmol/L (3.5-5.1)
[2019-05-17] MEDS: HydrALAZINE 10 MG TAB PO SCH ×3 (06:23→20:48)
--- NOTE | 2019-05-17 06:45 | Orthopedic Progress Note ---
Date of Service May 17, 2019 Assessment & Plan (1) Abscess of left knee: I talked to him at bedside about an above-knee amputation, and he said that he is ready to proceed with that. He already discussed it with his . I spoke with Dr. Givens, and he may be able to do it this afternoon. We are going to keep him n.p.o. for now. Consent has been signed. He is currently on IV Ancef for antibiotics and his glucose levels are now well controlled. Present on Admission?: Yes Subjective Tj was seen and examined at bedside this morning. Overall his status is unchanged. He has a little bit of soreness in that left knee, but he still has a persistent infection. Physical Exam Musculoskeletal: On examination of the left knee there is a 2 cm ulceration within the flexor crease. There is exposed tendons. There is persistent purulent discharge. The surrounding skin actually looks okay. There is a flexion contracture of the left knee. Results & Data Vital Signs (Past 12 Hours) Vital Signs Temp Pulse Pulse Resp BP Pulse Ox Pulse Ox 05/17/19 06:21 87 183/87 H 05/17/19 00:05 167/95 H 92 05/16/19 23:16 36.8 C 90 16 179/85 H 92 05/16/19 20:47 165/81 H PG Care Time/CCT Total # of Minutes Spent Total Time Spent with Patient: Total time spent is greater than 50% in coordination of care (as documented) at patient's floor/unit and/or counseling patient:
[2019-05-17] MEDS: SACCHAROMYCES BOULARDII 250 MG CAP PO SCH ×3 (08:39→20:48)
[2019-05-17] MEDS: METOPROLOL SUCC 50MG EXT REL TAB PO SCH (08:39)
[2019-05-17] MEDS: ASCORBIC ACID 500 MG TAB PO SCH (08:39)
[2019-05-17] MEDS: INSULIN GLARGINE SOLOSTAR 100 UNITS/ML 3 ML PEN SC SCH (08:39)
[2019-05-17] MEDS: TOCOPHERYL, DL-ALPHA 400 UNITS CAP PO SCH (08:39)
[2019-05-17] MEDS: PANTOprazole 40 MG TAB PO SCH (08:39)
[2019-05-17] MEDS: POTASSIUM CHLORIDE PWD 20 MEQ PACK PO SCH (08:39)
--- NOTE | 2019-05-17 09:28 | Pharmacy Report ---
Pharmacy Glycemic Short Note 2 - Date of Service May 17, 2019 - Glycemic Short BSG Results (Last 24 hours): 05/16/19 05/16/19 05/16/19 12:04 17:06 20:36 Glucose POC Glucose 149 H 129 H 128 H 05/17/19 05/17/19 05/17/19 00:07 05:17 06:02 Glucose 130 H POC Glucose 116 H 137 H Outpatient Anti-diabetic Regimen: * Glipizide 5 mg PO QAM, glipizide 2.5 mg PO qPM * HbA1c: 8.8% (05/12/19) ASSESSMENT: * Patient is scheduled for left above knee amputation today and is currently NPO * BSGs well-controlled yesterday ranging 106-149 mg/dL * Patient received 17 units of insulin (8 of which were basal) * Fasting BSG this AM of 137 mg/dL - Lantus given PLAN FOR INPATIENT GLYCEMIC CONTROL: * Hold outpatient oral diabetes medications * Basal insulin * Continue Lantus 8 units qAM * Bolus insulin - continue current parameters * NovoLog per scale ACHS or Q6hrs while NPO * Goal Range: Low 120 mg/dL - High 160 mg/dL * Correction Factor: 30 mg/dL/unit * Nutritional / Prandial insulin per carb ratio of 1 unit per 10 grams CHO consumed DISCHARGE: * To be determined postop
--- NOTE | 2019-05-17 15:36 | History & Physical Bridge Note ---
Date of Service May 17, 2019 History & Physical Bridge Note I have examined the patient, reviewed the History & Physical and in the interval since the performance of the History & Physical I have noted the following changes of clinical significance: no changes noted. Discussed with patient. I will be doing surgery...Left Above Knee amputation.
[2019-05-17] MEDS ORDERED: BUPIVACAINE 0.5 % 5 MG/1 ML PF 10ML VIAL ONE (15:37)
--- NOTE | 2019-05-17 15:38 | Hospitalist Progress Note ---
Date of Service May 17, 2019 Assessment & Plan (1) Cellulitis of knee, left: * Infection in the crease of left knee just above the BKA stump. CT left knee on 05/13 showed a 2.1cm abscess. * Follow wound and blood cultures done on 05/12 - Wound culture growing 2 sp ecies of MSSA. * Initially on dapto/Zosyn & fluconazole -- > Switched to cefazolin on 05/15 for sensitivities -- will need to reach out to ID for abx choice and length of course s/p amputation * Orthopedics consulted - Scheduled for L AKA today with Dr. Givens (2) Tachycardia: * EKG on 05/13 indicated sinus tachycardia vs. atrial flutter. A burst of aflutter occurred on 05/14 around 5am. Echo on 05/13 showed mild LVH, EF 50%, mild aortic sclerosis. * Rate controlled with metop XL increased to 50mg PO daily (from 25mg) * Back in sinus rhythm by 05/14 at noon. * Hold anticoagulation for surgery today. * Patient is considering anticoagulation. This is a tough call as it did resolved within a day or so, but he had it for over 6 continuous minutes which is the threshold for raising stroke risk. * Cardiology consult for possible loop recorder/holter monitor -- appreciate recs -- had previously seen Dr. Andrews * TSH in AM (3) Sepsis: * SIRS 2/4 (tachycardia and leukocytosis) with source of infection. * As above (4) Stage III chronic kidney disease: * Baseline Cr ~ 1.1- 1.3, eGFR ~50. * Currently, cr 1.03 * Continue to monitor (5) Diabetes mellitus type 2 with complications: * A1c is 8.8% this admission. He was only on glipizide. * Hold glipizide * Continue long-acting and insulin sliding scale * Glycemic pharm following * Will need diabetic education. * Continue gabapentin (6) Multiple sclerosis: * Per medication list, not on any treatment at present. * Monitor for any MS flare * No inpatient needs at present (7) Hypertension: * Elevated- 165/84 this AM * - Continue home meds-- Patient only on metoprolol and hydralazine as outpatient?? * -- Tried to contact to see if patient previously unable to tolerate LC/ARB or CCB, however unable to be reached * May benefit from addition of lisinopril -- given patient post-op, will re- explore in AM as BP stable currently at 142/83 (8) DVT prophylaxis: * Lovenox 40mg daily - On hold for current procedure Dispo- continued stay for post- recovery Subjective Patient evaluated this morning. He states he is nervous about the upcoming procedure for his above the knee amputation, however he is accepting regarding the need for further amputation given his current infection. He states his pain as been well controlled. He denies fevers, chills, chest pain, shortness of breath, n/v/d, dysuria at this time. Review of Systems Constitutional: + body aches; no fever and no chills Ear, Nose, Mouth, Throat: no dizziness, no sore throat and no dysphagia Respiratory: no cough and no dyspnea Cardiovascular: no chest pain and no edema Gastrointestinal: no nausea, no vomiting, no constipation and no diarrhea/loose stools Genitourinary: no dysuria and no hematuria Musculoskeletal: LLE pain Integumentary: ulcer on left extremity Neurologic: no syncope and no headache(s) Physical Exam Constitutional: WD/WN, vitals as above no acute distress Eyes: PERRL, conjunctivae normal, anicteric sclerae Neck: trachea midline, no thyromegaly Respiratory: normal respiratory effort, lungs clear to auscultation Cardiovascular: RRR, no murmur, no edema Gastrointestinal (Abdomen): normal bowel sounds, soft, nontender, no hepatosplenomegaly Musculoskeletal: Left below knee amputation 2cm ulceration with mild purulent discharge. No evidence of streaking or surrounding erythema. Skin: 2 cm ulcer left knee Neurologic: PERRL, EOMI, accommodation nl, no face palsy, no dysarthria Psychiatric: Orientation: alert, oriented to person and oriented to time Lymphatic: no cervical or axillary lymphadenopathy Results & Data Vital Signs (Past 12 Hours) Vital Signs Temp Pulse Pulse Resp BP Pulse Ox Pulse Ox 05/17/19 14:46 37.5 C 76 20 165/84 H 92 05/17/19 08:11 36.9 C 91 H 16 180/95 H 90 05/17/19 07:15 91 05/17/19 06:21 87 183/87 H Laboratory Results 05/17/19 05/17/19 05/17/19 Range/Units 11:59 06:02 05:17 Sodium 137 (136-145) mmol/L Potassium 3.6 (3.5-5.1) mmol/L Chloride 104 (98-107) mmol/L Carbon Dioxide 25 (21-32) mmol/L Anion Gap 8.0 (3-11) BUN 11 (7-18) mg/dl Creatinine 1.03 (0.6-1.4) mg/dl Est Cr Clr Drug Dosing 67.8 ml/min Est GFR ( Amer) 79.1 Est GFR (Non-Af Amer) 68.3 BUN/Creatinine Ratio 11.0 (10-20) Glucose 130 H (70-99) mg/dl POC Glucose 135 H 137 H (70-99) Calcium 8.4 L (8.5-10.1) mg/dl Blood Type Antibody Screen 05/17/19 05/16/19 05/16/19 Range/Units 00:07 20:57 20:36 Sodium (136-145) mmol/L Potassium (3.5-5.1) mmol/L Chloride (98-107) mmol/L Carbon Dioxide (21-32) mmol/L Anion Gap (3-11) BUN (7-18) mg/dl Creatinine (0.6-1.4) mg/dl Est Cr Clr Drug Dosing ml/min Est GFR ( Amer) Est GFR (Non-Af Amer) BUN/Creatinine Ratio (10-20) Glucose (70-99) mg/dl POC Glucose 116 H 128 H (70-99) Calcium (8.5-10.1) mg/dl Blood Type B Negative Antibody Screen NEGATIVE PG Care Time/CCT Total # of Minutes Spent Total Time Spent with Patient: Total time spent is greater than 50% in coordination of care (as documented) at patient's floor/unit and/or counseling patient:
--- NOTE | 2019-05-17 15:39 | Anesthesiology Consultation ---
Date of Service May 17, 2019 Assessment & Plan Chart Review Chart Review: Acceptable Risk for Surgery Consults Requested none ASA ASA3 Proposed Anesthesia Anesthesia Type: General Risk / Benefits Reviewed With: PT / POA / Parent / Guardian, Accepts Plan and Informed Consent Obtained Additional Comments: discussed with patient risk of additional phantom pain LLE, however, given increasing MS sxs, weighing risk/benefit decision was made to forego sab and not risk MS flare. Pt and family agrees. History Surgery Operation Date: 05/17/19 09:10 Proposed Procedures p Left Above Knee Amputation Leg - Shelton Gviens MD Height/Weight Height: 6 ft Weight: 84.5 kg Allergies Allergy/AdvReac Type Severity Reaction Status Date / Time Cipro Allergy Mild HIVES Verified 02/20/18 11:35 ciprofloxacin Allergy Mild HIVES Verified 05/12/19 12:16 Medications Home Medications Medication Instructions Recorded Confirmed Last Taken Saccharomyces boulardii 250 mg 250 mg PO BID 02/25/18 05/12/19 05/12/19 capsule aspirin 81 mg tablet,delayed 81 mg PO DAILY 02/25/18 05/12/19 05/12/19 release cyanocobalamin (vitamin B-12) 2,500 mcg PO DAILY 02/25/18 05/12/19 05/12/19 2,500 mcg tablet ferrous sulfate 325 mg (65 mg 325 mg PO DAILY tab 02/25/18 05/12/19 05/12/19 iron) tablet,delayed release polyethylene glycol 3350 17 17 gm PO DAILY PRN gm 02/25/18 05/12/19 Unknown gram/dose oral powder simvastatin 40 mg tablet 40 mg PO QPM 02/25/18 05/12/19 05/12/19 vitamin E (dl, acetate) 400 unit 400 units PO DAILY 02/25/18 05/12/19 05/12/19 capsule ascorbic acid (vitamin C) 500 mg 500 mg PO DAILY cap 03/30/19 05/12/19 05/12/19 capsule gabapentin 300 mg capsule 300 mg PO HS cap 03/30/19 05/12/19 05/12/19 omeprazole 10 mg capsule,delayed 10 mg PO DAILY 03/30/19 05/12/19 05/12/19 release hydralazine 10 mg tablet 10 mg PO Q8H #90 tab 04/01/19 05/12/19 05/12/19 metoprolol succinate 25 mg 25 mg PO DAILY #90 tab 04/21/19 05/12/19 05/12/19 tablet,extended release 24 hr ergocalciferol (vitamin D2) 50,000 50,000 units PO WEEKLY #14 cap 04/27/19 05/12/19 Unknown unit capsule glipizide 2.5 mg PO QPM 05/12/19 05/12/19 05/11/19 glipizide 5 mg PO DAILY 05/12/19 05/12/19 05/12/19 Active Medications Generic Name Dose Route Start Last Admin Trade Name Freq PRN Reason Stop Dose Admin Ascorbic Acid 500 mg 05/13/19 09:00 05/17/19 08:39 Vitamin C PO 06/12/19 08:59 500 mg DAILY MERI Administration Gabapentin 300 mg 05/12/19 21:00 05/16/19 20:46 Neurontin PO 06/11/19 20:59 300 mg HS MERI Administration Hydralazine HCl 10 mg 05/12/19 16:00 05/17/19 13:17 Apresoline PO 06/11/19 15:59 10 mg Q8 MERI Administration Cefazolin Sodium 1,000 mg in 7.5 mls @ 2.5 mls/min 05/15/19 20:00 05/17/19 12:04 Ancef 1000mg IV 05/22/19 19:59 2.5 mls/min Q8H MERI Administration Protocol Insulin Aspart 0 units 05/17/19 00:00 05/17/19 12:01 Novolog Flexpen SC 06/16/19 00:00 Not Given Q6 MERI Protocol Insulin Glargine 8 units 05/15/19 09:00 05/17/19 08:39 Lantus Solostar Pen SC 06/14/19 08:59 8 units QAM MERI Administration Protocol Metoprolol Succinate 50 mg 05/14/19 09:00 05/17/19 08:39 Toprol Xl PO 06/13/19 08:59 50 mg DAILY MERI Administration Miscellaneous 15 - 30 gm 05/12/19 14:10 05/14/19 07:48 Carbohydrates For Hypoglycemia PO 06/11/19 14:09 23 gm UD PRN Administration Hypoglycemia Protocol Pantoprazole Sodium 40 mg 05/13/19 09:00 05/17/19 08:39 Protonix PO 12/14/19 08:59 40 mg DAILY MERI Administration Saccharomyces Sheldondii 250 mg 05/12/19 21:00 05/17/19 13:17 Florastor PO 06/11/19 20:59 250 mg TID MERI Administration Vitamin E 400 units 05/13/19 09:00 05/17/19 08:39 Vitamin E PO 06/12/19 08:59 400 units DAILY MERI Administration NPO Date Last Intake of Fluids: 05/16/19 Time Last Intake of Fluids: 18:00 Date Last Intake of Solids: 05/16/19 Time Last Intake of Solids: 18:00 Past Medical History Medical History ARF (acute renal failure) (Chronic) Benign hypertension (Chronic) Cellulitis of great toe of right foot (Chronic) Cellulitis of knee, left (Chronic) Chest pain (Chronic) Diabetes mellitus (Chronic) Foot ulcer, left (Chronic) H/O diabetic foot ulcer (Chronic) Heel ulcer due to DM (Chronic) Hyperlipidemia (Chronic) Hypoglycemia (Chronic) Multiple sclerosis (Chronic) Osteomyelitis of left foot (Chronic) Post-op bleeding (Chronic) Right femoral shaft fracture (Chronic) MS only has use of LUE. other 3 are rigid/spasm Exercise / Class Metabolic Activity IV < 2 Limit ADL/Bedbound Past Family History Family History Father Stroke Past Surgical History Surgical History Previous back surgery S/P tonsillectomy and adenoidectomy Status post below knee amputation of left lower extremity (Resolved) Past Anesthesia History No Hx of Anesthesia Complications and No Family Hx of Anesthesia Complications History of PONV No Hx of PONV and No Hx of Motion Sickness Social History Smoking Status: Never smoker Hx Alcohol Use: No Hx Substance Use: No Physical Exam Vital Signs Last Vital Signs Temp 37.5 C 05/17/19 14:46 Pulse 76 05/17/19 14:46 Resp 20 05/17/19 14:46 BP 165/84 H 05/17/19 14:46 Pulse Ox 92 05/17/19 14:46 ENMT Mouth: + dentures (Upper. Only 8 teeth remain in front bottom. Poor dentition overall); no TMJ abnormality Thyromental Distance: > or= 3.5 Finger Breadths Mallampati Class: II Neck normal visual inspection and trachea midline; neck extension not limited Respiratory normal respiratory effort Auscultation: lungs clear to auscultation bilaterally Cardiovascular Rate/Rhythm: regular rate and regular rhythm Heart Sounds: no murmur Musculoskeletal Spine: normal cervical ROM Extremities: full ROM of extremities Neurologic Motor/Sensory: + sensory deficit (+neuropathic pain LLE in phantom site) Psychiatric Orientation: alert and oriented x 3 Testing Laboratory Results 05/16/19 05:21 05/17/19 05:17 Hemoglobin A1c 8.8 % (4.5-5.6) H 05/12/19 10:11 Blood Type B Negative 05/16/19 20:57 Antibody Screen NEGATIVE 05/16/19 20:57 05/12/19 11:22 Aerobic Blood Culture - Final Blood No growth in Aerobic bottle after 5 days. Anaerobic Blood Culture - Final No growth in Anaerobic bottle after 5 days. 05/12/19 11:26 Aerobic Blood Culture - Final Blood No growth in Aerobic bottle after 5 days. Anaerobic Blood Culture - Final No growth in Anaerobic bottle after 5 days. 05/15/19 02:50 Fungal Smear - Final Leg,Left Fungal Culture - Preliminary No yeast or fungus isolated - Report 1, Additional Report to Follow. 05/12/19 11:56 Gram Stain - Final Knee,Left Deep Wound Culture - Final Staphylococcus aureus Staphylococcus aureus#2 05/17/19 05/17/19 11:59 06:02 POC Glucose 135 H 137 H Electrocardiogram Date: 05/14/19 ST vs Aflutter Echocardiogram Date: 05/15/19 EF: 50% LV Function: normal RWMA: + none Valvular Disease: + (Mild)
[2019-05-17] MEDS ORDERED: fentaNYL citrate 100 MCG/2 ML VIAL ONE ×2 (15:47→16:23)
[2019-05-17] MEDS ORDERED: EPINEPHrine INJ 1 MG/ML AMP ONE (15:52)
[2019-05-17] MEDS ORDERED: BACITRACIN INJ 50,000 UNIT VIAL ONE (15:52)
[2019-05-17] MEDS ORDERED: BUPIVACAINE 0.5 % 5 MG/1 ML MPF 30ML VIAL ONE (15:52)
[2019-05-17] MEDS ORDERED: fentaNYL citrate 100 MCG/2 ML VIAL IV PRN (15:57)
[2019-05-17] MEDS ORDERED: ONDANSETRON INJ 2 MG/ML 2 ML VIAL IV PRN ×2 (15:57→18:26)
[2019-05-17] MEDS ORDERED: ePHEDrine sulfate 50 MG/ML AMP IV PRN (15:57)
[2019-05-17] MEDS ORDERED: MoRPHine SULFATE 10 MG/ML CARP/VIAL IV PRN (15:57)
[2019-05-17] MEDS ORDERED: ATROPINE SULFATE 0.1 MG/ML 10ML SYR IV PRN (15:57)
[2019-05-17] MEDS ORDERED: MEPERIDINE HCL 25 MG/ML CARP IV PRN (15:57)
[2019-05-17] MEDS ORDERED: CEFAZOLIN 250 MG/ML 1 GM VIAL ONE (16:09)
[2019-05-17] MEDS ORDERED: PHENYLEPHRINE 100MCG/ML 5ML SYR ONE (16:26)
[2019-05-17] MEDS ORDERED: PROPOFOL IV EMULSION 10 MG/ML 20 ML VIAL IV ONE (16:26)
[2019-05-17] MEDS ORDERED: ONDANSETRON INJ 2 MG/ML 2 ML VIAL ONE (16:26)
[2019-05-17] MEDS ORDERED: LIDOCAINE HCL 2% 2 ML VIAL/AMP(20MG/ML) INFIL ONE (16:26)
--- NOTE | 2019-05-17 16:48 | Cardiology Consultation ---
Date of Consultation May 17, 2019 Assessment & Plan (1) Tachycardia: I have reviewed his electrocardiogram from May 13, 2019 as well as his telemetry monitoring from this hospitalization and I do not think that he has atrial flutter. I believe it is an ectopic atrial tachycardia, it is slightly fast but not excessively so and as long as he is asymptomatic I do not think we need to treat it. For the atrial arrhythmias that I see I do not believe he needs anticoagulation. He certainly has some risk of developing atrial fibrillation but I do not feel that long-term monitoring to identify it is warranted. Certainly if we identify atrial fibrillation or flutter then we should consider anticoagulation but at the moment I would not do that. History of Present Illness Reason for Consultation: Possible atrial flutter Attending Physician: Sara Ashley MD History of Present Illness This is an 78-year-old male with a history of diabetes mellitus for which she has had peripheral vascular disease and a left below-knee amputation, hypertension, hypercholesterolemia and carries a history of SVT and outpatient records. He was admitted with a wound in his left leg which appears infected. On admission an electrocardiogram done May 13, 2019 at 8:14 AM shows a rhythm felt possibly consistent with atrial flutter. I checked by his room on several occasions this afternoon however he was in surgery. I therefore have not interviewed or examined him. I will do this tomorrow. Allergies Allergy/AdvReac Type Severity Reaction Status Date / Time Cipro Allergy Mild HIVES Verified 02/20/18 11:35 ciprofloxacin Allergy Mild HIVES Verified 05/12/19 12:16 Home Medications Home Medications Medication Instructions Recorded Confirmed Type Saccharomyces boulardii 250 mg 250 mg PO BID 02/25/18 05/12/19 History capsule aspirin 81 mg tablet,delayed 81 mg PO DAILY 02/25/18 05/12/19 History release cyanocobalamin (vitamin B-12) 2,500 mcg PO DAILY 02/25/18 05/12/19 History 2,500 mcg tablet polyethylene glycol 3350 17 17 gm PO DAILY PRN gm 02/25/18 05/12/19 History gram/dose oral powder simvastatin 40 mg tablet 40 mg PO QPM 02/25/18 05/12/19 History vitamin E (dl, acetate) 400 unit 400 units PO DAILY 02/25/18 05/12/19 History capsule ascorbic acid (vitamin C) 500 mg 500 mg PO DAILY cap 10/01/19 11/13/19 History capsule gabapentin 300 mg capsule 300 mg PO HS cap 03/30/19 05/12/19 History omeprazole 10 mg capsule,delayed 10 mg PO DAILY 03/30/19 05/12/19 History release hydralazine 10 mg tablet 10 mg PO Q8H #90 tab 04/01/19 05/12/19 Rx metoprolol succinate 25 mg 25 mg PO DAILY #90 tab 04/21/19 05/12/19 Rx tablet,extended release 24 hr ergocalciferol (vitamin D2) 50,000 50,000 units PO WEEKLY #14 cap 04/27/19 05/12/19 Rx unit capsule glipizide 2.5 mg PO QPM 05/12/19 05/12/19 History glipizide 5 mg PO DAILY 05/12/19 05/12/19 History ferrous sulfate 325 mg (65 mg 325 mg PO DAILY #90 tab 05/18/19 Rx iron) tablet,delayed release Patient History Medical History ARF (acute renal failure) (Chronic) Benign hypertension (Chronic) Cellulitis of great toe of right foot (Chronic) Cellulitis of knee, left (Chronic) Chest pain (Chronic) Diabetes mellitus (Chronic) Foot ulcer, left (Chronic) H/O diabetic foot ulcer (Chronic) Heel ulcer due to DM (Chronic) Hyperlipidemia (Chronic) Hypoglycemia (Chronic) Multiple sclerosis (Chronic) Osteomyelitis of left foot (Chronic) Post-op bleeding (Chronic) Right femoral shaft fracture (Chronic) Surgical History Previous back surgery S/P tonsillectomy and adenoidectomy Status post below knee amputation of left lower extremity (Resolved) Family History Father Stroke Social History Preferred Language: Hebrew Communication Ability: Effective Hearing Ability: Normal Risk Management Professional Required: No Beliefs That Will Affect Care: None Current Living Situation: Spouse Feels Safe at Home: Yes Smoking Status: Never smoker Hx Alcohol Use: No Hx Substance Use: No during the past year weight has: remained stable Results & Data Vital Signs (Past 12 Hours) Vital Signs Temp Pulse Pulse Resp BP Pulse Ox Pulse Ox 05/17/19 14:46 37.5 C 76 20 165/84 H 92 05/17/19 08:11 36.9 C 91 H 16 180/95 H 90 05/17/19 07:15 91 05/17/19 06:21 87 183/87 H PG Care Time/CCT Total # of Minutes Spent Total Time Spent with Patient: Total time spent is greater than 50% in coordination of care (as documented) at patient's floor/unit and/or counseling patient:
[2019-05-17] MEDS ORDERED: ePHEDrine sulfate 50 MG/ML SYR ONE (16:51)
[2019-05-17] MEDS ORDERED: CEFAZOLIN 1000MG 1,000 MG/7.5 ML SYR IV ONE (17:02)
--- NOTE | 2019-05-17 17:33 | Post Operative Brief Note ---
PG Immediate Post Op with CF Date of Surgery May 17, 2019 Pre & Post Diagnosis Operation Date: 05/17/19 09:10 Pre-Op Diagnosis: Left Leg Abscess Post-Op Diagnosis: Left Leg Abscess I identified the patient and participated in the time-out.: Yes Procedure Operation Date: 05/17/19 09:10 Actual Procedures p Left Above Knee Amputation Leg(Left) - Shelton Givens MD Surgeon Shelton Givens MD Director Of Workforce Development Naun, PAC Estimated Blood Loss 200 Findings Consistent with Post-Op Diagnosis Fluids 400 cc Specimens Specimen Description: A: Left Lower Leg Anesthesia Type General Complications none Disposition Accompanied Patient To Recovery: Yes Disposition: Recovery Room
--- NOTE | 2019-05-17 18:00 | Anesthesiology Progress Note ---
Date of Service May 17, 2019 Anesthesia Post Procedure Vital Signs Vital Signs: Temp Pulse Pulse Pulse Resp BP Pulse Ox 05/17/19 17:55 79 18 132/72 94 05/17/19 17:45 85 18 127/82 99 05/17/19 17:35 36.0 C L 83 17 120/89 97 05/17/19 14:46 37.5 C 76 20 165/84 H 92 05/17/19 08:11 36.9 C 91 H 16 180/95 H 90 05/17/19 07:15 05/17/19 06:21 87 183/87 H 05/17/19 00:05 167/95 H 05/16/19 23:16 36.8 C 90 16 179/85 H 92 05/16/19 20:47 165/81 H Pulse Ox 05/17/19 17:55 05/17/19 17:45 05/17/19 17:35 05/17/19 14:46 05/17/19 08:11 05/17/19 07:15 91 05/17/19 06:21 05/17/19 00:05 92 05/16/19 23:16 05/16/19 20:47 Pain Intensity Generalized: Pain Intensity: 0 Transfer of Care Handoff Completed per policy Notes Mental Status: alert / awake / arousable and participated in evaluation Patient Amnestic to Procedure: Yes Nausea / Vomiting: adequately controlled Pain: adequately controlled Airway Patency, RR, SpO2: stable & adequate BP & HR: stable & adequate Hydration State: stable & adequate Anesthetic Complications: no major complications apparent and Pt Satisfied with anesthetic care
[2019-05-17] MEDS ORDERED: METOCLOPRAMIDE HCL INJ 5 MG/ML 2 ML VIAL IV PRN (18:26)
[2019-05-17] MEDS ORDERED: BISACODYL 10 MG SUPP PR PRN (18:26)
[2019-05-17] MEDS ORDERED: NALOXONE HCL 0.4 MG/1 ML VIAL/CARP IV PRN (18:26)
[2019-05-17] MEDS ORDERED: HYDROmorphone INJ 0.5 MG/0.5 ML SYR IV PRN (18:26)
[2019-05-17] MEDS: SODIUM CHLORIDE 0.9% 1000ML 1,000 ML IV SCH (18:53)
--- NOTE | 2019-05-17 19:12 | Operative Report ---
Post Operative Report Pre & Post Diagnosis Operation Date: 05/17/19 09:10 Pre-Op Diagnosis: Left Leg Abscess Post-Op Diagnosis: Left Leg Abscess I identified the patient and participated in the time-out.: Yes Procedure Operation Date: 05/17/19 09:10 Actual Procedures p Left Above Knee Amputation Leg(Left) - Shelton Givens MD Surgeon Shelton Givens MD Telephone Supervisor Naun, PAC Estimated Blood Loss 200 Findings Consistent with Post-Op Diagnosis Fluids 400 cc Specimens Left Leg sent for pathology. Anesthesia Type General Complications none Disposition Accompanied Patient To Recovery: Yes Disposition: Recovery Room Indications Patient is an 78-year-old gentleman with multiple medical comorbidities who is now 2+ years out from a left knee below-knee amputation done for recurrent ulceration and infection. He is continued to have intermittent wounds on the distal aspect of his leg. He developed a deep wound in the flexion crease of his left knee due to chronic flexion contracture. He continued to have a odorous discharge which was significant for an abscess. There was no feasible way to manage this due to his flexion contracture. Patient does not ambulate. Patient indicated for above-knee amputation in hopes of getting this leg wounds to heal out. Description of Procedure Patient is taken to the operating room identified and placed on the operating table supine position with all contact areas were properly padded. A general anesthetic was employed by anesthesia team. IV antibiotics were provided by the anesthesia team. A bump was placed underneath the hip. The left leg was then scrubbed with Hibiclens and then prepped with ChloraPrep and then draped in usual sterile fashion. A fishmouth incision was made over the mid aspect of the thigh make sure both flaps were proximal to the previous wound abscess area. Sharp dissection was carried out anteriorly directly through the skin, subcutaneous tissues and through the quad apron directly down to the bone. This flap was then elevated off the bone for about 7 cm to back to the proposed saw cut. The posterior musculature was then transected slightly distal to the proposed saw cut and allowed to retract. I then used a saw to resect the femur at the proposed cut line. I then chamfer the anterior lateral cortex of the femur to avoid any pressure areas. The remainder of the posterior compartment musculature was then cut and then a tailored to the posterior flap which was equal to the inferior flap. The sciatic nerve was identified, ligating sutures were placed around the nerve and then it was cut short and allowed to retract. Both femoral artery and vein were identified and double suture ligated with 2-0 silk sutures and then cut and allowed to retract. Multiple other small vessels were cauterized. We spent quite a bit of time obtaining good hemostasis. Once this was completely irrigated wound extensively. The anterior and posterior fascial flaps were then sewn together with a #1 Vicryl suture. The skin was then closed with a combination of 2-0 and 3-0 nylon suture in simple fashion. Leg was then cleaned dried and sterile dressing composed of Xeroform 4 x 4's ABD pad Kerlix wrap, sterile cast padding and Simón bandage were applied. Patient then brought out of general anesthesia and transferred to the recovery room in stable condition. Patient tolerated procedure well and there were no complications. I attest to the content of the Intraoperative Record and any orders documented therein. Any exceptions are noted below.
[2019-05-17] MEDS ORDERED: POTASSIUM CHLORIDE 20 MEQ TABCR PO STA (19:17)
[2019-05-17] MEDS: SENNA 8.6 MG TAB PO SCH (20:44)
[2019-05-17] MEDS: GABAPENTIN 300 MG CAP PO SCH (20:47)
[2019-05-17] MEDS: DOCUSATE SODIUM 100 MG CAP PO SCH (20:53)
[2019-05-18] MEDS: CEFAZOLIN 2000MG 2,000 MG/15 ML SYR IV SCH ×2 (00:02→08:59)
[2019-05-18] MEDS: SODIUM CHLORIDE 0.9% 1000ML 1,000 ML IV SCH (04:45)
[2019-05-18] MEDS: CEFAZOLIN 1000MG 1,000 MG/7.5 ML SYR IV SCH ×3 (04:45→21:03)
[2019-05-18 05:41] LABS: Hematocrit (blood only) 32.2 % (42-52); Hemoglobin 10.4 g/dL (14.0-18.0); Mean Corpuscular Hgb Conc 32.3 g/dL (32-36); Mean Corpuscular Volume 89.7 fL (80-100); Mean Platelet Volume 11.3 fL (7.4-10.4); Platelet Count 274 K/uL (130-400); RDW Coefficient of Variation 13.3 % (11.5-14.5); RDW Standard Deviation 43.5 fL (36.4-46.3); Red Blood Count 3.59 M/uL (4.7-6.1); White Blood Count 14.16 K/uL (4.8-10.8)
[2019-05-18] MEDS: HydrALAZINE 10 MG TAB PO SCH ×3 (05:59→21:05)
[2019-05-18 06:15] LABS: Potassium 4.5 mmol/L (3.5-5.1)
[2019-05-18 06:16] LABS: Albumin Level 1.9 gm/dl (3.4-5.0); BUN Creatinine Ratio 14.5 (10-20); Calcium 8.3 mg/dl (8.5-10.1); Est GFR (Non-African American) 69.9
[2019-05-18 06:23] LABS: Albumin Globulin Ratio 0.4 (0.9-2); Bilirubin,Total 0.5 mg/dl (0.2-1); Globulin 4.7 gm/dl (2.5-4.0); Thyroid Stimulating Hormone 1.45 uIu/ml (0.300-4.500); Total Protein 6.6 gm/dl (6.4-8.2)
[2019-05-18] MEDS: METOPROLOL SUCC 50MG EXT REL TAB PO SCH (08:54)
[2019-05-18] MEDS: ASCORBIC ACID 500 MG TAB PO SCH (08:54)
[2019-05-18] MEDS: SACCHAROMYCES BOULARDII 250 MG CAP PO SCH ×3 (08:54→21:05)
[2019-05-18] MEDS: TOCOPHERYL, DL-ALPHA 400 UNITS CAP PO SCH (08:54)
[2019-05-18] MEDS: MULTIVITAMIN TAB PO SCH (08:55)
[2019-05-18] MEDS: PANTOprazole 40 MG TAB PO SCH (08:55)
[2019-05-18] MEDS: INSULIN ASPART 100 UNITS/ML 3 ML PEN SC SCH ×4 (08:56→20:57)
[2019-05-18] MEDS: INSULIN GLARGINE SOLOSTAR 100 UNITS/ML 3 ML PEN SC SCH (08:56)
[2019-05-18] MEDS: DOCUSATE SODIUM 100 MG CAP PO SCH ×2 (08:59→21:06)
--- NOTE | 2019-05-18 09:32 | Pharmacy Report ---
Pharmacy Glycemic Short Note 2 - Date of Service May 18, 2019 - Glycemic Short BSG Results (Last 24 hours): 05/17/19 05/17/19 05/17/19 11:59 17:49 18:45 Glucose POC Glucose 135 H 127 H 125 H 05/17/19 05/18/19 05/18/19 20:14 05:29 08:11 Glucose 137 H POC Glucose 126 H 162 H Outpatient Anti-diabetic Regimen: * Glipizide 5 mg PO QAM, glipizide 2.5 mg PO qPM * HbA1c: 8.8% (05/12/19) ASSESSMENT: * Patient is POD #1 s/p left above knee amputation * BSGs well-controlled yesterday ranging 125-137 mg/dL * Patient received 8 units of insulin (all of which was basal) * Of note: patient was NPO most of yesterday due to surgery PLAN FOR INPATIENT GLYCEMIC CONTROL: * Hold outpatient oral diabetes medications * Basal insulin * Continue Lantus 8 units qAM * Bolus insulin - continue current parameters today * NovoLog per scale ACHS or Q6hrs while NPO * Goal Range: Low 120 mg/dL - High 160 mg/dL * Correction Factor: 30 mg/dL/unit * Nutritional / Prandial insulin per carb ratio of 1 unit per 10 grams CHO consumed DISCHARGE: * HbA1c of 8.8% is above goal (a reasonable goal for most adults is less than 7% - less than 8% may be reasonable in this patient based on age and comorbidities). * If patient has no history of intolerance to metformin - would recommend initiating metformin XR 500 mg PO daily with evening meal * Continue to titrate metformin dosing upwards as recommended. Dosage increases should be made in increments of 500 mg weekly, up to 2,000 mg/day PO, given in divided doses. * Metformin is effective and safe, is inexpensive, and may reduce risk of cardiovascular events and . It is also considered first-line for treatment of type 2 diabetes mellitus. * Estimated GFR > 45 mL/min * Continue current outpatient glipizide regimen - may consider increasing glipizide to 5 mg PO BID if patient agreeable * Support Patient Self-Management * Healthy Lifestyle (diet, exercise, and smoking cessation) * Disease self-management (SMBG) * Prevention of complications (BP, Lipid goals, Immunizations) * Consider outpatient Diabetes Self-Management Education & Support
--- NOTE | 2019-05-18 09:56 | Anesthesiology Progress Note ---
Date of Service May 18, 2019 Anesthesia Post Procedure Vital Signs Vital Signs: Temp Pulse Pulse Pulse Resp BP Pulse Ox 05/18/19 07:52 05/18/19 07:38 37.3 C 101 H 18 162/78 H 93 05/18/19 05:54 94 H 148/80 H 05/18/19 03:31 36.7 C 94 H 18 155/90 H 93 05/18/19 00:05 05/17/19 23:09 36.7 C 79 16 156/90 H 94 05/17/19 20:14 36.4 C L 77 16 145/79 H 95 05/17/19 19:20 36.2 C L 76 16 142/83 H 99 05/17/19 18:55 36.2 C L 75 16 142/83 H 100 05/17/19 18:24 36.2 C L 73 16 136/82 98 05/17/19 18:05 36.6 C 79 18 131/77 99 05/17/19 17:55 79 18 132/72 94 05/17/19 17:45 85 18 127/82 99 05/17/19 17:35 36.0 C L 83 17 120/89 97 05/17/19 14:46 37.5 C 76 20 165/84 H 92 Pulse Ox 05/18/19 07:52 93 05/18/19 07:38 05/18/19 05:54 05/18/19 03:31 05/18/19 00:05 94 05/17/19 23:09 05/17/19 20:14 05/17/19 19:20 05/17/19 18:55 05/17/19 18:24 05/17/19 18:05 05/17/19 17:55 05/17/19 17:45 05/17/19 17:35 05/17/19 14:46 Pain Intensity Generalized: Pain Intensity: 0 Left Knee: Pain Intensity: 0 Notes Mental Status: alert / awake / arousable and participated in evaluation Nausea / Vomiting: adequately controlled Pain: adequately controlled Airway Patency, RR, SpO2: stable & adequate BP & HR: stable & adequate Hydration State: stable & adequate Anesthetic Complications: no major complications apparent
[2019-05-18] MEDS: LISINOPRIL 2.5 MG TAB PO SCH (13:23)
--- NOTE | 2019-05-18 14:51 | Hospitalist Progress Note ---
Date of Service May 18, 2019 Assessment & Plan (1) Above knee amputation of left lower extremity: * POD #1 s/p L AKA today with Dr. Givens for infection in the crease of left knee just above the BKA stump. CT left knee on 05/13 showed a 2.1cm abscess. * EBL 200cc. * Wound culture growing 2 species of MSSA. * On Cefazolin currently -- per conversation with ID, rec keflex 500mg BID x 14 days and follow-up (2) Cellulitis of knee, left: * Improved * As above (3) Hypertension: * Elevated- 162/78 this morning * Continue home metoprolol, hydralazine * Initiated lisinopril given HTN and DM with no clear contraindications at this time (4) Diabetes mellitus type 2 with complications: * Uncontrolled-- A1c is 8.8% this admission, however patient only on monotherapy with glipizide as outpatient (was increased to 5mg twice daily in August 2018) * Continue long-acting and insulin sliding scale * Glycemic pharm following * Will need diabetic education. * Continue gabapentin * Initiated lisinopril for HTN given hx DM * May need addition of metformin at discharge for better control -- patient agreeable (5) Stage III chronic kidney disease: * Stable * Baseline Cr ~ 1.1- 1.3, eGFR ~50. * Currently, cr 1.01 * Continue to monitor (6) Tachycardia: * Resolved * EKG on 05/13 indicated sinus tachycardia vs. atrial flutter. Possible burst of aflutter occurred on 05/14 around 5am. Back in NSR by noon 05/14. * Echo on 05/13 showed mild LVH, EF 50%, mild aortic sclerosis. * Rate controlled with metop XL increased to 50mg PO daily * Chemical anticoagulation held yesterday for surgery, SCDs in place * Cardiology consult -- no need for holter/loop recorder at this time as patient with likely ectopic atrial tachy- if recurs, would re-evaluate * TSH wnl * Currently 81bpm (7) Sepsis: * SIRS 2/4 (tachycardia and leukocytosis) with source of infection. * As above, now resolved (8) Multiple sclerosis: * Per medication list, not on any treatment at present. * Monitor for any MS flare * No inpatient needs at present (9) DVT prophylaxis: * Lovenox 40mg daily * SCDs Dispo- possible discharge in AM on oral Keflex per ID Supervising Physician Co-Signing Physician Notes PA Supervision Note: I did not personally see or examine the patient today, but I verified all butcher points of LISSY Zamudio's assessment and plan with the following exceptions/additions: Hopeful for discharge to home tomorrow if ok with Orthopedics Leukocytosis today just post-op stress response, remains afebrile Subjective Patient evaluated in bed this morning. He states his pain is much improved. He states he feels much better and is hopeful to be discharged home when able. When further questioned about elevated blood pressure and recommendations to start low dose lisinopril, patient and daughter at bedside agreeable at this time. He would also like to reach out to granddaughter to see about possible metformin, as she gets his medications ready for him at home and may have seen that medication at some point in the past. Review of Systems Constitutional: no fever and no chills Ear, Nose, Mouth, Throat: no sore throat and no dysphagia Respiratory: no cough and no dyspnea Cardiovascular: no chest pain and no edema Gastrointestinal: no abdominal pain, no nausea, no vomiting, no constipation and no diarrhea/loose stools Genitourinary: no dysuria and no hematuria Musculoskeletal: tolerable pain R knee Neurologic: Right sided weakness from MS Physical Exam Constitutional: WD/WN, vitals as above no acute distress Neck: trachea midline, no thyromegaly Respiratory: normal respiratory effort, lungs clear to auscultation Cardiovascular: RRR, no murmur, no edema Gastrointestinal (Abdomen): normal bowel sounds, soft, nontender, no hepatosplenomegaly Musculoskeletal: Left AKA. Dressing c/d/i. No evidence of erythema/streaking. Non tender Neurologic: PERRL, EOMI, accommodation nl, no face palsy, no dysarthria Right sided weakness - MS Psychiatric: Orientation: alert, oriented to person and oriented to time Lymphatic: no cervical or axillary lymphadenopathy Results & Data Vital Signs (Past 12 Hours) Vital Signs Temp Pulse Pulse Resp BP Pulse Ox Pulse Ox 05/18/19 11:32 36.6 C 89 16 116/74 94 05/18/19 07:52 93 05/18/19 07:38 37.3 C 101 H 18 162/78 H 93 05/18/19 05:54 94 H 148/80 H 05/18/19 03:31 36.7 C 94 H 18 155/90 H 93 Laboratory Results 05/18/19 05/18/19 05/18/19 Range/Units 12:15 08:11 05:29 WBC 14.16 H (4.8-10.8) K/uL RBC 3.59 L (4.7-6.1) M/uL Hgb 10.4 L (14.0-18.0) g/dL Hct 32.2 L (42-52) % MCV 89.7 (80-100) fL MCH 29.0 (25-34) pg MCHC 32.3 (32-36) g/dL RDW Std Deviation 43.5 (36.4-46.3) fL RDW Coeff of Giuliana 13.3 (11.5-14.5) % Plt Count 274 (130-400) K/uL MPV 11.3 H (7.4-10.4) fL Sodium (136-145) mmol/L Potassium (3.5-5.1) mmol/L Chloride (98-107) mmol/L Carbon Dioxide (21-32) mmol/L Anion Gap (3-11) BUN (7-18) mg/dl Creatinine (0.6-1.4) mg/dl Est Cr Clr Drug Dosing ml/min Est GFR ( Amer) Est GFR (Non-Af Amer) BUN/Creatinine Ratio (10-20) Glucose (70-99) mg/dl POC Glucose 169 H 162 H (70-99) Calcium (8.5-10.1) mg/dl Total Bilirubin (0.2-1) mg/dl AST (15-37) U/L ALT (12-78) U/L Alkaline Phosphatase (45-117) U/L Total Protein (6.4-8.2) gm/dl Albumin (3.4-5.0) gm/dl Globulin (2.5-4.0) gm/dl Albumin/Globulin Ratio (0.9-2) TSH (0.300-4.500) uIu/ml 05/18/19 05/17/19 05/17/19 Range/Units 05:29 20:14 18:45 WBC (4.8-10.8) K/uL RBC (4.7-6.1) M/uL Hgb (14.0-18.0) g/dL Hct (42-52) % MCV (80-100) fL MCH (25-34) pg MCHC (32-36) g/dL RDW Std Deviation (36.4-46.3) fL RDW Coeff of Giuliana (11.5-14.5) % Plt Count (130-400) K/uL MPV (7.4-10.4) fL Sodium 138 (136-145) mmol/L Potassium 4.5 D (3.5-5.1) mmol/L Chloride 105 (98-107) mmol/L Carbon Dioxide 22 (21-32) mmol/L Anion Gap 11.0 (3-11) BUN 15 (7-18) mg/dl Creatinine 1.01 (0.6-1.4) mg/dl Est Cr Clr Drug Dosing 64.0 ml/min Est GFR ( Amer) 81.0 Est GFR (Non-Af Amer) 69.9 BUN/Creatinine Ratio 14.5 (10-20) Glucose 137 H (70-99) mg/dl POC Glucose 126 H 125 H (70-99) Calcium 8.3 L (8.5-10.1) mg/dl Total Bilirubin 0.5 (0.2-1) mg/dl AST 17 (15-37) U/L ALT 12 (12-78) U/L Alkaline Phosphatase 74 (45-117) U/L Total Protein 6.6 (6.4-8.2) gm/dl Albumin 1.9 L (3.4-5.0) gm/dl Globulin 4.7 H (2.5-4.0) gm/dl Albumin/Globulin Ratio 0.4 L (0.9-2) TSH 1.450 (0.300-4.500) uIu/ml 05/17/19 Range/Units 17:49 WBC (4.8-10.8) K/uL RBC (4.7-6.1) M/uL Hgb (14.0-18.0) g/dL Hct (42-52) % MCV (80-100) fL MCH (25-34) pg MCHC (32-36) g/dL RDW Std Deviation (36.4-46.3) fL RDW Coeff of Giuliana (11.5-14.5) % Plt Count (130-400) K/uL MPV (7.4-10.4) fL Sodium (136-145) mmol/L Potassium (3.5-5.1) mmol/L Chloride (98-107) mmol/L Carbon Dioxide (21-32) mmol/L Anion Gap (3-11) BUN (7-18) mg/dl Creatinine (0.6-1.4) mg/dl Est Cr Clr Drug Dosing ml/min Est GFR ( Amer) Est GFR (Non-Af Amer) BUN/Creatinine Ratio (10-20) Glucose (70-99) mg/dl POC Glucose 127 H (70-99) Calcium (8.5-10.1) mg/dl Total Bilirubin (0.2-1) mg/dl AST (15-37) U/L ALT (12-78) U/L Alkaline Phosphatase (45-117) U/L Total Protein (6.4-8.2) gm/dl Albumin (3.4-5.0) gm/dl Globulin (2.5-4.0) gm/dl Albumin/Globulin Ratio (0.9-2) TSH (0.300-4.500) uIu/ml PG Care Time/CCT Total # of Minutes Spent Total Time Spent with Patient: Total time spent is greater than 50% in coordination of care (as documented) at patient's floor/unit and/or counseling patient:
--- NOTE | 2019-05-18 15:37 | Infectious Disease Progress Nt ---
Date of Service May 18, 2019 Assessment & Plan (1) Abscess of left knee: Present illness is a patient with left knee infection is now status post left AKA. Given that site of infection has been removed and blood cultures were negative, think the patient can transition to oral antibiotic change recommend cephalexin 500 mg 4 times daily for 14 days. Discussed with hospitalist. Will follow. (2) Above knee amputation of left lower extremity: (3) Staph aureus infection: Subjective Patient seen in follow-up for left ear infection. He is now status post above- knee amputation, appears comfortable, pain is reasonably well controlled. Remains afebrile. Blood cultures remain negative. Review of Systems Review of Systems: All systems reviewed & are unremarkable except as noted in HPI & below Physical Exam Constitutional: WD/WN, vitals as above comfortable; no acute distress Eyes: PERRL, conjunctivae normal, anicteric sclerae ENMT: external ear and nose normal, oropharynx normal Neck: trachea midline, no thyromegaly neck nontender Respiratory: normal respiratory effort, lungs clear to auscultation normal percussion; does not use accessory muscles Cardiovascular: Rate/Rhythm: regular rate and regular rhythm Heart Sounds: normal S1 and normal S2; no gallop, no murmur and no cardiac rub Vessels: normal peripheral pulses; no JVD Gastrointestinal (Abdomen): normal bowel sounds, soft, nontender, no hepatosplenomegaly Musculoskeletal: no cyanosis or clubbing, extremities motor strength 5/5 Spine: thoracic spine normal to inspection and lumbar spine normal to inspection; no cervical spinal tenderness Skin: no rashes, warm and dry normal turgor and + wound (Surgical dressing intact left leg) Neurologic: patellar DTR's 2+ bilat, sensation intact no focal motor deficits Psychiatric: A+Ox3, euthymic affect Orientation: cooperative Lymphatic: no cervical or axillary lymphadenopathy no inguinal lymphadenopathy Results & Data Vital Signs (Past 12 Hours) Vital Signs Temp Pulse Pulse Resp BP Pulse Ox Pulse Ox 05/18/19 15:20 36.6 C 81 16 116/72 92 05/18/19 11:32 36.6 C 89 16 116/74 94 05/18/19 07:52 93 05/18/19 07:38 37.3 C 101 H 18 162/78 H 93 05/18/19 05:54 94 H 148/80 H Laboratory Results Short CBC 05/18/19 Range/Units 05:29 WBC 14.16 H (4.8-10.8) K/uL Hgb 10.4 L (14.0-18.0) g/dL Hct 32.2 L (42-52) % Plt Count 274 (130-400) K/uL BMP 05/18/19 05:29 Sodium 138 Potassium 4.5 D Chloride 105 Carbon Dioxide 22 BUN 15 Creatinine 1.01 Glucose 137 H Calcium 8.3 L Liver Function 05/18/19 Range/Units 05:29 Total Bilirubin 0.5 (0.2-1) mg/dl AST 17 (15-37) U/L ALT 12 (12-78) U/L Alkaline Phosphatase 74 (45-117) U/L Albumin 1.9 L (3.4-5.0) gm/dl Diagnostic Findings Microbiology 05/12/19 11:22 Blood Aerobic Blood Culture - Final No growth in Aerobic bottle after 5 days. 05/12/19 11:22 Blood Anaerobic Blood Culture - Final No growth in Anaerobic bottle after 5 days. 05/12/19 11:26 Blood Aerobic Blood Culture - Final No growth in Aerobic bottle after 5 days. 05/12/19 11:26 Blood Anaerobic Blood Culture - Final No growth in Anaerobic bottle after 5 days. 05/15/19 02:50 Leg,Left Fungal Smear - Final 05/15/19 02:50 Leg,Left Fungal Culture - Preliminary No yeast or fungus isolated - Report 1, Additional Report to Follow. 05/12/19 11:56 Knee,Left Gram Stain - Final 05/12/19 11:56 Knee,Left Deep Wound Culture - Final Staphylococcus aureus Staphylococcus aureus#2 PG Care Time/CCT Total # of Minutes Spent Total Time Spent with Patient: Total time spent is greater than 50% in coordination of care (as documented) at patient's floor/unit and/or counseling patient:
[2019-05-18] MEDS: GABAPENTIN 300 MG CAP PO SCH (21:04)
[2019-05-18] MEDS: SENNA 8.6 MG TAB PO SCH (21:05)
[2019-05-19] MEDS: CEFAZOLIN 1000MG 1,000 MG/7.5 ML SYR IV SCH (04:40)
[2019-05-19] MEDS: HydrALAZINE 10 MG TAB PO SCH (06:04)
[2019-05-19 06:23] LABS: Hematocrit (blood only) 29.6 % (42-52); Hemoglobin 9.5 g/dL (14.0-18.0); Mean Corpuscular Hgb Conc 32.1 g/dL (32-36); Mean Corpuscular Volume 90.2 fL (80-100); Mean Platelet Volume 11.4 fL (7.4-10.4); Platelet Count 316 K/uL (130-400); RDW Coefficient of Variation 13.6 % (11.5-14.5); RDW Standard Deviation 44.8 fL (36.4-46.3); Red Blood Count 3.28 M/uL (4.7-6.1); White Blood Count 14.32 K/uL (4.8-10.8)
[2019-05-19 06:43] LABS: BUN Creatinine Ratio 15.3 (10-20); Calcium 8.3 mg/dl (8.5-10.1); Creatinine Clr Calc Pharmacy 51.7 ml/min; Est GFR (African American) 62.6
[2019-05-19] MEDS: ENOXAPARIN INJ 40 MG/0.4 ML SYR SQ SCH (09:04)
[2019-05-19] MEDS: TOCOPHERYL, DL-ALPHA 400 UNITS CAP PO SCH (09:05)
[2019-05-19] MEDS: LISINOPRIL 2.5 MG TAB PO SCH (09:05)
[2019-05-19] MEDS: METOPROLOL SUCC 50MG EXT REL TAB PO SCH (09:05)
[2019-05-19] MEDS: PANTOprazole 40 MG TAB PO SCH (09:05)
[2019-05-19] MEDS: ASCORBIC ACID 500 MG TAB PO SCH (09:05)
[2019-05-19] MEDS: SACCHAROMYCES BOULARDII 250 MG CAP PO SCH ×3 (09:05→21:43)
[2019-05-19] MEDS: MULTIVITAMIN TAB PO SCH (09:06)
[2019-05-19] MEDS: INSULIN ASPART 100 UNITS/ML 3 ML PEN SC SCH ×4 (09:07→21:48)
[2019-05-19] MEDS: INSULIN GLARGINE SOLOSTAR 100 UNITS/ML 3 ML PEN SC SCH (09:08)
[2019-05-19] MEDS: cephALEXin 500 MG CAP PO SCH ×2 (09:11→21:44)
[2019-05-19] MEDS: DOCUSATE SODIUM 100 MG CAP PO SCH ×2 (09:11→21:43)
[2019-05-19] MEDS: MAGNESIUM HYDROXIDE SUSP 30 ML UDC PO PRN (14:08)
--- NOTE | 2019-05-19 16:12 | Hospitalist Progress Note ---
Date of Service May 19, 2019 Assessment & Plan (1) Above knee amputation of left lower extremity: * Stable * POD #2 s/p L AKA today with Dr. Givens for infection in the crease of left knee just above the BKA stump. CT left knee on 05/13 showed a 2.1cm abscess. EBL 200cc post-operatively * EBL 200cc. * Wound culture growing 2 species of MSSA * Transitioned to Keflex PO today- per conversation with ID, will continue 500mg QID x 14 days (to be completed on 06/02) (2) Cellulitis of knee, left: * Resolved * As above (3) Hypertension: * Improved, stable * Had been persistently elevated up to 183/87 and 162/78 on 05/19 * Had previously been on metoprolol, hydralazine-- per patient, he had been taking hydralazine only TWICE a day, and not three times a day * Initiated on Lisinopril 2.5mg yesterday with nice reduction of BP to 128/66 this morning * Discontinued hydralazine - patient without complaints of CP * BP currently 123/72 (4) Constipation: * Has not had BM x 1 wk * Senna/Doc + Miralax * Will re-evaluate in AM (5) Diabetes mellitus type 2 with complications: * Uncontrolled-- A1c is 8.8% this admission, however patient only on monotherapy with glipizide as outpatient (was increased to 5mg twice daily in August 2018) * Continue long-acting and insulin sliding scale * Glycemic pharm following * Will need diabetic education. * Continue gabapentin * Initiated lisinopril for HTN given hx DM * Will initiate metformin 500mg BID at discharge for better control -- will need repeat A1c in 3 months. (6) Stage III chronic kidney disease: * Stable * Baseline Cr ~ 1.1- 1.3, eGFR ~50. * Currently, cr 1.25 from 1.01 * Continue to monitor (7) Tachycardia: * Resolved * EKG on 05/13 indicated sinus tachycardia vs. atrial flutter. Possible burst of aflutter occurred on 05/14 around 5am. Back in NSR by noon 05/14. Echo on 05/13 showed mild LVH, EF 50%, mild aortic sclerosis. * Rate controlled with metop XL increased to 50mg PO daily * Chemical anticoagulation restarted following surgery * SCD in place * Cardiology consult during this admission-- after discussion, no need for holter/loop recorder at this time as patient with likely ectopic atrial tachy- if recurs, would re-evaluate * TSH wnl * Currently 76bpm (8) Sepsis: * SIRS 2/4 (tachycardia and leukocytosis) with source of infection. * As above, now resolved (9) Multiple sclerosis: * Per medication list, not on any treatment at present. * Monitor for any MS flare * No inpatient needs at present (10) DVT prophylaxis: * Lovenox 40mg daily * SCDs Dispo- discharge in AM to home. Will need oral Keflex x 14 days per ID, follow- up with PCP/ID. Supervising Physician Co-Signing Physician Notes PA Supervision Note: I did not personally see or examine the patient today, but I verified all butcher points of LISSY Zamudio's assessment and plan with the following exceptions/additions: none Subjective Patient evaluated at bedside this morning. He states he feels ok. His pain is much better although he states he "wishes my muscle spasms would stop". Denies abdominal pain but states he has not had a bowel movement in approximately a week. He is fairly regular, once a day up to two days max. Denies nausea or vomiting. Agreeable to initiate metformin as outpatient for further management of his diabetes, and had tolerated lisinopril well. Denies lightheadedness, blurred vision, fatigue. Review of Systems Constitutional: no fever and no chills Ear, Nose, Mouth, Throat: no sore throat and no dysphagia Respiratory: no cough and no dyspnea Cardiovascular: no chest pain, no palpitations and no edema Gastrointestinal: + constipation; no abdominal pain, no nausea and no vomiting Genitourinary: no dysuria and no hematuria Musculoskeletal: spasms to left stump Integumentary: no rash and no lesions Physical Exam Constitutional: WD/WN, vitals as above no acute distress Eyes: PERRL, conjunctivae normal, anicteric sclerae ENMT: top dentures Neck: trachea midline, no thyromegaly Respiratory: normal respiratory effort, lungs clear to auscultation Cardiovascular: RRR, no murmur, no edema Gastrointestinal (Abdomen): Inspection/Auscultation: + hypoactive bowel sounds Percussion/Palpation: abdomen soft; abdomen nontender, no guarding and abdomen not rigid Musculoskeletal: L AKA -- dressing c/d/i Neurologic: RUE weakness, unchanged Lymphatic: no cervical or axillary lymphadenopathy Results & Data Vital Signs (Past 12 Hours) Vital Signs Temp Pulse Pulse Resp BP Pulse Ox Pulse Ox 05/19/19 07:50 97 05/19/19 07:45 36.6 C 76 14 100/58 L 96 05/19/19 06:45 94 05/19/19 06:01 90 14 128/66 82 L Laboratory Results 05/19/19 05/19/19 05/19/19 Range/Units 12:03 08:31 05:41 WBC (4.8-10.8) K/uL RBC (4.7-6.1) M/uL Hgb (14.0-18.0) g/dL Hct (42-52) % MCV (80-100) fL MCH (25-34) pg MCHC (32-36) g/dL RDW Std Deviation (36.4-46.3) fL RDW Coeff of Giuliana (11.5-14.5) % Plt Count (130-400) K/uL MPV (7.4-10.4) fL Sodium 136 (136-145) mmol/L Potassium 4.0 (3.5-5.1) mmol/L Chloride 104 (98-107) mmol/L Carbon Dioxide 27 (21-32) mmol/L Anion Gap 5.0 (3-11) BUN 19 H (7-18) mg/dl Creatinine 1.25 (0.6-1.4) mg/dl Est Cr Clr Drug Dosing 51.7 ml/min Est GFR ( Amer) 62.6 Est GFR (Non-Af Amer) 54.0 BUN/Creatinine Ratio 15.3 (10-20) Glucose 90 (70-99) mg/dl POC Glucose 165 H 124 H (70-99) Calcium 8.3 L (8.5-10.1) mg/dl 05/19/19 05/18/19 05/18/19 Range/Units 05:41 20:38 17:15 WBC 14.32 H (4.8-10.8) K/uL RBC 3.28 L (4.7-6.1) M/uL Hgb 9.5 L (14.0-18.0) g/dL Hct 29.6 L (42-52) % MCV 90.2 (80-100) fL MCH 29.0 (25-34) pg MCHC 32.1 (32-36) g/dL RDW Std Deviation 44.8 (36.4-46.3) fL RDW Coeff of Giuliana 13.6 (11.5-14.5) % Plt Count 316 (130-400) K/uL MPV 11.4 H (7.4-10.4) fL Sodium (136-145) mmol/L Potassium (3.5-5.1) mmol/L Chloride (98-107) mmol/L Carbon Dioxide (21-32) mmol/L Anion Gap (3-11) BUN (7-18) mg/dl Creatinine (0.6-1.4) mg/dl Est Cr Clr Drug Dosing ml/min Est GFR ( Amer) Est GFR (Non-Af Amer) BUN/Creatinine Ratio (10-20) Glucose (70-99) mg/dl POC Glucose 108 H 108 H (70-99) Calcium (8.5-10.1) mg/dl PG Care Time/CCT Total # of Minutes Spent Total Time Spent with Patient: Total time spent is greater than 50% in coordination of care (as documented) at patient's floor/unit and/or counseling patient:
--- NOTE | 2019-05-19 17:55 | Progress Note ---
DATE: 05/19/2019 SUBJECTIVE: An 78-year-old gentleman postop day 2 from a left above-knee amputation for chronic infection. He is doing well. Denies any significant leg pain. OBJECTIVE: VITAL SIGNS: Temperature 37.4. Vital signs stable. EXTREMITIES: Physical examination of the left leg reveals the incision to be well approximated. There is minimal drainage. Wound edges look viable. No signs of problems. LABORATORY DATA: Hemoglobin is 9.5. Hematocrit is 29.6, white cells still slightly elevated at 14. Electrolytes are stable. ASSESSMENT: An 78-year-old gentleman with multiple medical comorbidities, now 2 days out from a left above-knee amputation for chronic infection. His leg looks good. The stump incision looks good. He is orthopedically okay for discharge any time from my standpoint. The infection standpoint from the orthopedic point of view, we would recommend 24 hours postop and then should not really need it after that. PLAN: We will defer to Infectious Disease recommendations. I need to see him back somewhere between 2-3 weeks postop. Any orthopedic questions can be directed to me at [phone].
[2019-05-19] MEDS: DOCUSATE SODIUM/SENNA 50/8.6MG TAB PO SCH (18:45)
[2019-05-19] MEDS: POLYETHYLENE (MIRALAX) 17 GM PACK PO SCH (18:46)
[2019-05-19] MEDS ORDERED: HydrALAZINE 10 MG TAB PO SCH (21:00)
[2019-05-19] MEDS ORDERED: LACTATED RINGER'S 1,000 ML IV SCH (21:30)
[2019-05-19] MEDS: GABAPENTIN 300 MG CAP PO SCH (21:43)
[2019-05-19] MEDS: SENNA 8.6 MG TAB PO SCH (21:44)
[2019-05-20 05:25] LABS: Hematocrit (blood only) 27.4 % (42-52); Hemoglobin 8.6 g/dL (14.0-18.0); Mean Corpuscular Hemoglobin 28.7 pg (25-34); Mean Corpuscular Hgb Conc 31.4 g/dL (32-36); Mean Corpuscular Volume 91.3 fL (80-100); Mean Platelet Volume 11.5 fL (7.4-10.4); Platelet Count 304 K/uL (130-400); RDW Coefficient of Variation 13.7 % (11.5-14.5); RDW Standard Deviation 45.3 fL (36.4-46.3); White Blood Count 10.97 K/uL (4.8-10.8)
[2019-05-20 05:50] LABS: BUN Creatinine Ratio 19.1 (10-20); Calcium 8.2 mg/dl (8.5-10.1); Creatinine Clr Calc Pharmacy 50.9 ml/min; Est GFR (African American) 61.4
--- NOTE | 2019-05-20 08:35 | Progress Note ---
DATE: 05/20/2019 SUBJECTIVE: An 78-year-old gentleman postop day 3 from left above-knee amputation for chronic infection. He seems to be doing well. Denies any pain this morning. OBJECTIVE: VITAL SIGNS: Temperature 36.8. Vital signs stable. GENERAL: Pleasant elderly male. He is awake, alert and oriented and appropriate. EXTREMITIES: Examination of the left leg reveals the dressing to be clean, dry and intact. No significant drainage. No signs of infection. ASSESSMENT: An 78-year-old gentleman postop day 3 from left above-knee amputation for chronic infections in his lower extremity. Orthopedically seems to be doing well. The wound seems to be well approximated without signs of drainage or problems. It certainly is difficult with wound care with this short lower extremity stump. PLAN: 1. DVT prophylaxis as per the medicine service. From the orthopedic standpoint, no role needed as he is not any lesser mobile than he was beforehand. 2. PT/OT. Certainly could benefit from some transfer instructions. 3. Routine wound care. This is a bit of a difficult wound to manage. May want to consult the wound nurse for some assistance. 4. Disposition: He is orthopedically okay for discharge any time. I need to see him back in 2-3 weeks from a surgery date. Any orthopedic questions can be directed to me at [phone]. [facility]
[2019-05-20] MEDS: LISINOPRIL 2.5 MG TAB PO SCH (08:53)
[2019-05-20] MEDS: METOPROLOL SUCC 50MG EXT REL TAB PO SCH (08:53)
[2019-05-20] MEDS: SACCHAROMYCES BOULARDII 250 MG CAP PO SCH ×3 (08:53→21:47)
[2019-05-20] MEDS: DOCUSATE SODIUM/SENNA 50/8.6MG TAB PO SCH (08:53)
[2019-05-20] MEDS: TOCOPHERYL, DL-ALPHA 400 UNITS CAP PO SCH (08:54)
[2019-05-20] MEDS: PANTOprazole 40 MG TAB PO SCH (08:54)
[2019-05-20] MEDS: MULTIVITAMIN TAB PO SCH (08:54)
[2019-05-20] MEDS: cephALEXin 500 MG CAP PO SCH ×2 (08:54→21:47)
[2019-05-20] MEDS: ASCORBIC ACID 500 MG TAB PO SCH (08:54)
[2019-05-20] MEDS: ENOXAPARIN INJ 40 MG/0.4 ML SYR SQ SCH (08:55)
[2019-05-20] MEDS: INSULIN ASPART 100 UNITS/ML 3 ML PEN SC SCH ×4 (08:56→21:49)
[2019-05-20] MEDS: INSULIN GLARGINE SOLOSTAR 100 UNITS/ML 3 ML PEN SC SCH (08:57)
[2019-05-20] MEDS: DOCUSATE SODIUM 100 MG CAP PO SCH ×2 (09:03→21:44)
[2019-05-20] MEDS: POLYETHYLENE (MIRALAX) 17 GM PACK PO SCH (09:03)
[2019-05-20] MEDS: MAGNESIUM HYDROXIDE SUSP 30 ML UDC PO PRN (10:17)
[2019-05-20] MEDS ORDERED: BISACODYL 10 MG SUPP PR ONE (10:20)
[2019-05-20] MEDS ORDERED: MAGNESIUM CITRATE 296 ML/BTL PO STA (13:00)
[2019-05-20 13:23] LABS: Hematocrit (blood only) 27.1 % (42-52); Hemoglobin 8.6 g/dL (14.0-18.0); Mean Corpuscular Hemoglobin 28.6 pg (25-34); Mean Corpuscular Hgb Conc 31.7 g/dL (32-36); Mean Platelet Volume 10.5 fL (7.4-10.4); Platelet Count 309 K/uL (130-400); RDW Coefficient of Variation 13.5 % (11.5-14.5); RDW Standard Deviation 44.9 fL (36.4-46.3); Red Blood Count 3.01 M/uL (4.7-6.1); White Blood Count 10.97 K/uL (4.8-10.8)
--- NOTE | 2019-05-20 15:38 | Discharge Summary ---
Date of Service May 21, 2019 Discharge Data Allergies Allergy/AdvReac Type Severity Reaction Status Date / Time Cipro Allergy Mild HIVES Verified 02/20/18 11:35 ciprofloxacin Allergy Mild HIVES Verified 05/12/19 12:16 Consultations 05/12/19 12:17 ED Decision to Admit Stat 05/12/19 14:10 Consult Infectious Diseases Routine 05/13/19 15:21 Consult Orthopedic Surgery Routine 05/13/19 15:57 Consult Wound Care Provider Routine 05/17/19 14:16 Consult Cardiology Routine 05/17/19 18:26 Consult Case Management - Discharge Planning Routine Procedures Performed Operation Date: 05/17/19 09:10 Actual Procedures p Left Above Knee Amputation Leg(Left) - Shelton Givens MD Ordered Studies 05/13/19 11:46 CT knee LT w con Urgent Discharge Plan Discharge Items Patient Disposition: Home - Self-Care Reason For Visit: SEPSIS Discharge Diagnosis: Left Above-knee amputation Goals: You have been hospitalized for an urgent problem which required surgery. During your stay at [facility], we have made an effort to correct the problem that brought you to the hospital while keeping you as comfortable as possible. Surgery and medications were used to bring your condition under control and your discharge instructions will include directions for any medications you should take after leaving the hospital. Please make sure to follow the advice of your surgeon regarding follow up with the surgeon and with your primary care provider. Activity: Resume your previous activity Non-emergency contact: Primary Care Provider and Surgeon Call non-emergency contact if: you have any medication questions, your symptoms worsen, your pain is not controlled, you have a fever, your wound has increased redness, your wound has increased drainage and your wound pain has increased Follow-up/Referrals: Thierry Ramsay MD [Primary Care Provider] - Omayra Cintron CRNP, MS, COMBAT SYSTEMS OPERATOR-C [Nurse Practitioner] - 05/25/19 9:00 am (A follow up appt. has been made with EARLINE Canales on 05/25 at 9:00am.) Shelton Givens MD [Physician] - (Orthopedic Follow-up 2-3 weeks from surgery date.) Diet: Carb Consistent or DM2 and Heart Healthy Ambulatory Orders: Complete Blood Count no Diff (Timed) Timeframe: 1 Day Location: Determined by Patient Ordered By: April Acuna Attending Provider Instructions: The following medication changes have been made: --- Your METOPROLOL was increased from 25mg daily to 50mg daily for better heart rate control --- You have been STARTED on LISINOPRIL for your blood pressure and your HYDRALAZINE has been DISCONTINUED --- You have been STARTED on METFORMIN for your diabetes in addition to the glipizide you usually take -- you will need a repeat A1c level in 3 months as an outpatient --- You have been give a prescription for KEFLEX (CEPHALEXIN) as per recommendations from Infectious Disease to be taken for a total of two weeks. -- You should also HOLD YOUR IRON SUPPLEMENTATION, given recent constipation. You may restart after seen by your primary care provider. Please continue to wear your CPAP at night and for naps throughout the day. It is also recommended that you follow up with Dr. Givens in the next 2-3 weeks. His office number is [phone]. It is recommended that you follow up with wound care -- home health may be able to address needs, but would recommend calling the wound care clinic to have routine follow-up. --Please have a CBC done tomorrow, drawn by home health. Please return to the emergency room if your pain worsens, you develop a fever or for any symptoms that are concerning for you. Armand Chargeback Analyst Provider Instructions: ACTIVITY RECOMMENDATIONS: You may resume your previous activity. SPECIAL CARE INSTRUCTIONS: Call your doctor if: * Temperature above 101 degrees * Pain not relieved by pain medicine * There is increased drainage or redness from any incision * You have any unanswered questions or concerns. Pending Studies at Discharge: No Stand-Alone Forms: My [facility] Medications and DC Order Prescriptions: New metoprolol succinate 50 mg Tablet Extended Release 24 Hr 50 mg PO DAILY 30 Days Qty: 30 RF: 0 cephalexin 500 mg Capsule 500 mg PO QID 30 Days Qty: 120 RF: 0 lisinopril 2.5 mg Tablet 2.5 mg PO QAM 30 Days Qty: 30 RF: 0 metformin 500 mg tablet 500 mg PO BID 30 Days Qty: 60 RF: 0 Continued aspirin [Adult Low Dose Aspirin] 81 mg tablet,delayed release (DR/EC) 81 mg PO DAILY RF: 0 cyanocobalamin (vitamin B-12) 2,500 mcg tablet 2,500 mcg PO DAILY RF: 0 simvastatin [Zocor] 40 mg tablet 40 mg PO QPM RF: 0 polyethylene glycol 3350 [GlycoLax] 17 gram/dose powder 17 gm PO DAILY PRN (Reason: Constipation) RF: 0 Saccharomyces boulardii [Florastor] 250 mg capsule 250 mg PO BID RF: 0 vitamin E (dl, acetate) 400 unit capsule 400 units PO DAILY RF: 0 ascorbic acid (vitamin C) 500 mg capsule 500 mg PO DAILY RF: 0 gabapentin [Neurontin] 300 mg capsule 300 mg PO HS RF: 0 ergocalciferol (vitamin D2) [Drisdol] 50,000 unit capsule 50,000 units PO WEEKLY Qty: 14 RF: 0 omeprazole 10 mg capsule,delayed release(DR/EC) 10 mg PO DAILY RF: 0 glipizide 2.5 mg Tablet Extended Release 24hr 2.5 mg PO QPM RF: 0 glipizide 2.5 mg Tablet Extended Release 24hr 5 mg PO DAILY RF: 0 Discontinued metoprolol succinate [Toprol XL] 25 mg tablet extended release 24 hr 25 mg PO DAILY Qty: 90 RF: 3 ferrous sulfate 325 mg (65 mg iron) tablet,delayed release (DR/EC) 325 mg PO DAILY Qty: 90 RF: 1 hydralazine 10 mg tablet 10 mg PO Q8H Qty: 90 RF: 5 Krames/Other Patient Handouts: Diabetes Healthy Meals, Diabetes Carbs, A1C Admission Data Admit Date/Time: 05/12/19 14:13 Attending Provider: Sara Ashley Admit Provider: Sumit Napier Primary Care Provider: Thierry Ramsay V. Other Providers: Ishaan Christianson ; [facility] ; Sumit Napier ; Conrado Ortega ; Jt Gray ; Ford Cantrell ; Gilbert Bautista Other Interventions: Discharge Summary Assessment (RN) Last Done: 05/20/19 14:18
--- NOTE | 2019-05-20 15:38 | XRay Report ---
XR chest 1V portable CLINICAL HISTORY: hypoxia dyspnea COMPARISON STUDY: 10/08/2017 FINDINGS: Chronic pleural reactive change right base. Mild increase in cardiac size as well as promin ence of pulmonary vasculature. Potential minimal interstitial infiltrative change left base. IMPRESSION: 1. Minimal developing interstitial infiltrate left base. 2. Components of early congestive failure are present. The above report was generated using voice recognition software. It may contain grammatical, syntax or spelling errors. Electronically signed by: Francisco Valencia M.D. 05/20/2019 3:37 PM
[2019-05-20] MEDS ORDERED: FUROSEMIDE 20 MG TAB PO STA (15:59)
--- NOTE | 2019-05-20 16:00 | Hospitalist Progress Note ---
Date of Service May 20, 2019 Assessment & Plan (1) Above knee amputation of left lower extremity: * Stable * POD #3 s/p L AKA today with Dr. Givens for infection in the crease of left knee just above the BKA stump. CT left knee on 05/13 showed a 2.1cm abscess. EBL 200cc post-operatively * EBL 200cc. * Wound culture growing 2 species of MSSA * Transitioned to Keflex PO yesterday- per conversation with ID, will continue 500mg QID x 14 days (to be completed on 06/02) (2) Cellulitis of knee, left: * Resolved * As above (3) Hypoxia: * Patient dropped to 82% on 05/19-- patient with history of sleep apnea but had not been on CPAP * Ordered CPAP for tonight- to wear at night and for all naps * CXR with evidence of developing interstitial infiltrate left base, early CHF * Lasix 20mg x 1-- monitor volume status * Currently 90% on RA (4) Obstructive sleep apnea: * As above * added CPAP for here as he does not have his CPAP from home (5) Hypertension: * Improved, stable * Had been persistently elevated up to 183/87 and 162/78 on 05/19 * Had previously been on metoprolol, hydralazine-- per patient, he had been taking hydralazine only TWICE a day, and not three times a day * Initiated on Lisinopril 2.5mg yesterday with nice reduction of BP to 128/66 * Discontinued hydralazine - patient without complaints of CP * BP currently 123/66 (6) Constipation: * Has not had BM x 1 wk * Small Brown formed stool today -- likely secondary to immobility (7) Diabetes mellitus type 2 with complications: * Uncontrolled-- A1c is 8.8% this admission, however patient only on monotherapy with glipizide as outpatient (was increased to 5mg twice daily in August 2018) * Continue long-acting and insulin sliding scale * Glycemic pharm following * Will need diabetic education. * Continue gabapentin * Initiated lisinopril for HTN given hx DM * Will initiate metformin 500mg BID at discharge for better control -- will need repeat A1c in 3 months. (8) Stage III chronic kidney disease: * Stable * Baseline Cr ~ 1.1- 1.3, eGFR ~50. * Currently, Cr 1.27 * Continue to monitor (9) Tachycardia: * Resolved * EKG on 05/13 indicated sinus tachycardia vs. atrial flutter. Possible burst of aflutter occurred on 05/14 around 5am. Back in NSR by noon 05/14. Echo on 05/13 showed mild LVH, EF 50%, mild aortic sclerosis. * Rate controlled with metop XL increased to 50mg PO daily * Chemical anticoagulation restarted following surgery * SCD in place * Cardiology consult during this admission-- after discussion, no need for holter/loop recorder at this time as patient with likely ectopic atrial tachy- if recurs, would re-evaluate * TSH wnl * Currently 75bpm (10) Sepsis: * SIRS 2/4 (tachycardia and leukocytosis) with source of infection. * As above, now resolved (11) Multiple sclerosis: * Per medication list, not on any treatment at present. * Monitor for any MS flare * No inpatient needs at present (12) Anemia: Hgb steadily decreasing since surgery, no obvious bleeding Hgb down to 8.6 and stable on repeat today Likely some blood loss anemia acutely and perhaps hemodilutional from IVFs initially and during surgery -hold Fe tabs due to severe constipation -follow CBC in AM and transfuse if <8 (13) DVT prophylaxis: * Lovenox 40mg daily * SCDs Dispo- discharge held up due to signs of volume overload on CXR and intermittent hypoxia. Lasix tonight. Re-evaluate in AM and discharge home Supervising Physician Co-Signing Physician Notes LISSY Supervision Note: I personally saw and examined the patient. I verified all butcher points and agree with LISSY Zamudio with the following exceptions and/or additions: Delayed discharge as hgb dropping, intermittent hypoxia, mild volume overload Very drowsy during day and not using his CPAP from home with daytime naps as most likely cause of hypoxia -Diurese and use CPAP even with naps May need daytime O2 but will reassess tomorrow after lasix Vitals reviewed Appears chroncially ill, pale RRR no mgr Lungs diminished at bases, no w/c/r Ext left AKA, spontaneously flexing at left hip, dressing in palce Abd +BS soft NT ND Continued stay Subjective Patient states he has minimal pain, although he does express continued spasms of his leg. He states he did not have a bowel movement as of our conversation despite various agents. He continues to express he feels ready to be discharged. Review of Systems Constitutional: no fever and no chills Ear, Nose, Mouth, Throat: no sore throat and no dysphagia Respiratory: no cough and no dyspnea Cardiovascular: no chest pain and no calf pain Gastrointestinal: + constipation; no abdominal pain, no nausea and no vomiting Genitourinary: no dysuria and no hematuria Musculoskeletal: left AKA Physical Exam Neck: trachea midline, no thyromegaly Respiratory: no respiratory distress Auscultation: + diminished lung sounds; no crackles, no rales and no wheezes Cardiovascular: RRR, no murmur, no edema Gastrointestinal (Abdomen): Inspection/Auscultation: + hypoactive bowel sounds Musculoskeletal: Left AKA- dressing intact Neurologic: PERRL, EOMI, accommodation nl, no face palsy, no dysarthria Psychiatric: Orientation: alert, oriented to person and oriented to time Genitourinary: condom catheter present Lymphatic: no cervical or axillary lymphadenopathy Results & Data Vital Signs (Past 12 Hours) Vital Signs Temp Pulse Pulse Pulse Resp BP BP 05/20/19 15:09 36.9 C 75 16 155/75 H 05/20/19 14:18 37.1 C 76 90 77 16 112/64 123/66 05/20/19 07:26 37.1 C 77 16 123/66 Pulse Ox 05/20/19 15:09 90 05/20/19 14:18 91 05/20/19 07:26 91 Laboratory Results 05/20/19 05/20/19 05/20/19 Range/Units 17:04 13:12 11:58 WBC 10.97 H (4.8-10.8) K/uL RBC 3.01 L (4.7-6.1) M/uL Hgb 8.6 L (14.0-18.0) g/dL Hct 27.1 L (42-52) % MCV 90.0 (80-100) fL MCH 28.6 (25-34) pg MCHC 31.7 L (32-36) g/dL RDW Std Deviation 44.9 (36.4-46.3) fL RDW Coeff of Giuliana 13.5 (11.5-14.5) % Plt Count 309 (130-400) K/uL MPV 10.5 H (7.4-10.4) fL Sodium (136-145) mmol/L Potassium (3.5-5.1) mmol/L Chloride (98-107) mmol/L Carbon Dioxide (21-32) mmol/L Anion Gap (3-11) BUN (7-18) mg/dl Creatinine (0.6-1.4) mg/dl Est Cr Clr Drug Dosing ml/min Est GFR ( Amer) Est GFR (Non-Af Amer) BUN/Creatinine Ratio (10-20) Glucose (70-99) mg/dl POC Glucose 84 152 H (70-99) Calcium (8.5-10.1) mg/dl 05/20/19 05/20/19 05/20/19 Range/Units 08:28 04:54 04:54 WBC 10.97 H (4.8-10.8) K/uL RBC 3.00 L (4.7-6.1) M/uL Hgb 8.6 L (14.0-18.0) g/dL Hct 27.4 L (42-52) % MCV 91.3 (80-100) fL MCH 28.7 (25-34) pg MCHC 31.4 L (32-36) g/dL RDW Std Deviation 45.3 (36.4-46.3) fL RDW Coeff of Giulinaa 13.7 (11.5-14.5) % Plt Count 304 (130-400) K/uL MPV 11.5 H (7.4-10.4) fL Sodium 138 (136-145) mmol/L Potassium 4.0 (3.5-5.1) mmol/L Chloride 104 (98-107) mmol/L Carbon Dioxide 28 (21-32) mmol/L Anion Gap 6.0 (3-11) BUN 24 H (7-18) mg/dl Creatinine 1.27 (0.6-1.4) mg/dl Est Cr Clr Drug Dosing 50.9 ml/min Est GFR ( Amer) 61.4 Est GFR (Non-Af Amer) 53.0 BUN/Creatinine Ratio 19.1 (10-20) Glucose 169 H (70-99) mg/dl POC Glucose 163 H (70-99) Calcium 8.2 L (8.5-10.1) mg/dl 05/19/19 05/19/19 Range/Units 20:41 17:10 WBC (4.8-10.8) K/uL RBC (4.7-6.1) M/uL Hgb (14.0-18.0) g/dL Hct (42-52) % MCV (80-100) fL MCH (25-34) pg MCHC (32-36) g/dL RDW Std Deviation (36.4-46.3) fL RDW Coeff of Giuliana (11.5-14.5) % Plt Count (130-400) K/uL MPV (7.4-10.4) fL Sodium (136-145) mmol/L Potassium (3.5-5.1) mmol/L Chloride (98-107) mmol/L Carbon Dioxide (21-32) mmol/L Anion Gap (3-11) BUN (7-18) mg/dl Creatinine (0.6-1.4) mg/dl Est Cr Clr Drug Dosing ml/min Est GFR ( Amer) Est GFR (Non-Af Amer) BUN/Creatinine Ratio (10-20) Glucose (70-99) mg/dl POC Glucose 166 H 137 H (70-99) Calcium (8.5-10.1) mg/dl Diagnostic Findings CXR 05/20 FINDINGS: Chronic pleural reactive change right base. Mild increase in cardiac size as well as prominence of pulmonary vasculature. Potential minimal interstitial infiltrative change left base. IMPRESSION: 1. Minimal developing interstitial infiltrate left base. 2. Components of early congestive failure are present. PG Care Time/CCT Total # of Minutes Spent Total Time Spent with Patient: Total time spent is greater than 50% in coordination of care (as documented) at patient's floor/unit and/or counseling patient:
[2019-05-20] MEDS: SENNA 8.6 MG TAB PO SCH (21:46)
[2019-05-20] MEDS: GABAPENTIN 300 MG CAP PO SCH (21:47)
--- NOTE | 2019-05-21 07:27 | Progress Note ---
DATE: 05/21/2019 SUBJECTIVE: An 78-year-old gentleman now postop day 4 from a left above-knee amputation for chronic infection. He seems to be doing well. No new complaints today. Denies any pain. PHYSICAL EXAMINATION: EXTREMITIES: Examination of left lower extremity stump reveals the dressing to be clean, dry and intact. No significant drainage. No signs of infection. ASSESSMENT: An 78-year-old gentleman now postop day 4 from a left above-knee amputation for chronic lower extremity infection, doing pretty well. Wounds look to be healing. There are no signs of infection. He is relatively pain free. PLAN: 1. DVT prophylaxis including thigh-high TEDs, SCDs, and anticoagulation as per the medicine service. We would recommend aspirin twice a day for 4-6 weeks. 2. PT/OT. Really not much different therapy standpoint. He can work on transfers. He is minimally mobile. 3. Medical management as per the medicine service. 4. Disposition: He is orthopedically okay for discharge any time medically stable. I need to see him back between 2 and 3 weeks postop. Any orthopedic questions can be directed to me at [phone].
[2019-05-21] MEDS: DOCUSATE SODIUM 100 MG CAP PO SCH (07:41)
[2019-05-21] MEDS: ENOXAPARIN INJ 40 MG/0.4 ML SYR SQ SCH (07:41)
[2019-05-21] MEDS: METOPROLOL SUCC 50MG EXT REL TAB PO SCH (07:42)
[2019-05-21] MEDS: DOCUSATE SODIUM/SENNA 50/8.6MG TAB PO SCH (07:42)
[2019-05-21] MEDS: cephALEXin 500 MG CAP PO SCH (07:42)
[2019-05-21] MEDS: SACCHAROMYCES BOULARDII 250 MG CAP PO SCH ×2 (07:42→13:07)
[2019-05-21] MEDS: POLYETHYLENE (MIRALAX) 17 GM PACK PO SCH (07:42)
[2019-05-21] MEDS: MULTIVITAMIN TAB PO SCH (07:42)
[2019-05-21] MEDS: PANTOprazole 40 MG TAB PO SCH (07:43)
[2019-05-21] MEDS: ASCORBIC ACID 500 MG TAB PO SCH (07:43)
[2019-05-21] MEDS: LISINOPRIL 2.5 MG TAB PO SCH (07:43)
[2019-05-21] MEDS: TOCOPHERYL, DL-ALPHA 400 UNITS CAP PO SCH (07:43)
[2019-05-21] MEDS: INSULIN GLARGINE SOLOSTAR 100 UNITS/ML 3 ML PEN SC SCH (07:43)
[2019-05-21] MEDS: INSULIN ASPART 100 UNITS/ML 3 ML PEN SC SCH ×2 (08:56→13:10)
[2019-05-21 09:15] LABS: Hematocrit (blood only) 27.7 % (42-52); Hemoglobin 8.6 g/dL (14.0-18.0); Mean Corpuscular Hemoglobin 28.6 pg (25-34); Mean Platelet Volume 10.9 fL (7.4-10.4); Platelet Count 333 K/uL (130-400); RDW Coefficient of Variation 13.7 % (11.5-14.5); Red Blood Count 3.01 M/uL (4.7-6.1); White Blood Count 9.79 K/uL (4.8-10.8)
[2019-05-21 09:55] LABS: BUN Creatinine Ratio 18.2 (10-20); Calcium 8.4 mg/dl (8.5-10.1); Creatinine Clr Calc Pharmacy 59.3 ml/min; Est GFR (African American) 73.9; Est GFR (Non-African American) 63.8; Potassium 4.2 mmol/L (3.5-5.1)
[2019-05-21] MEDS ORDERED: FUROSEMIDE 20 MG TAB PO ONE (11:57)
--- NOTE | 2019-05-21 12:48 | Discharge Summary ---
Date of Service May 21, 2019 Admission HPI Per Admitting Provider 78-year-old man with past medical history of diabetes mellitus type 2 on oral hypoglycemics, essential hypertension, dyslipidemia, GERD, multiple sclerosis with left below-knee amputation. Patient has chronic ulcers goes to wound care clinic, today in wound care clinic he was found to have an infected wound behind his left knee with purulent discharge. He was sent to the ED for further evaluation. Patient is very poor historian but was able to tell me that he has chronic ulcers and 3 days ago started having more discharge, patient stated that he lives with his , bedbound due to MS. Denies any fever or chills. Primary Care Provider: Thierry Ramsay MD Admission Exam Per Admitting Provider Physical examination General patient appears to be comfortable, not in acute distress HEENT: Atraumatic , normocephalic /no jaundice /no pallor /anicteric /no dry mucous membrane /normal external ear inspection Neck: Supple /no swelling /central trach Heart: S1/S2 normal/regular rate and rhythm/no gallop /no rub /no murmur Lungs: Clear to auscultation bilaterally/normal chest with expansion/no rhonchi/no rales/no wheezing/no use of accessory muscles of respiration Abdomen: Soft/nontender/no guarding/no rebound/no organomegaly/no pulsatile mass Musculoskeletal: Atrophy of the right side of the body, left BKA with deep ulcer behind left knee surrounded by candidal rash, with purulent discharge Neuro exam: Awake alert oriented 3/cranial nerves II through XII appear to be intact/right side paralysis Psychiatric evaluation: No depressed mood/normal affect Skin: No rash on exposed skin area/no erythema Extremity: Left BKA as mentioned above Principal Diagnosis S/P Left AKA due to MSSA abscess of left knee Discharge Exam Constitutional WD/WN, vitals as above no acute distress Eyes PERRL, conjunctivae normal, anicteric sclerae Neck trachea midline, no thyromegaly Respiratory no respiratory distress Auscultation: + diminished lung sounds; no crackles, no rales and no wheezes Cardiovascular RRR, no murmur, no edema Gastrointestinal (Abdomen) normal bowel sounds, soft, nontender, no hepatosplenomegaly Psychiatric Orientation: alert, oriented to person and oriented to time Lymphatic no cervical or axillary lymphadenopathy Discharge Data Allergies Allergy/AdvReac Type Severity Reaction Status Date / Time Cipro Allergy Mild HIVES Verified 02/20/18 11:35 ciprofloxacin Allergy Mild HIVES Verified 05/25/19 09:16 Consultations 05/12/19 12:17 ED Decision to Admit Stat 05/12/19 14:10 Consult Infectious Diseases Routine 05/13/19 15:21 Consult Orthopedic Surgery Routine 05/13/19 15:57 Consult Wound Care Provider Routine 05/17/19 14:16 Consult Cardiology Routine 05/17/19 18:26 Consult Case Management - Discharge Planning Routine Procedures Performed Operation Date: 05/17/19 09:10 Actual Procedures p Left Above Knee Amputation Leg(Left) - Shelton Givens MD Ordered Studies 05/13/19 11:46 CT knee LT w con Urgent 05/20 CXR Hospital Course (1) Above knee amputation of left lower extremity: * Stable * POD #4 s/p L AKA today with Dr. Givens for infection in the crease of left knee just above the BKA stump. CT left knee on 05/13 showed a 2.1cm abscess. EBL 200cc post-operatively. Wound culture grew 2 species of MSSA * Transitioned to Keflex PO - per conversation with ID, will continue 500mg QID x 14 days (to be completed on 06/02) (2) Cellulitis of knee, left: * Resolved * As above (3) Hypoxia: * Patient dropped to 82% on 05/19-- patient with history of sleep apnea but had not been on CPAP * Ordered CPAP to wear at night and for all naps-much improved * CXR with evidence of developing interstitial infiltrate left base, early CHF * Lasix 20mg x 1 was given and had diuresis, was able to remain off O2 while awake prior to discharge * Currently 90% on RA (4) Obstructive sleep apnea: * As above * added CPAP for here as he did not have his CPAP from home (5) Hypertension: * Improved, stable * Had been persistently elevated up to 183/87 and 162/78 on 05/19 * Had previously been on metoprolol, hydralazine-- per patient, he had been taking hydralazine only TWICE a day, and not three times a day * Initiated on Lisinopril 2.5mg with nice reduction of BP to 128/66 * Discontinued hydralazine - lisinopril would be better choice given comorbid DM * BP currently 123/66 (6) Constipation: * Has not had BM x 1 wk * Small Brown formed stool prior to d/c -- likely secondary to immobility * continue bowel regimen upon discharge (7) Diabetes mellitus type 2 with complications: * Uncontrolled-- A1c is 8.8% this admission, however patient only on monotherapy with glipizide as outpatient (was increased to 5mg twice daily in August 2018). SSI while inpatient. Gabapentin continued. * Metformin initiated 500mg BID at discharge-- patient will need repeat A1c in 3 months * Patient was also started on lisinopril as above d/t HTN and DM (8) Stage III chronic kidney disease: * Stable * Baseline Cr ~ 1.1- 1.3, eGFR ~50. * Cr 1.27 at discharge (9) Tachycardia: * Resolved * EKG on 05/13 indicated sinus tachycardia vs. atrial flutter. Possible burst of aflutter occurred on 05/14 around 5am. Back in NSR by noon 05/14. Echo on 05/13 showed mild LVH, EF 50%, mild aortic sclerosis. * Cardiology reviewed telemetry and determined this to NOT be atrial flutter, but simply atrial tachycardia * Rate controlled with metop XL increased to 50mg PO daily * Cardiology consult during this admission-- after discussion, no need for h olter/loop recorder at this time as patient with likely ectopic atrial tachy- if recurs, would re-evaluate * TSH wnl * 75 bpm at discharge (10) Sepsis: * SIRS 2/4 (tachycardia and leukocytosis) with source of infection. * As above, resolved (11) Multiple sclerosis: * Per medication list, not on any treatment at present. * No inpatient needs (12) Anemia: * Hgb steadily decreased after surgery but remained stable at d/c in 8-9 range * follow CBC as outpt (13) DVT prophylaxis: * Lovenox 40mg daily while inpatient -- ASA for prophylaxis as outpatient * while inpatient, SCDs Dispo-stable for dc to home Total Time Total Time Spent Total Time Spent (In Minutes): 45 Discharge Plan Discharge Items Patient Disposition: Home - Self-Care Reason For Visit: SEPSIS Discharge Diagnosis: Left Above-knee amputation Condition on Discharge: Fair Goals: You have been hospitalized for an urgent problem which required surgery. During your stay at [facility], we have made an effort to correct the problem that brought you to the hospital while keeping you as comfortable as possible. Surgery and medications were used to bring your condition under control and your discharge instructions will include directions for any medicat ions you should take after leaving the hospital. Please make sure to follow the advice of your surgeon regarding follow up with the surgeon and with your primary care provider. Activity: Resume your previous activity Non-emergency contact: Primary Care Provider and Surgeon Call non-emergency contact if: you have any medication questions, your symptoms worsen, your pain is not controlled, you have a fever, your wound has increased redness, your wound has increased drainage and your wound pain has increased Follow-up/Referrals: Thierry Ramsay MD [Primary Care Provider] - Omayra Cintron CRNP, MS, AVIATION MANAGER-C [Nurse Practitioner] - 05/25/19 9:00 am (A follow up appt. has been made with EARLINE Canales on 05/25 at 9:00am.) Shelton Givens MD [Physician] - (Orthopedic Follow-up 2-3 weeks from surgery date.) Diet: Carb Consistent or DM2 and Heart Healthy Addtl Attending Provider Instructions: The following medication changes have been made: --- Your METOPROLOL was increased from 25mg daily to 50mg daily for better heart rate control --- You have been STARTED on LISINOPRIL for your blood pressure and your HYDRALAZINE has been DISCONTINUED --- You have been STARTED on METFORMIN for your diabetes in addition to the glipizide you usually take -- you will need a repeat A1c level in 3 months as an outpatient --- You have been give a prescription for KEFLEX (CEPHALEXIN) as per recommendations from Infectious Disease to be taken for a total of two weeks. -- You should also HOLD YOUR IRON SUPPLEMENTATION, given recent constipation. You may restart after seen by your primary care provider. Please continue to wear your CPAP at night and for naps throughout the day. It is also recommended that you follow up with Dr. Givens in the next 2-3 weeks. His office number is [phone]. It is recommended that you follow up with wound care -- home health may be able to address needs, but would recommend calling the wound care clinic to have routine follow-up. --Please have a CBC done tomorrow, drawn by [facility]. Please return to the emergency room if your pain worsens, you develop a fever or for any symptoms that are concerning for you. Addtl Health Information Technologist Provider Instructions: ACTIVITY RECOMMENDATIONS: You may resume your previous activity. SPECIAL CARE INSTRUCTIONS: Call your doctor if: * Temperature above 101 degrees * Pain not relieved by pain medicine * There is increased drainage or redness from any incision * You have any unanswered questions or concerns. Pending Studies at Discharge: No Stand-Alone Forms: My [facility] Medications and DC Order Prescriptions: New metoprolol succinate 50 mg Tablet Extended Release 24 Hr 50 mg PO DAILY 30 Days Qty: 30 RF: 0 cephalexin 500 mg Capsule 500 mg PO QID 30 Days Qty: 120 RF: 0 lisinopril 2.5 mg Tablet 2.5 mg PO QAM 30 Days Qty: 30 RF: 0 metformin 500 mg tablet 500 mg PO BID 30 Days Qty: 60 RF: 0 Continued aspirin [Adult Low Dose Aspirin] 81 mg tablet,delayed release (DR/EC) 81 mg PO DAILY RF: 0 cyanocobalamin (vitamin B-12) 2,500 mcg tablet 2,500 mcg PO DAILY RF: 0 simvastatin [Zocor] 40 mg tablet 40 mg PO QPM RF: 0 polyethylene glycol 3350 [GlycoLax] 17 gram/dose powder 17 gm PO DAILY PRN (Reason: Constipation) RF: 0 Saccharomyces boulardii [Florastor] 250 mg capsule 250 mg PO BID RF: 0 vitamin E (dl, acetate) 400 unit capsule 400 units PO DAILY RF: 0 ascorbic acid (vitamin C) 500 mg capsule 500 mg PO DAILY RF: 0 gabapentin [Neurontin] 300 mg capsule 300 mg PO HS RF: 0 ergocalciferol (vitamin D2) [Drisdol] 50,000 unit capsule 50,000 units PO WEEKLY Qty: 14 RF: 0 omeprazole 10 mg capsule,delayed release(DR/EC) 10 mg PO DAILY RF: 0 glipizide 2.5 mg Tablet Extended Release 24hr 2.5 mg PO QPM RF: 0 glipizide 2.5 mg Tablet Extended Release 24hr 5 mg PO DAILY RF: 0 Discontinued metoprolol succinate [Toprol XL] 25 mg tablet extended release 24 hr 25 mg PO DAILY Qty: 90 RF: 3 ferrous sulfate 325 mg (65 mg iron) tablet,delayed release (DR/EC) 325 mg PO DAILY Qty: 90 RF: 1 hydralazine 10 mg tablet 10 mg PO Q8H Qty: 90 RF: 5 No Action hydrocodone-acetaminophen 5-300 mg tablet 1 tab PO Q6H PRN (Reason: pain) Qty: 30 RF: 0 Discharge Orders: Discharge Order (Routine); Ordered 05/21/19 Ordered By: Sara Hayden/Other Patient Handouts: Diabetes Healthy Meals, Diabetes Carbs, A1C Admission Data Admit Date/Time: 05/12/19 14:13 Attending Provider: Sara Ashley Admit Provider: Sumit Napier Primary Care Provider: Thierry Ramsay V. Other Providers: Ishaan Christianson ; [place] ; Sumit Napier ; Conrado Ortega ; Jt Gray Jason L. ; Gilbert Bautista Other Interventions: Discharge Summary Assessment (RN) Last Done: 05/21/19 13:30 DC Date/Time DO NOT enter until pt leaves facility: 05/21/19 14:28 Supervising Physician Co-Signing Physician Notes PA Supervision Note: I personally saw and examined the patient. I verified all butcher points and agree with LISSY Zamudio with the following exceptions and/or additions: Delayed discharge as hgb dropped, intermittent hypoxia, mild volume overload--> all stable to improved by day of discharge Was diuresed and had improvement of daytime hypoxia--> continue CPAP with naps and qhs Hgb stable now but low, no transfusion needed, follow after dc, likely due to surgery and chronic disease Vitals reviewed AAOx3, NAD, improved from previous RRR no mgr Lungs CTAB, no w/c/r Ext left AKA, dressing in place, c/d/i Abd +BS soft NT ND dc to home
[2019-05-21] MEDS ORDERED: INSULIN GLARGINE SOLOSTAR 100 UNITS/ML 3 ML PEN SC ONE (21:00)
== END 2019-05-21 14:28 | disposition home health service (06) | DRG 854 ==
LOC: ED 10:34 → SUATTDRO 14:13 → 2E 14:13 → 3N 05-14 12:39

== ENCOUNTER 2021-04-30 00:56 | Inpatient (IN) ==
[2021-04-30 01:27] LABS: Basophils # (auto) 0.04 K/uL (0-0.2); Basophils % (auto) 0.4 %; Eosinophils # (auto) 0.39 K/uL (0-0.5); Eosinophils % (auto) 3.8 %; Hematocrit (blood only) 37.7 % (42-52); Hemoglobin 12.1 g/dL (14.0-18.0); Immature Granulocytes # (auto) 0.02 K/uL (0.00-0.02); Immature Granulocytes % (auto) 0.2 %; Lymphocytes % (auto) 24.4 %; Mean Corpuscular Hemoglobin 28.1 pg (25-34); Mean Corpuscular Hgb Conc 32.1 g/dL (32-36); Mean Corpuscular Volume 87.5 fL (80-100); Mean Platelet Volume 11.3 fL (7.4-10.4); Monocytes # (auto) 1.09 K/uL (0.11-0.59); Monocytes % (auto) 10.6 %; Neutrophils # (auto) 6.22 K/uL (1.4-6.5); Neutrophils % (auto) 60.6 %; Platelet Count 342 K/uL (130-400); RDW Coefficient of Variation 13.8 % (11.5-14.5); RDW Standard Deviation 44.3 fL (36.4-46.3); Red Blood Count 4.31 M/uL (4.7-6.1); White Blood Count 10.26 K/uL (4.8-10.8)
[2021-04-30 01:40] LABS: INR 1.1 (0.9-1.1); Partial Thromboplastin Time 26.1 Seconds (21.0-31.0); Prothrombin Time 10.7 Seconds (9.0-12.0)
[2021-04-30 01:44] LABS: Alanine Aminotransferase 15 U/L (12-78); Albumin Level 2.5 gm/dl (3.4-5.0); Aspartate Aminotransferase 12 U/L (15-37); BUN Creatinine Ratio 23.9 (10-20); Blood Urea Nitrogen 22 mg/dl (7-18); Calcium 9.1 mg/dl (8.5-10.1); Carbon Dioxide 28 mmol/L (21-32); Chloride 104 mmol/L (98-107); Creatinine Clr Calc Pharmacy 57.7 ml/min; Est GFR (African American) 88.3 ml/min; Est GFR (Non-African American) 76.2 ml/min; Glucose 85 mg/dl (70-99); Magnesium 1.7 mg/dl (1.8-2.4); Potassium 3.8 mmol/L (3.5-5.1); Sodium 138 mmol/L (136-145)
[2021-04-30 01:49] LABS: Albumin Globulin Ratio 0.5 (0.9-2); Alkaline Phosphatase 71 U/L (45-117); Bilirubin,Total 0.4 mg/dl (0.2-1); Globulin 4.8 gm/dl (2.5-4.0); Total Protein 7.3 gm/dl (6.4-8.2); Troponin I < 0.015 ng/ml (0-0.045)
[2021-04-30] MEDS: SODIUM CHLORIDE 0.9% 1000ML 1,000 ML IV SCH ×2 (02:02→11:39)
--- NOTE | 2021-04-30 02:50 | Emergency Department Note ---
History of Present Illness General Chief complaint: Chest Pain Stated complaint: chest pain Time Seen by Provider: 04/30/21 01:05 History of Present Illness This is an 80-year-old male presenting to the emergency department via EMS from [facility] for evaluation of chest pain symptoms that began about 2 hours prior to arrival. The patient had discomfort for about 90 minutes in the center of his chest, that has now completely resolved. He is without fever, chills, or shortness of breath. He does have an extensive past medical history including diabetes, neurogenic bladder, chronic kidney disease, and below the knee amputation. The patient did get aspirin prehospital. He currently is without additional complaints and rates his discomfort a 2/10. Home Medications Medication Instructions Recorded Confirmed Type Protein Liquid 60 ml PO DAILY 04/30/21 04/30/21 History Saccharomyces boulardii 250 mg 250 mg PO BID 04/30/21 04/30/21 History capsule (Florastor) acetaminophen 325 mg tablet 650 mg PO Q6 PRN 04/30/21 04/30/21 History (Tylenol) ascorbic acid (vitamin C) 500 mg 500 mg PO BID 04/30/21 04/30/21 History tablet (Vitamin C) aspirin 81 mg tablet,delayed 81 mg PO DAILY 04/30/21 04/30/21 History release cyanocobalamin (vitamin B-12) 2,500 mcg PO DAILY 04/30/21 04/30/21 History 2,500 mcg sublingual tablet (Vitamin B-12) ergocalciferol (vitamin D2) 1,250 50,000 unit PO WK 04/30/21 04/30/21 History mcg (50,000 unit) capsule (Vitamin D2) ferrous gluconate 240 mg (27 mg 240 mg PO DAILY 04/30/21 04/30/21 History iron) tablet gabapentin 300 mg capsule 300 mg PO DAILY 04/30/21 04/30/21 History insulin glargine 100 unit/mL 25 unit SUBCUT CQWK 04/30/21 04/30/21 History subcutaneous solution (Lantus U-100 Insulin) insulin lispro 100 unit/mL 1 sliding scale dose SUBCUT 04/30/21 04/30/21 History subcutaneous solution (Humalog USEASDIRECTD U-100 Insulin) magnesium hydroxide 400 mg/5 mL 30 mg PO DAILY PRN 04/30/21 04/30/21 History oral suspension (Milk of Magnesia) metformin 500 mg tablet,extended 500 mg PO QID 04/30/21 04/30/21 History release 24 hr metoprolol succinate 50 mg 50 mg PO DAILY 04/30/21 04/30/21 History tablet,extended release 24 hr mirtazapine 7.5 mg tablet 7.5 mg PO HS 04/30/21 04/30/21 History multivitamin 1 tab PO DAILY 04/30/21 04/30/21 History omeprazole 10 mg capsule,delayed 10 mg PO DAILY 04/30/21 04/30/21 History release sennosides 8.6 mg-docusate sodium 1 tab-cap PO BID 04/30/21 04/30/21 History 50 mg tablet (Senokot-S) simvastatin 40 mg tablet 40 mg PO DAILY 04/30/21 04/30/21 History vitamin E 400 unit tablet 400 mg PO DAILY 04/30/21 04/30/21 History Allergies Allergy/AdvReac Type Severity Reaction Status Date / Time Cipro Allergy Mild HIVES Verified 02/20/18 11:35 ciprofloxacin Allergy Mild HIVES Verified 09/28/20 15:26 Past Med/Surg History Medical History (Updated 04/30/21 @ 22:01 by Shelton Palacio PA-C) ARF (acute renal failure) Benign hypertension Cellulitis of great toe of right foot Cellulitis of knee, left Chest pain Chronic respiratory failure Diabetes mellitus Foot ulcer, left H/O diabetic foot ulcer Heel ulcer due to DM Hyperlipidemia Hypoglycemia Left above-knee amputee Multiple sclerosis Osteomyelitis of left foot Post-op bleeding Right femoral shaft fracture Severe obstructive sleep apnea Surgical History Previous back surgery S/P tonsillectomy and adenoidectomy Status post below knee amputation of left lower extremity Family History Father Stroke Mother Angina pectoris Denies family history of Ovarian cancer Prostate cancer Myocardial infarction Breast cancer Colorectal cancer Social History Smoking Status: Unknown if ever smoked Hx Alcohol Use: No Hx Substance Use: No Preferred Language: Bulgarian Communication Ability: Effective Visual Impairment: No Limitations Hearing Ability: Normal Educational Psychology Professor Required: No Beliefs That Will Affect Care: None marital status: Current Living Situation: Personal Care Facility Current Living Situation Comment: [facility] current occupational status: retired How many Children do You have: 3 How many Children do You have Comment: 3 girls Feels Safe at Home: Yes Childhood Exposure to Second-Hand Smoke: Yes during the past year weight has: remained stable Physical Activity Frequency: Does not Exercise Seatbelt Use: always Sunscreen Use: No Assistive Devices: Denture - Upper Review of Systems A total of 10 systems reviewed and were otherwise negative Physical Exam Vital Signs Vital Signs - 24 hr 04/30/21 01:10 04/30/21 01:29 04/30/21 03:00 Temperature 37.4 C Temperature Source Oral Pulse Rate 120 H 120 H 119 H Pulse Rhythm Regular Respiratory Rate 17 20 19 Respiratory Effort / Characteristics Non-Labored Spontaneous Respiratory Depth Normal Blood Pressure 163/97 H 145/92 H Blood Pressure Mean 119 109 Pulse Oximetry 94 97 97 Oxygen Delivery Method Room Air Room Air Oxygen Flow Rate 0 Sepsis Recent Fever Within 48 Hours No Sepsis New/Unexplained Change in Mental Status N/A Sepsis Action Taken by Nursing No Action Required 04/30/21 03:10 04/30/21 03:20 04/30/21 03:30 Temperature Temperature Source Pulse Rate 119 H 118 H 116 H Pulse Rhythm Respiratory Rate 20 14 23 Respiratory Effort / Characteristics Respiratory Depth Blood Pressure 138/82 Blood Pressure Mean 100 Pulse Oximetry 98 95 96 Oxygen Delivery Method Oxygen Flow Rate Sepsis Recent Fever Within 48 Hours Sepsis New/Unexplained Change in Mental Status Sepsis Action Taken by Nursing 04/30/21 03:40 04/30/21 03:50 04/30/21 04:00 Temperature Temperature Source Pulse Rate 115 H 114 H 112 H Pulse Rhythm Respiratory Rate 17 17 21 Respiratory Effort / Characteristics Respiratory Depth Blood Pressure Blood Pressure Mean Pulse Oximetry 92 94 95 Oxygen Delivery Method Oxygen Flow Rate Sepsis Recent Fever Within 48 Hours Sepsis New/Unexplained Change in Mental Status Sepsis Action Taken by Nursing 04/30/21 04:10 04/30/21 04:20 04/30/21 04:30 Temperature Temperature Source Pulse Rate 112 H 114 H 111 H Pulse Rhythm Respiratory Rate 16 18 16 Respiratory Effort / Characteristics Respiratory Depth Blood Pressure 161/86 H Blood Pressure Mean 111 Pulse Oximetry 93 95 98 Oxygen Delivery Method Oxygen Flow Rate Sepsis Recent Fever Within 48 Hours Sepsis New/Unexplained Change in Mental Status Sepsis Action Taken by Nursing 04/30/21 04:40 04/30/21 04:50 04/30/21 05:00 Temperature Temperature Source Pulse Rate 113 H 110 H 112 H Pulse Rhythm Respiratory Rate 19 16 19 Respiratory Effort / Characteristics Respiratory Depth Blood Pressure 148/93 H Blood Pressure Mean 111 Pulse Oximetry 93 96 97 Oxygen Delivery Method Oxygen Flow Rate Sepsis Recent Fever Within 48 Hours Sepsis New/Unexplained Change in Mental Status Sepsis Action Taken by Nursing 04/30/21 05:10 04/30/21 05:20 04/30/21 05:30 Temperature Temperature Source Pulse Rate 113 H 114 H 113 H Pulse Rhythm Respiratory Rate 17 10 L 16 Respiratory Effort / Characteristics Respiratory Depth Blood Pressure 145/100 H Blood Pressure Mean 115 Pulse Oximetry 97 98 80 L Oxygen Delivery Method Oxygen Flow Rate Sepsis Recent Fever Within 48 Hours Sepsis New/Unexplained Change in Mental Status Sepsis Action Taken by Nursing 04/30/21 05:40 Temperature Temperature Source Pulse Rate 114 H Pulse Rhythm Respiratory Rate 17 Respiratory Effort / Characteristics Respiratory Depth Blood Pressure Blood Pressure Mean Pulse Oximetry 89 L Oxygen Delivery Method Oxygen Flow Rate Sepsis Recent Fever Within 48 Hours Sepsis New/Unexplained Change in Mental Status Sepsis Action Taken by Nursing VITALS: Vitals are noted on the nurse's note and reviewed by myself. Vital signs stable. GENERAL: Elderly male who appears comfortable and cooperative HEAD: Normocephalic atraumatic. HEART: Regular rate and rhythm without murmurs gallops or rubs. LUNGS: Clear to auscultation bilaterally without wheezes, rales or rhonchi. No retractions or accessory muscle use. ABDOMEN: Positive normal bowel sounds x 4. Soft, nontender, without masses or organomegaly. No guarding or rebound tenderness. MUSCULOSKELETAL: No muscle atrophy, erythema, or edema noted. NEURO: Patient was alert and oriented to person place and time. CN II through XII grossly intact. Course Administered Medications Ascorbic Acid (Ascorbic Acid 500 Mg Tab) 500 mg PO BID [facility] Stop: 05/30/21 11:59 Last Admin: 04/30/21 20:47 Dose: 500 mg Documented by: [id number] Admin: 04/30/21 11:46 Dose: 500 mg Documented by: [id number] Aspirin (Aspirin 81 Mg Ectab) 81 mg PO DAILY [facility] Stop: 05/30/21 11:12 Last Admin: 04/30/21 12:21 Dose: 81 mg Documented by: [id number] Ferrous Gluconate (Ferrous Gluconate 324 Mg Tab) 324 mg PO DAILY [facility] Stop: 05/30/21 11:59 Last Admin: 04/30/21 11:46 Dose: 324 mg Documented by: [id number] Gabapentin (Gabapentin 300 Mg Cap) 300 mg PO DAILY [facility] Stop: 05/30/21 11:59 Last Admin: 04/30/21 12:22 Dose: 300 mg Documented by: [id number] Heparin Sodium (Porcine) (Heparin Sod 5,000 Unit/0.5 Ml Vial) 5,000 units SQ Q12 [facility] Stop: 05/30/21 11:59 Last Admin: 04/30/21 20:47 Dose: 5,000 units Documented by: [id number] Admin: 04/30/21 12:22 Dose: 5,000 units Documented by: [id number] Potassium Chloride/Sodium Chloride (Normal Saline W/20 Meq Kcl) 20 meq in 1,000 mls @ 60 mls/hr IV .[id number] [facility] Stop: 05/01/21 21:19 Last Admin: 04/30/21 11:46 Dose: 60 mls/hr Documented by: [id number] Insulin Aspart (Insulin Aspart 100 Units/Ml 3 Ml Pen) 0 units SC ACHS [facility] Stop: 05/30/21 11:29 Last Admin: 04/30/21 20:47 Dose: Not Given Documented by: [id number] Admin: 04/30/21 17:12 Dose: 1 units Documented by: [id number] Cosigned by: [id number] Admin: 04/30/21 12:18 Dose: Not Given Documented by: [id number] Cosigned by: [id number] Metoprolol Succinate (Metoprolol Succ 50mg Ext Rel Tab) [facility]: 05/30/21 11:59 Last Admin: 04/30/21 11:46 Dose: 50 mg Documented by: [id number] Mirtazapine (Mirtazapine Tab 15 Mg Tab) 7.5 mg PO HS [facility] Stop: 05/30/21 20:59 Last Admin: 04/30/21 20:46 Dose: 7.5 mg Documented by: [id number] Multivitamins (Multivitamin Tab) 1 tab PO QAM [facility] Stop: 05/30/21 11:59 Last Admin: 04/30/21 12:22 Dose: 1 tab Documented by: [id number] Pantoprazole Sodium (Pantoprazole 40 Mg Tab) 40 mg PO DAILY [facility] Stop: 05/30/21 11:59 Last Admin: 04/30/21 11:53 Dose: 40 mg Documented by: [id number] Saccharomyces Boulardii (Saccharomyces Boulardii 250 Mg Cap) 250 mg PO BID [facility] Stop: 05/30/21 11:59 Last Admin: 04/30/21 20:47 Dose: 250 mg Documented by: [id number] Admin: 04/30/21 11:47 Dose: 250 mg Documented by: [id number] Senna/Docusate Sodium (Docusate Sodium/Senna 50/8.6mg Tab) 1 tab PO BID [facility] Stop: 05/30/21 11:59 Last Admin: 04/30/21 20:47 Dose: 1 tab Documented by: [id number] Admin: 04/30/21 11:47 Dose: 1 tab Documented by: [id number] Simvastatin (Simvastatin 40 Mg Tab) 40 mg PO DAILY [facility] Stop: 05/30/21 11:59 Last Admin: 04/30/21 11:47 Dose: 40 mg Documented by: [id number] Vitamin E (Tocopheryl, Dl-Alpha 400 Units 180 Mg Cap) 400 units PO DAILY [facility] Stop: 05/30/21 11:59 Last Admin: 04/30/21 12:22 Dose: 400 units Documented by: [id number] Discontinued Medications Sodium Chloride (Nss 1000ml) 1,000 mls @ 125 mls/hr IV .Q8H [facility] Stop: 05/30/21 01:44 Last Admin: 04/30/21 11:39 Dose: Not Given Documented by: [id number] Infusion: 04/30/21 10:07 Dose: 0 mls/hr Documented by: [id number] Admin: 04/30/21 02:02 Dose: 125 mls/hr Documented by: [id number] Piperacillin Sod/Tazobactam Sod (Zosyn) 4.5 gm in 120 mls @ 240 mls/hr IV NOW ONE Stop: 04/30/21 04:55 Last Infusion: 04/30/21 06:13 Dose: 240 mls/hr Documented by: [id number] Admin: 04/30/21 04:58 Dose: 240 mls/hr Documented by: [id number] Cefepime HCl 1,000 mg/ Syringe 11.3 mls @ 5.5 mls/min IV NOW STA; Protocol Stop: 04/30/21 05:40 Last Admin: 04/30/21 06:18 Dose: 5.5 mls/min Documented by: [id number] Medical Decision Making Differential Diagnosis Differential diagnosis includes, but is not limited to: Myocardial infarction, dysrhythmia, pericarditis, pneumothorax, aortic aneurysm/dissection, DVT/PE, anxiety, GERD, PUD, electrolyte imbalance, thyroid disorder, pneumonia, bronchitis, pancreatitis, and others Laboratory Data Result diagrams: 04/30/21 01:05 04/30/21 01:05 Lab Results 04/30/21 04/30/21 04/30/21 Range/Units 01:05 01:05 01:05 WBC 10.26 (4.8-10.8) K/uL RBC 4.31 L (4.7-6.1) M/uL Hgb 12.1 L (14.0-18.0) g/dL Hct 37.7 L (42-52) % MCV 87.5 (80-100) fL MCH 28.1 (25-34) pg MCHC 32.1 (32-36) g/dL RDW Std Deviation 44.3 (36.4-46.3) fL RDW Coeff of Giuliana 13.8 (11.5-14.5) % Plt Count 342 (130-400) K/uL MPV 11.3 H (7.4-10.4) fL Immature Gran % (Auto) 0.2 % Neut % (Auto) 60.6 % Lymph % (Auto) 24.4 % [place] % (Auto) 10.6 % Eos % (Auto) 3.8 % Baso % (Auto) 0.4 % Neut # (Auto) 6.22 (1.4-6.5) K/uL Lymph # (Auto) 2.50 (1.2-3.4) K/uL [place] # (Auto) 1.09 H (0.11-0.59) K/uL Eos # (Auto) 0.39 (0-0.5) K/uL Baso # (Auto) 0.04 (0-0.2) K/uL Immature Gran # (Auto) 0.02 (0.00-0.02) K/uL PT 10.7 (9.0-12.0) Seconds INR 1.1 (0.9-1.1) APTT 26.1 (21.0-31.0) Seconds PTT Ratio 1.0 Sodium 138 (136-145) mmol/L Potassium 3.8 (3.5-5.1) mmol/L Chloride 104 (98-107) mmol/L Carbon Dioxide 28 (21-32) mmol/L Anion Gap 6.0 (3-11) BUN 22 H (7-18) mg/dl Creatinine 0.93 (0.6-1.4) mg/dl Est Cr Clr Drug Dosing 57.7 ml/min Est GFR ( Amer) 88.3 ml/min Est GFR (Non-Af Amer) 76.2 ml/min BUN/Creatinine Ratio 23.9 H (10-20) Glucose 85 (70-99) mg/dl Lactate (0.4-2.0) mmol/L Calcium 9.1 (8.5-10.1) mg/dl Magnesium 1.7 L (1.8-2.4) mg/dl Total Bilirubin 0.4 (0.2-1) mg/dl AST 12 L (15-37) U/L ALT 15 (12-78) U/L Alkaline Phosphatase 71 (45-117) U/L Troponin I < 0.015 (0-0.045) ng/ml Total Protein 7.3 (6.4-8.2) gm/dl Albumin 2.5 L (3.4-5.0) gm/dl Globulin 4.8 H (2.5-4.0) gm/dl Albumin/Globulin Ratio 0.5 L (0.9-2) Urine Color Urine Appearance (Clear) Urine pH (4.5-7.5) Ur Specific [place] (1.000-1.030) Urine Protein (Negative) Urine Glucose (UA) (Negative) Urine Ketones (Negative) Urine Blood (Negative) Urine Nitrite (Negative) Urine Bilirubin (Negative) Urine Urobilinogen (Negative) Ur Leukocyte Esterase (Negative) Urine WBC (Auto) (0-5) /hpf Urine RBC (Auto) (0-4) /hpf U Hyaline Cast (Auto) (0-5) /lpf U Epithel Cells (Auto) (0-5) /lpf Urine Bacteria (Auto) (Negative) Amorphous Sediment (None Prsent) Urine Yeast COVID-19 Eval Order SARS-CoV-2 (PCR) (Negative) 11/07/2004/30/21 04/30/21 Range/Units 01:05 01:05 01:50 WBC (4.8-10.8) K/uL RBC (4.7-6.1) M/uL Hgb (14.0-18.0) g/dL Hct (42-52) % MCV (80-100) fL MCH (25-34) pg MCHC (32-36) g/dL RDW Std Deviation (36.4-46.3) fL RDW Coeff of Giuliana (11.5-14.5) % Plt Count (130-400) K/uL MPV (7.4-10.4) fL Immature Gran % (Auto) % Neut % (Auto) % Lymph % (Auto) % [place] % (Auto) % Eos % (Auto) % Baso % (Auto) % Neut # (Auto) (1.4-6.5) K/uL Lymph # (Auto) (1.2-3.4) K/uL [place] # (Auto) (0.11-0.59) K/uL Eos # (Auto) (0-0.5) K/uL Baso # (Auto) (0-0.2) K/uL Immature Gran # (Auto) (0.00-0.02) K/uL PT (9.0-12.0) Seconds INR (0.9-1.1) APTT (21.0-31.0) Seconds PTT Ratio Sodium (136-145) mmol/L Potassium (3.5-5.1) mmol/L Chloride (98-107) mmol/L Carbon Dioxide (21-32) mmol/L Anion Gap (3-11) BUN (7-18) mg/dl Creatinine (0.6-1.4) mg/dl Est Cr Clr Drug Dosing ml/min Est GFR ( Amer) ml/min Est GFR (Non-Af Amer) ml/min BUN/Creatinine Ratio (10-20) Glucose (70-99) mg/dl Lactate 2.0 (0.4-2.0) mmol/L Calcium (8.5-10.1) mg/dl Magnesium (1.8-2.4) mg/dl Total Bilirubin (0.2-1) mg/dl AST (15-37) U/L ALT (12-78) U/L Alkaline Phosphatase (45-117) U/L Troponin I (0-0.045) ng/ml Total Protein (6.4-8.2) gm/dl Albumin (3.4-5.0) gm/dl Globulin (2.5-4.0) gm/dl Albumin/Globulin Ratio (0.9-2) Urine Color Urine Appearance (Clear) Urine pH (4.5-7.5) Ur Specific [place] (1.000-1.030) Urine Protein (Negative) Urine Glucose (UA) (Negative) Urine Ketones (Negative) Urine Blood (Negative) Urine Nitrite (Negative) Urine Bilirubin (Negative) Urine Urobilinogen (Negative) Ur Leukocyte Esterase (Negative) Urine WBC (Auto) (0-5) /hpf Urine RBC (Auto) (0-4) /hpf U Hyaline Cast (Auto) (0-5) /lpf U Epithel Cells (Auto) (0-5) /lpf Urine Bacteria (Auto) (Negative) Amorphous Sediment (None Prsent) Urine Yeast COVID-19 Eval Order Covid19 at [facility] SARS-CoV-2 (PCR) NEGATIVE (Negative) 04/30/21 Range/Units 03:00 WBC (4.8-10.8) K/uL RBC (4.7-6.1) M/uL Hgb (14.0-18.0) g/dL Hct (42-52) % MCV (80-100) fL MCH (25-34) pg MCHC (32-36) g/dL RDW Std Deviation (36.4-46.3) fL RDW Coeff of Giuliana (11.5-14.5) % Plt Count (130-400) K/uL MPV (7.4-10.4) fL Immature Gran % (Auto) % Neut % (Auto) % Lymph % (Auto) % [place] % (Auto) % Eos % (Auto) % Baso % (Auto) % Neut # (Auto) (1.4-6.5) K/uL Lymph # (Auto) (1.2-3.4) K/uL [place] # (Auto) (0.11-0.59) K/uL Eos # (Auto) (0-0.5) K/uL Baso # (Auto) (0-0.2) K/uL Immature Gran # (Auto) (0.00-0.02) K/uL PT (9.0-12.0) Seconds INR (0.9-1.1) APTT (21.0-31.0) Seconds PTT Ratio Sodium (136-145) mmol/L Potassium (3.5-5.1) mmol/L Chloride (98-107) mmol/L Carbon Dioxide (21-32) mmol/L Anion Gap (3-11) BUN (7-18) mg/dl Creatinine (0.6-1.4) mg/dl Est Cr Clr Drug Dosing ml/min Est GFR ( Amer) ml/min Est GFR (Non-Af Amer) ml/min BUN/Creatinine Ratio (10-20) Glucose (70-99) mg/dl Lactate (0.4-2.0) mmol/L Calcium (8.5-10.1) mg/dl Magnesium (1.8-2.4) mg/dl Total Bilirubin (0.2-1) mg/dl AST (15-37) U/L ALT (12-78) U/L Alkaline Phosphatase (45-117) U/L Troponin I (0-0.045) ng/ml Total Protein (6.4-8.2) gm/dl Albumin (3.4-5.0) gm/dl Globulin (2.5-4.0) gm/dl Albumin/Globulin Ratio (0.9-2) Urine Color Dark Yellow Urine Appearance Turbid A (Clear) Urine pH 8.0 H (4.5-7.5) Ur Specific [place] 1.017 (1.000-1.030) Urine Protein 3+ H (Negative) Urine Glucose (UA) Negative (Negative) Urine Ketones Negative (Negative) Urine Blood 3+ H (Negative) Urine Nitrite Negative (Negative) Urine Bilirubin Negative (Negative) Urine Urobilinogen Negative (Negative) Ur Leukocyte Esterase 3+ H (Negative) Urine WBC (Auto) >30 H (0-5) /hpf Urine RBC (Auto) 5-10 H (0-4) /hpf U Hyaline Cast (Auto) 1-5 (0-5) /lpf U Epithel Cells (Auto) >30 H (0-5) /lpf Urine Bacteria (Auto) 4+ H (Negative) Amorphous Sediment Present A (None Prsent) Urine Yeast Not Reportable COVID-19 Eval Order SARS-CoV-2 (PCR) (Negative) Imaging Data Radiologist's Impression: Chest X-Ray 04/30/21 01:11 XR chest 1V portable HISTORY: 80 years-old Male chest pain acute atypical chest pain COMPARISON: Chest radiograph 09/28/2020 TECHNIQUE: Portable AP view of the chest FINDINGS: Cardiomediastinal and hilar silhouettes are unchanged. Chronic right hemidiaphragmatic elevation. No pneumothorax, pleural effusion, airspace consolidation or overt pulmonary edema. Degenerative changes of the shoulders and spine. IMPRESSION: No acute process. ACT 112: Negative or not required by law. The above report was generated using voice recognition software. It may contain grammatical, syntax or spelling errors. Electronically signed by: Charlie Hines M.D. 04/30/2021 7:27 AM ECG Data Attestation: I personally reviewed and interpreted this ECG as follows: Indication: + chest pain and + palpitations Additional Comments: Sinus tachycardia @120 bpm Otherwise normal ECG When compared with ECG of 28-SEP-2020 15:12, Vent. rate has increased BY 55 BPM Nonspecific T wave abnormality now evident in Lateral leads MDM Narrative Physical exam and history were performed. Nursing notes, EMR, and Medication List were personally reviewed. Patient appears to have chest pain symptoms that initially brought him to the emergency department. The patient is tachycardic on arrival and does have extensive medical disease. IV access was established and labs were obtained. The patient was very gently hydrated with normal saline. Urine was very challenging to collect on the patient. Nursing attempted 3 times to perform a cath at bedside and was not successful. Ultimately nursing was able to collect a urine sample. An order was placed for continuous cardiac monitoring. The monitor shows a rate of 110 with sinus tachycardic rhythm. The patient's blood work is as above and was reviewed. The patient does not have a significantly elevated white blood cell count, gross anemia, or significant electrolyte imbalance. Troponin x1 is negative. The patient's urine sample is quite concerning as it has 3+ esterase, 4+ bacteria, as well as white cells. I did review his previous recent urine samples and he has grown Klebsiella and Proteus. I discussed options of care with my attending, Dr. Monsalve, who also dependently evaluated the patient. We will start him on Zosyn. Overall the patient does not appear well for discharge at this time. He appears to have a urinary tract infection with significant comorbidities. He is also difficult to obtain a urine from, and this could be a result of his infection or underlying disease process. The case was discussed with the on-call hospitalist team, who agreed to evaluate the patient here in the ER. Please see their dictation for further patient course, plan, and disposition. The chart was completed utilizing [employer] Speech Voice Recognition Software. Grammatical errors, random word insertions, pronoun errors, and incomplete sentences are an occasional consequence of this system due to software limitations, ambient noise, and hardware issues. Any formal questions or concerns about the content, text, or information contained within the body of this dictation should be directly addressed to the provider for clarification. . Impression & Plan UTI (urinary tract infection), Atypical chest pain Discharge Plan Visit Data Chief Complaint: Chest Pain Stated Complaint: chest pain ED Provider: Katie Monsalve ED Midlevel Provider: Shelton Palacio Discharge Problem: UTI (urinary tract infection), Atypical chest pain Patient Disposition: Admitted As Inpatient Discharge Instructions Interventions: ED Discharge Assessment Last Done: 04/30/21 10:41
[2021-04-30 04:10] LABS: Appearance Urine Turbid (Clear); Bacteria Urine Automated 4+ (Negative); Bilirubin Urine Negative (Negative); Blood Urine 3+ (Negative); Color Urine Dark Yellow; Epithelial Cell Urine Auto >30 /lpf (0-5); Glucose Urine UA Negative (Negative); Ketones Urine Negative (Negative); Leukocyte Esterase Urine 3+ (Negative); Nitrite Urine Negative (Negative); Specific Gravity Urine 1.017 (1.000-1.030); Urobilinogen Urine Negative (Negative); WBC Urine Automated >30 /hpf (0-5)
[2021-04-30 04:18] LABS: Protein Urine 3+ (Negative)
[2021-04-30 04:26] LABS: Amorphous Sediment Urine Present (None Prsent)
[2021-04-30] MEDS ORDERED: PIPERACILL/TAZOBAC CONSULT ACTIVE PRN (04:26)
[2021-04-30] MEDS ORDERED: PIPERACILLIN/TAZOBACTAM 4.5 GM/120 ML BAG IV ONE (04:26)
--- NOTE | 2021-04-30 05:16 | Emergency Department Note ---
ED Visit Note I saw this patient in conjunction with Shelton Palacio PA-C. I agree with his decision making and treatment plan. I spoke with the patient independently. He is no longer experiencing chest pain. He is resting comfortably. He will receive IV antibiotics for his urinary tract infection. He will be evaluated by Dr. Franklin for further inpatient care. .
[2021-04-30] MEDS ORDERED: CEFEPIME 1,000 MG in SYRINGE 0 ML IV STA (05:38)
--- NOTE | 2021-04-30 05:44 | History & Physical Report ---
Date of Service April 30, 2021 Assessment & Plan (1) Recurrent urinary tract infection: Plan: Previous UTIs have had the following bacteria: Proteus mirabilis, Proteus vulgaris, Klebsiella Aerogenes x2 Patient was given Zosyn IV from the ED, but would not be continued, since one of the Klebsiella species is resistant Placed on cefepime 1 g IV every 8 hours Follow urine culture and sensitivities NSS + KCl 20 mEq at 60 mils per hour x2 L (2) Chest pain: Plan: Chest pain/sinus tachycardia/hypertension/history of PAT and SVT- The patient will be admitted to telemetry for serial cardiac enzymes, serial EKG's, cardiac rhythm monitoring and a 2-D echocardiogram with Dopplers. Continue metoprolol succinate, and aspirin Rehydration with IV fluids as noted Lopressor 5 mg IV every 4 hours as needed heart rate greater than 120 (3) Sinus tachycardia: Plan: See above (4) Hypertension: Plan: See above (5) Diabetes mellitus: Plan: Med rec says patient is on Lantus 25 units subcu weekly, which will be held Hold Metformin Place on Accu-Cheks before meals and at bedtime with NovoLog coverage per scale Check hemoglobin A1c (6) Hyperlipidemia: Plan: Continue simvastatin 40 mg daily Check a fasting lipid panel (7) Multiple sclerosis: Plan: Continue supportive medications (8) Neurogenic bladder: Plan: Likely source of recurrent UTIs (9) Severe obstructive sleep apnea: Plan: Placed on CPAP at bedtime (10) Failure to thrive: Plan: Will return to [facility] after hospitalization History of Present Illness Chief Complaint: The patient presents to the emergency department from [facility] for evaluation of substernal chest pain of 90 minutes duration, that occurred about 2 hours prior to arrival, and that resolved spontaneously Primary Care Provider: [facility] The patient is an 80-year-old male with a past medical history including pressure ulcer, UTIs, failure to thrive, right great toe diabetic foot ulcer, severe obstructive sleep apnea, LVH, aortic valve sclerosis, PAT, iron deficiency anemia, left AKA, chronic respiratory failure, diabetes mellitus, tachycardia, sepsis, Sirs, uncontrolled diabetes mellitus, peripheral neuropathy, hyperlipidemia, hypertension, multiple sclerosis, neurogenic bladder, SVT, vitamin B12 deficiency and vitamin D deficiency. The patient had a self-limited 90-minute episode of substernal chest discomfort, reporting that he is never had this symptoms before. Due to underlying dementia, patient is not a good historian. Allergies Allergy/AdvReac Type Severity Reaction Status Date / Time Cipro Allergy Mild HIVES Verified 02/20/18 11:35 ciprofloxacin Allergy Mild HIVES Verified 09/28/20 15:26 Home Medications Medication Instructions Recorded Confirmed Type Protein Liquid 60 ml PO DAILY 04/30/21 04/30/21 History Saccharomyces boulardii 250 mg 250 mg PO BID 04/30/21 04/30/21 History capsule (Florastor) acetaminophen 325 mg tablet 650 mg PO Q6 PRN 04/30/21 04/30/21 History (Tylenol) ascorbic acid (vitamin C) 500 mg 500 mg PO BID 04/30/21 04/30/21 History tablet (Vitamin C) aspirin 81 mg tablet,delayed 81 mg PO DAILY 04/30/21 04/30/21 History release cyanocobalamin (vitamin B-12) 2,500 mcg PO DAILY 04/30/21 04/30/21 History 2,500 mcg sublingual tablet (Vitamin B-12) ergocalciferol (vitamin D2) 1,250 50,000 unit PO WK 04/30/21 04/30/21 History mcg (50,000 unit) capsule (Vitamin D2) ferrous gluconate 240 mg (27 mg 240 mg PO DAILY 04/30/21 04/30/21 History iron) tablet gabapentin 300 mg capsule 300 mg PO DAILY 04/30/21 04/30/21 History insulin glargine 100 unit/mL 25 unit SUBCUT CQWK 04/30/21 04/30/21 History subcutaneous solution (Lantus U-100 Insulin) insulin lispro 100 unit/mL 1 sliding scale dose SUBCUT 04/30/21 04/30/21 History subcutaneous solution (Humalog USEASDIRECTD U-100 Insulin) magnesium hydroxide 400 mg/5 mL 30 mg PO DAILY PRN 04/30/21 04/30/21 History oral suspension (Milk of Magnesia) metformin 500 mg tablet,extended 500 mg PO QID 04/30/21 04/30/21 History release 24 hr metoprolol succinate 50 mg 50 mg PO DAILY 04/30/21 04/30/21 History tablet,extended release 24 hr mirtazapine 7.5 mg tablet 7.5 mg PO HS 04/30/21 04/30/21 History multivitamin 1 tab PO DAILY 04/30/21 04/30/21 History omeprazole 10 mg capsule,delayed 10 mg PO DAILY 04/30/21 04/30/21 History release sennosides 8.6 mg-docusate sodium 1 tab-cap PO BID 04/30/21 04/30/21 History 50 mg tablet (Senokot-S) simvastatin 40 mg tablet 40 mg PO DAILY 04/30/21 04/30/21 History vitamin E 400 unit tablet 400 mg PO DAILY 04/30/21 04/30/21 History Past Med/Surg History Medical History (Updated 04/30/21 @ 05:55 by Braxton Raymond MD) ARF (acute renal failure) Benign hypertension Cellulitis of great toe of right foot Cellulitis of knee, left Chest pain Chronic respiratory failure Diabetes mellitus Foot ulcer, left H/O diabetic foot ulcer Heel ulcer due to DM Hyperlipidemia Hypoglycemia Left above-knee amputee Multiple sclerosis Osteomyelitis of left foot Post-op bleeding Right femoral shaft fracture Severe obstructive sleep apnea Surgical History Previous back surgery S/P tonsillectomy and adenoidectomy Status post below knee amputation of left lower extremity Family History Father Stroke Mother Angina pectoris Denies family history of Ovarian cancer Prostate cancer Myocardial infarction Breast cancer Colorectal cancer Social History Smoking Status: Unknown if ever smoked Hx Alcohol Use: No Hx Substance Use: No Preferred Language: Macedonian Communication Ability: Effective Visual Impairment: No Limitations 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 Support Required: No Beliefs That Will Affect Care: None marital status: Current Living Situation: Spouse current occupational status: retired How many Children do You have: 3 How many Children do You have Comment: 3 girls Feels Safe at Home: Yes Childhood Exposure to Second-Hand Smoke: Yes during the past year weight has: remained stable Physical Activity Frequency: Does not Exercise Seatbelt Use: always Sunscreen Use: No Assistive Devices: None Review of Systems Review of Systems: The patient denies palpitations, cough, lower extremity swelling, sore throat, fevers, chills, sweats, nausea, vomiting, diarrhea , constipation, abdominal pain, pelvic pain, blood in urine or stool, loss of consciousness, back or neck pain, or night sweats. HPI and review of systems are somewhat limited due to patient's baseline mental state, which may be aggravated by his current urinary tract infection The review of systems is otherwise negative other than for that already noted above, and at least 10 systems have been reviewed. Physical Exam Physical Exam: The patient is awake, alert and oriented 3, well developed and well nourished, normocephalic and atraumatic, lying in bed and in no acute distress. HEENT--PERRL, EOMI, mucous membranes and oropharynx mildly dry. Neck--supple. No JVD. No bruits. Heart--mildly tachycardic and regular. No murmurs, rubs or gallops. Lungs--clear bilaterally, no respiratory distress, no accessory muscle use. Abdomen--normal bowel sounds and soft. Nontender. Nondistended, no hernias or masses, no organomegaly. Extremities--left AKA Dermatologic--skin is mildly dry Neurologic--cranial nerves II through XII grossly intact. Rheumatologic--limited exam Psychiatric--normal affect. Results & Data Results & Data ([facility]) Vital Signs (Past 12 Hours) Vital Signs Temp Pulse Resp BP Pulse Ox 04/30/21 03:50 114 H 17 94 04/30/21 03:40 115 H 17 92 04/30/21 03:30 116 H 23 138/82 96 04/30/21 03:20 118 H 14 95 04/30/21 03:10 119 H 20 98 04/30/21 03:00 119 H 19 145/92 H 97 04/30/21 01:29 120 H 20 97 04/30/21 01:10 99.3 F 120 H 17 163/97 H 94 Laboratory Results Laboratory Results WBC 10.26 K/uL (4.8-10.8) 04/30/21 01:05 RBC 4.31 M/uL (4.7-6.1) L 04/30/21 01:05 Hgb 12.1 g/dL (14.0-18.0) L 04/30/21 01:05 Hct 37.7 % (42-52) L 04/30/21 01:05 MCV 87.5 fL (80-100) 04/30/21 01:05 MCH 28.1 pg (25-34) 04/30/21 01:05 MCHC 32.1 g/dL (32-36) 04/30/21 01:05 RDW Std Deviation 44.3 fL (36.4-46.3) 04/30/21 01:05 RDW Coeff of Giuliana 13.8 % (11.5-14.5) 04/30/21 01:05 Plt Count 342 K/uL (130-400) 04/30/21 01:05 MPV 11.3 fL (7.4-10.4) H 04/30/21 01:05 Immature Gran % (Auto) 0.2 % 04/30/21 01:05 Neut % (Auto) 60.6 % 04/30/21 01:05 Lymph % (Auto) 24.4 % 04/30/21 01:05 Cass % (Auto) 10.6 % 04/30/21 01:05 Eos % (Auto) 3.8 % 04/30/21 01:05 Baso % (Auto) 0.4 % 04/30/21 01:05 Neut # (Auto) 6.22 K/uL (1.4-6.5) 04/30/21 01:05 Lymph # (Auto) 2.50 K/uL (1.2-3.4) 04/30/21 01:05 Cass # (Auto) 1.09 K/uL (0.11-0.59) H 04/30/21 01:05 Eos # (Auto) 0.39 K/uL (0-0.5) 04/30/21 01:05 Baso # (Auto) 0.04 K/uL (0-0.2) 04/30/21 01:05 Immature Gran # (Auto) 0.02 K/uL (0.00-0.02) 04/30/21 01:05 PT 10.7 Seconds (9.0-12.0) 04/30/21 01:05 INR 1.1 (0.9-1.1) 04/30/21 01:05 APTT 26.1 Seconds (21.0-31.0) 04/30/21 01:05 PTT Ratio 1.0 04/30/21 01:05 Sodium 138 mmol/L (136-145) 04/30/21 01:05 Potassium 3.8 mmol/L (3.5-5.1) 04/30/21 01:05 Chloride 104 mmol/L (98-107) 04/30/21 01:05 Carbon Dioxide 28 mmol/L (21-32) 04/30/21 01:05 Anion Gap 6.0 (3-11) 04/30/21 01:05 BUN 22 mg/dl (7-18) H 04/30/21 01:05 Creatinine 0.93 mg/dl (0.6-1.4) 04/30/21 01:05 Est Cr Clr Drug Dosing 57.7 ml/min 04/30/21 01:05 Est GFR ( Amer) 88.3 ml/min 04/30/21 01:05 Est GFR (Non-Af Amer) 76.2 ml/min 04/30/21 01:05 BUN/Creatinine Ratio 23.9 (10-20) H 04/30/21 01:05 Glucose 85 mg/dl (70-99) 04/30/21 01:05 Lactate 2.0 mmol/L (0.4-2.0) 04/30/21 01:50 Calcium 9.1 mg/dl (8.5-10.1) 04/30/21 01:05 Magnesium 1.7 mg/dl (1.8-2.4) L 04/30/21 01:05 Total Bilirubin 0.4 mg/dl (0.2-1) 04/30/21 01:05 AST 12 U/L (15-37) L 04/30/21 01:05 ALT 15 U/L (12-78) 04/30/21 01:05 Alkaline Phosphatase 71 U/L (45-117) 04/30/21 01:05 Troponin I < 0.015 ng/ml (0-0.045) 04/30/21 01:05 Total Protein 7.3 gm/dl (6.4-8.2) 04/30/21 01:05 Albumin 2.5 gm/dl (3.4-5.0) L 04/30/21 01:05 Globulin 4.8 gm/dl (2.5-4.0) H 04/30/21 01:05 Albumin/Globulin Ratio 0.5 (0.9-2) L 04/30/21 01:05 Urine Color Dark Yellow 04/30/21 03:00 Urine Appearance Turbid (Clear) A 04/30/21 03:00 Urine pH 8.0 (4.5-7.5) H 04/30/21 03:00 Ur Specific [place] 1.017 (1.000-1.030) 04/30/21 03:00 Urine Protein 3+ (Negative) H 04/30/21 03:00 Urine Glucose (UA) Negative (Negative) 04/30/21 03:00 Urine Ketones Negative (Negative) 04/30/21 03:00 Urine Blood 3+ (Negative) H 04/30/21 03:00 Urine Nitrite Negative (Negative) 04/30/21 03:00 Urine Bilirubin Negative (Negative) 04/30/21 03:00 Urine Urobilinogen Negative (Negative) 04/30/21 03:00 Ur Leukocyte Esterase 3+ (Negative) H 04/30/21 03:00 Urine WBC (Auto) >30 /hpf (0-5) H 04/30/21 03:00 Urine RBC (Auto) 5-10 /hpf (0-4) H 04/30/21 03:00 U Hyaline Cast (Auto) 1-5 /lpf (0-5) 04/30/21 03:00 U Epithel Cells (Auto) >30 /lpf (0-5) H 04/30/21 03:00 Urine Bacteria (Auto) 4+ (Negative) H 04/30/21 03:00 Amorphous Sediment Present (None Prsent) A 04/30/21 03:00 Urine Yeast Not Reportable 04/30/21 03:00 COVID-19 Eval Order Covid19 at [facility] 04/30/21 01:05 SARS-CoV-2 (PCR) NEGATIVE (Negative) 04/30/21 01:05 Code Status & VTE Plan Code Status DNR/DNI VTE Prophylaxis Plan VTE Prophylaxis will be ordered: Yes PG Care Time/CCT Total # of Minutes Spent Total Time Spent with Patient: Total time spent is greater than 50% in coord ination of care (as documented) at patient's floor/unit and/or counseling patient: Coding Level of Care Code 41079 Initial Inpt Care Lvl 3 Diagnoses Recurrent urinary tract infection N39.0 Failure to thrive P92.6 Failure to thrive age range: in Severe obstructive sleep apnea G47.33 Diabetes mellitus E11.9 Diabetes mellitus type: type 2 Diabetes mellitus truck terminal manager insulin use: without truck terminal manager use Diabetes mellitus complication status: with skin complications Hypertension I10 Hyperlipidemia E78.5 Multiple sclerosis G35 Neurogenic bladder N31.9 Sinus tachycardia R00.0 Chest pain R07.9 (1) Failure to thrive Failure to thrive age range: in Qualified Code(s): P92.6 - Failure to thrive in (2) Diabetes mellitus Diabetes mellitus type: type 2 Diabetes mellitus truck terminal manager insulin use: without fdc use Diabetes mellitus complication status: with skin complications
[2021-04-30] MEDS ORDERED: METOPROLOL TARTRATE 1 MG/ML VIAL IV PRN (05:59)
--- NOTE | 2021-04-30 07:28 | XRay Report ---
XR chest 1V portable HISTORY: 80 years-old Male chest pain acute atypical chest pain COMPARISON: Chest radiograph 09/28/2020 TECHNIQUE: Portable AP view of the chest FINDINGS: Cardiomediastinal and hilar silhouettes are unchanged. Chronic right hemidiaphragmatic elevation. No pneumothorax, pleural effusion, airspace consolidation or overt pulmonary edema. Degenerative changes of the shoulders and spine. IMPRESSION: No acute process. ACT 112: Negative or not required by law. The above report was generated using voice recognition software. It may contain grammatical, syntax o r spelling errors. Electronically signed by: Charlie Hines M.D. 04/30/2021 7:27 AM
[2021-04-30] MEDS ORDERED: NITROGLYCERIN SL 0.4 MG/TAB TAB SL PRN (11:13)
[2021-04-30] MEDS ORDERED: GLUCOSE 10 TABS/TUBE PO PRN (11:13)
[2021-04-30] MEDS ORDERED: GLUCOSE 40% GEL 15 GM TUBE PO PRN (11:13)
[2021-04-30] MEDS ORDERED: DEXTROSE 50% 50 ML SYRINGE IV PRN (11:13)
[2021-04-30] MEDS ORDERED: CARBOHYDRATES FOR HYPOGLYCEMIA PO PRN (11:13)
[2021-04-30] MEDS ORDERED: ONDANSETRON INJ 2 MG/ML 2 ML VIAL IV PRN (11:13)
[2021-04-30] MEDS ORDERED: GLUCAGON FOR INJ 1 MG VIAL SQ PRN (11:13)
[2021-04-30] MEDS ORDERED: ACETAMINOPHEN 325 MG TAB PO PRN ×2 (11:13)
--- NOTE | 2021-04-30 11:44 | Electrocardiogram Report ---
Test Reason : Blood Pressure : / mmHG Vent. Rate : 120 BPM Atrial Rate : 120 BPM P-R Int : 122 ms QRS Dur : 074 ms QT Int : 330 ms P-R-T Axes : 000 003 035 degrees QTc Int : 466 ms Poor data quality, interpretation may be adversely affected Sinus tachycardia Otherwise normal ECG When compared with ECG of 28-SEP-2020 15:12, Vent. rate has increased BY 55 BPM Nonspecific T wave abnormality now evident in Lateral leads Confirmed by Rubin Andrews ([id number]) on 04/30/2021 11:44:21 AM Referred By: [facility] Confirmed By:Cem Andrews
[2021-04-30] MEDS: FERROUS GLUCONATE 324 MG TAB PO SCH (11:46)
[2021-04-30] MEDS: METOPROLOL SUCC 50MG EXT REL TAB PO SCH (11:46)
[2021-04-30] MEDS: NSS + 20MEQ KCL 20 MEQ/1,000 ML BAG IV SCH (11:46)
[2021-04-30] MEDS: ASCORBIC ACID 500 MG TAB PO SCH ×2 (11:46→20:47)
[2021-04-30] MEDS: SACCHAROMYCES BOULARDII 250 MG CAP PO SCH ×2 (11:47→20:47)
[2021-04-30] MEDS: DOCUSATE SODIUM/SENNA 50/8.6MG TAB PO SCH ×2 (11:47→20:47)
[2021-04-30] MEDS: SIMVASTATIN 40 MG TAB PO SCH (11:47)
[2021-04-30] MEDS: PANTOprazole 40 MG TAB PO SCH (11:53)
[2021-04-30] MEDS: INSULIN ASPART 100 UNITS/ML 3 ML PEN SC SCH ×3 (12:18→20:47)
[2021-04-30] MEDS: ASPIRIN 81 MG ECTAB PO SCH (12:21)
[2021-04-30] MEDS: MULTIVITAMIN TAB PO SCH (12:22)
[2021-04-30] MEDS: TOCOPHERYL, DL-ALPHA 400 UNITS 180 MG CAP PO SCH (12:22)
[2021-04-30] MEDS: HEPARIN SOD 5,000 UNIT/0.5 ML VIAL SQ SCH ×2 (12:22→20:47)
[2021-04-30] MEDS: GABAPENTIN 300 MG CAP PO SCH (12:22)
[2021-04-30] MEDS: MIRTAZAPINE TAB 15 MG TAB PO SCH (20:46)
[2021-04-30] MEDS ORDERED: VANCOMYCIN CONSULT ACTIVE PRN (22:39)
--- NOTE | 2021-04-30 22:42 | Communication Note ---
Date of Service: April 30, 2021 Nursing notified night team of 1 of 2 blood cultures turned positive for gram + cocci in clusters. Patient is afebrile and tachycardiac to 107 bpm. He is already on Cefepime for UTI, which has MSSA coverage. However, he does have risk factors for MRSA (resides in longterm) so I added Iv vancomycin. I also placed order for new blood cutlures to be drawn.
[2021-04-30] MEDS ORDERED: VANCOMYCIN HCL 1,500 MG in SODIUM CHLORIDE 0.9% 500 ML IV STA (23:05)
[2021-05-01] MEDS: MAGNESIUM SULFATE / D5W 1 GM/100 ML BAG IV SCH ×2 (00:07→01:56)
--- NOTE | 2021-05-01 00:25 | Pharmacy Report ---
Pharmacy Vanc AUC Short Note - Date of Service May 01, 2021 - Assessment & Plan Assessment 80 year old M receiving Vancomycin and Cefepime for treatment of bacteremia/UTI. * PMHx significant for recurrent UTIs, right great toe diabetic foot ulcer, left AKA, diabetes mellitus. Presents from [facility]. 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 Did undergo L AKA. * Started on Cefepime for recurrent UTIs previously growing Proteus mirabilis, Proteus vulgaris, Klebsiella aerogenes. * Vancomycin added when 1/4 bottles from Blood cultures grew GPCs in cluster along with GNB. Plan Vancomycin * AUC/CATRACHITO is the preferred PK/PD target for vancomycin * AUC guided dosing is effective and associated with decreased risk of nephrotoxicity compared to traditional trough targets * Goal AUC/ACTRACHITO is 400-600 mg/L.hr * Loading Dose: 1500 mg IV x 1 * Maintenance Dose: 750 mg IV every 12 hours * This dosing regimen is expected to achieve a steady-state AUC/CATRACHITO and trough of 584 mg/L.hr and 19.9 mcg/mL, respectively. It is associated with a 17% risk of nephrotoxicity. * Trough ordered for 05/02/21 prior to the 1200 dose. Pharmacy will continue to follow and will adjust dose/frequency as necessary. Thank you.
[2021-05-01 03:35] LABS: Basophils # (auto) 0.03 K/uL (0-0.2); Basophils % (auto) 0.2 %; Eosinophils # (auto) 0.25 K/uL (0-0.5); Hematocrit (blood only) 31.8 % (42-52); Hemoglobin 9.9 g/dL (14.0-18.0); Immature Granulocytes # (auto) 0.02 K/uL (0.00-0.02); Immature Granulocytes % (auto) 0.2 %; Lymphocytes # (auto) 1.72 K/uL (1.2-3.4); Lymphocytes % (auto) 13.9 %; Mean Corpuscular Hemoglobin 27.4 pg (25-34); Mean Corpuscular Hgb Conc 31.1 g/dL (32-36); Mean Corpuscular Volume 88.1 fL (80-100); Mean Platelet Volume 10.8 fL (7.4-10.4); Monocytes # (auto) 1.17 K/uL (0.11-0.59); Monocytes % (auto) 9.5 %; Neutrophils # (auto) 9.14 K/uL (1.4-6.5); Neutrophils % (auto) 74.2 %; Platelet Count 275 K/uL (130-400); RDW Coefficient of Variation 14.1 % (11.5-14.5); RDW Standard Deviation 45.8 fL (36.4-46.3); Red Blood Count 3.61 M/uL (4.7-6.1); White Blood Count 12.33 K/uL (4.8-10.8)
[2021-05-01 04:30] LABS: Alanine Aminotransferase 10 U/L (12-78); Aspartate Aminotransferase 9 U/L (15-37); BUN Creatinine Ratio 21.5 (10-20); Blood Urea Nitrogen 20 mg/dl (7-18); Calcium 8.7 mg/dl (8.5-10.1); Carbon Dioxide 25 mmol/L (21-32); Chloride 111 mmol/L (98-107); Creatinine Clr Calc Pharmacy 56.6 ml/min; Est GFR (African American) 87.2 ml/min; Est GFR (Non-African American) 75.2 ml/min; Glucose 127 mg/dl (70-99); Magnesium 2.4 mg/dl (1.8-2.4); Potassium 4.1 mmol/L (3.5-5.1); Sodium 141 mmol/L (136-145)
[2021-05-01 04:34] LABS: Albumin Globulin Ratio 0.5 (0.9-2); Alkaline Phosphatase 56 U/L (45-117); Bilirubin,Total 0.4 mg/dl (0.2-1); Globulin 4.3 gm/dl (2.5-4.0); Total Protein 6.3 gm/dl (6.4-8.2); Troponin I < 0.015 ng/ml (0-0.045)
[2021-05-01] MEDS: NSS + 20MEQ KCL 20 MEQ/1,000 ML BAG IV SCH (05:03)
[2021-05-01] MEDS ORDERED: CEFEPIME 1,000 MG in SYRINGE 0 ML IV SCH (06:00)
[2021-05-01] MEDS: METOPROLOL SUCC 50MG EXT REL TAB PO SCH (08:37)
[2021-05-01] MEDS: SIMVASTATIN 40 MG TAB PO SCH (08:37)
[2021-05-01] MEDS: INSULIN ASPART 100 UNITS/ML 3 ML PEN SC SCH ×4 (08:37→20:26)
[2021-05-01] MEDS: SACCHAROMYCES BOULARDII 250 MG CAP PO SCH ×2 (08:38→19:29)
[2021-05-01] MEDS: MULTIVITAMIN TAB PO SCH (08:38)
[2021-05-01] MEDS: FERROUS GLUCONATE 324 MG TAB PO SCH (08:38)
[2021-05-01] MEDS: GABAPENTIN 300 MG CAP PO SCH (08:38)
[2021-05-01] MEDS: TOCOPHERYL, DL-ALPHA 400 UNITS 180 MG CAP PO SCH (08:38)
[2021-05-01] MEDS: PANTOprazole 40 MG TAB PO SCH (08:38)
[2021-05-01] MEDS: ASPIRIN 81 MG ECTAB PO SCH (08:38)
[2021-05-01] MEDS: ASCORBIC ACID 500 MG TAB PO SCH ×2 (08:39→19:29)
[2021-05-01] MEDS: DOCUSATE SODIUM/SENNA 50/8.6MG TAB PO SCH ×2 (08:39→19:29)
[2021-05-01] MEDS: HEPARIN SOD 5,000 UNIT/0.5 ML VIAL SQ SCH ×2 (08:39→19:29)
--- NOTE | 2021-05-01 09:06 | Electrocardiogram Report ---
Test Reason : Blood Pressure : / mmHG Vent. Rate : 109 BPM Atrial Rate : 109 BPM P-R Int : 144 ms QRS Dur : 070 ms QT Int : 342 ms P-R-T Axes : 000 018 006 degrees QTc Int : 460 ms Ectopic atrial tachycrdia Otherwise normal ECG When compared with ECG of 30-APR-2021 01:02, No significant change was found Confirmed by Rubin Andrews ([id number]) on 05/01/2021 9:05:43 AM Referred By: [facility] Confirmed By:Cem Andrews
[2021-05-01 10:09] LABS: Estimated Average Glucose 140 mg/dl; Hemoglobin A1C 6.5 % (4.5-5.6)
[2021-05-01] MEDS: VANCOMYCIN HCL 750 MG in SODIUM CHLORIDE 0.9% 250 ML IV SCH ×2 (12:34→23:15)
[2021-05-01] MEDS: CEFEPIME 2,000 MG in SYRINGE 0 ML IV SCH (13:23)
[2021-05-01] MEDS: MIRTAZAPINE TAB 15 MG TAB PO SCH (19:29)
--- NOTE | 2021-05-01 21:37 | Hospitalist Progress Note ---
Date of Service May 01, 2021 Assessment & Plan (1) Recurrent urinary tract infection: Plan: Previous UTIs have had the following bacteria: Proteus mirabilis, Proteus vulgaris, Klebsiella Aerogenes x2 Patient was given Zosyn IV from the ED, but would not be continued, since one of the Klebsiella species is resistant Placed on cefepime 1 g IV every 8 hours Follow urine culture and sensitivities awaiting sensitivities, will continue above antibotics. (2) Chest pain: Plan: Chest pain/sinus tachycardia/hypertension/history of PAT and SVT- The patient will be admitted to telemetry for serial cardiac enzymes, serial EKG's, cardiac rhythm monitoring and a 2-D echocardiogram with Dopplers. Continue metoprolol succinate, and aspirin Rehydration with IV fluids as noted Lopressor 5 mg IV every 4 hours as needed heart rate greater than 120 (3) Sinus tachycardia: Plan: See above (4) Hypertension: Plan: See above (5) Diabetes mellitus: Plan: Med rec says patient is on Lantus 25 units subcu weekly, which will be held Hold Metformin Place on Accu-Cheks before meals and at bedtime with NovoLog coverage per scale Check hemoglobin A1c (6) Hyperlipidemia: Plan: Continue simvastatin 40 mg daily Check a fasting lipid panel (7) Multiple sclerosis: Plan: Continue supportive medications (8) Neurogenic bladder: Plan: Likely source of recurrent UTIs (9) Severe obstructive sleep apnea: Plan: Placed on CPAP at bedtime (10) Failure to thrive: Plan: Will return to [facility] after hospitalization Admission and Anticipated Discharge Date Admission Date: April 30, 2021 Subjective Patient is a poor historian. He has no new complaints. Review of Systems Review of Systems: All systems reviewed & are unremarkable except as noted in HPI & below Physical Exam Physical Exam: The patient is awake, well developed and well nourished, normocephalic and atraumatic, lying in bed and in no acute distress. HEENT--PERRL, EOMI, mucous membranes and oropharynx mildly dry. Neck--supple. No JVD. No bruits. Heart--mildly tachycardic and regular. No murmurs, rubs or gallops. Lungs--clear bilaterally, no respiratory distress, no accessory muscle use. Abdomen--normal bowel sounds and soft. Nontender. Nondistended, no hernias or masses, no organomegaly. Extremities--left AKA Neurologic--cranial nerves II through XII grossly intact. Rheumatologic--limited exam Psychiatric--normal affect Results & Data Results & Data ([facility]) Vital Signs (Past 12 Hours) Vital Signs Temp Pulse Pulse Resp BP Pulse Ox 05/01/21 20:19 156/75 H 05/01/21 19:15 36.5 C 88 16 156/72 H 93 05/01/21 15:05 36.7 C 104 H 17 136/75 98 05/01/21 15:04 106 H 05/01/21 11:40 36.6 C 109 H 19 125/72 98 PG Care Time/CCT Total # of Minutes Spent Total Time Spent with Patient: Total time spent is greater than 50% in coordination of care (as documented) at patient's floor/unit and/or counseling patient: Coding Level of Care Code 53277 Subseq Hosp Care Lvl 2 Diagnoses Recurrent urinary tract infection N39.0 Chest pain R07.9 Sinus tachycardia R00.0 Hypertension I10 Diabetes mellitus E11.9 Diabetes mellitus type: type 2 Diabetes mellitus fci insulin use: without fci use Diabetes mellitus complication status: with skin complications Hyperlipidemia E78.5 Multiple sclerosis G35 Neurogenic bladder N31.9 Severe obstructive sleep apnea G47.33 Failure to thrive P92.6 Failure to thrive age range: in Time Spent (min) 25 (1) Diabetes mellitus Diabetes mellitus type: type 2 Diabetes mellitus fci insulin use: without intermodal dispatcher use Diabetes mellitus complication status: with skin complications (2) Failure to thrive Failure to thrive age range: in Qualified Code(s): P92.6 - Failure to thrive in
[2021-05-02] MEDS: CEFEPIME 2,000 MG in SYRINGE 0 ML IV SCH ×2 (00:48→12:27)
[2021-05-02] MEDS: SODIUM CHLORIDE 0.9% 1000ML 1,000 ML IV SCH ×2 (03:32→12:44)
[2021-05-02 06:57] LABS: Basophils # (auto) 0.03 K/uL (0-0.2); Basophils % (auto) 0.4 %; Eosinophils # (auto) 0.45 K/uL (0-0.5); Eosinophils % (auto) 5.6 %; Hemoglobin 9.1 g/dL (14.0-18.0); Immature Granulocytes # (auto) 0.03 K/uL (0.00-0.02); Immature Granulocytes % (auto) 0.4 %; Lymphocytes # (auto) 1.41 K/uL (1.2-3.4); Lymphocytes % (auto) 17.4 %; Mean Corpuscular Hemoglobin 27.7 pg (25-34); Mean Corpuscular Hgb Conc 31.4 g/dL (32-36); Mean Corpuscular Volume 88.4 fL (80-100); Monocytes # (auto) 0.84 K/uL (0.11-0.59); Monocytes % (auto) 10.4 %; Neutrophils # (auto) 5.33 K/uL (1.4-6.5); Neutrophils % (auto) 65.8 %; Platelet Count 253 K/uL (130-400); RDW Coefficient of Variation 14.1 % (11.5-14.5); RDW Standard Deviation 45.9 fL (36.4-46.3); Red Blood Count 3.28 M/uL (4.7-6.1); White Blood Count 8.09 K/uL (4.8-10.8)
[2021-05-02 07:17] LABS: BUN Creatinine Ratio 16.7 (10-20); Calcium 8.5 mg/dl (8.5-10.1); Creatinine Clr Calc Pharmacy 52.8 ml/min; Est GFR (Non-African American) 68.1 ml/min
[2021-05-02 07:20] LABS: Albumin Globulin Ratio 0.5 (0.9-2); Bilirubin,Total 0.4 mg/dl (0.2-1); Globulin 4.3 gm/dl (2.5-4.0); Total Protein 6.3 gm/dl (6.4-8.2)
[2021-05-02] MEDS: ASPIRIN 81 MG ECTAB PO SCH (08:34)
[2021-05-02] MEDS: PANTOprazole 40 MG TAB PO SCH (08:34)
[2021-05-02] MEDS: METOPROLOL SUCC 50MG EXT REL TAB PO SCH (08:34)
[2021-05-02] MEDS: MULTIVITAMIN TAB PO SCH (08:34)
[2021-05-02] MEDS: DOCUSATE SODIUM/SENNA 50/8.6MG TAB PO SCH ×2 (08:34→20:07)
[2021-05-02] MEDS: GABAPENTIN 300 MG CAP PO SCH (08:34)
[2021-05-02] MEDS: SACCHAROMYCES BOULARDII 250 MG CAP PO SCH ×2 (08:34→20:07)
[2021-05-02] MEDS: FERROUS GLUCONATE 324 MG TAB PO SCH (08:34)
[2021-05-02] MEDS: ASCORBIC ACID 500 MG TAB PO SCH ×2 (08:34→20:07)
[2021-05-02] MEDS: TOCOPHERYL, DL-ALPHA 400 UNITS 180 MG CAP PO SCH (08:34)
[2021-05-02] MEDS: SIMVASTATIN 40 MG TAB PO SCH (08:35)
[2021-05-02] MEDS: HEPARIN SOD 5,000 UNIT/0.5 ML VIAL SQ SCH ×2 (08:35→20:07)
[2021-05-02] MEDS: INSULIN ASPART 100 UNITS/ML 3 ML PEN SC SCH ×4 (08:41→20:29)
--- NOTE | 2021-05-02 10:57 | Electrocardiogram Report ---
Test Reason : Blood Pressure : / mmHG Vent. Rate : 122 BPM Atrial Rate : 122 BPM P-R Int : 114 ms QRS Dur : 082 ms QT Int : 332 ms P-R-T Axes : 000 -03 000 degrees QTc Int : 473 ms Ectopic atrial rhythm Otherwise normal ECG Confirmed by Rubin Andrews ([id number]) on 05/02/2021 10:57:23 AM Referred By: [facility] Confirmed By:Cem Andrews
[2021-05-02] MEDS ORDERED: VANCOMYCIN TROUGH ONE (11:30)
[2021-05-02] MEDS: VANCOMYCIN HCL 750 MG in SODIUM CHLORIDE 0.9% 250 ML IV SCH (12:27)
[2021-05-02] MEDS: MIRTAZAPINE TAB 15 MG TAB PO SCH (20:07)
--- NOTE | 2021-05-02 21:21 | Hospitalist Progress Note ---
Date of Service May 02, 2021 Assessment & Plan (1) Recurrent urinary tract infection: Plan: Previous UTIs have had the following bacteria: Proteus mirabilis, Proteus vulgaris, Klebsiella Aerogenes x2 Patient was given Zosyn IV from the ED, but would not be continued, since one of the Klebsiella species is resistant Placed on cefepime 1 g IV every 8 hours Follow urine culture and sensitivities: ESBL, will be placed on contact precautions. will continue cefepime. awaiting sensitivities will continue above antibiotics. (2) Chest pain: Plan: Chest pain/sinus tachycardia/hypertension/history of PAT and SVT- The patient will be admitted to telemetry for serial cardiac enzymes, serial EKG's, cardiac rhythm monitoring and a 2-D echocardiogram with Dopplers. Continue metoprolol succinate, and aspirin Rehydration with IV fluids as noted Lopressor 5 mg IV every 4 hours as needed heart rate greater than 120 (3) Sinus tachycardia: Plan: See above (4) Hypertension: Plan: See above (5) Diabetes mellitus: Plan: Med rec says patient is on Lantus 25 units subcu weekly, which will be held Hold Metformin Place on Accu-Cheks before meals and at bedtime with NovoLog coverage per scale Check hemoglobin A1c (6) Hyperlipidemia: Plan: Continue simvastatin 40 mg daily Check a fasting lipid panel (7) Multiple sclerosis: Plan: Continue supportive medications (8) Neurogenic bladder: Plan: Likely source of recurrent UTIs (9) Severe obstructive sleep apnea: Plan: Placed on CPAP at bedtime (10) Failure to thrive: Plan: Will [facility] to [facility] after hospitalization (11) Metabolic encephalopathy: Plan: Though patient has not been formally diagnosed with dementia. It is very likely given his PMH of Multiple sclerosis. This likely decreases his threshold for delirium.. Had discussion wit daughter who states patient has good days and bad days. currently patient is confused, delirium will likely linger throughout hospital stay. Admission and Anticipated Discharge Date Admission Date: April 30, 2021 Subjective 80 yo male is confused. Updated daughter on phone. Review of Systems Review of Systems: All systems reviewed & are unremarkable except as noted in HPI & below Physical Exam Physical Exam: The patient is awake, well developed and well nourished, normocephalic and atraumatic, lying in bed and in no acute distress. HEENT--PERRL, EOMI, mucous membranes and oropharynx mildly dry. Neck--supple. No JVD. No bruits. Heart--mildly tachycardic and regular. No murmurs, rubs or gallops. Lungs--clear bilaterally, no respiratory distress, no accessory muscle use. Abdomen--normal bowel sounds and soft. Nontender. Nondistended, no hernias or masses, no organomegaly. Extremities--left AKA Neurologic--cranial nerves II through XII grossly intact. Rheumatologic--limited exam Psychiatric--normal affect Results & Data Results & Data ([facility]) Vital Signs (Past 12 Hours) Vital Signs Temp Pulse Resp BP Pulse Ox 05/02/21 19:25 36.8 C 90 18 182/88 H 98 05/02/21 16:00 36.8 C 113 H 19 171/98 H 96 PG Care Time/CCT Total # of Minutes Spent Total Time Spent with Patient: Total time spent is greater than 50% in coordination of care (as documented) at patient's floor/unit and/or counseling patient: Coding Level of Care Code 84024 Subseq Hosp Care Lvl 3 Diagnoses Recurrent urinary tract infection N39.0 Chest pain R07.9 Sinus tachycardia R00.0 Hypertension I10 Diabetes mellitus E11.9 Diabetes mellitus type: type 2 Diabetes mellitus rodent exterminator insulin use: without usp use Diabetes mellitus complication status: with skin complications Hyperlipidemia E78.5 Multiple sclerosis G35 Neurogenic bladder N31.9 Severe obstructive sleep apnea G47.33 Failure to thrive P92.6 Failure to thrive age range: in Metabolic encephalopathy G93.41 Time Spent (min) 35 (1) Diabetes mellitus Diabetes mellitus type: type 2 Diabetes mellitus rodent exterminator insulin use: without rodent exterminator use Diabetes mellitus complication status: with skin complications (2) Failure to thrive Failure to thrive age range: in Qualified Code(s): P92.6 - Failure to thrive in
[2021-05-03] MEDS: CEFEPIME 2,000 MG in SYRINGE 0 ML IV SCH ×2 (01:46→12:34)
[2021-05-03 06:26] LABS: Basophils # (auto) 0.03 K/uL (0-0.2); Basophils % (auto) 0.4 %; Eosinophils # (auto) 0.41 K/uL (0-0.5); Eosinophils % (auto) 4.8 %; Hematocrit (blood only) 29.9 % (42-52); Hemoglobin 9.5 g/dL (14.0-18.0); Immature Granulocytes # (auto) 0.03 K/uL (0.00-0.02); Immature Granulocytes % (auto) 0.4 %; Lymphocytes # (auto) 1.54 K/uL (1.2-3.4); Lymphocytes % (auto) 18.1 %; Mean Corpuscular Hemoglobin 27.6 pg (25-34); Mean Corpuscular Hgb Conc 31.8 g/dL (32-36); Mean Corpuscular Volume 86.9 fL (80-100); Mean Platelet Volume 11.2 fL (7.4-10.4); Monocytes # (auto) 0.83 K/uL (0.11-0.59); Monocytes % (auto) 9.7 %; Neutrophils # (auto) 5.68 K/uL (1.4-6.5); Neutrophils % (auto) 66.6 %; Nucleated RBC # (auto) 0.07 K/uL (0-0); Nucleated RBC % (auto) 0.9 %; Platelet Count 245 K/uL (130-400); RDW Coefficient of Variation 13.9 % (11.5-14.5); RDW Standard Deviation 44.4 fL (36.4-46.3); Red Blood Count 3.44 M/uL (4.7-6.1); White Blood Count 8.52 K/uL (4.8-10.8)
[2021-05-03 07:06] LABS: BUN Creatinine Ratio 18.7 (10-20); Calcium 8.7 mg/dl (8.5-10.1); Creatinine Clr Calc Pharmacy 62.6 ml/min; Est GFR (African American) 93.6 ml/min; Est GFR (Non-African American) 80.8 ml/min; Potassium 3.8 mmol/L (3.5-5.1)
[2021-05-03 07:09] LABS: Albumin Globulin Ratio 0.4 (0.9-2); Bilirubin,Total 0.3 mg/dl (0.2-1); Globulin 4.5 gm/dl (2.5-4.0); Total Protein 6.5 gm/dl (6.4-8.2)
[2021-05-03] MEDS: INSULIN ASPART 100 UNITS/ML 3 ML PEN SC SCH ×4 (08:21→21:19)
[2021-05-03] MEDS: SACCHAROMYCES BOULARDII 250 MG CAP PO SCH ×2 (08:23→20:42)
[2021-05-03] MEDS: GABAPENTIN 300 MG CAP PO SCH (08:23)
[2021-05-03] MEDS: FERROUS GLUCONATE 324 MG TAB PO SCH (08:23)
[2021-05-03] MEDS: TOCOPHERYL, DL-ALPHA 400 UNITS 180 MG CAP PO SCH (08:23)
[2021-05-03] MEDS: ASCORBIC ACID 500 MG TAB PO SCH ×2 (08:23→20:42)
[2021-05-03] MEDS: SIMVASTATIN 40 MG TAB PO SCH (08:23)
[2021-05-03] MEDS: DOCUSATE SODIUM/SENNA 50/8.6MG TAB PO SCH ×2 (08:23→20:44)
[2021-05-03] MEDS: METOPROLOL SUCC 50MG EXT REL TAB PO SCH (08:24)
[2021-05-03] MEDS: PANTOprazole 40 MG TAB PO SCH (08:24)
[2021-05-03] MEDS: HEPARIN SOD 5,000 UNIT/0.5 ML VIAL SQ SCH ×2 (08:24→20:42)
[2021-05-03] MEDS: ASPIRIN 81 MG ECTAB PO SCH (08:24)
[2021-05-03] MEDS: MULTIVITAMIN TAB PO SCH (08:24)
[2021-05-03 18:35] LABS: Base Excess VBG 0.8 mEq/L; HCO3 VBG 26 mmol/L; PCO2 VBG 46 mmHg (38-50); PO2 VBG 18 mmHg; pH VBG 7.37 (7.36-7.41)
[2021-05-03 18:55] LABS: Oxygen Saturation VBG < 60.0 %
[2021-05-03] MEDS: MIRTAZAPINE TAB 15 MG TAB PO SCH (20:42)
--- NOTE | 2021-05-03 20:52 | Hospitalist Progress Note ---
Date of Service May 03, 2021 Assessment & Plan (1) Recurrent urinary tract infection: Plan: Previous UTIs have had the following bacteria: Proteus mirabilis, Proteus vulgaris, Klebsiella Aerogenes x2 Patient was given Zosyn IV from the ED, but would not be continued, since one of the Klebsiella species is resistant Placed on cefepime 1 g IV every 12h hours Follow urine culture and sensitivities: ESBL, will be placed on contact precautions. will continue cefepime. will continue above antibiotics. (2) Chest pain: Plan: Chest pain/sinus tachycardia/hypertension/history of PAT and SVT- The patient will be admitted to telemetry for serial cardiac enzymes, serial EKG's, cardiac rhythm monitoring and a 2-D echocardiogram with Dopplers. Continue metoprolol succinate, and aspirin Rehydration with IV fluids as noted Lopressor 5 mg IV every 4 hours as needed heart rate greater than 120 (3) Sinus tachycardia: Plan: HR better controlled. (4) Hypertension: Plan: See above (5) Diabetes mellitus: Plan: Med rec says patient is on Lantus 25 units subcu weekly, which will be held Hold Metformin Place on Accu-Cheks before meals and at bedtime with NovoLog coverage per scale A1C: 6.5 (6) Hyperlipidemia: Plan: Continue simvastatin 40 mg daily (7) Multiple sclerosis: Plan: Continue supportive medications (8) Neurogenic bladder: Plan: Likely source of recurrent UTIs (9) Severe obstructive sleep apnea: Plan: Placed on CPAP at bedtime (10) Failure to thrive: Plan: Will return to [facility] after hospitalization (11) Metabolic encephalopathy: Plan: Though patient has not been formally diagnosed with dementia. It is very likely given his PMH of Multiple sclerosis. This likely decreases his threshold for delirium.. Had discussion wit daughter who states patient has good days and bad days. currently patient is confused, delirium will likely linger throughout hospital stay. Admission and Anticipated Discharge Date Admission Date: April 30, 2021 Subjective Patient is resting. D/W nurse. Daughter told her that he sometimes sleeps during the day. Review of Systems Review of Systems: All systems reviewed & are unremarkable except as noted in HPI & below Physical Exam Physical Exam: The patient is awake, well developed and well nourished, normocephalic and atraumatic, lying in bed and in no acute distress. HEENT--PERRL, EOMI, mucous membranes and oropharynx mildly dry. Neck--supple. No JVD. No bruits. Heart--mildly tachycardic and regular. No murmurs, rubs or gallops. Lungs--clear bilaterally, no respiratory distress, no accessory muscle use. Abdomen--normal bowel sounds and soft. Nontender. Nondistended, no hernias or masses, no organomegaly. Extremities--left AKA Neurologic--cranial nerves II through XII grossly intact. Rheumatologic--limited exam Psychiatric--normal affect Results & Data Results & Data ([facility]) Vital Signs (Past 12 Hours) Vital Signs Temp Pulse Pulse Resp BP Pulse Ox 05/03/21 20:04 36.5 C 57 L 19 150/73 H 100 05/03/21 17:01 36.5 C 56 L 19 120/60 98 05/03/21 15:12 55 L 05/03/21 11:15 36.7 C 72 17 166/82 H 98 PG Care Time/CCT Total # of Minutes Spent Total Time Spent with Patient: Total time spent is greater than 50% in coordination of care (as documented) at patient's floor/unit and/or counseling patient: Coding Level of Care Code 78928 Subseq Hosp Care Lvl 2 Diagnoses Recurrent urinary tract infection N39.0 Chest pain R07.9 Sinus tachycardia R00.0 Hypertension I10 Diabetes mellitus E11.9 Diabetes mellitus type: type 2 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 insulin use: without correction use Diabetes mellitus complication status: with skin complications Hyperlipidemia E78.5 Multiple sclerosis G35 Neurogenic bladder N31.9 Severe obstructive sleep apnea G47.33 Failure to thrive P92.6 Failure to thrive age range: in Metabolic encephalopathy G93.41 Time Spent (min) 25 (1) Diabetes mellitus Diabetes mellitus type: type 2 Diabetes mellitus correction insulin use: without intermodal dispatcher use Diabetes mellitus complication status: with skin complications (2) Failure to thrive Failure to thrive age range: in Qualified Code(s): P92.6 - Failure to thrive in
[2021-05-04] MEDS: CEFEPIME 2,000 MG in SYRINGE 0 ML IV SCH ×2 (01:00→12:08)
[2021-05-04 09:21] LABS: Creatinine Clr Calc Pharmacy 69.2 ml/min; Est GFR (African American) 96.4 ml/min; Est GFR (Non-African American) 83.2 ml/min
[2021-05-04] MEDS: MULTIVITAMIN TAB PO SCH (09:24)
[2021-05-04] MEDS: SIMVASTATIN 40 MG TAB PO SCH (09:24)
[2021-05-04] MEDS: TOCOPHERYL, DL-ALPHA 400 UNITS 180 MG CAP PO SCH (09:24)
[2021-05-04] MEDS: METOPROLOL SUCC 50MG EXT REL TAB PO SCH (09:24)
[2021-05-04] MEDS: ASPIRIN 81 MG ECTAB PO SCH (09:25)
[2021-05-04] MEDS: SACCHAROMYCES BOULARDII 250 MG CAP PO SCH (09:25)
[2021-05-04] MEDS: PANTOprazole 40 MG TAB PO SCH (09:25)
[2021-05-04] MEDS: GABAPENTIN 300 MG CAP PO SCH (09:25)
[2021-05-04] MEDS: HEPARIN SOD 5,000 UNIT/0.5 ML VIAL SQ SCH (09:25)
[2021-05-04] MEDS: FERROUS GLUCONATE 324 MG TAB PO SCH (09:25)
[2021-05-04] MEDS: INSULIN ASPART 100 UNITS/ML 3 ML PEN SC SCH ×2 (09:27→13:15)
[2021-05-04] MEDS: DOCUSATE SODIUM/SENNA 50/8.6MG TAB PO SCH (09:35)
[2021-05-04] MEDS: ASCORBIC ACID 500 MG TAB PO SCH (11:52)
[2021-05-04] MEDS ORDERED: CEFEPIME 2,000 MG in SYRINGE 0 ML IV STA (13:15)
[2021-05-04] MEDS ORDERED: CEFEPIME 2,000 MG in SYRINGE 0 ML IV SCH (21:00)
--- NOTE | 2021-05-06 16:13 | Discharge Summary ---
Date of Service May 04, 2021 Admission HPI Per Admitting Provider The patient is an 80-year-old male with a past medical history including pressure ulcer, UTIs, failure to thrive, right great toe diabetic foot ulcer, severe obstructive sleep apnea, LVH, aortic valve sclerosis, PAT, iron deficiency anemia, left AKA, chronic respiratory failure, diabetes mellitus, tachycardia, sepsis, Sirs, uncontrolled diabetes mellitus, peripheral neuropathy, hyperlipidemia, hypertension, multiple sclerosis, neurogenic bladder, SVT, vitamin B12 deficiency and vitamin D deficiency. The patient had a self-limited 90-minute episode of substernal chest discomfort, reporting that he is never had this symptoms before. Due to underlying dementia, patient is not a good historian. Principal Diagnosis UTI Discharge Exam The patient is awake, well developed and well nourished, normocephalic and atraumatic, lying in bed and in no acute distress. HEENT--PERRL, EOMI, mucous membranes and oropharynx mildly dry. Neck--supple. No JVD. No bruits. Heart--mildly tachycardic and regular. No murmurs, rubs or gallops. Lungs--clear bilaterally, no respiratory distress, no accessory muscle use. Abdomen--normal bowel sounds and soft. Nontender. Nondistended, no hernias or masses, no organomegaly. Extremities--left AKA Neurologic--cranial nerves II through XII grossly intact. Rheumatologic--limited exam Psychiatric--normal affect Discharge Data Allergies Allergy/AdvReac Type Severity Reaction Status Date / Time Cipro Allergy Mild HIVES Verified 02/20/18 11:35 ciprofloxacin Allergy Mild HIVES Verified 09/28/20 15:26 Consultations 04/30/21 04:47 ED Decision to Admit Stat Hospital Course (1) Recurrent urinary tract infection: Previous UTIs have had the following bacteria: Proteus mirabilis, Proteus vulgaris, Klebsiella Aerogenes x2 Patient was given Zosyn IV from the ED, but would not be continued, since one of the Klebsiella species is resistant Placed on cefepime 1 g IV every 12h hours Follow urine culture and sensitivities: ESBL, will be placed on contact precautions. will discharge on cefepime. will continue above antibiotics for 3 week course. Hernandez catheter was exchanged day prior to discharge. (2) Chest pain: Chest pain/sinus tachycardia/hypertension/history of PAT and SVT- The patient will be admitted to telemetry for serial cardiac enzymes, serial EKG's, cardiac rhythm monitoring and a 2-D echocardiogram with Dopplers. Continue metoprolol succinate, and aspirin Rehydration with IV fluids as noted Lopressor 5 mg IV every 4 hours as needed heart rate greater than 120 (3) Sinus tachycardia: HR better controlled. (4) Hypertension: See above (5) Diabetes mellitus: Med rec says patient is on Lantus 25 units subcu weekly, which will be held Hold Metformin Place on Accu-Cheks before meals and at bedtime with NovoLog coverage per scale A1C: 6.5 (6) Hyperlipidemia: Continue simvastatin 40 mg daily (7) Multiple sclerosis: Continue supportive medications (8) Neurogenic bladder: Likely source of recurrent UTIs (9) Severe obstructive sleep apnea: Placed on CPAP at bedtime (10) Failure to thrive: Will return to [facility] after hospitalization (11) Metabolic encephalopathy: Though patient has not been formally diagnosed with dementia. It is very likely given his PMH of Multiple sclerosis. This likely decreases his threshold for delirium.. Had discussion wit daughter who states patient has good days and bad days. currently patient is confused, but improved. delirium will likely linger throughout hospital stay. Total Time Total Time Spent Total Time Spent (In Minutes): 32 Discharge Plan Discharge Items Patient Disposition: Transfer Shelter Fac Reason For Visit: UTI, CHEST PAIN, TACHYCARDIA Discharge Diagnosis: UTI Activity: Resume your previous activity Non-emergency contact: Primary Care Provider Call non-emergency contact if: you have any medication questions Follow-up/Referrals: [facility] [Primary Care Provider] - Diet: Carb Consistent or DM2 Addtl Attending Provider Instructions: You have been hospitalized for an acute medical problem. During your stay at [facility], we have made an effort to correct the problem that brought you to the hospital while keeping you as comfortable as possible. Medications were used to bring your condition under control and your discharge instructions will include directions for any medications you should take after leaving the hospital. Please make sure you see your Primary Care Provider as part of your follow up plan. You will require IV antibiotics to complete 3 weeks of treatment. Will need 18 more days of treatment (54 doses) of cefepime Pending Studies at Discharge: No Stand-Alone Forms: My [facility] [employer], Smoking Cessation Skilled Items Patient informed of condition?: No DNR: Yes Discharge Level of Care: Skilled Communicable Disease: Yes Discharge Prognosis: Stable Lines: None Urinary Catheter: Yes Medications and DC Order Prescriptions: New cefepime 2 gram recon soln 2 g IV Q8H 18 Days Qty: 53 RF: 0 Continued multivitamin Tablet 1 tab PO DAILY RF: 0 acetaminophen [Tylenol] 325 mg Tablet 650 mg PO Q6 PRN (Reason: Fever Or Pain) RF: 0 Lantus U-100 Insulin 100 unit/mL solution 25 unit SUBCUT DAILY RF: 0 cyanocobalamin (vitamin B-12) [Vitamin B-12] 2,500 mcg Tablet, Sublingual 2,500 mcg PO DAILY RF: 0 metoprolol succinate 50 mg tablet extended release 24 hr 50 mg PO DAILY RF: 0 sennosides-docusate sodium [Senokot-S] 8.6-50 mg Tablet 1 tab-cap PO BID RF: 0 aspirin 81 mg Tablet,Delayed Release (Dr/Ec) 81 mg PO DAILY RF: 0 simvastatin 40 mg tablet 40 mg PO DAILY RF: 0 omeprazole 10 mg capsule,delayed release(DR/EC) 10 mg PO DAILY RF: 0 magnesium hydroxide [Milk of Magnesia] 400 mg/5 mL Suspension 30 mg PO DAILY PRN (Reason: Constipation) RF: 0 ascorbic acid (vitamin C) [Vitamin C] 500 mg Tablet 500 mg PO BID RF: 0 ferrous gluconate 240 mg (27 mg iron) Tablet 240 mg PO DAILY RF: 0 vitamin E 400 unit Tablet 400 mg PO DAILY RF: 0 gabapentin 300 mg capsule 300 mg PO DAILY RF: 0 ergocalciferol (vitamin D2) [Vitamin D2] 1,250 mcg (50,000 unit) capsule 50,000 unit PO WK RF: 0 insulin lispro [Humalog U-100 Insulin] 100 unit/mL Solution 1 sliding scale dose SUBCUT USEASDIRECTD RF: 0 metformin 500 mg tablet extended release 24 hr 500 mg PO QID RF: 0 Saccharomyces boulardii [Florastor] 250 mg Capsule 250 mg PO BID RF: 0 mirtazapine 7.5 mg tablet 7.5 mg PO HS RF: 0 Protein Liquid 60 ml PO DAILY RF: 0 Discharge Orders: Discharge Order (Routine); Ordered 05/04/21 Ordered By: Petr Urban Admission Data Admit Date/Time: 04/30/21 05:43 Attending Provider: Petr Urban Admit Provider: Braxton Raymond [facility] Other Providers: Braxton Raymond ; [facility] Other Interventions: Discharge Summary Assessment (RN) Last Done: 05/04/21 13:49 Coding Level of Care Code D/C DAY MANAGEMENT >30 MINS Diagnoses Recurrent urinary tract infection N39.0 Chest pain R07.9 Sinus tachycardia R00.0 Hypertension I10 Diabetes mellitus E11.9 Diabetes mellitus complication status: with skin complications 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
== END 2021-05-04 15:20 | DRG 689 ==
LOC: ED 00:56 → 2S 05:43 → SUATTDRO 05:43 → 2S 10:41